=== PATIENT | female | born 1965 | race Caucasian/White ===

== ENCOUNTER → 2016-10-19 | Outpatient (REF) | payer BC ==
[~2016-10-19] MED LIST: ALLE25CA OR; CALCCHW12 OR; CIPR25SS PO; GLUC1000 OR; LEVA250T OR; LIPI10TA OR; MULTIVIT OR; PRIL20CA OR; PYRI200T OR; VICO5TAB OR; [UNRECOGNIZED DRUG - OTHER] OR; victoza SUBQ
[2016-10-19 11:33] LABS: ALBUMIN 3.9 GM/DL (3.2-5.2); ALBUMIN/GLOBULIN RATIO 1.08 (1.00-1.93); ALKALINE PHOSPHATASE 88 U/L (45-117); ALT/SGPT 36 U/L (12-78); ANION GAP 9 MEQ/L (8-16); AST/SGOT 29 U/L (15-37); BILIRUBIN,TOTAL 0.4 MG/DL (0.2-1.0); BLOOD UREA NITROGEN 18 MG/DL (7-18); CALCIUM LEVEL 9.2 MG/DL (8.5-10.1); CARBON DIOXIDE LEVEL 30 MEQ/L (21-32); CHLORIDE LEVEL 104 MEQ/L (98-107); CHOLESTEROL LEVEL 166 MG/DL (<200); GLOMERULAR FILTRATION RATE > 60.0 (>51); GLUCOSE, FASTING 111 MG/DL (70-105); POTASSIUM SERUM 3.9 MEQ/L (3.5-5.1); SODIUM LEVEL 143 MEQ/L (136-145); TOTAL PROTEIN 7.5 GM/DL (6.4-8.2); TRIGLYCERIDES LEVEL 73 MG/DL (<150)
== END ==
LOC: M LABDRAW1 10:26
PROVIDERS: ATTEND Internal Medicine
DX: E11.9 Type 2 diabetes mellitus without complications (principal); E78.00 Pure hypercholesterolemia, unspecified

== ENCOUNTER → 2016-11-17 | Outpatient (CLI) | payer OTHER ==
--- NOTE | 2016-11-17 15:18 | REPMRS ---
Patient History The patient states she has not had a clinical breast exam in over a year. Patient is postmenopausal. Family history of colorectal cancer in father at age 50. Taking unspecified hormones for 8 years. Digital Woman Screen Mammo: November 17, 2016 - Exam #: [id number] Bilateral CC and MLO view(s) were taken. Technologist: Lisa Haque, Technologist Prior study comparison: November 12, 2015, digital woman screen mammo performed at [facility]. November 06, 2014, digital woman screen mammo performed at [facility]. November 01, 2013, digital woman screen mammo performed at [facility]. FINDINGS: The breast tissue is almost entirely fat. There has been no change in the appearance of the mammogram from the prior studies. There is no interval development of dominant mass, architectural distortion, or clustered microcalcification typical of malignancy. ASSESSMENT: BI-RADS/ACR category 1 mammogram. Negative. Recommendation Routine screening mammogram of both breasts in 1 year (for women over age 40). This mammogram was interpreted with the aid of an FDA-approved computer-aided dectection system. Electronically Signed By: Redd Hercules MD 11/17/16 1839
== END ==
LOC: M WHC 13:30
PROVIDERS: ATTEND Internal Medicine
DX: Z12.31 Encounter for screening mammogram for malignant neoplasm of breast (principal); E65 Localized adiposity; Z78.0 Asymptomatic menopausal state; Z92.0 Personal history of contraception; Z80.0 Family history of malignant neoplasm of digestive organs

== ENCOUNTER → 2017-04-06 | Outpatient (REF) | payer OTHER ==
[2017-04-06 15:58] LABS: ALBUMIN 4.2 GM/DL (3.2-5.2); ALBUMIN/GLOBULIN RATIO 1.31 (1.00-1.93); ALKALINE PHOSPHATASE 82 U/L (45-117); ALT/SGPT 30 U/L (12-78); ANION GAP 7 MEQ/L (8-16); AST/SGOT 23 U/L (15-37); BILIRUBIN,TOTAL 0.4 MG/DL (0.2-1.0); BLOOD UREA NITROGEN 18 MG/DL (7-18); CALCIUM LEVEL 9.2 MG/DL (8.5-10.1); CARBON DIOXIDE LEVEL 31 MEQ/L (21-32); CHLORIDE LEVEL 102 MEQ/L (98-107); CREATININE FOR GFR 0.57 MG/DL (0.55-1.02); GLOMERULAR FILTRATION RATE > 60.0 (>51); GLUCOSE, FASTING 112 MG/DL (70-105); POTASSIUM SERUM 4.3 MEQ/L (3.5-5.1); SODIUM LEVEL 140 MEQ/L (136-145); TOTAL PROTEIN 7.4 GM/DL (6.4-8.2)
== END ==
LOC: M LABDRAW1 10:53
PROVIDERS: ATTEND Internal Medicine
DX: E11.9 Type 2 diabetes mellitus without complications (principal)

== ENCOUNTER → 2017-06-27 | Outpatient (REF) | payer OTHER ==
[~2017-06-27] MED LIST changes: +CALCCHW19 PO; +GABA-283 PO; +PERC5TAB12 PO; +VITA100L PO
== END ==
LOC: M SFHCWAGY 13:11
PROVIDERS: ATTEND Nurse Practitioner Family
DX: R30.0 Dysuria (principal); N94.9 Unspecified condition associated with female genital organs and menstrual cycle

== ENCOUNTER 2017-07-01 20:05 | Emergency (ER) | payer OTHER ==
[~2017-07-01] VITALS: Ht 167.6 cm; Wt 84.1 kg
[~2017-07-01 20:05] MED LIST changes: -CALCCHW19 PO; -GABA-283 PO; -PERC5TAB12 PO; -VITA100L PO
[2017-07-01] MEDS ORDERED: CALCCHW19 PO (20:19)
[2017-07-01] MEDS ORDERED: GABA-283 PO (20:19)
[2017-07-01] MEDS ORDERED: VITA100L PO (20:19)
[2017-07-01] MEDS ORDERED: PERCOCET 5MG/325MG TAB PO ONE ×2 (21:45→22:00)
[2017-07-01] MEDS ORDERED: PERC5TAB12 PO (21:51)
[2017-07-01 21:58] VITALS: BP 127/78
--- NOTE | 2017-07-02 08:58 | REP ---
LEFT ELBOW, FOUR VIEWS: HISTORY: Trauma. There is a nondisplaced fracture of the head of the radius. There is no dislocation. A joint effusion is present. IMPRESSION: Nondisplaced fracture of the head of the radius. Signed by Antione Ruggiero MD 07/02/2017 09:29 A
== END 2017-07-01 22:14 | disposition home or self-care (01) ==
LOC: M ED 20:05
DX: S52.125A Nondisplaced fracture of head of left radius, initial encounter for closed fracture (principal); W01.0XXA Fall on same level from slipping, tripping and stumbling without subsequent striking against object, initial encounter; Y92.89 Other specified places as the place of occurrence of the external cause; Y93.01 Activity, walking, marching and hiking; Y99.8 Other external cause status; G61.0 Guillain-Barre syndrome; K58.9 Irritable bowel syndrome, unspecified; I47.1 Supraventricular tachycardia; E11.9 Type 2 diabetes mellitus without complications; M54.9 Dorsalgia, unspecified; Z79.899 Other long term (current) drug therapy; Z88.1 Allergy status to other antibiotic agents; Z88.8 Allergy status to other drugs, medicaments and biological substances

== ENCOUNTER → 2017-10-12 | Outpatient (REF) | payer OTHER ==
[2017-10-12 12:27] LABS: HEMATOCRIT 39.2 % (36.0-47.0); HEMOGLOBIN 12.8 g/dl (12.0-16.0); MEAN CORPUSCULAR HEMOGLOBIN 29.5 pg (27.0-33.0); MEAN CORPUSCULAR HGB CONC 32.7 g/dl (32.0-36.5); MEAN CORPUSCULAR VOLUME 90.3 fl (80.0-96.0); PLATELET COUNT, AUTOMATED 343 10^3/uL (150-450); RED BLOOD COUNT 4.34 10^6/uL (4.00-5.40); RED CELL DISTRIBUTION WIDTH 12.6 % (11.5-14.5)
[2017-10-12 12:27] LABS: HEMATOCRIT 39.1 % (36.0-47.0)
[2017-10-12 12:40] LABS: ALBUMIN 4.3 GM/DL (3.2-5.2); ALBUMIN/GLOBULIN RATIO 1.34 (1.00-1.93); ALKALINE PHOSPHATASE 71 U/L (45-117); ALT/SGPT 30 U/L (12-78); ANION GAP 6 MEQ/L (8-16); AST/SGOT 27 U/L (7-37); BILIRUBIN,TOTAL 0.3 MG/DL (0.2-1.0); BLOOD UREA NITROGEN 22 MG/DL (7-18); CALCIUM LEVEL 9.9 MG/DL (8.5-10.1); CARBON DIOXIDE LEVEL 32 MEQ/L (21-32); CHLORIDE LEVEL 104 MEQ/L (98-107); CHOLESTEROL LEVEL 178 MG/DL (<200); GLOMERULAR FILTRATION RATE > 60.0 (>51); GLUCOSE, FASTING 110 MG/DL (70-100); HDL CHOLESTEROL 62 MG/DL (>40); IRON (FE) 62 UG/DL (50-170); LDL CHOLESTEROL 99.6 MG/DL (<100); NON-HDL-C 116 MG/DL; PERCENT SATURATION 15.4 % (13.2-45.0); POTASSIUM SERUM 4.2 MEQ/L (3.5-5.1); SODIUM LEVEL 142 MEQ/L (136-145); TOTAL IRON BINDING CAPACITY 403 UG/DL (250-450); TOTAL PROTEIN 7.5 GM/DL (6.4-8.2); TRIGLYCERIDES LEVEL 82 MG/DL (<150)
[2017-10-12 12:44] LABS: VITAMIN B12 LEVEL 1702 PG/ML (247-911)
[2017-10-12 13:23] LABS: ESTIMATED AVERAGE GLUCOSE 140 MG/DL (60-110); HEMOGLOBIN A1c 6.5 %
[2017-10-13 13:00] LABS: PRETREATED FOLATE FOR RBCFOL 12.9 NG/ML; RBC FOLATE 692.8 NG/ML (280-791)
== END ==
LOC: M LABDRAW1 11:52
DX: Z98.84 Bariatric surgery status (principal); E11.9 Type 2 diabetes mellitus without complications; Z11.59 Encounter for screening for other viral diseases; I47.1 Supraventricular tachycardia; K21.9 Gastro-esophageal reflux disease without esophagitis

== ENCOUNTER → 2017-11-23 | Outpatient (REF) | LOC: M WHC 08:13 | DX: Z12.31 Encounter for screening mammogram for malignant neoplasm of breast (principal); Z78.0 Asymptomatic menopausal state; Z79.890 Hormone replacement therapy ==

== ENCOUNTER → 2018-04-17 | Outpatient (REF) | payer OTHER, BC ==
[2018-04-17 17:31] LABS: ALBUMIN 3.9 GM/DL (3.2-5.2); ALBUMIN/GLOBULIN RATIO 1.18 (1.00-1.93); ALKALINE PHOSPHATASE 79 U/L (45-117); ALT/SGPT 27 U/L (12-78); ANION GAP 9 MEQ/L (8-16); AST/SGOT 22 U/L (7-37); BILIRUBIN,TOTAL 0.3 MG/DL (0.2-1.0); BLOOD UREA NITROGEN 16 MG/DL (7-18); CALCIUM LEVEL 9.4 MG/DL (8.5-10.1); CARBON DIOXIDE LEVEL 29 MEQ/L (21-32); CHLORIDE LEVEL 104 MEQ/L (98-107); CREATININE FOR GFR 0.48 MG/DL (0.55-1.30); GLOMERULAR FILTRATION RATE > 60.0 (>51); GLUCOSE, FASTING 109 MG/DL (70-100); MAGNESIUM LEVEL 1.9 MG/DL (1.8-2.4); SODIUM LEVEL 142 MEQ/L (136-145); TOTAL PROTEIN 7.2 GM/DL (6.4-8.2)
[2018-04-17 17:53] LABS: CREATININE, URINE 65.3 MG/DL; MALB URINE SIEMENS 6.8 MG/L
[2018-04-17 17:54] LABS: MAU/CREAT RATIO 10.5 MCG/MG (0.0-30.0)
[2018-04-17 18:09] LABS: ESTIMATED AVERAGE GLUCOSE 134 MG/DL (60-110); HEMOGLOBIN A1c 6.3 %
== END ==
LOC: M LABDRAW1 15:58
DX: E11.9 Type 2 diabetes mellitus without complications (principal); N20.0 Calculus of kidney

== ENCOUNTER → 2018-05-08 | Outpatient (CLI) | payer BC | LOC: M RAD 08:58 | DX: M51.36 Other intervertebral disc degeneration, lumbar region (principal); M50.223 Other cervical disc displacement at C6-C7 level; M48.061 Spinal stenosis, lumbar region without neurogenic claudication; M50.222 Other cervical disc displacement at C5-C6 level; M47.22 Other spondylosis with radiculopathy, cervical region | CPT/HCPCS: 72141 ==

== ENCOUNTER → 2018-09-17 | Outpatient (CLI) | payer BC ==
[~2018-09-17] MED LIST changes: +CALCCHW19 PO; +GABA-845 PO; +PERC5TAB12 PO; +VITA100L PO
--- NOTE | 2018-09-18 06:54 | REP ---
Clinical: Shortness of breath . Comparison: 01/14/2016 . Technique: PA and lateral. Findings: The mediastinum and cardiac silhouette are normal. The lung ace are clear and without acute consolidation, effusion, or pneumothorax. The skeletal structures are intact and normal. Impression: 1. No acute cardiopulmonary process. Electronically Signed by Bethel Ramírez MD 09/18/2018 06:46 A
== END ==
LOC: M ADAMS 18:53
PROVIDERS: ATTEND Physician Assistant
DX: R06.02 Shortness of breath (principal)

== ENCOUNTER → 2018-11-22 | Outpatient (REF) | payer BC ==
[2018-11-22 18:10] LABS: HEMATOCRIT 39.8 % (36.0-47.0); HEMOGLOBIN 12.5 g/dl (12.0-15.5); MEAN CORPUSCULAR HEMOGLOBIN 29.4 pg (27.0-33.0); MEAN CORPUSCULAR HGB CONC 31.4 g/dl (32.0-36.5); MEAN CORPUSCULAR VOLUME 93.6 fl (80.0-96.0); PLATELET COUNT, AUTOMATED 416 10^3/uL (150-450); RED BLOOD COUNT 4.25 10^6/uL (4.00-5.40); WHITE BLOOD COUNT 9.1 10^3/uL (4.0-10.0)
[2018-11-22 18:11] LABS: ALBUMIN 4.3 GM/DL (3.2-5.2); ALT/SGPT 28 U/L (12-78); BILIRUBIN,TOTAL 0.3 MG/DL (0.2-1.0); BLOOD UREA NITROGEN 23 MG/DL (7-18); CALCIUM LEVEL 9.6 MG/DL (8.5-10.1); CARBON DIOXIDE LEVEL 31 MEQ/L (21-32); CHLORIDE LEVEL 106 MEQ/L (98-107); CHOLESTEROL LEVEL 190 MG/DL (<200); CHOLESTEROL RISK RATIO 3.454 (<5); CREATININE FOR GFR 0.59 MG/DL (0.55-1.30); GLOMERULAR FILTRATION RATE > 60.0 (>51); GLUCOSE, FASTING 123 MG/DL (70-100); HDL CHOLESTEROL 55 MG/DL (>40); LDL CHOLESTEROL 109.2 MG/DL (<100); MAGNESIUM LEVEL 1.9 MG/DL (1.8-2.4); NON-HDL-C 135 MG/DL; POTASSIUM SERUM 4.5 MEQ/L (3.5-5.1); SODIUM LEVEL 142 MEQ/L (136-145); TOTAL PROTEIN 7.5 GM/DL (6.4-8.2); TRIGLYCERIDES LEVEL 129 MG/DL (<150)
== END ==
LOC: M SFHCADAM 13:00
PROVIDERS: ATTEND Internal Medicine
DX: M54.5 Low back pain (principal); Z98.84 Bariatric surgery status; E11.9 Type 2 diabetes mellitus without complications; E78.00 Pure hypercholesterolemia, unspecified; I47.1 Supraventricular tachycardia; Z79.890 Hormone replacement therapy

== ENCOUNTER → 2018-12-04 | Outpatient (CLI) | payer BC ==
--- NOTE | 2018-12-04 09:28 | REPMRS ---
Patient History The patient states she has not had a clinical breast exam in over a year. Patient is postmenopausal. Family history of colorectal cancer at age 50 in father. Taking unspecified hormones for 10 years. 3D TOMOSYNTHESIS WAS PERFORMED. Digital Woman Screen Mammo: December 04, 2018 - Exam #: [id number] Bilateral CC and MLO view(s) were taken. Technologist: Lisa Haque, Technologist Prior study comparison: November 23, 2017, digital woman screen mammo performed at [facility]. November 17, 2016, digital woman screen mammo performed at [facility] [employer]. FINDINGS: There are scattered fibroglandular densities. There has been no change in the appearance of the mammogram from the prior studies. There is a mild amount of residual fibroglandular tissue which is fairly symmetric. There is no interval development of dominant mass, architectural distortion, or clustered microcalcification suggestive of malignancy. Assessment: BI-RADS/ACR category 1 mammogram. Negative Mammogram. Recommendation Routine screening mammogram in 1 year (for women over age 40). This mammogram was interpreted with the aid of an FDA-approved computer-aided dectection system. Electronically Signed By: Alan Doran MD 12/04/18 0927
== END ==
LOC: M WHC 06:20
PROVIDERS: ATTEND Internal Medicine
DX: Z12.31 Encounter for screening mammogram for malignant neoplasm of breast (principal); Z78.0 Asymptomatic menopausal state; Z79.890 Hormone replacement therapy

== ENCOUNTER → 2019-01-30 | Outpatient (CLI) | payer BC ==
--- NOTE | 2019-01-30 14:30 | REP ---
Clinical: Right lower extremity/calf pain . Technique: Doran scale and color Doppler evaluation using linear high frequency transducer. Findings: Ultrasound examination of the right lower extremity deep venous structures from the common femoral vein to the popliteal vein demonstrates normal compressibility flow and wave patterns in response to respiration and augmentation. There is no evidence for deep venous thrombosis. Incidental partial duplication to the mid superficial femoral vein. Impression: No evidence for deep venous thrombosis. Electronically Signed by Bethel Ramírez MD 01/30/2019 02:22 P
== END ==
LOC: M RAD 13:02
PROVIDERS: ATTEND Nurse Practitioner Adult Health
DX: M79.661 Pain in right lower leg (principal)

== ENCOUNTER → 2019-05-28 | Outpatient (REF) | payer BC ==
[2019-05-28 13:07] LABS: HEMATOCRIT 42.4 % (36.0-47.0)
[2019-05-28 13:17] LABS: APPEARANCE, URINE HAZY (CLEAR); BACTERIA, URINE AUTO NEGATIVE (NEGATIVE); BILIRUBIN, URINE AUTO NEGATIVE (NEGATIVE); BLOOD, URINE BLOOD NEGATIVE (NEGATIVE); COLOR, URINE YELLOW (YELLOW); GLUCOSE, URINE (UA) AUTO NEGATIVE (NEGATIVE); KETONE, URINE AUTO NEGATIVE (NEGATIVE); LEUKOCYTE ESTERASE, URINE AUTO NEGATIVE (NEGATIVE); MUCUS, URINE SMALL (NEGATIVE); NITRITE, URINE AUTO NEGATIVE (NEGATIVE); PROTEIN, URINE AUTO NEGATIVE (NEGATIVE); RBC, URINE AUTO 1 /HPF (0-3); SPECIFIC GRAVITY URINE AUTO 1.031 (1.002-1.035); SQUAMOUS EPITHELIAL CELL UR AU 2 /HPF (0-6); WBC, URINE AUTO 2 /HPF (0-3)
[2019-05-28 13:45] LABS: ALBUMIN 3.9 GM/DL (3.2-5.2); ALT/SGPT 24 U/L (12-78); BILIRUBIN,TOTAL 0.3 MG/DL (0.2-1.0); BLOOD UREA NITROGEN 14 MG/DL (7-18); CALCIUM LEVEL 9.3 MG/DL (8.5-10.1); CARBON DIOXIDE LEVEL 31 MEQ/L (21-32); CHLORIDE LEVEL 107 MEQ/L (98-107); CHOLESTEROL LEVEL 206 MG/DL (<200); CHOLESTEROL RISK RATIO 3.551 (<5); CREATININE FOR GFR 0.62 MG/DL (0.55-1.30); GLOMERULAR FILTRATION RATE > 60.0 (>51); GLUCOSE, FASTING 127 MG/DL (70-100); HDL CHOLESTEROL 58 MG/DL (>40); LDL CHOLESTEROL 117 MG/DL (<100); MAGNESIUM LEVEL 1.9 MG/DL (1.8-2.4); NON-HDL-C 148 MG/DL; POTASSIUM SERUM 4.3 MEQ/L (3.5-5.1); SODIUM LEVEL 141 MEQ/L (136-145); THYROID STIMULATING HORMONE 0.907 uIU/ML (0.358-3.740); TOTAL PROTEIN 7.5 GM/DL (6.4-8.2); TRIGLYCERIDES LEVEL 154 MG/DL (<150)
[2019-05-28 13:46] LABS: VITAMIN B12 LEVEL 1405 PG/ML (247-911)
[2019-05-28 13:51] LABS: MALB URINE SIEMENS 23.6 MG/L; MAU/CREAT RATIO 14.3 MCG/MG (0.0-30.0)
[2019-05-28 14:30] LABS: HEMOGLOBIN A1c 7.3 %
== END ==
LOC: M SFHCADAM 10:46
PROVIDERS: ATTEND Internal Medicine
DX: E11.9 Type 2 diabetes mellitus without complications (principal); E78.00 Pure hypercholesterolemia, unspecified; Z98.84 Bariatric surgery status; N20.0 Calculus of kidney

== ENCOUNTER → 2019-11-14 | Outpatient (CLI) | payer OTHER | LOC: M LABSMTC 10:25 | PROVIDERS: ATTEND Family Medicine | DX: Z11.59 Encounter for screening for other viral diseases (principal); Z20.828 Contact with and (suspected) exposure to other viral communicable diseases ==

== ENCOUNTER → 2019-11-28 | Outpatient (REF) | payer OTHER ==
[2019-11-28 18:20] LABS: APPEARANCE, URINE CLEAR (CLEAR); BACTERIA, URINE AUTO NEGATIVE (NEGATIVE); BILIRUBIN, URINE AUTO NEGATIVE (NEGATIVE); BLOOD, URINE BLOOD NEGATIVE (NEGATIVE); COLOR, URINE YELLOW (YELLOW); GLUCOSE, URINE (UA) AUTO NEGATIVE (NEGATIVE); KETONE, URINE AUTO NEGATIVE (NEGATIVE); LEUKOCYTE ESTERASE, URINE AUTO NEGATIVE (NEGATIVE); NITRITE, URINE AUTO NEGATIVE (NEGATIVE); PROTEIN, URINE AUTO NEGATIVE (NEGATIVE); RBC, URINE AUTO 6 /HPF (0-3); SQUAMOUS EPITHELIAL CELL UR AU 1 /HPF (0-6); UROBILINOGEN, URINE AUTO 0.2 mg/dL (0.0-2.0); WBC, URINE AUTO 2 /HPF (0-3)
== END ==
LOC: M SFHCPLAZ 17:03
PROVIDERS: ATTEND Nurse Practitioner Family
DX: R10.9 Unspecified abdominal pain (principal)

== ENCOUNTER → 2019-11-28 | Outpatient (CLI) | payer OTHER ==
--- NOTE | 2019-11-28 14:06 | REP ---
CT ABDOMEN AND PELVIS WITHOUT CONTRAST: CT abdomen and pelvis performed without oral or IV contrast. Sagittal and coronal reconstruction images are performed. Visualized lung bases are clear. The liver is grossly unremarkable. The spleen is normal in size. Adrenal glands are normal. The pancreas is grossly unremarkable. Multiple splenules are seen in the splenic hilum. Two punctate calcifications are seen in the right renal collecting system without evidence of right-sided hydroureteronephrosis. There is a 4 mm calculus in the proximal left ureter causing a moderate degree of left hydronephrosis. In addition, there is a 3 mm calculus in the lower pole of the left renal collecting system. There is no abdominal aortic aneurysm. There is no adenopathy. There is no free air or free fluid. There is no bowel wall thickening. There is evidence of prior gastric surgery. The appendix is normal. No pelvic mass is seen status post hysterectomy. Urinary bladder is grossly unremarkable. IMPRESSION: There is a 4 mm calculus in the proximal left ureter causing moderate left hydronephrosis. There are tiny intrarenal calculi bilaterally. No right hydronephrosis. Electronically Signed by Alan Doran MD 11/28/2019 02:43 P
== END ==
LOC: M RAD 12:16
PROVIDERS: ATTEND Nurse Practitioner Family
DX: R10.32 Left lower quadrant pain (principal); N13.1 Hydronephrosis with ureteral stricture, not elsewhere classified; N20.0 Calculus of kidney

== ENCOUNTER → 2019-12-13 | Outpatient (CLI) | payer OTHER ==
[~2019-12-13] MED LIST changes: +ATOR1TAB19 PO; +BACIOIN23 OP; +CVS1CAP5 PO; +ESTR1TAB3 PO; +METF750T36 PO; +MULTCAP PO; +NORC1TAB7 PO; +OMEP10CASR PO; +TIZA4TAB4 PO; +VICO10TA11 PO; +VITA500T40 PO
[2019-12-13 12:10] LABS: HEMATOCRIT 37.3 % (36.0-47.0); HEMOGLOBIN 11.8 g/dl (12.0-15.5); MEAN CORPUSCULAR HEMOGLOBIN 28.7 pg (27.0-33.0); MEAN CORPUSCULAR HGB CONC 31.6 g/dl (32.0-36.5); MEAN CORPUSCULAR VOLUME 90.8 fl (80.0-96.0); PLATELET COUNT, AUTOMATED 425 10^3/uL (150-450); RED BLOOD COUNT 4.11 10^6/uL (4.00-5.40); WHITE BLOOD COUNT 8.6 10^3/uL (4.0-10.0)
[2019-12-13 12:22] LABS: INR 0.95; PROTHROMBIN TIME 12.4 SECONDS (11.8-14.0)
[2019-12-13 12:23] LABS: PARTIAL THROMBOPLASTIN TIME 28.2 SECONDS (25.0-38.4)
[2019-12-13 12:28] LABS: BLOOD UREA NITROGEN 19 MG/DL (7-18); CALCIUM LEVEL 9.4 MG/DL (8.5-10.1); CARBON DIOXIDE LEVEL 28 MEQ/L (21-32); CHLORIDE LEVEL 106 MEQ/L (98-107); CREATININE FOR GFR 0.51 MG/DL (0.55-1.30); GLOMERULAR FILTRATION RATE > 60.0 (>51); GLUCOSE, FASTING 106 MG/DL (70-100); POTASSIUM SERUM 4.1 MEQ/L (3.5-5.1); SODIUM LEVEL 141 MEQ/L (136-145)
--- NOTE | 2019-12-13 13:20 | REP ---
TWO-VIEW CHEST: REASON: Preoperative evaluation. COMPARISON: 01/14/2016 FINDINGS: The superior mediastinal structures are midline. The cardiac silhouette is unremarkable in size, shape, and position. The diaphragmatic surfaces of the lungs are regular, and the costophrenic angles are clear. The pulmonary ace are clear. The imaged osseous structures are intact. IMPRESSION: There is no acute cardiopulmonary disease. No change from the prior exam. Electronically Signed by Ronnie Rodriguez DO 12/13/2019 01:31 P
--- NOTE | 2019-12-13 20:12 | ECGEPIP ---
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
== END ==
LOC: M LAB 11:10
PROVIDERS: ATTEND Nurse Practitioner Women's Health
DX: N13.2 Hydronephrosis with renal and ureteral calculous obstruction (principal)

== ENCOUNTER → 2019-12-16 | Outpatient (CLI) | payer OTHER | LOC: M LABSMTC 11:49 | PROVIDERS: ATTEND Anesthesiology | DX: Z01.818 Encounter for other preprocedural examination (principal); Z11.59 Encounter for screening for other viral diseases | CPT/HCPCS: C9803; U0003 ==

== ENCOUNTER 2019-12-19 07:33 | Day surgery (SDC) | payer OTHER ==
[~2019-12-19] VITALS: Ht 165.1 cm; Wt 79.4 kg
[~2019-12-19 07:33] MED LIST changes: -BACIOIN23 OP; +LR 1,000 ML IV ONE; -NORC1TAB7 PO; -TIZA4TAB4 PO; +ceFAZolin SOD 2 GM in IV 1 EA IV ONE
[2019-12-19] MEDS ORDERED: fentaNYL 100 MCG/2 ML INJECTION (J3010) As Ordered ONE (07:47)
[2019-12-19] MEDS ORDERED: MIDAZOLAM INJ 2MG/2ML VIAL (J2250 PER 1MG) As Ordered ONE (07:47)
[2019-12-19] MEDS ORDERED: propofoL 200 MG/20 ML VIAL As Ordered ONE (07:49)
[2019-12-19] MEDS ORDERED: ONDANSETRON 4MG/2ML VIAL As Ordered ONE ×2 (07:49→10:35)
[2019-12-19] MEDS ORDERED: LIDOCAINE 2% 100MG/5ML SDV (FOR ANES.) As Ordered ONE (07:49)
[2019-12-19] MEDS ORDERED: dexameTHASONE 4 MG/ML 1ML VIAL (J1100 PER 1MG) As Ordered ONE (07:49)
[2019-12-19] MEDS ORDERED: TIZA4TAB4 PO (08:03)
[2019-12-19] MEDS ORDERED: CONRAY-60 60% 50ML VIAL (Q9961) As Ordered ONE (08:57)
[2019-12-19] MEDS ORDERED: ACETAMINOPHEN 1000MG 100ML IV BTL (OFIRMEV) (J0131 PER 10MG) As Ordered ONE (09:46)
--- NOTE | 2019-12-19 10:26 | REP ---
RETROGRADE PYELOGRAM: Two views. HISTORY: Left ureteroscopy with laser and stent placement. FINDINGS: A sequence of two last image hold fluoroscopically obtained spot radiographs of the left abdomen document left ureteral cannulation, contrast injection, and double pigtail stent placement. 15 seconds of fluoroscopy time is reported. Electronically Signed by Ben Hercules MD 12/19/2019 11:25 A
[2019-12-19] MEDS ORDERED: oxyCODONE 5MG TAB As Ordered ONE (10:47)
[2019-12-19] MEDS ORDERED: NORCO, ANEXSIA 5/325MG TABLET (HYDROcodone/ACETAMINOPHEN) PO PRN (11:15)
[2019-12-19] MEDS ORDERED: ONDANSETRON 4MG/2ML VIAL IV PRN (11:15)
[2019-12-19] MEDS ORDERED: fentaNYL 100 MCG/2 ML INJECTION (J3010) IV PRN (11:15)
[2019-12-19] MEDS ORDERED: oxyBUTYnin 5 MG TAB PO PRN (11:15)
[2019-12-19] MEDS ORDERED: LR 1,000 ML IV SCH (11:15)
[2019-12-19] MEDS ORDERED: oxyCODONE 5MG TAB PO PRN (11:15)
[2019-12-19] MEDS ORDERED: METOCLOPRAMIDE INJ 10MG/2ML VIAL (J2765 PER 1) As Ordered ONE (11:43)
[2019-12-19] MEDS ORDERED: METOCLOPRAMIDE INJ 10MG/2ML VIAL (J2765 PER 1) IV PRN (12:15)
[2019-12-19 12:25] VITALS: BP 152/80
--- NOTE | 2019-12-24 11:17 | RO ---
DATE OF PROCEDURE: 12/19/2019 PREPROCEDURE DIAGNOSIS: Left kidney and ureteral stones. POSTPROCEDURE DIAGNOSIS: Left kidney and ureteral stones. PROCEDURE: Cystoscopy, left ureteroscopy with laser lithotripsy and basket extraction of stones, let retrograde pyelogram with intraoperative interpretation of images, left ureteral stent placement. SURGEON: Dr. Brandan Allen RV SERVICE TECHNICIAN: None. ANESTHESIA: General. OPERATIVE INDICATIONS: This is a 54-year-old female found to have obstructing 4-5m mm proximal left ureteral stones as well as smaller stones inside the kidney. She was brought to the operating room today for treatment. DESCRIPTION OF PROCEDURE: The patient was brought to the operating room and general anesthesia was induced. Prophylactic antibiotics were infused. She was then placed in the dorsal lithotomy position and prepped and draped in the usual sterile fashion. A rigid cystoscope was inserted into the urethral meatus and advanced into the bladder. A guidewire was advanced up the left collecting system. At this point, a ureteral access sheath was advanced up the left collecting system. I went up the access sheath with a flexible ureteroscope. Within the proximal ureter, the ureteral stone was seen impacted. The stone was fragmented into smaller pieces using a 272 micron laser fiber. Then all the fragments were removed using a basket. There was a mild amount of edema in this area. I then advanced the scope all the way into the kidney and of note the kidney was severely hydronephrotic. At this point, I identified another stone approximately 4 mm in size and it was grasped with a basket and removed. No additional stones were seen inside the kidney. I then shot a retrograde pyelogram and it was notable for moderate left hydronephrosis and no extravasation. I then withdrew the ureteroscope along with access sheath and no additional stones were seen within the ureter. I then utilized the wire to advance a 6 Polish x 22-32 cm JJ ureteral stent into the left collecting system. The wire was removed and there were adequate curls of the stent in the left renal pelvis and in the bladder. The bladder was emptied of all fluids and this marked the conclusion of the procedure. The patient was taken out of the dorsal lithotomy position, awakened from anesthesia and transported to the recovery room in stable condition. Estimated blood loss: 5 mL. Complications: None. Specimen: Kidney tone fragments. Plan: The patient will followup in the clinic in a few weeks for stent removal. [facility] HOSPITALBetty
== END 2019-12-19 12:27 | disposition home or self-care (01) ==
LOC: M SDC 07:33
PROVIDERS: ATTEND Urology
DX: N20.2 Calculus of kidney with calculus of ureter (principal); E11.9 Type 2 diabetes mellitus without complications; K58.8 Other irritable bowel syndrome; K21.9 Gastro-esophageal reflux disease without esophagitis; E28.2 Polycystic ovarian syndrome; Z98.84 Bariatric surgery status; Z79.899 Other long term (current) drug therapy; Z79.84 Long term (current) use of oral hypoglycemic drugs; Z88.1 Allergy status to other antibiotic agents; Z88.8 Allergy status to other drugs, medicaments and biological substances
CPT/HCPCS: 52356; 74420; 82365; 88300; C1769; C1894; C2617; J0131; J0690; J1100; J2250; J2405; J3010; Q9961

== ENCOUNTER 2019-12-22 06:44 | Emergency (ER) | payer OTHER ==
[~2019-12-22] VITALS: Ht 165.1 cm; Wt 79.5 kg
[~2019-12-22 06:44] MED LIST changes: -LR 1,000 ML IV ONE; +TIZA4TAB4 PO; -ceFAZolin SOD 2 GM in IV 1 EA IV ONE
[2019-12-22 06:45] VITALS: BP 146/73
[2019-12-22] MEDS ORDERED: PROPARACAINE 0.5% OPHTH SOL 15ML XX ONE (07:15)
[2019-12-22] MEDS ORDERED: FLUORESCEIN OPHTH 1 MG STRIP XX ONE (07:15)
[2019-12-22] MEDS ORDERED: NORC1TAB7 PO (07:43)
[2019-12-22] MEDS ORDERED: BACIOIN23 OP (07:44)
== END 2019-12-22 07:59 | disposition home or self-care (01) ==
LOC: M ED 06:44
DX: S05.01XA Injury of conjunctiva and corneal abrasion without foreign body, right eye, initial encounter (principal); X58.XXXA Exposure to other specified factors, initial encounter; Y92.9 Unspecified place or not applicable; E11.9 Type 2 diabetes mellitus without complications; Z79.84 Long term (current) use of oral hypoglycemic drugs; Z88.8 Allergy status to other drugs, medicaments and biological substances; Z79.899 Other long term (current) drug therapy

== ENCOUNTER → 2019-12-31 | Outpatient (REF) | payer OTHER ==
[~2019-12-31] MED LIST changes: +BACIOIN23 OP; +NORC1TAB7 PO
[2019-12-31 19:21] LABS: APPEARANCE, URINE MANUAL CLOUDY (CLEAR); COLOR, URINE MANUAL ORANGE (YELLOW); PH,URINE MAN OBSCURED UNITS (5.0 - 7.0); SPECIFIC GRAVITY,URINE MANUAL 1.021 (1.002-1.035)
[2019-12-31 19:22] LABS: BILIRUBIN, URINE MANUAL OBSCURED (NEGATIVE); BLOOD URINE MANUAL OBSCURED (NEGATIVE); GLUCOSE, URINE (UA) MANUAL OBSCURED mg/dL (NEGATIVE); KETONE, URINE MANUAL OBSCURED mg/dL (NEGATIVE); LEUKOCYTE ESTERASE, URINE MAN OBSCURED (NEGATIVE); NITRITE, URINE MANUAL OBSCURED (NEGATIVE); PROTEIN, URINE MANUAL OBSCURED mg/dL (NEGATIVE); UROBILINOGEN, URINE MANUAL OBSCURED mg/dl (NORMAL)
[2019-12-31 19:52] LABS: BACTERIA, URINE LARGE AMOUNT; RBC, URINE TNTC /hpf (0-3); SQUAMOUS EPITHELIAL CELL URINE SMALL AMOUNT /hpf (SMALL AMT); TRANSITIONAL EPI CELLS, URINE MOD AMOUNT /hpf; WBC, URINE TNTC /hpf (0-3)
[2019-12-31 19:53] LABS: HYALINE CAST, URINE NONE SEEN /lpf (0-1)
== END ==
LOC: M SMT 17:50
PROVIDERS: ATTEND Nurse Practitioner Women's Health
DX: R30.0 Dysuria (principal)

== ENCOUNTER → 2020-01-22 | Outpatient (REF) | payer OTHER ==
[2020-01-22 18:46] LABS: APPEARANCE, URINE HAZY (CLEAR); BACTERIA, URINE AUTO NEGATIVE (NEGATIVE); BILIRUBIN, URINE AUTO NEGATIVE (NEGATIVE); BLOOD, URINE BLOOD NEGATIVE (NEGATIVE); CALCIUM OXALATE CRYSTALS LARGE; COLOR, URINE AMBER (YELLOW); GLUCOSE, URINE (UA) AUTO NEGATIVE (NEGATIVE); KETONE, URINE AUTO NEGATIVE (NEGATIVE); LEUKOCYTE ESTERASE, URINE AUTO NEGATIVE (NEGATIVE); NITRITE, URINE AUTO NEGATIVE (NEGATIVE); PROTEIN, URINE AUTO NEGATIVE (NEGATIVE); RBC, URINE AUTO 0 /HPF (0-3); SPECIFIC GRAVITY URINE AUTO 1.026 (1.002-1.035); SQUAMOUS EPITHELIAL CELL UR AU 1 /HPF (0-6); UROBILINOGEN, URINE AUTO 0.2 mg/dL (0.0-2.0); WBC, URINE AUTO 5 /HPF (0-3)
== END ==
LOC: M SFHCPLAZ 13:17 → M SFHCADAM 13:19
PROVIDERS: ATTEND Internal Medicine
DX: R30.0 Dysuria (principal)

== ENCOUNTER → 2020-01-23 | Outpatient (CLI) | payer OTHER ==
--- NOTE | 2020-01-23 09:43 | REPMRS ---
Patient History The patient states she has not had a clinical breast exam in over a year. Family history of colorectal cancer at age 50 in father. Taking unspecified hormones for 10 years. Digital Woman Screen Mammo: January 23, 2020 - Exam #: [id number] Bilateral CC and MLO view(s) were taken. Technologist: Daya Alfred, Technologist Prior study comparison: December 04, 2018, bilateral digital woman screen mammo performed at [facility]. November 23, 2017, digital woman screen mammo performed at [facility]. November 17, 2016, digital woman screen mammo performed at [facility]. FINDINGS: The breast tissue is almost entirely fat. The Volpara volumetric breast density category is: A. There has been no change in the appearance of the mammogram from the prior studies. There is no interval development of dominant mass, architectural distortion, or grouped microcalcification typical of malignancy. 3-D tomosynthesis shows no additional findings. Assessment: BI-RADS/ACR category 1 mammogram. Negative Mammogram. Recommendation Routine screening mammogram of both breasts in 1 year (for women over age 40). This patient's Lifetime Breast Cancer RIsk is estimated at 8.3 %. This mammogram was interpreted with the aid of an FDA-approved computer-aided dectection system. Electronically Signed By: Redd Hercules MD 01/23/20 0942
== END ==
LOC: M WHC 08:33
PROVIDERS: ATTEND Internal Medicine
DX: Z12.31 Encounter for screening mammogram for malignant neoplasm of breast (principal)

== ENCOUNTER → 2020-05-08 | Outpatient (CLI) | payer OTHER ==
[2020-05-08 16:17] LABS: HEMATOCRIT 43.8 % (36.0-47.0); HEMOGLOBIN 13.3 g/dl (12.0-15.5); MEAN CORPUSCULAR HEMOGLOBIN 28.3 pg (27.0-33.0); MEAN CORPUSCULAR HGB CONC 30.4 g/dl (32.0-36.5); MEAN CORPUSCULAR VOLUME 93.2 fl (80.0-96.0); PLATELET COUNT, AUTOMATED 429 10^3/uL (150-450); WHITE BLOOD COUNT 7.5 10^3/uL (4.0-10.0)
[2020-05-08 16:35] LABS: HEMOGLOBIN A1c 6.7 %
[2020-05-08 16:41] LABS: ALBUMIN 3.9 GM/DL (3.2-5.2); ALT/SGPT 25 U/L (12-78); BILIRUBIN,TOTAL 0.2 MG/DL (0.2-1.0); BLOOD UREA NITROGEN 13 MG/DL (7-18); CALCIUM LEVEL 9.7 MG/DL (8.5-10.1); CARBON DIOXIDE LEVEL 30 MEQ/L (21-32); CHLORIDE LEVEL 105 MEQ/L (98-107); CHOLESTEROL LEVEL 184 MG/DL (<200); CHOLESTEROL RISK RATIO 3.016 (<5); CREATININE FOR GFR 0.55 MG/DL (0.55-1.30); GLOMERULAR FILTRATION RATE > 60.0 (>51); GLUCOSE, FASTING 105 MG/DL (70-100); HDL CHOLESTEROL 61 MG/DL (>40); LDL CHOLESTEROL 100 MG/DL (<100); NON-HDL-C 123 MG/DL; POTASSIUM SERUM 3.9 MEQ/L (3.5-5.1); SODIUM LEVEL 142 MEQ/L (136-145); TOTAL PROTEIN 7.6 GM/DL (6.4-8.2); TRIGLYCERIDES LEVEL 116 MG/DL (<150)
== END ==
LOC: M WUC 14:46
PROVIDERS: ATTEND Internal Medicine
DX: E11.9 Type 2 diabetes mellitus without complications (principal); E78.00 Pure hypercholesterolemia, unspecified; Z79.890 Hormone replacement therapy

== ENCOUNTER → 2020-07-15 | Outpatient (REF) | payer OTHER ==
[2020-07-15 17:52] LABS: APPEARANCE, URINE CLEAR (CLEAR); BACTERIA, URINE AUTO NEGATIVE (NEGATIVE); BILIRUBIN, URINE AUTO NEGATIVE (NEGATIVE); BLOOD, URINE BLOOD NEGATIVE (NEGATIVE); COLOR, URINE YELLOW (YELLOW); GLUCOSE, URINE (UA) AUTO NEGATIVE (NEGATIVE); KETONE, URINE AUTO NEGATIVE (NEGATIVE); LEUKOCYTE ESTERASE, URINE AUTO NEGATIVE (NEGATIVE); MUCUS, URINE SMALL (NEGATIVE); NITRITE, URINE AUTO NEGATIVE (NEGATIVE); PROTEIN, URINE AUTO NEGATIVE (NEGATIVE); RBC, URINE AUTO 1 /HPF (0-3); SPECIFIC GRAVITY URINE AUTO 1.021 (1.002-1.035); SQUAMOUS EPITHELIAL CELL UR AU 1 /HPF (0-6); UROBILINOGEN, URINE AUTO 0.2 mg/dL (0.0-2.0); WBC, URINE AUTO 2 /HPF (0-3)
[2020-07-15 18:26] LABS: ALBUMIN 3.9 GM/DL (3.2-5.2); ALT/SGPT 29 U/L (12-78); BILIRUBIN,TOTAL 0.2 MG/DL (0.2-1.0); BLOOD UREA NITROGEN 17 MG/DL (7-18); CALCIUM LEVEL 9.5 MG/DL (8.5-10.1); CARBON DIOXIDE LEVEL 31 MEQ/L (21-32); CHLORIDE LEVEL 105 MEQ/L (98-107); CREATININE FOR GFR 0.49 MG/DL (0.55-1.30); FREE T4 0.74 NG/DL (0.76-1.46); GLOMERULAR FILTRATION RATE > 60.0 (>51); GLUCOSE, FASTING 128 MG/DL (70-100); SODIUM LEVEL 142 MEQ/L (136-145); TOTAL PROTEIN 7.2 GM/DL (6.4-8.2)
== END ==
LOC: M SFHCPLAZ 15:19
PROVIDERS: ATTEND Internal Medicine
DX: R30.0 Dysuria (principal); R63.4 Abnormal weight loss

== ENCOUNTER 2020-10-06 09:32 | Emergency (ER) | payer OTHER ==
[~2020-10-06] VITALS: Ht 162.6 cm; Wt 76.4 kg
[~2020-10-06 09:32] MED LIST changes: -AMOX500C; -BUPR150T12; -OXYC1TAB23; -PRED20TA PO
[2020-10-06] MEDS ORDERED: AMOX500C (09:48)
[2020-10-06] MEDS ORDERED: OXYC1TAB23 (09:48)
[2020-10-06] MEDS ORDERED: BUPR150T12 (09:48)
[2020-10-06] MEDS ORDERED: MORPHINE 2 MG/ML 1ML VIAL (J2270) IV PRN (10:05)
[2020-10-06 10:28] LABS: BASO % 0.2 % (0.0-1.0); EOS # 0.3 10^3/uL (0.0-0.5); EOS % 3.4 % (0.0-3.0); HEMATOCRIT 37.4 % (36.0-47.0); HEMOGLOBIN 11.5 g/dl (12.0-15.5); LYMPH # 1.3 10^3/uL (1.5-5.0); LYMPH % 12.9 % (24.0-44.0); MEAN CORPUSCULAR HEMOGLOBIN 27.8 pg (27.0-33.0); MEAN CORPUSCULAR HGB CONC 30.7 g/dl (32.0-36.5); MEAN CORPUSCULAR VOLUME 90.3 fl (80.0-96.0); MONO # 0.7 10^3/uL (0.0-0.8); MONO % 6.7 % (2.0-8.0); NEUTROPHILS # 7.6 10^3/uL (1.5-8.5); NEUTROPHILS % 76.4 % (36.0-66.0); PLATELET COUNT, AUTOMATED 375 10^3/uL (150-450); RED BLOOD COUNT 4.14 10^6/uL (4.00-5.40)
[2020-10-06 10:40] LABS: INR 0.92; PROTHROMBIN TIME 12.5 SECONDS (12.5-14.3)
[2020-10-06 10:41] LABS: PARTIAL THROMBOPLASTIN TIME 28.9 SECONDS (24.2-38.5)
--- NOTE | 2020-10-06 10:52 | REP ---
INDICATION: right flank pain COMPARISON: 12/18/2019 TECHNIQUE: Axial noncontrast images from the lung bases to the pubic symphysis with coronal and sagittal reformations. This CT examination was performed using the following dose reduction techniques: Automated exposure control, adjustment of mA and/or kv according to the patient's size, and use of iterative reconstruction technique. FINDINGS: Kidneys demonstrate few bilateral nonobstructing nephroliths measuring up to 4 mm. There is no evidence for acute perinephric stranding, hydroureteronephrosis or obvious obstructing ureteral calculus. Calcifications within the pelvis remains stable and likely represent phleboliths as compared to prior exam. Liver, spleen, pancreas, and bilateral adrenal glands are normal. Evidence for prior gastric bypass surgery and cholecystectomy noted. No bowel obstruction or acute inflammatory process. Normal terminal ileum and appendix identified in the right lower quadrant. Pelvis demonstrates normal bladder and evidence for prior hysterectomy. No ascites. No free air. No significant adenopathy. Abdominal aorta without aneurysm. Degenerative changes to musculoskeletal structures noted. IMPRESSION: 1. Bilateral nonobstructing nephroliths up to 4 mm. No associated acute obstructive uropathy appreciated. 2. No acute abdominopelvic pathology appreciated. <Electronically signed by Bethel Ramírez > 10/06/20 1046
--- NOTE | 2020-10-06 10:54 | REP ---
INDICATION: right shoulder pain COMPARISON: 12/13/2019 TECHNIQUE: Portable AP view of the chest FINDINGS: The mediastinum and cardiac silhouette are stable and within normal limits for portable technique. The lung ace are clear without acute consolidation, effusion, or pneumothorax. Skeletal structures are intact. IMPRESSION: No acute cardiopulmonary process appreciated. <Electronically signed by Bethel Ramírez > 10/06/20 4215
--- NOTE | 2020-10-06 10:55 | REP ---
INDICATION: right shoulder pain COMPARISON: None. TECHNIQUE: Internal rotation, external rotation, and Y view. FINDINGS: Generalized age-related changes are appreciated. No significant overt osteoarthritic findings. Subacromial space is normal. No acute fracture or dislocation. IMPRESSION: Age-related changes. No acute fracture or dislocation. <Electronically signed by Bethel Ramírez > 10/06/20 0379
[2020-10-06 10:57] LABS: ERYTHROCYTE SEDIMENTATION RATE 42 mm/hr (0-30)
[2020-10-06 10:59] LABS: ALBUMIN 3.8 GM/DL (3.2-5.2); ALT/SGPT 25 U/L (12-78); BILIRUBIN,DIRECT < 0.1 MG/DL (0.0-0.2); BILIRUBIN,TOTAL 0.2 MG/DL (0.2-1.0); BLOOD UREA NITROGEN 17 MG/DL (7-18); CALCIUM LEVEL 10.1 MG/DL (8.5-10.1); CARBON DIOXIDE LEVEL 31 MEQ/L (21-32); CHLORIDE LEVEL 102 MEQ/L (98-107); CREATININE FOR GFR 0.63 MG/DL (0.55-1.30); GLOMERULAR FILTRATION RATE > 60.0 (>51); GLUCOSE, FASTING 89 MG/DL (70-100); LIPASE 42 U/L (73-393); POTASSIUM SERUM 3.6 MEQ/L (3.5-5.1); SODIUM LEVEL 137 MEQ/L (136-145); TOTAL PROTEIN 8.1 GM/DL (6.4-8.2); URIC ACID 4.3 MG/DL (2.6-6.0)
[2020-10-06] MEDS ORDERED: KETOROLAC 30 MG/ML 1ML VIAL IV ONE (11:10)
[2020-10-06] MEDS ORDERED: PRED20TA PO (12:24)
[2020-10-06 12:50] VITALS: BP 131/64
== END 2020-10-06 12:50 | disposition home or self-care (01) ==
LOC: M ED 09:32
DX: M25.511 Pain in right shoulder (principal); E11.9 Type 2 diabetes mellitus without complications; I47.1 Supraventricular tachycardia; K21.9 Gastro-esophageal reflux disease without esophagitis; E78.9 Disorder of lipoprotein metabolism, unspecified; Z98.84 Bariatric surgery status; Z79.899 Other long term (current) drug therapy; Z79.84 Long term (current) use of oral hypoglycemic drugs; Z88.1 Allergy status to other antibiotic agents; Z88.8 Allergy status to other drugs, medicaments and biological substances
CPT/HCPCS: 71045; 73030; 74176; 80048; 80076; 83690; 84550; 85025; 85610; 85652; 85730; 86140; 96374; 96375; 99284; J1885; J2270

== ENCOUNTER → 2020-10-06 | Outpatient (CLI) | payer OTHER ==
[~2020-10-06] MED LIST changes: +AMOX500C; +BUPR150T12; +OXYC1TAB23; +PRED20TA PO
== END ==
LOC: M LAB 17:11
PROVIDERS: ATTEND Orthopaedic Surgery
DX: M25.511 Pain in right shoulder (principal)

== ENCOUNTER → 2020-10-20 | Outpatient (CLI) | payer OTHER ==
[~2020-10-20] MED LIST changes: +AMOX500C; +BUPR150T12; +OXYC1TAB23; +PRED20TA PO
[2020-10-20 15:40] LABS: BASO % 0.4 % (0.0-1.0); EOS # 0.3 10^3/uL (0.0-0.5); EOS % 3.2 % (0.0-3.0); HEMATOCRIT 38.2 % (36.0-47.0); HEMOGLOBIN 11.6 g/dl (12.0-15.5); LYMPH # 1.9 10^3/uL (1.5-5.0); LYMPH % 22.8 % (24.0-44.0); MEAN CORPUSCULAR HEMOGLOBIN 27.5 pg (27.0-33.0); MEAN CORPUSCULAR HGB CONC 30.4 g/dl (32.0-36.5); MEAN CORPUSCULAR VOLUME 90.5 fl (80.0-96.0); MONO # 0.6 10^3/uL (0.0-0.8); MONO % 6.9 % (2.0-8.0); NEUTROPHILS # 5.5 10^3/uL (1.5-8.5); NEUTROPHILS % 66.3 % (36.0-66.0); PLATELET COUNT, AUTOMATED 413 10^3/uL (150-450); RED BLOOD COUNT 4.22 10^6/uL (4.00-5.40); WHITE BLOOD COUNT 8.2 10^3/uL (4.0-10.0)
[2020-10-20 15:55] LABS: C REACTIVE PROTEIN QUANTITATIV < 0.30 MG/DL (0.00-0.30); URIC ACID 4.4 MG/DL (2.6-6.0)
[2020-10-20 15:58] LABS: ERYTHROCYTE SEDIMENTATION RATE 23 mm/hr (0-30)
== END ==
LOC: M LAB 15:03
PROVIDERS: ATTEND Internal Medicine
DX: R70.0 Elevated erythrocyte sedimentation rate (principal); M25.511 Pain in right shoulder

== ENCOUNTER → 2020-10-22 | Outpatient (CLI) | payer OTHER | LOC: M RAD 15:00 | PROVIDERS: ATTEND Orthopaedic Surgery | DX: Z53.29 Procedure and treatment not carried out because of patient's decision for other reasons (principal); M25.511 Pain in right shoulder ==

== ENCOUNTER → 2020-11-06 | Outpatient (CLI) | payer OTHER ==
--- NOTE | 2020-11-06 16:12 | REP ---
INDICATION: RIGHT SHOULDER PAIN, RO SEPTIC JOINT. COMPARISON: Radiographs 10/06/2020. TECHNIQUE: Coronal oblique T1, T2 fat sat, sagittal oblique T2 fat sat, axial T2 fat sat, gradient echo. Pre and post gadolinium T1 fat-sat images with the intravenous administration of 15 mL ProHance. FINDINGS: Rotator cuff: There is ivxc-qi-vkpnytyb supraspinatus tendinopathy/tendinitis with a partial bursal surface tear at the anterior leading edge of the tendon. Acromioclavicular joint: There are moderate hypertrophic degenerative changes of the acromioclavicular joint mild downward sloping of the acromion. Acromion: Type 2 Biceps Tendon: In bicipital groove, no tenosynovitis. Hill Sach's deformity: None. Deltoid muscle: No abnormal signal. Biceps labral complex: Intact. Labrum: No tear. Cartilage: No defects. Bone marrow: No abnormal signal. Joint fluid: No effusion. There is a small amount of fluid in the subacromial/subdeltoid bursae. There is no abnormal osseous or soft tissue enhancement. IMPRESSION: Zhdd-do-zsjasgqo supraspinatus tendinopathy/tendinitis with partial bursal surface tear at the anterior leading edge of the tendon. Moderate hypertrophic degenerative changes acromioclavicular joint with mild downward sloping of the acromion, which is type 2. Mild fluid in the subacromial/subdeltoid bursae. <Electronically signed by Alan Doran > 11/06/20 [id number]
== END ==
LOC: M PLARAD 13:54
PROVIDERS: ATTEND Orthopaedic Surgery
DX: M25.511 Pain in right shoulder (principal); M75.111 Incomplete rotator cuff tear or rupture of right shoulder, not specified as traumatic

== ENCOUNTER → 2020-11-12 | Outpatient (REF) | payer OTHER ==
[2020-11-12 10:41] LABS: ALT/SGPT 23 U/L (12-78); BILIRUBIN,TOTAL 0.2 MG/DL (0.2-1.0); BLOOD UREA NITROGEN 22 MG/DL (7-18); CALCIUM LEVEL 10.6 MG/DL (8.5-10.1); CARBON DIOXIDE LEVEL 27 MEQ/L (21-32); CHLORIDE LEVEL 106 MEQ/L (98-107); CREATININE FOR GFR 0.56 MG/DL (0.55-1.30); GLOMERULAR FILTRATION RATE > 60.0 (>51); GLUCOSE, FASTING 106 MG/DL (70-100); POTASSIUM SERUM 3.9 MEQ/L (3.5-5.1); SODIUM LEVEL 141 MEQ/L (136-145); TOTAL PROTEIN 7.2 GM/DL (6.4-8.2)
[2020-11-12 10:42] LABS: ALBUMIN 4.1 GM/DL (3.2-5.2)
[2020-11-12 13:34] LABS: FOLATE 23.6 NG/ML; VITAMIN B12 LEVEL > 2000 PG/ML
[2020-11-12 18:19] LABS: HEMOGLOBIN A1c 6.7 %
== END ==
LOC: M LAB REF 09:02
PROVIDERS: ATTEND Internal Medicine
DX: E11.9 Type 2 diabetes mellitus without complications (principal); Z98.84 Bariatric surgery status

== ENCOUNTER 2020-12-21 08:00 | Outpatient (RCR) | payer OTHER ==
[~2020-12-21 08:00] MED LIST changes: +GABA-283 PO; -GABA-845 PO
== END 2020-12-28 ==
LOC: M PT 08:00
PROVIDERS: ATTEND Orthopaedic Surgery
DX: M25.511 Pain in right shoulder (principal); M54.2 Cervicalgia

== ENCOUNTER → 2020-12-31 | Outpatient (CLI) | payer OTHER ==
--- NOTE | 2020-12-31 14:24 | REPVR ---
PROCEDURE INFORMATION: Exam: MR Cervical Spine Without Contrast Exam date and time: 12/31/2020 1:52 PM Age: 55 years old Clinical indication: Radicular pain (radiculopathy); Cervical region; Additional info: Radiculopathy lumbar region / cervical radiculopat TECHNIQUE: Imaging protocol: Multiplanar magnetic resonance images of the cervical spine without contrast. COMPARISON: MRI-Spine,Cervical without con 05/08/2018 9:21 AM FINDINGS: Vertebrae: 2 mm of grade 1 degenerative anterolisthesis of C3 on C4. No acute fracture seen. Edema in the bilateral C3-C4 articular facet is likely inflammatory/degenerative, present on the basis of advanced facet arthropathy. Spinal cord: Normal signal. Disc desiccation throughout. Disc height loss and spondylosis is moderate at C5-C6 and C6-C7 with trace endplate inflammation. C2-C3: Idtn-bo-asvgreoj left facet arthropathy. No stenoses. C3-C4: The central spinal canal is patent. Facet and to a lesser extent uncovertebral arthropathy causing severe left and moderate right neural foraminal stenoses, new since prior. C4-C5: Some limitations assessing the foramina due to motion artifacts. Right neural foraminal stenosis is probably moderate due to uncovertebral and facet arthropathy, mildly progressive since prior. Patent central spinal canal and left foramen. C5-C6: No significant interval change. Diffuse disc osteophyte complex. In particular, left paracentral/lateral canal disc osteophyte. There is mild posterior ligamentum flavum buckling. The central spinal canal remains patent. Slight left ventral cord flattening without cord myelopathy. Uncovertebral and facet arthropathy, in particular left uncovertebral osteophyte causing moderate left neural foraminal stenosis. No significant right neural foraminal narrowing. C6-C7: Mild progression of degenerative disc disease without progressive stenoses. Disc osteophyte complex and ligamentum flavum buckling without contribution to central spinal canal stenosis. Uncovertebral and facet arthropathy causing jewb-tm-pwecsxqj left and mild right neural foraminal stenoses. C7-T1: No significant interval change. Fool-ll-oabxjxda facet arthropathy. No stenoses. Soft tissues: Unremarkable. Vertebral arteries: Expected flow voids in the vertebral arteries. IMPRESSION: 1. Images are mildly motion degraded. 2. Advanced facet arthropathy at C3-C4 with articular facet inflammation. Considerable progression of facet arthropathy since the prior study 3. Slight grade 1 degenerative anterolisthesis of C3 on C4 has developed since prior. 4. Moderate degenerative disc disease at C5-C6 and C6-C7, mildly progressive at C6-C7 since prior. 5. Severe left and moderate right neural foraminal stenoses at C3-C4. 6. Moderate right neural foraminal stenosis at C4-C5. 7. Moderate left neural foraminal stenosis at C5-C6. 8. Qbew-cl-uemmdopr left and mild right neural foraminal stenoses at C6-C7. Electronically signed by: Darlene Gallegos On 12/31/2020 14:24:07 PM
--- NOTE | 2020-12-31 14:41 | REPVR ---
PROCEDURE INFORMATION: Exam: MR Lumbar Spine Without Contrast Exam date and time: 12/31/2020 1:19 PM Age: 55 years old Clinical indication: Low back pain; Additional info: Radiculopathy lumbar region / cervical radiculopat TECHNIQUE: Imaging protocol: Multiplanar magnetic resonance images of the lumbar spine without intravenous contrast. COMPARISON: 1. MRI-Spine, L.S. without con 05/08/2018 9:[address] ABD PELVIS W/O CONTRAST 10/06/2020 10:31:04 AM FINDINGS: Vertebrae: 5 mm of degenerative retrolisthesis of L5 on S1, as before. No acute fracture seen. Spinal cord: The conus medullaris ends normally. There is disc desiccation with marked disc height loss and spondylosis from L2-L3 through L5-S1. Multilevel endplate inflammation is likely inflammatory/degenerative, in particular L2-L3 and L3-L4 levels. L1-L2: No significant interval change. Bevs-ie-ufnwujwh facet arthropathy. No stenoses. L2-L3: Mild progression of degenerative disc disease without progressive stenoses. Mild diffuse disc osteophyte complex as well as mild to moderate facet arthropathy and ligamentum flavum buckling. The central spinal canal remains patent. No significant foraminal stenoses. L3-L4: Mildly progressive degenerative disc disease. Mild diffuse disc osteophyte complex as well as moderate facet arthropathy. Prior left hemilaminectomy. The central spinal canal is patent. Right lateral recess stenosis is mild. Mildly progressive now moderate left neural foraminal stenosis. No significant right neural foraminal narrowing. L4-L5: No significant interval change. Moderate diffuse disc osteophyte complex and facet arthropathy as well as right ligamentum flavum buckling. Prior left hemilaminectomy. The central spinal canal is patent. Right lateral recess stenosis is mild. Ylzv-dr-jptlvbkw bilateral neural foraminal stenoses. L5-S1: No significant interval change. Retrolisthesis. Marked diffuse disc osteophyte complex as well as moderate facet arthropathy and ligamentum flavum buckling. No significant central spinal canal stenosis. The lateral recesses are narrowed near the S1 nerve roots, more so on the right. Severe right and moderate left neural foraminal stenoses, as before. Soft tissues: Unremarkable. Lymph nodes: Retroperitoneal lymph nodes are increased in number, similar when compared to prior studies. IMPRESSION: 1. Progressive lumbar degenerative disc disease with endplate inflammation since the prior study. 2. Mildly progressive now moderate left neural foraminal stenosis at L3-L4. 3. Right lateral recess stenosis at L5-S1, as before. 4. Severe right and moderate left neural foraminal stenoses at L5-S1, as before. Electronically signed by: Darlene Gallegos On 12/31/2020 14:41:19 PM
== END ==
LOC: M RAD 13:16
PROVIDERS: ATTEND Nurse Practitioner Family
DX: M54.16 Radiculopathy, lumbar region (principal); M54.12 Radiculopathy, cervical region; M51.36 Other intervertebral disc degeneration, lumbar region; M50.322 Other cervical disc degeneration at C5-C6 level; M50.323 Other cervical disc degeneration at C6-C7 level

== ENCOUNTER 2021-01-08 11:00 | Outpatient (RCR) | payer OTHER | END 2021-01-27 | LOC: M PT 11:00 | PROVIDERS: ATTEND Orthopaedic Surgery | DX: M25.511 Pain in right shoulder (principal); M54.2 Cervicalgia ==

== ENCOUNTER → 2021-02-05 | Outpatient (CLI) | payer BC ==
[~2021-02-05] MED LIST changes: +BACL10TA8; +CVS50CAP PO; +IRON65TA2 PO; +ONDA4TAB6; +PREG200C; +TIZA10TA PO; -TIZA4TAB4 PO
== END ==
LOC: M WHC 11:00
PROVIDERS: ATTEND Internal Medicine
DX: Z12.31 Encounter for screening mammogram for malignant neoplasm of breast (principal)

== ENCOUNTER → 2021-02-16 | Outpatient (REF) | payer OTHER, BC ==
[~2021-02-16] MED LIST changes: -BACL10TA8; -CVS50CAP PO; -IRON65TA2 PO; -ONDA4TAB6; -PREG200C; -TIZA10TA PO; +TIZA4TAB4 PO
[2021-02-16 12:49] LABS: APPEARANCE, URINE HAZY (CLEAR); BACTERIA, URINE AUTO 1+ (NEGATIVE); BILIRUBIN, URINE AUTO NEGATIVE (NEGATIVE); BLOOD, URINE BLOOD NEGATIVE (NEGATIVE); COLOR, URINE YELLOW (YELLOW); GLUCOSE, URINE (UA) AUTO NEGATIVE (NEGATIVE); KETONE, URINE AUTO NEGATIVE (NEGATIVE); LEUKOCYTE ESTERASE, URINE AUTO 2+ (NEGATIVE); NITRITE, URINE AUTO POSITIVE (NEGATIVE); PROTEIN, URINE AUTO NEGATIVE (NEGATIVE); RBC, URINE AUTO 1 /HPF (0-3); SPECIFIC GRAVITY URINE AUTO 1.006 (1.002-1.035); SQUAMOUS EPITHELIAL CELL UR AU 0 /HPF (0-6); UROBILINOGEN, URINE AUTO 0.2 mg/dL (0.0-2.0); WBC, URINE AUTO 11 /HPF (0-3)
== END ==
LOC: M LAB REF 09:18
PROVIDERS: ATTEND Internal Medicine
DX: R30.0 Dysuria (principal)

== ENCOUNTER 2021-02-26 09:30 | Outpatient (RCR) | payer BC, OTHER | END 2021-02-27 | LOC: M PT 09:30 | PROVIDERS: ATTEND Orthopaedic Surgery | DX: M54.2 Cervicalgia (principal) ==

== ENCOUNTER → 2021-03-13 | Outpatient (REF) | LOC: M LABSMTC 11:38 | PROVIDERS: ATTEND Family Medicine | DX: Z20.822 Contact with and (suspected) exposure to COVID-19 (principal) ==

== ENCOUNTER → 2021-03-18 | Outpatient (REF) | LOC: M LABSMTC 10:53 | PROVIDERS: ATTEND Family Medicine | DX: Z11.52 Encounter for screening for COVID-19 (principal) ==

== ENCOUNTER 2021-03-26 13:00 | Outpatient (RCR) | payer BC | END 2021-03-30 | LOC: M PT 13:00 | PROVIDERS: ATTEND Orthopaedic Surgery | DX: M47.812 Spondylosis without myelopathy or radiculopathy, cervical region (principal) ==

== ENCOUNTER → 2021-04-01 | Outpatient (CLI) | payer BC | LOC: M PLALAB 11:33 | PROVIDERS: ATTEND Orthopaedic Surgery | DX: M47.892 Other spondylosis, cervical region (principal) ==

== ENCOUNTER 2021-04-28 11:00 | Outpatient (RCR) | payer BC | END 2021-04-29 | LOC: M PT 11:00 | PROVIDERS: ATTEND Orthopaedic Surgery | DX: M54.2 Cervicalgia (principal) ==

== ENCOUNTER → 2021-05-14 | Outpatient (REF) | payer BC ==
[2021-05-14 15:39] LABS: BASO % 0.7 % (0.0-1.0); EOS # 0.3 10^3/uL (0.0-0.5); EOS % 4.7 % (0.0-3.0); HEMATOCRIT 30.1 % (36.0-47.0); HEMOGLOBIN 8.6 g/dl (12.0-15.5); LYMPH % 33.9 % (24.0-44.0); MEAN CORPUSCULAR HEMOGLOBIN 22.1 pg (27.0-33.0); MEAN CORPUSCULAR HGB CONC 28.6 g/dl (32.0-36.5); MEAN CORPUSCULAR VOLUME 77.4 fl (80.0-96.0); MONO # 0.5 10^3/uL (0.0-0.8); MONO % 8.5 % (2.0-8.0); PLATELET COUNT, AUTOMATED 485 10^3/uL (150-450); RED BLOOD COUNT 3.89 10^6/uL (4.00-5.40); WHITE BLOOD COUNT 5.8 10^3/uL (4.0-10.0)
[2021-05-14 15:45] LABS: HEMOGLOBIN A1c 6.7 %
[2021-05-14 16:14] LABS: ALBUMIN 3.4 GM/DL (3.2-5.2); ALT/SGPT 25 U/L (12-78); BILIRUBIN,TOTAL 0.3 MG/DL (0.2-1.0); BLOOD UREA NITROGEN 16 MG/DL (7-18); CALCIUM LEVEL 9.3 MG/DL (8.5-10.1); CARBON DIOXIDE LEVEL 30 MEQ/L (21-32); CHLORIDE LEVEL 106 MEQ/L (98-107); CHOLESTEROL LEVEL 147 MG/DL (<200); CREATININE FOR GFR 0.66 MG/DL (0.55-1.30); GLOMERULAR FILTRATION RATE > 60.0 (>51); GLUCOSE, FASTING 87 MG/DL (70-100); HDL CHOLESTEROL 50 MG/DL (>40); LDL CHOLESTEROL 70 MG/DL (<100); NON-HDL-C 97 MG/DL; POTASSIUM SERUM 4.5 MEQ/L (3.5-5.1); SODIUM LEVEL 142 MEQ/L (136-145); THYROID STIMULATING HORMONE 0.804 uIU/ML (0.358-3.740); TOTAL PROTEIN 6.9 GM/DL (6.4-8.2); TRIGLYCERIDES LEVEL 133 MG/DL (<150)
[2021-05-14 16:25] LABS: CREATININE, URINE 22.8 MG/DL; MALB URINE SIEMENS < 5.0 MG/L; MAU/CREAT RATIO 21.9 MCG/MG (0.0-30.0)
== END ==
LOC: M SFHCADAM 11:25
PROVIDERS: ATTEND Internal Medicine
DX: K21.9 Gastro-esophageal reflux disease without esophagitis (principal); E11.9 Type 2 diabetes mellitus without complications; E78.00 Pure hypercholesterolemia, unspecified

== ENCOUNTER → 2021-06-09 | Outpatient (REF) | payer BC ==
[2021-06-09 17:52] LABS: BASO % 0.5 % (0.0-1.0); EOS # 0.3 10^3/uL (0.0-0.5); EOS % 4.8 % (0.0-3.0); HEMATOCRIT 34.9 % (36.0-47.0); HEMOGLOBIN 9.9 g/dl (12.0-15.5); LYMPH % 31.3 % (24.0-44.0); MEAN CORPUSCULAR HEMOGLOBIN 22.5 pg (27.0-33.0); MEAN CORPUSCULAR HGB CONC 28.4 g/dl (32.0-36.5); MEAN CORPUSCULAR VOLUME 79.3 fl (80.0-96.0); MONO # 0.5 10^3/uL (0.0-0.8); MONO % 8.3 % (2.0-8.0); NEUTROPHILS # 3.4 10^3/uL (1.5-8.5); NEUTROPHILS % 54.8 % (36.0-66.0); PLATELET COUNT, AUTOMATED 578 10^3/uL (150-450); WHITE BLOOD COUNT 6.2 10^3/uL (4.0-10.0)
[2021-06-09 18:26] LABS: PERCENT SATURATION 9.4 % (13.2-45.0)
== END ==
LOC: M SFHCADAM 15:42
PROVIDERS: ATTEND Internal Medicine
DX: D50.8 Other iron deficiency anemias (principal)

== ENCOUNTER 2021-07-01 07:17 | Emergency (ER) | payer BC ==
[~2021-07-01] VITALS: Ht 165.1 cm; Wt 80.4 kg
--- OUTSIDE RECORDS SUMMARY | 2021-07-01 07:24 | CCD ---
Author Author [facility] Organization [facility] Address Unknown Phone Unavailable Care Team Providers [facility] Dr[employer] Operator Name Role Phone Sebas Cosme Unavailable PROBLEMS Type Condition ICD9-CM Code [id number] Code Onset Dates Condition S tatus W/U Status Risk SNOMED Code Notes Problem Hormone replacement therapy Z79.890 Active confirme d [id number] Managed by [facility] in the past. She did not tolerate a hiatus in therapy in 2010 but is off that therapy now. Problem Gastroesophageal reflux K21.9 Active confirmed [id number] She is on omeprazole 20 mg daily. She had been advised to reduce her omeprazole and switch to Zantac by her park services specialist in 2016 but she could not successfully do so because of recurrent symptoms. She had an upper endoscopy in December 2016. She rarely has abdominal discomfort since her gallbladder was removed 01/2014. She has iron deficiency anemia as of April 2021 and is referred back to her astroenterologist. Problem Supraventricular tachycardia I47.1 Active confirme d [id number] No significant palpitations. Had ablation procedure in 2002. Problem Elevated cholesterol E78.00 Active confirmed [id number] She is currently on Lipitor. Lipids were optimal in September 2017, and her LDL was 109 in October 2018, 117 in April 2019, 100 in April 2020, 70 in April 2021. Lipitor dose increased to 20 mg daily in April 2019. Problem Right shoulder pain, unspecified chronicity M25.51 1 Active confirmed [id number] She developed right shoulder pain with no triggering event in September 2020. This was associated with an elevated sedimentation rate and CRP. She was seen in the emergency department and had a course of amoxicillin and prednisone. She has seen orthopedics and has a follow-up MRI revealed some supraspinatus tendinitis and other nonsurgical abnormalities. There was no aspiration done. She has improved and is now getting physical therapy suspect orthopedic follow- up. Her CRP and sedimentation rate returned to normal. Serologic markers for inflammatory arthritis were unremarkable. Problem Cervical radiculopathy M54.12 Active confirmed [id number] Had neck surgeries in 2006 and 2008. She uses hydrocodone about twice a day and is unable to wean off because of the pain. She is been under the treatment of a pain provider who has performed cervical injections with benefit since Fall 2017, most recently in April 2020 and she anticipates another injection in late April 2021. She is on Lyrica 20 mg twice daily instead of gabapentin 600 mg 3 times a day and I added duloxetine as of April 2020. She stopped it due to weight loss and nausea. She was changed to to Wellbutrin therapy instead as of June 2020 and I have increased the dose to 300 mg daily as of October 2020. This will be weaned off as of April 2021 because of lack of benefit. She did see an orthopedic spine surgeon in 2020. She has had a course of physical therapy and has a home cervical traction device. Problem Other iron deficiency anemia D50.8 Active confirme d [id number] She was noted to be iron deficient with anemia in April 2021 and is started on iron therapy. She is referred back to her park services specialist for endoscopies. Problem Nephrolithiasis N20.0 Active confirmed [id number] She had a kidney stone which she ultimately spontaneously passed in 04/2010. She passed a right ureteral stone but also had a right renal pelvis stone in 12/2012. She passed the former but stone analysis is not available. She may have also passed a stone in early 2017. Urinary analysis hasn't resulted in addition of UroCitK and allopurinol to her regimen; most recent uric acid was 4.0 mg/dl off Allopurinol as of March 2018, and she is not taking UroCitK. She had another stone which was treated in November and December 2019. Problem Diabetes mellitus E11.9 Active confirmed [id number] On metformin. She was on Victoza, which was switched from Byetta in 03/2010, and metformin until bariatric surgery. Last HgbA1c has improved at 6.7% in April 2020, October 2020 and April 2021, versus 7.3% in April 2019, 7% in October 2018, 6.3% in March 2018. Last microalbumin was negative in April 2019. Last eye exam was in December 2019 by her account. She will continue her present diet and exerc ise. I added back metformin in April 2019. Problem Bariatric surgery status Z98.84 Active confirmed [id number] She had gastric bypass surgery in September 2010. Iron studies, vitamin B12 level, RBC folate were all unremarkable and normal in September 2017, and B12 and folate levels were normal again most recently in October 2020. However she is iron deficient as of April 2021, is started on iron replacement therapy, and is referred back to her park services specialist. Problem Low back pain M54.5 Active confirmed [id number] Unfortunately this is managed with hydrocodone as are no other alternatives that have been effective for her. She is on Lyrica 200 mg twice a day instead of gabapentin 600 mg 3 times a day, and remains on tizanidine as per her pain clinic provider. She saw Dr. Sierra in 2020 and he had a baclofen but she finds no benefit from that. She has had some lumbar injections with a pain provider. A facet block was of benefit and she had radiofrequency ablation in 2018 without benefit. Duloxetine was added as of April 2020. She stopped because of nausea and weight loss. I switched her to Wellbutrin instead as of June 2020, dose increased in 10/2020. It is not providing her any benefit and she will taper it off as of April 2021. She is going to have another cervical epidural steroid injection in late April 2021. Problem Ureteral stone with hydronephrosis N13.2 Activ e confirmed [id number] ALLERGIES Allergen (clinical drug ingredient) Drug/Non Drug Allergy do cumented on EMR Reaction Allergy Type Onset Date Status meperidine Demerol(ND Code:[address]-60) HYPOTENSION Drug Allergy Active tetracycline Tetracycline HCl(ND Code:[address]-55) Hives Drug Allergy Active ENCOUNTERS from 1965 to 2021-05-25 Encounter Location Date Provider Diagnosis [facility] Juan Pablo [address] [facility] [phone] [place] [address] Apr, [facility] Vaccine Route Administration Date Status Pfizer #3 dose COVID-19 SARSCOV2 VAC 30MCG/0.3ML IM Unknown Apr 28, 2021 Administered Pfizer #2 dose COVID-19 SARSCOV2 VAC 30MCG/0.3ML IM Unknown Aug 13, 2020 Administered Pfizer #1 dose COVID-19 SARSCOV2 VAC 30MCG/0.3ML IM Unknown Jul 22, 2020 Administered Influenza 18 yrs & older Flublok IM Intramuscular May 11, 2020 Administered Influenza 18 yrs & older Flublok IM Intramuscular May 29, 2019 Administered Zoster 50mcg/0.5mL Shingrix IM Intramuscular Aug 14, 2018 Adm inistered Zoster 50mcg/0.5mL Shingrix IM Intramuscular Apr 24, 2018 Adm inistered TDAP Unknown January 07, 2007 Administered Influenza 6mo & up Fluzone Unknown Apr 18, 2014 Admin istered SOCIAL HISTORY Tobacco Use: Social History Observation Description Date Details (start date - stop date) Never Smoker Sex Assigned At : Social History Observation Description Sex Assigned At Unknown Education: Question Answer Notes Level of Education: College 2 associates degrees Audit Question Answer Notes Total Score: 0 Interpretation: Alcohol Education Sexual Hx: Question Answer Notes Had sex in the last 12 months (vaginal, oral, or anal)? Yes Have you ever had an STD? No with Men only Drug and Alcohol Question Answer Notes Total Score: 0 Interpretation: No problems reported BMI Care Goal Follow-Up Question Answer Notes Above Normal BMI Follow-Up Lifestyle education regarding t Tobacco Use: Question Answer Notes Are you a: never smoker never smoker REASON FOR REFERRAL No Information VITAL SIGNS No information MEDICATIONS Medication SIG (Take, Route, Frequency, Duration) Notes Start Da te End Date Status Lyrica 200 MG 1 capsule Orally Twice a day Active Ondansetron 4 MG 1 tablet on the tongue and a llow to dissolve Orally Every 6 hours as needed for nausea for 30 day(s) Jun, Active tiZANidine HCl 4 MG TAKE ONE TABLET BY MOUTH RADHA RY 8 HOURS NEEDED Oral for 90 Active Atorvastatin Calcium 20 MG 1 tablet Orally Once a day for 90 days Active metFORMIN HCl ER 750 MG 1 tablet with evening meal O rally Once a day for 90 days Apr, Active Multivitamins multivit. 2 tab(s) Orally flintstone vit. Active Calcium + D 600-200 MG-UNIT 2 tabs Orally Once a day for 30 day(s) Active buPROPion HCl 75 MG 1 tablet Orally Once a day for 30 day(s) Apr, Active Vitamin B-12 500 MCG 1 tablet Orally Once a day for 30 day(s) Active HYDROcodone-Acetaminophen 5-325 MG 1 tablet Orally Radha ry 12 hours as needed for pain. MDD=2 for 30 Days Apr, Active Voltaren 1 % 1 application to painful jonathan nts Transdermal twice a day as needed for 30 day(s) Oct, Not-Taking Omeprazole 20 MG 1 cap Orally Daily for 90 days Jul, Active Ferrous Sulfate 325 (65 Fe) MG 1 tablet Orally Once a day for 90 days Apr, Active PROCEDURES No Information RESULTS No Results REASON FOR VISIT refill-norco MEDICAL (GENERAL) HISTORY Type Description Date Medical History Diabetes mellitus Medical History Gastroesophageal reflux Medical History Nephrolithiasis Medical History Supraventricular tachycardia Medical History Hormone replacement therapy Medical History Cervical radiculopathy Medical History Elevated cholesterol Medical History Bariatric surgery status Medical History Low back pain Surgical History C section X 2 Surgical History Cardiac ablation for SVT 11/28 Surgical History diskectomy Surgical History Hysterectomy/LAVH and BSO DR. BOLTON 09/08 Surgical History Gastric bypass 10/08 Surgical History Laparoscopic cholecystectomy , lysis of adhesions and umbilical hernia repair 01/2014 Surgical History EGD and Colonoscopy-Dr. Jones 01/2017 Surgical History CYSTO LEFT STENT REM 01/03/2020 Hospitalization History [facility]NEY [facility] 05/09 Hospitalization History Surgically related Hospitalization History [facility]-Fractured radial head 06/2017 Hospitalization History [facility] ED-Right shoulder/Back pain 03/2021 Goals Section No Information Health Concerns No Information MEDICAL EQUIPMENT No Information MENTAL STATUS No Information FUNCTIONAL STATUS No Information ASSESSMENTS No Information PLAN OF TREATMENT Medication Medication Name Sig Start Date Stop Date metFORMIN HCl ER 750 MG 1 tablet with evening meal O rally Once a day for 90 days Apr, Omeprazole 20 MG 1 cap Orally Daily for 90 days Jul, Ondansetron 4 MG 1 tablet on the tongue and a llow to dissolve Orally Every 6 hours as needed for nausea for 30 day(s) Jun, Atorvastatin Calcium 20 MG 1 tablet Orally Once a day for 90 day s Ferrous Sulfate 325 (65 Fe) MG 1 tablet Orally Once a day fo r 90 days Apr, buPROPion HCl 75 MG 1 tablet Orally Once a day for 30 day(s) Apr, HYDROcodone-Acetaminophen 5-325 MG 1 tablet Orally Radha ry 12 hours as needed for pain. MDD=2 for 30 Days Apr, Next Appt Details Provider Name:Sebas Cosme, 2021-09-20 11 :00:00 AM, [address] [facility] [address], , [place], [address], Insurance Providers Payer Name Payer Address Payer Phone Insured Name Patient Relati onship to Insured Coverage Start Date Coverage End Date [facility] [id number] [facility] [id number] [place]
--- OUTSIDE RECORDS SUMMARY | 2021-07-01 07:24 | CCD ---
Author Organization Unknown Address [address] [place] [address] Phone [phone] Care Team Providers Care Seo Marketing Specialist Name Role Phone EVAN ENCISO MD 4 [phone] EVAN ENCISO MD 3 [phone] Allergies Code Code System Name Reaction Severity Status Onset 501952 RxNorm Demerol Other Moderate Active 69583 RxNorm Tetracycline Hives Moderate Active Medications Name Status Start Date Stop Date amoxicillin 500 mg capsule TAKE 1 CAPSULE BY MOUTH THREE TIMES DAILY UNTIL GONE Completed 01/07/2021 atorvastatin 10 mg tablet TAKE ONE TABLET BY MOUTH ONCE A DAY Active Not available atorvastatin 20 mg tablet Active Not av ailable bacitracin-polymyxin B 500 unit-10,000 u nit/gram eye ointment KANCHAN TOPICALLY BID Completed 10/02/2020 baclofen 10 mg tablet TAKE 1 TABLET BY MOUTH THREE TIMES DAILY. MAXIMUM DAILY DOSE IS 3 Active Not available Benadryl 25 mg capsule Take 2 capsules as needed by oral route at bedtime. Active Not available bupropion HCl 75 mg tablet TAKE ONE TABLET BY MOUTH EVERY DAY Active Not available bupropion HCl XL 150 mg 24 hr tablet, ex tended release TAKE 1 TABLET BY MOUTH EVERY DAY IN THE MORNING Completed 01/07/2021 bupropion HCl XL 300 mg 24 hr tablet, ex tended release TAKE 1 TABLET BY MOUTH EVERY DAY IN THE MORNING Active Not available carisoprodol 350 mg tablet Completed 06/12 ciprofloxacin 0.3 % eye drops Completed duloxetine 30 mg capsule,delayed release Completed 08/26/2020 estradiol 1 mg tablet Completed 01/07/2021 Flector 1.3 % transdermal 12 hour patch Active Not available gabapentin 300 mg capsule Completed 2019 gabapentin 600 mg tablet TAKE 1 TABLET BY MOUTH THREE TIMES DAILY Completed 01/07/2021 hydrocodone 5 mg-acetaminophen 325 mg tablet Active Not available magnesium 250 mg tablet Take every day by oral route. Active Not avail able melatonin 5 mg capsule Take 1 capsule every day by oral route at bedtime. Active Not available metformin ER 750 mg tablet,extended release 24 hr Active Not available multivitamin capsule Take 1 capsule every day by oral route. Active Not available nitrofurantoin monohydrate/macrocrystals 100 mg capsule TAKE 1 CAPSULE BY MOUTH TWICE DAILY FOR 5 DAYS Active Not available omeprazole 20 mg capsule,delayed release TAKE ONE CAPSULE BY MOUTH EVERY DAY Active Not available omeprazole 40 mg capsule,delayed release TAKE ONE CAPSULE BY MOUTH ONCE A DAY Completed ondansetron 4 mg disintegrating tablet DISSOLVE ONE TABLET ON TONGUE EVERY 6 HOURS NEEDED FOR NAUSEA Active Not available oxybutynin chloride 5 mg tablet Completed 10/02/2020 oxycodone-acetaminophen 5 mg-325 mg tabl et TAKE 1 TABLET BY MOUTH EVERY 4 TO 6 HOURS NEEDED FOR PAIN. MAXIMUM DAILY DOSE IS 5 TABLETS Completed 11/16/2020 prednisone 20 mg tablet Completed 01/08/20 21 pregabalin 100 mg capsule TAKE 1 CAPSULE BY MOUTH TWICE DAILY. MAXIMUM DAILY DOSE IS 2 CAPSULES Completed 02/05/2021 pregabalin 150 mg capsule TAKE ONE CAPSULE BY MOUTH TWICE A DAY MAXIMUM DAILY DOSE 2 Completed 03/18/2021 pregabalin 200 mg capsule TAKE 1 CAPSULE BY MOUTH TWICE DAILY. MAXIMUM DAILY DOSE 2 CAPSULES Active Not available sulfamethoxazole 800 mg-trimethoprim 160 mg tablet Completed 06/12/2020 tamsulosin 0.4 mg capsule Completed 2020 tizanidine 4 mg tablet TAKE ONE TABLET BY MOUTH EVERY 8 HOURS NEEDED Active Not available tramadol 50 mg tablet Completed 01/07/2021 Problems Name Status Onset Date Source Spondylosis without Myelopathy Active 05/21/2018 H istory Displacement of Cervical Intervertebral Disc Active History Prolapsed Lumbar Intervertebral Disc Active 05/21/2018 History Intervertebral Disc Prolapse Active 05/21/2018 His tory Degeneration of Cervical Intervertebral Disc Active History Degeneration of Lumbosacral Intervertebral Disc Active 05/21/2018 History Degeneration of Lumbar Intervertebral Disc Active 05/21 History Post-laminectomy Syndrome Active 05/21/2018 Histor y Spinal Stenosis of Lumbar Region Active 05/21/2018 History Procedures Date Name Performed by 07/31/2013 Cholecystectomy Information not avai lable 07/31/2010 Gastric Bypass for Obesity Information n ot available 07/31/2009 Hysterectomy Information not avai lable Lithotripsy Information not avai lable 11/16/2020 MRI, Cervical Spine, W/o Contrast [facility] Radiology Dept [address] [place] [address] (Work Place) 11/16/2020 MRI, Lumbar Spine, W/o Contrast [facility] Radiology Dept [address] [place] [address] (Work Place) Notes: lumbar disectomy L3-L4 2006 (Dr. Sierra), L4-L5 (Dr. Sierra). Ablasion for SVT | lumbar discectomy L3-L4-2006 ( DR Sierra), L4-L5 2008 ( Dr Sierra), Hysterectomy-?, 05/21/2018 Gastric Bypass-2010, Cholecystectomy-2013, Ablation for SVT 05/21/2018 Results Lab Results Date Name Specimen Result Interpretation Description Value Range Status Address 05/21/2021 [facility] Report NOS No observation recorded. 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 [facility] [employer]: [facility] Past Encounters 06/23/2021 Lumbar Post-laminectomy Syndrome; Spinal Stenosis of Lumbar Region; Degeneration of Lumbar Intervertebral Disc; Degeneration of Intervertebral Disc; Intervertebral Disc Disorder; Displacement of Lumbar Intervertebral Disc without Myelopathy; Degeneration of Cervical Intervertebral Disc; Displacement of Cervical Intervertebral Disc without Myelopathy; Cervical Spondylosis without Myelopathy; Cervical Radiculopathy; Lumbar Spondylosis; Lumbosacral Spondylosis without Myelopathy; Inflammation of Sacroiliac Joint; Myofascial Pain; Post- laminectomy Syndrome; Lumbar Radiculopathy Tasha Jacobs NP: [id number] [address], Ph. 05/26/2021 Cervical Radiculopathy; Displacement of Cervical Intervertebral Disc without Myelopathy; Degeneration of Cervical Intervertebral Disc; Cervical Spondylosis without Myelopathy; Lumbar Post-laminectomy Syndrome; Spinal Stenosis of Lumbar Region; Degeneration of Lumbar Intervertebral Disc; Degeneration of Intervertebral Disc; Intervertebral Disc Disorder; Displacement of Lumbar Intervertebral Disc without Myelopathy; Lumbar Spondylosis; Lumbosacral Spondylosis without Myelopathy; Inflammation of Sacroiliac Joint; Myofascial Pain; Post-laminectomy Syndrome; Lumbar Radiculopathy Christopher Tobar MD: [id number] [address], [facility] [place] [address], Ph. 05/21/2021 Pre-surgery Testing; Viral Screening Christopher Tobar MD: [id number] [address], Ph. [phone] 05/03/2021 Lumbar Post-laminectomy Syndrome; Spinal Stenosis of Lumbar Region; Degeneration of Lumbar Intervertebral Disc; Degeneration of Intervertebral Disc; Intervertebral Disc Disorder; Displacement of Lumbar Intervertebral Disc without Myelopathy; Degeneration of Cervical Intervertebral Disc; Displacement of Cervical Intervertebral Disc without Myelopathy; Cervical Spondylosis without Myelopathy; Cervical Radiculopathy; Lumbar Spondylosis; Lumbosacral Spondylosis without Myelopathy; Inflammation of Sacroiliac Joint; Myofascial Pain; Post- laminectomy Syndrome; Lumbar Radiculopathy Tasha Michael Arlene FACULTY DEAN: [address] [address], [place] [address], Ph. 03/18/2021 Lumbar Post-laminectomy Syndrome; Spinal Stenosis of Lumbar Region; Degeneration of Lumbar Intervertebral Disc; Degeneration of Intervertebral Disc; Intervertebral Disc Disorder; Displacement of Lumbar Intervertebral Disc without Myelopathy; Degeneration of Cervical Intervertebral Disc; Displacement of Cervical Intervertebral Disc without Myelopathy; Cervical Spondylosis without Myelopathy; Cervical Radiculopathy; Lumbar Spondylosis; Lumbosacral Spondylosis without Myelopathy; Inflammation of Sacroiliac Joint; Myofascial Pain; Post- laminectomy Syndrome; Lumbar Radiculopathy Tasha Jacobs FACULTY DEAN: [id number] [address], Ph. 02/05/2021 Lumbar Post-laminectomy Syndrome; Spinal Stenosis of Lumbar Region; Degeneration of Lumbar Intervertebral Disc; Degeneration of Intervertebral Disc; Intervertebral Disc Disorder; Displacement of Lumbar Intervertebral Disc without Myelopathy; Degeneration of Cervical Intervertebral Disc; Displacement of Cervical Intervertebral Disc without Myelopathy; Cervical Spondylosis without Myelopathy; Cervical Radiculopathy; Lumbar Spondylosis; Lumbosacral Spondylosis without Myelopathy; Inflammation of Sacroiliac Joint; Myofascial Pain; Post- laminectomy Syndrome; Lumbar Radiculopathy Tasha Micheal Arlene FACULTY DEAN: [id number] [address], Ph. 01/07/2021 Lumbar Post-laminectomy Syndrome; Spinal Stenosis of Lumbar Region; Degeneration of Lumbar Intervertebral Disc; Degeneration of Intervertebral Disc; Intervertebral Disc Disorder; Displacement of Lumbar Intervertebral Disc without Myelopathy; Degeneration of Cervical Intervertebral Disc; Displacement of Cervical Intervertebral Disc without Myelopathy; Cervical Spondylosis without Myelopathy; Cervical Radiculopathy; Lumbar Spondylosis; Lumbosacral Spondylosis without Myelopathy; Inflammation of Sacroiliac Joint; Myofascial Pain; Post- laminectomy Syndrome; Lumbar Radiculopathy Tasha aJcobs NP: [id number] [address], Ph. 11/30/2020 Lumbar Post-laminectomy Syndrome; Spinal Stenosis of Lumbar Region; Degeneration of Lumbar Intervertebral Disc; Degeneration of Intervertebral Disc; Intervertebral Disc Disorder; Displacement of Lumbar Intervertebral Disc without Myelopathy; Degeneration of Cervical Intervertebral Disc; Displacement of Cervical Intervertebral Disc without Myelopathy; Cervical Spondylosis without Myelopathy; Cervical Radiculopathy; Lumbar Spondylosis; Lumbosacral Spondylosis without Myelopathy; Inflammation of Sacroiliac Joint; Myofascial Pain; Post- laminectomy Syndrome; Lumbar Radiculopathy Christopher Tobar MD: [id number] [address], Ph. 11/16/2020 Lumbar Post-laminectomy Syndrome; Spinal Stenosis of Lumbar Region; Degeneration of Lumbar Intervertebral Disc; Degeneration of Intervertebral Disc; Intervertebral Disc Disorder; Displacement of Lumbar Intervertebral Disc without Myelopathy; Degeneration of Cervical Intervertebral Disc; Displacement of Cervical Intervertebral Disc without Myelopathy; Cervical Spondylosis without Myelopathy; Cervical Radiculopathy; Lumbar Spondylosis; Lumbosacral Spondylosis without Myelopathy; Inflammation of Sacroiliac Joint; Myofascial Pain; Post- laminectomy Syndrome; Lumbar Radiculopathy Tasha Jacobs NP: [id number] [address], Ph. 10/02/2020 Lumbar Post-laminectomy Syndrome; Spinal Stenosis of Lumbar Region; Degeneration of Lumbar Intervertebral Disc; Degeneration of Intervertebral Disc; Intervertebral Disc Disorder; Displacement of Lumbar Intervertebral Disc without Myelopathy; Degeneration of Cervical Intervertebral Disc; Displacement of Cervical Intervertebral Disc without Myelopathy; Cervical Spondylosis without Myelopathy; Cervical Radiculopathy; Lumbar Spondylosis; Lumbosacral Spondylosis without Myelopathy; Inflammation of Sacroiliac Joint; Myofascial Pain; Post- laminectomy Syndrome Tasha Jacobs NP: [id number] [address], Ph. 09/09/2020 Cervical Radiculopathy; Degeneration of Cervical Intervertebral Disc; Displacement of Cervical Intervertebral Disc without Myelopathy; Cervical Spondylosis without Myelopathy; Lumbar Post-laminectomy Syndrome; Spinal Stenosis of Lumbar Region; Degeneration of Lumbar Intervertebral Disc; Degeneration of Intervertebral Disc; Intervertebral Disc Disorder; Displacement of Lumbar Intervertebral Disc without Myelopathy; Lumbar Spondylosis; Lumbosacral Spondylosis without Myelopathy; Inflammation of Sacroiliac Joint; Myofascial Pain; Post-laminectomy Syndrome Christopher Tobar MD: [id number] [address], [place] [address], Ph. 09/04/2020 Pre-surgery Testing; Viral Screening Christopher Tobar MD: [id number] [address], [place] [address], Ph. [phone] 08/26/2020 Lumbar Post-laminectomy Syndrome; Spinal Stenosis of Lumbar Region; Degeneration of Lumbar Intervertebral Disc; Degeneration of Intervertebral Disc; Intervertebral Disc Disorder; Displacement of Lumbar Intervertebral Disc without Myelopathy; Degeneration of Cervical Intervertebral Disc; Displacement of Cervical Intervertebral Disc without Myelopathy; Cervical Spondylosis without Myelopathy; Cervical Radiculopathy; Lumbar Spondylosis; Lumbosacral Spondylosis without Myelopathy; Inflammation of Sacroiliac Joint; Myofascial Pain; Post- laminectomy Syndrome Tasha Jacobs NP: [id number] [address], [facility] [place] [address], Ph. 06/12/2020 Lumbar Post-laminectomy Syndrome; Spinal Stenosis of Lumbar Region; Degeneration of Lumbar Intervertebral Disc; Degeneration of Intervertebral Disc; Intervertebral Disc Disorder; Displacement of Lumbar Intervertebral Disc without Myelopathy; Degeneration of Cervical Intervertebral Disc; Displacement of Cervical Intervertebral Disc without Myelopathy; Cervical Spondylosis without Myelopathy; Cervical Radiculopathy; Lumbar Spondylosis; Lumbosacral Spondylosis without Myelopathy; Inflammation of Sacroiliac Joint; Myofascial Pain; Post- laminectomy Syndrome Tasha Jacobs NP: [id number] [address], [place] [address], Ph. 05/29/2020 Cervical Radiculopathy; Degeneration of Cervical Intervertebral Disc; Displacement of Cervical Intervertebral Disc without Myelopathy; Cervical Spondylosis without Myelopathy; Lumbar Post-laminectomy Syndrome; Spinal Stenosis of Lumbar Region; Degeneration of Lumbar Intervertebral Disc; Degeneration of Intervertebral Disc; Intervertebral Disc Disorder; Displacement of Lumbar Intervertebral Disc without Myelopathy; Lumbar Spondylosis; Lumbosacral Spondylosis without Myelopathy; Inflammation of Sacroiliac Joint; Myofascial Pain; Post-laminectomy Syndrome Christopher Tobar MD: [id number] [address], [facility] [place] [address], Ph. 05/25/2020 Pre-surgery Testing; Viral Screening Christopher Tobar MD: [id number] [address], [facility] [place] [address], Ph. [phone] 04/30/2020 Cervical Radiculopathy; Degeneration of Cervical Intervertebral Disc; Displacement of Cervical Intervertebral Disc without Myelopathy; Cervical Spondylosis without Myelopathy; Lumbar Post-laminectomy Syndrome; Spinal Stenosis of Lumbar Region; Degeneration of Lumbar Intervertebral Disc; Degeneration of Intervertebral Disc; Intervertebral Disc Disorder; Displacement of Lumbar Intervertebral Disc without Myelopathy; Lumbar Spondylosis; Lumbosacral Spondylosis without Myelopathy; Inflammation of Sacroiliac Joint; Myofascial Pain; Post-laminectomy Syndrome Christopher Tobar MD: [id number] [address], [facility] [place] [address], Ph. 04/27/2020 Pre-surgery Testing; Viral Screening Christopher Tobar MD: [address] [address], [facility] [place] [address], Ph. [phone] 04/24/2020 Lumbar Post-laminectomy Syndrome; Spinal Stenosis of Lumbar Region; Degeneration of Lumbar Intervertebral Disc; Degeneration of Intervertebral Disc; Intervertebral Disc Disorder; Displacement of Lumbar Intervertebral Disc without Myelopathy; Degeneration of Cervical Intervertebral Disc; Displacement of Cervical Intervertebral Disc without Myelopathy; Cervical Spondylosis without Myelopathy; Cervical Radiculopathy; Lumbar Spondylosis; Lumbosacral Spondylosis without Myelopathy; Inflammation of Sacroiliac Joint; Myofascial Pain; Post- laminectomy Syndrome Tasha Webbmalon, FACULTY DEAN: [id number] [address], [place] [address], Ph. 03/20/2020 Cervical Radiculopathy; Degeneration of Cervical Intervertebral Disc; Displacement of Cervical Intervertebral Disc without Myelopathy; Cervical Spondylosis without Myelopathy; Lumbar Post-laminectomy Syndrome; Spinal Stenosis of Lumbar Region; Degeneration of Lumbar Intervertebral Disc; Degeneration of Intervertebral Disc; Intervertebral Disc Disorder; Displacement of Lumbar Intervertebral Disc without Myelopathy; Lumbar Spondylosis; Lumbosacral Spondylosis without Myelopathy; Inflammation of Sacroiliac Joint; Myofascial Pain; Post-laminectomy Syndrome Christopher Tobar MD: [address] [address], Ph. 03/16/2020 Pre-surgery Testing; Viral Screening Christopher Tobar MD: [address] [address], Ph. [phone] 02/28/2020 Lumbar Post-laminectomy Syndrome; Spinal Stenosis of Lumbar Region; Degeneration of Lumbar Intervertebral Disc; Degeneration of Intervertebral Disc; Intervertebral Disc Disorder; Displacement of Lumbar Intervertebral Disc without Myelopathy; Degeneration of Cervical Intervertebral Disc; Displacement of Cervical Intervertebral Disc without Myelopathy; Cervical Spondylosis without Myelopathy; Cervical Radiculopathy; Lumbar Spondylosis; Lumbosacral Spondylosis without Myelopathy; Inflammation of Sacroiliac Joint; Myofascial Pain; Post- laminectomy Syndrome Tasha Barreradmitriyuan Jacbos FACULTY DEAN: [address] [address], Ph. 02/14/2020 Cervical Spondylosis without Myelopathy; Degeneration of Cervical Intervertebral Disc; Displacement of Cervical Intervertebral Disc without Myelopathy; Lumbar Post-laminectomy Syndrome; Spinal Stenosis of Lumbar Region; Degeneration of Lumbar Intervertebral Disc; Degeneration of Intervertebral Disc; Intervertebral Disc Disorder; Displacement of Lumbar Intervertebral Disc without Myelopathy; Cervical Radiculopathy; Lumbar Spondylosis; Lumbosacral Spondylosis without Myelopathy; Inflammation of Sacroiliac Joint; Myofascial Pain; Post-laminectomy Syndrome Christopher Tobar MD: [id number] [address], [facility] [place] [address], Ph. 02/10/2020 Pre-surgery Testing; Viral Screening Christopher Tobar MD: [id number] [address], [facility] [place] [address], Ph. [phone] 01/24/2020 Lumbar Post-laminectomy Syndrome; Spinal Stenosis of Lumbar Region; Degeneration of Lumbar Intervertebral Disc; Degeneration of Intervertebral Disc; Intervertebral Disc Disorder; Displacement of Lumbar Intervertebral Disc without Myelopathy; Degeneration of Cervical Intervertebral Disc; Displacement of Cervical Intervertebral Disc without Myelopathy; Cervical Spondylosis without Myelopathy; Cervical Radiculopathy; Lumbar Spondylosis; Lumbosacral Spondylosis without Myelopathy; Inflammation of Sacroiliac Joint; Myofascial Pain; Post- laminectomy Syndrome Tasha Jacobs NP: [address] [address], [place] [address], Ph. 01/10/2020 Inflammation of Sacroiliac Joint; Lumbar Post-laminectomy Syndrome; Spinal Stenosis of Lumbar Region; Degeneration of Lumbar Intervertebral Disc; Degeneration of Intervertebral Disc; Intervertebral Disc Disorder; Displacement of Lumbar Intervertebral Disc without Myelopathy; Degeneration of Cervical Intervertebral Disc; Displacement of Cervical Intervertebral Disc without Myelopathy; Cervical Spondylosis without Myelopathy; Cervical Radiculopathy; Lumbar Spondylosis; Lumbosacral Spondylosis without Myelopathy; Myofascial Pain; Post-laminectomy Syndrome Christopher Tobar MD: [address] [address], [facility] [place] [address], Ph. 01/07/2020 Pre-surgery Testing; Viral Screening Christopher Tobar MD: [id number] [address], [facility] [place] [address], Ph. [phone] 11/07/2019 Lumbar Post-laminectomy Syndrome; Spinal Stenosis of Lumbar Region; Degeneration of Lumbar Intervertebral Disc; Degeneration of Intervertebral Disc; Intervertebral Disc Disorder; Displacement of Lumbar Intervertebral Disc without Myelopathy; Degeneration of Cervical Intervertebral Disc; Displacement of Cervical Intervertebral Disc without Myelopathy; Cervical Spondylosis without Myelopathy; Cervical Radiculopathy; Lumbar Spondylosis; Lumbosacral Spondylosis without Myelopathy; Inflammation of Sacroiliac Joint; Myofascial Pain; Post- laminectomy Syndrome Tasha Jacobs FACULTY DEAN: [id number] [address], Ph. 08/23/2019 Cervical Spondylosis without Myelopathy; Degeneration of Cervical Intervertebral Disc; Displacement of Cervical Intervertebral Disc without Myelopathy; Cervical Radiculopathy; Lumbar Post-laminectomy Syndrome; Spinal Stenosis of Lumbar Region; Degeneration of Lumbar Intervertebral Disc; Degeneration of Intervertebral Disc; Intervertebral Disc Disorder; Displacement of Lumbar Intervertebral Disc without Myelopathy; Lumbar Spondylosis; Lumbosacral Spondylosis without Myelopathy; Inflammation of Sacroiliac Joint; Myofascial Pain Christopher Tobar MD: [address] [address], [place] [address], Ph. 07/22/2019 Lumbar Post-laminectomy Syndrome; Spinal Stenosis of Lumbar Region; Degeneration of Lumbar Intervertebral Disc; Degeneration of Intervertebral Disc; Intervertebral Disc Disorder; Displacement of Lumbar Intervertebral Disc without Myelopathy; Degeneration of Cervical Intervertebral Disc; Displacement of Cervical Intervertebral Disc without Myelopathy; Cervical Spondylosis without Myelopathy; Cervical Radiculopathy; Lumbar Spondylosis; Lumbosacral Spondylosis without Myelopathy; Inflammation of Sacroiliac Joint; Myofascial Pain Tasha Barreraandreateo Jacobs FACULTY DEAN: [address] [address], [place] [address], Ph. 06/13/2019 Cervical Radiculopathy; Displacement of Cervical Intervertebral Disc without Myelopathy; Degeneration of Cervical Intervertebral Disc; Cervical Spondylosis without Myelopathy; Lumbar Post-laminectomy Syndrome; Spinal Stenosis of Lumbar Region; Degeneration of Lumbar Intervertebral Disc; Degeneration of Intervertebral Disc; Intervertebral Disc Disorder; Displacement of Lumbar Intervertebral Disc without Myelopathy; Lumbar Spondylosis; Lumbosacral Spondylosis without Myelopathy; Inflammation of Sacroiliac Joint; Myofascial Pain Christopher Tobar MD: [id number] [address], [place] [address], Ph. 05/23/2019 Lumbar Post-laminectomy Syndrome; Spinal Stenosis of Lumbar Region; Degeneration of Lumbar Intervertebral Disc; Degeneration of Intervertebral Disc; Intervertebral Disc Disorder; Displacement of Lumbar Intervertebral Disc without Myelopathy; Degeneration of Cervical Intervertebral Disc; Displacement of Cervical Intervertebral Disc without Myelopathy; Cervical Spondylosis without Myelopathy; Cervical Radiculopathy; Lumbar Spondylosis; Lumbosacral Spondylosis without Myelopathy; Inflammation of Sacroiliac Joint; Myofascial Pain Tasha Jacobs, FACULTY DEAN: [id number] [address], Ph. 04/19/2019 Lumbar Post-laminectomy Syndrome; Spinal Stenosis of Lumbar Region; Degeneration of Lumbar Intervertebral Disc; Degeneration of Intervertebral Disc; Intervertebral Disc Disorder; Displacement of Lumbar Intervertebral Disc without Myelopathy; Degeneration of Cervical Intervertebral Disc; Displacement of Cervical Intervertebral Disc without Myelopathy; Cervical Spondylosis without Myelopathy; Cervical Radiculopathy; Lumbar Spondylosis; Lumbosacral Spondylosis without Myelopathy; Inflammation of Sacroiliac Joint; Myofascial Pain Christopher Tobar MD: [id number] [address], Ph. 04/05/2019 Lumbar Post-laminectomy Syndrome; Spinal Stenosis of Lumbar Region; Degeneration of Lumbar Intervertebral Disc; Degeneration of Intervertebral Disc; Intervertebral Disc Disorder; Displacement of Lumbar Intervertebral Disc without Myelopathy; Degeneration of Cervical Intervertebral Disc; Displacement of Cervical Intervertebral Disc without Myelopathy; Cervical Spondylosis without Myelopathy; Cervical Radiculopathy; Lumbar Spondylosis; Lumbosacral Spondylosis without Myelopathy; Inflammation of Sacroiliac Joint; Myofascial Pain Tasha Jacobs FACULTY DEAN: [id number] [address], Ph. 02/07/2019 Cervical Radiculopathy; Degeneration of Cervical Intervertebral Disc; Displacement of Cervical Intervertebral Disc without Myelopathy; Cervical Spondylosis without Myelopathy; Lumbar Post-laminectomy Syndrome; Spinal Stenosis of Lumbar Region; Lumbar Spondylosis; Degeneration of Lumbar Intervertebral Disc; Degeneration of Intervertebral Disc; Displacement of Lumbar Intervertebral Disc without Myelopathy; Lumbosacral Spondylosis without Myelopathy; Intervertebral Disc Disorder Christopher Tobar MD: [id number] [place] [address], Ph. 01/16/2019 Lumbosacral Spondylosis without Myelopathy; Lumbar Spondylosis; Degeneration of Lumbar Intervertebral Disc; Degeneration of Intervertebral Disc; Intervertebral Disc Disorder; Displacement of Lumbar Intervertebral Disc without Myelopathy; Lumbar Post-laminectomy Syndrome; Spinal Stenosis of Lumbar Region; Degeneration of Cervical Intervertebral Disc; Displacement of Cervical Intervertebral Disc without Myelopathy; Cervical Spondylosis without Myelopathy; Cervical Radiculopathy Christopher Tobar MD: [id number] [address], Ph. 01/01/2019 Lumbar Post-laminectomy Syndrome; Spinal Stenosis of Lumbar Region; Degeneration of Lumbar Intervertebral Disc; Degeneration of Intervertebral Disc; Intervertebral Disc Disorder; Displacement of Lumbar Intervertebral Disc without Myelopathy; Degeneration of Cervical Intervertebral Disc; Displacement of Cervical Intervertebral Disc without Myelopathy; Cervical Spondylosis without Myelopathy; Cervical Radiculopathy; Lumbar Spondylosis; Lumbosacral Spondylosis without Myelopathy Christopher Tobar MD: [id number] [address], Ph. 12/12/2018 Lumbosacral Spondylosis without Myelopathy; Lumbar Spondylosis; Degeneration of Lumbar Intervertebral Disc; Degeneration of Intervertebral Disc; Lumbar Post- laminectomy Syndrome; Spinal Stenosis of Lumbar Region; Intervertebral Disc Disorder; Displacement of Lumbar Intervertebral Disc without Myelopathy; Degeneration of Cervical Intervertebral Disc; Displacement of Cervical Intervertebral Disc without Myelopathy; Cervical Spondylosis without Myelopathy; Cervical Radiculopathy Christopher Tobar MD: [id number] [address], [place] [address], Ph. 11/16/2018 Lumbosacral Spondylosis without Myelopathy; Lumbar Spondylosis; Degeneration of Lumbar Intervertebral Disc; Degeneration of Intervertebral Disc; Lumbar Post- laminectomy Syndrome; Spinal Stenosis of Lumbar Region; Intervertebral Disc Disorder; Displacement of Lumbar Intervertebral Disc without Myelopathy; Degeneration of Cervical Intervertebral Disc; Displacement of Cervical Intervertebral Disc without Myelopathy; Cervical Spondylosis without Myelopathy; Cervical Radiculopathy Christopher Tobar MD: [id number] [address], [place] [address], Ph. 10/25/2018 Lumbar Post-laminectomy Syndrome; Spinal Stenosis of Lumbar Region; Degeneration of Lumbar Intervertebral Disc; Degeneration of Intervertebral Disc; Intervertebral Disc Disorder; Displacement of Lumbar Intervertebral Disc without Myelopathy; Degeneration of Cervical Intervertebral Disc; Displacement of Cervical Intervertebral Disc without Myelopathy; Cervical Spondylosis without Myelopathy; Cervical Radiculopathy; Lumbar Spondylosis; Lumbosacral Spondylosis without Myelopathy Christopher Tobar MD: [id number] [address], [place] [address], Ph. 10/03/2018 Lumbar Post-laminectomy Syndrome; Spinal Stenosis of Lumbar Region; Degeneration of Lumbar Intervertebral Disc; Degeneration of Intervertebral Disc; Intervertebral Disc Disorder; Displacement of Lumbar Intervertebral Disc without Myelopathy; Degeneration of Cervical Intervertebral Disc; Displacement of Cervical Intervertebral Disc without Myelopathy; Cervical Spondylosis without Myelopathy; Cervical Radiculopathy; Lumbar Spondylosis; Lumbosacral Spondylosis without Myelopathy Christopher Tobar MD: [id number] [address], Ph. 08/03/2018 Degeneration of Cervical Intervertebral Disc; Displacement of Cervical Intervertebral Disc without Myelopathy; Cervical Spondylosis without Myelopathy; Cervical Radiculopathy; Lumbar Post-laminectomy Syndrome; Spinal Stenosis of Lumbar Region; Lumbar Spondylosis; Degeneration of Lumbar Intervertebral Disc; Degeneration of Intervertebral Disc; Displacement of Lumbar Intervertebral Disc without Myelopathy; Lumbosacral Spondylosis without Myelopathy; Intervertebral Disc Disorder Christopher Tobar MD: [id number] [address], Ph. 07/05/2018 Degeneration of Cervical Intervertebral Disc; Displacement of Cervical Intervertebral Disc without Myelopathy; Cervical Spondylosis without Myelopathy; Cervical Radiculopathy; Lumbar Post-laminectomy Syndrome; Spinal Stenosis of Lumbar Region; Lumbar Spondylosis; Degeneration of Lumbar Intervertebral Disc; Degeneration of Intervertebral Disc; Displacement of Lumbar Intervertebral Disc without Myelopathy; Lumbosacral Spondylosis without Myelopathy; Intervertebral Disc Disorder Christopher Tobar MD: [id number] [address], [place] [address], Ph. 06/14/2018 Degeneration of Cervical Intervertebral Disc; Displacement of Cervical Intervertebral Disc without Myelopathy; Cervical Spondylosis without Myelopathy; Cervical Radiculopathy; Lumbar Post-laminectomy Syndrome; Spinal Stenosis of Lumbar Region; Lumbar Spondylosis; Degeneration of Lumbar Intervertebral Disc; Degeneration of Intervertebral Disc; Displacement of Lumbar Intervertebral Disc without Myelopathy; Lumbosacral Spondylosis without Myelopathy; Intervertebral Disc Disorder Christopher Tobar MD: [id number], [address], [place] [address], Ph. Social History Tobacco Smoking Status Never Smoker Vaccine List None recorded. Plan of Care Reminders Provider Appointments None recorded. Lab None recorded. Referral None recorded. Procedures None recorded. Surgeries None recorded. Imaging None recorded. Vitals 06/23/2021 09:30AM FOLLOW-UP Height Blood Pressure 5 ft 5 in 128/85 mm[Hg] 05/03/2021 10:15AM FOLLOW-UP Height Blood Pressure 5 ft 5 in 143/84 mm[Hg] 03/18/2021 09:45AM FOLLOW-UP Height Blood Pressure 5 ft 5 in 125/82 mm[Hg] 02/05/2021 09:30AM FOLLOW-UP Height Blood Pressure 5 ft 5 in 109/61 mm[Hg] 01/07/2021 10:30AM FOLLOW-UP Height Blood Pressure 5 ft 5 in 128/81 mm[Hg] 11/16/2020 03:00PM FOLLOW-UP Height Blood Pressure 5 ft 5 in 133/88 mm[Hg] 08/26/2020 08:45AM Telehealth Height 5 ft 5 in 06/12/2020 10:00AM FOLLOW-UP Height Blood Pressure 5 ft 5 in 148/82 mm[Hg] 02/28/2020 11:00AM FOLLOW-UP Height Blood Pressure 5 ft 5 in 120/80 mm[Hg] 01/24/2020 09:00AM FOLLOW-UP Height Blood Pressure 5 ft 5 in 112/73 mm[Hg] 07/22/2019 10:00AM FOLLOW-UP Height Blood Pressure 5 ft 5 in 123/71 mm[Hg] 05/23/2019 08:30AM FOLLOW-UP Height Blood Pressure 5 ft 5 in 132/88 mm[Hg] 04/05/2019 04:15PM FOLLOW-UP Height Blood Pressure 5 ft 5 in 144/93 mm[Hg] 01/01/2019 10:45AM FOLLOW-UP Height 5 ft 5 in 10/25/2018 09:30AM FOLLOW-UP Height Blood Pressure 5 ft 5 in 139/85 mm[Hg] 05/21/2018 Height Weight BMI Blood Pressure 5 ft 5 in 199 lbs 33.24 kg/m2 141/97 mm[Hg]"
--- OUTSIDE RECORDS SUMMARY | 2021-07-01 07:24 | CCD ---
Author Author [facility] Organization [facility] Address Unknown Phone Unavailable Care Team Providers Care Cloth Tester Quality Name Role Phone Sebas Cosme Unavailable PROBLEMS Type Condition ICD9-CM Code [id number] Code Onset Dates Condition S tatus W/U Status Risk SNOMED Code Notes Problem Hormone replacement therapy Z79.890 Active confirme d [id number] Managed by [facility] in the past. She did not tolerate a hiatus in therapy in 2010 but is off that therapy now. Problem Gastroesophageal reflux K21.9 Active confirmed [id number] She is on omeprazole 20 mg daily. She had been advised to reduce her omeprazole and switch to Zantac by her entry level electrician in 2016 but she could not successfully do so because of recurrent symptoms. She had an upper endoscopy in December 2016. She rarely has abdominal discomfort since her gallbladder was removed 01/2014. She has iron deficiency anemia as of April 2021 and is referred back to her astroenterologist. Problem Supraventricular tachycardia I47.1 Active confirme d 3065530 No significant palpitations. Had ablation procedure in 2002. Problem Elevated cholesterol E78.00 Active confirmed 981944254 She is currently on Lipitor. Lipids were optimal in September 2017, and her LDL was 109 in October 2018, 117 in April 2019, 100 in April 2020, 70 in April 2021. Lipitor dose increased to 20 mg daily in April 2019. Problem Right shoulder pain, unspecified chronicity M25.51 1 Active confirmed 14114906 She developed right shoulder pain with no [...] unremarkable. Problem Cervical radiculopathy M54.12 Active confirmed 14855910 Had neck surgeries in 2006 and 2008. [...] iron deficiency anemia D50.8 Active confirme d 31308243 She was noted to be iron deficient with anemia in April 2021 and is started on iron therapy. She is referred back to her entry level electrician for endoscopies. Problem Nephrolithiasis N20.0 Active confirmed [...] Problem Diabetes mellitus E11.9 Active confirmed 73 680045 On metformin. She was on Victoza, which [...] Problem Bariatric surgery status Z98.84 Active confirmed [id number] She had gastric bypass surgery in September 2010. Iron studies, vitamin B12 level, RBC folate were all unremarkable and normal in September 2017, and B12 and folate levels were normal again most recently in October 2020. However she is iron deficient as of April 2021, is started on iron replacement therapy, and is referred back to her entry level electrician. Problem Low back pain M54.5 Active confirmed [id number] 009 Unfortunately this is managed with hydrocodone [...] stone with hydronephrosis N13.2 Activ e confirmed [id number] ALLERGIES Allergen (clinical drug ingredient) Drug/Non Drug Allergy do cumented on EMR Reaction Allergy Type Onset Date Status meperidine Demerol(ND Code:[address]-27) HYPOTENSION Drug Allergy Active tetracycline Tetracycline HCl(ND Code:[address]-23) Hives Drug Allergy Active ENCOUNTERS from 1965 to 2021-06-28 Encounter Location Date Provider Diagnosis [facility] [place] [address] [facility] [phone] [place] [address] May, [facility] Vaccine Route Administration Date Status Pfizer #2 dose COVID-19 SARSCOV2 VAC 30MCG/0.3ML IM Unknown Aug 13, 2020 Administered Pfizer #1 dose COVID-19 SARSCOV2 VAC 30MCG/0.3ML IM Unknown Jul 22, 2020 Administered Influenza 18 yrs & older Flublok IM Intramuscular May 26, 2021 Administered Influenza 18 yrs & older Flublok IM Intramuscular May 11, 2020 Administered Influenza 18 yrs & older Flublok IM Intramuscular May 29, 2019 Administered Zoster 50mcg/0.5mL Shingrix IM Intramuscular Aug 14, 2018 Adm inistered Pfizer #3 dose COVID-19 SARSCOV2 VAC 30MCG/0.3ML IM Unknown Apr 28, 2021 Administered Zoster 50mcg/0.5mL Shingrix IM Intramuscular Apr 24, [...] 1 capsule Orally Twice a day Active buPROPion HCl 75 MG 1 tablet Orally Once a day for 30 day(s) Apr, Active Atorvastatin Calcium 20 MG 1 tablet Orally Once a day for 90 days Active Ondansetron 4 MG 1 tablet on the tongue and a llow to dissolve Orally Every 6 hours as needed for nausea for 30 day(s) Jun, Active tiZANidine HCl 4 MG TAKE ONE TABLET BY MOUTH RADHA RY 8 HOURS NEEDED Oral for 90 Active Multivitamins multivit. 2 tab(s) Orally flintstone vit. Active Calcium + D 600-200 MG-UNIT 2 tabs Orally Once a day for 30 day(s) Active Omeprazole 20 MG TAKE 1 CAPSULE BY MOUTH DAILY for 90 Active Vitamin B-12 500 MCG 1 tablet Orally Once a day for 30 day(s) Active HYDROcodone-Acetaminophen 5-325 MG 1 tablet Orally Radha ry 12 hours as needed for pain. MDD=2 for 30 Days May, Active Voltaren 1 % 1 application to painful jonathan nts Transdermal twice a day as needed for 30 day(s) Oct, Not-Taking metFORMIN HCl ER 750 MG 1 tablet with evening meal O rally Once a day for 90 days Apr, Active Ferrous Sulfate 325 (65 Fe) MG [...] 05/09 Hospitalization History Surgically related Hospitalization History [facility]-Fractured radial head 06/2017 Hospitalization History [facility] ED-Right shoulder/Back pain 03/2021 Goals Section No Information Health Concerns No Information MEDICAL EQUIPMENT No Information MENTAL STATUS No Information FUNCTIONAL STATUS No Information ASSESSMENTS No Information PLAN OF TREATMENT Medication Medication Name Sig Start Date Stop Date Atorvastatin Calcium 20 MG 1 tablet Orally Once a day for 90 day s metFORMIN HCl ER 750 MG 1 tablet with evening meal O rally Once a day for 90 days Apr, buPROPion HCl 75 MG 1 tablet Orally Once a day for 30 day(s) Apr, Ondansetron 4 MG 1 tablet on the tongue and a llow to dissolve Orally Every 6 hours as needed for nausea for 30 day(s) Jun, Ferrous Sulfate 325 (65 Fe) MG 1 tablet Orally Once a day fo r 90 days Apr, Omeprazole 20 MG TAKE 1 CAPSULE BY MOUTH DAILY for 90 HYDROcodone-Acetaminophen 5-325 MG 1 tablet Orally Radha ry 12 hours as needed for pain. MDD=2 for 30 Days May, Next Appt Details Provider Name:Sebas Cosme, 2021-09-20 11 :00:00 AM, [address] [facility], , [place], [address], Insurance Providers Payer Name Payer Address Payer Phone Insured Name Patient Relati onship to Insured Coverage Start Date Coverage End Date [facility] [phone] [facility] [address] [place] BET[employer] self
--- OUTSIDE RECORDS SUMMARY | 2021-07-01 07:24 | CCD ---
Author Author [facility] [facility] Organization [facility] [employer] [facility] Address Unknown Phone Unavailable Care Team Providers Care Loop Tender Name Role Phone Sebas Cosme Unavailable PROBLEMS Type Condition ICD9-CM Code [id number] Code Onset Dates Condition S tatus W/U Status Risk SNOMED Code Notes Problem Hormone replacement therapy Z79.890 Active confirme d [id number] Managed by [facility] in the past. She did not tolerate a hiatus in therapy in 2010 but is off that therapy now. Problem Gastroesophageal reflux K21.9 Active confirmed [id number] She is on omeprazole 20 mg daily. She had been advised to reduce her omeprazole and switch to Zantac by her ad terminal makeup operator in 2016 but she could not successfully do so because of recurrent symptoms. She had an upper endoscopy in December 2016. She rarely has abdominal discomfort since her gallbladder was removed 01/2014. She has iron deficiency anemia as of April 2021 and is referred back to her astroenterologist. Problem Supraventricular tachycardia I47.1 Active confirme d 9711320 No significant palpitations. Had ablation procedure in 2002. Problem Elevated cholesterol E78.00 Active confirmed 426510514 She is currently on Lipitor. Lipids were optimal in September 2017, and her LDL was 109 in October 2018, 117 in April 2019, 100 in April 2020, 70 in April 2021. Lipitor dose increased to 20 mg daily in April 2019. Problem Right shoulder pain, unspecified chronicity M25.51 1 Active confirmed 21019344 She developed right shoulder pain with no [...] unremarkable. Problem Cervical radiculopathy M54.12 Active confirmed 23150548 Had neck surgeries in 2006 and 2008. [...] iron deficiency anemia D50.8 Active confirme d 29999507 She was noted to be iron deficient with anemia in April 2021 and is started on iron therapy. She is referred back to her ad terminal makeup operator for endoscopies. Problem Nephrolithiasis N20.0 Active confirmed [...] Problem Diabetes mellitus E11.9 Active confirmed 73 211486 On metformin. She was on Victoza, which [...] Problem Bariatric surgery status Z98.84 Active confirmed 176903269 She had gastric bypass surgery in September 2010. Iron studies, vitamin B12 level, RBC folate were all unremarkable and normal in September 2017, and B12 and folate levels were normal again most recently in October 2020. However she is iron deficient as of April 2021, is started on iron replacement therapy, and is referred back to her ad terminal makeup operator. Problem Low back pain M54.5 Active confirmed 862641 009 Unfortunately this is managed with hydrocodone [...] stone with hydronephrosis N13.2 Activ e confirmed [id number] ALLERGIES Allergen (clinical drug ingredient) Drug/Non Drug Allergy do cumented on EMR Reaction Allergy Type Onset Date Status meperidine Demerol(ND Code:[address]-10) HYPOTENSION Drug Allergy Active tetracycline Tetracycline HCl(ND Code:[address]-95) Hives Drug Allergy Active ENCOUNTERS from 1965 to 2021-05-26 Encounter Location Date Provider Diagnosis [facility] [place] [address] [facility] [phone] [place] [address] Apr, Sebas Cosme Encounter for immunization Z 23 IMMUNIZATIONS Vaccine Route Administration Date Status Pfizer #3 [...] IM Intramuscular Aug 14, 2018 Adm inistered Influenza 18 yrs & older Flublok IM Intramuscular May 26, 2021 Administered Zoster 50mcg/0.5mL Shingrix IM Intramuscular [...] day for 90 days Apr, Active PROCEDURES from 1965 to 2021-05-26 Procedure Date Ordered Result Body Site Imm: Flublok Quadrivalent 18 years & older 0.5mL IM Influenza 20 20-05-27 N/A RESULTS No Results REASON FOR VISIT flu shot MEDICAL (GENERAL) HISTORY Type Description Date Medical [...] 05/09 Hospitalization History Surgically related Hospitalization History [facility]-Fractured radial head 06/2017 Hospitalization History [facility] ED-Right shoulder/Back pain /03/2021 Goals Section No Information Health Concerns No Information MEDICAL EQUIPMENT No Information MENTAL STATUS No Information FUNCTIONAL STATUS No Information ASSESSMENTS Encounter Date Diagnosis Assessment Notes Treatment Notes Treatm ent Clinical Notes Apr, Encounter for immunization (ICD-10 - Z23) PLAN OF TREATMENT Medication Medication Name Sig [...] Name:Sebas Cosme, 2021-09-20 11 :00:00 AM, [address] [facility], , [place], [address], Insurance Providers Payer Name Payer Address Payer Phone Insured Name Patient Relati onship to Insured Coverage Start Date Coverage End Date [facility] [id number] [facility] [address] [place] BET[employer] self
--- OUTSIDE RECORDS SUMMARY | 2021-07-01 07:25 | CCD ---
Author Organization Unknown Address [address] [place] [address] Phone [phone] Care Team Providers Care Valve Fitter Name Role Phone EVAN ENCISO MD 4 [phone] EVAN ENCISO MD 3 [phone] Allergies Code Code System Name Reaction Severity Status Onset 899738 RxNorm Demerol Other Moderate Active 51873 RxNorm Tetracycline Hives Moderate Active Medications Name Status Start Date Stop Date amoxicillin 500 mg capsule TAKE 1 CAPSULE BY MOUTH THREE TIMES DAILY UNTIL GONE Completed 01/07/2021 atorvastatin 10 mg tablet TAKE ONE TABLET BY MOUTH ONCE A DAY Active Not available atorvastatin 20 mg tablet TAKE 1 TABLET BY MOUTH EVERY DAY Active Not av ailable bacitracin-polymyxin B 500 unit-10,000 u nit/gram eye ointment KANCHAN TOPICALLY BID Completed 10/02/2020 baclofen 10 mg tablet TAKE 1 TABLET BY MOUTH THREE TIMES DAILY. MAXIMUM DAILY DOSE IS 3 Active Not available Benadryl 25 mg capsule Take 2 capsules as needed by oral route at bedtime. Active Not available bupropion HCl XL 150 [...] Not available metformin ER 750 mg tablet,extended rele ase 24 hr TAKE 1 TABLET BY MOUTH EVERY DAY WITH THE EVENING MEAL Active Not available multivitamin capsule Take 1 capsule every day by oral route. Active Not available nitrofurantoin monohydrate/macrocrystals 100 mg capsule TAKE 1 CAPSULE BY MOUTH TWICE DAILY FOR 5 DAYS Active Not available omeprazole 20 mg capsule,delayed release TAKE 1 CAPSULE BY MOUTH DAILY Active Not avail able omeprazole 40 mg capsule,delayed release TAKE ONE CAPSULE BY MOUTH ONCE A DAY Completed ondansetron 4 mg disintegrating tablet DISSOLVE 1 TABLET ON THE TONGUE EVERY 6 HOURS NEEDED FOR NAUSEA [...] Completed 2020 tizanidine 4 mg tablet TAKE 1 TO 2 TABLETS BY MOUTH EVERY 8 HOURS NEEDED Active [...] lable 11/16/2020 MRI, Cervical Spine, W/o Contrast [facility] [address] [place] [address] (Work [address]) 11/16/2020 MRI, Lumbar Spine, W/o Contrast [facility] [address] [place] [address] ([address]) Notes: lumbar disectomy L3-L4 2006 (Dr. Sierra), L4-L5 (Dr. Sierra). Ablasion for SVT | lumbar discectomy L3-L4-2006 ( DR Sierra), L4-L5 2008 ( Dr Sierra), Hysterectomy-?, 05/21/2018 Gastric Bypass-2010, Cholecystectomy-2013, Ablation for SVT 05/21/2018 Results Lab Results Date Name Specimen Result Interpretation Description Value Range Status Address 09/04/2020 [facility] Report NOS No observation recorded. [facility]: [address] [facility], [place] 09/04/2020 SARS CoV 2 RNA (COVID-19), QL, can reconditioner-PCR, Respirat ory Specimen NOS Normal Sars-cov-2 negative negative Final [facility]: [address] [facility] [place] 05/25/2020 [facility] P[facility] Report NOS No observation recorded. [facility]: [address] [facility], [place] 05/25/2020 SARS CoV 2 RNA (COVID-19), QL, can reconditioner-PCR, Respirat ory Specimen NOS Normal Sars-cov-2 negative negative Final [facility]: [address] [facility], [place] 04/27/2020 SARS CoV 2 RNA (COVID-19), QL, can reconditioner-PCR, Respiratory Specim en No observation recorded. [employer]: [address] [place] [address] 03/16/2020 SARS CoV 2 RNA (COVID-19), QL, can reconditioner-PCR, Respiratory Specim en No observation recorded. 02/10/2020 SARS CoV 2 RNA (COVID-19), QL, can reconditioner-PCR, Respiratory Specim en No observation recorded. [facility]: [address] [place] [address], [place] 01/07/2020 SARS CoV 2 RNA (COVID-19), QL, can reconditioner-PCR, Respiratory Specim en No observation recorded. [employer]: [address] [place], [place] [address]ville Past Encounters 05/03/2021 Lumbar Post-laminectomy Syndrome; Spinal Stenosis of [...] Post- laminectomy Syndrome; Lumbar Radiculopathy Tasha Jacobs SAMPLE CARD MAKER: [id number] [facility] [address], [place] [address], Ph. 03/18/2021 Lumbar Post-laminectomy Syndrome; Spinal Stenosis [...] Post- laminectomy Syndrome; Lumbar Radiculopathy Tasha Jacobs SAMPLE CARD MAKER: [id number] [facility] [address], [place] [address], Ph. 02/05/2021 Lumbar Post-laminectomy Syndrome; Spinal Stenosis [...] Post- laminectomy Syndrome; Lumbar Radiculopathy Tasha Jacobs SAMPLE CARD MAKER: [id number] [facility], [place] [address], Ph. 01/07/2021 Lumbar Post-laminectomy Syndrome; Spinal Stenosis [...] laminectomy Syndrome; Lumbar Radiculopathy Tasha Jacobs NP: [id number] [facility] [address], [place] [address], Ph. 11/30/2020 Lumbar Post-laminectomy Syndrome; Spinal Stenosis [...] laminectomy Syndrome; Lumbar Radiculopathy Christopher Tobar MD: [id number] [address], [place] [address], Ph. 11/16/2020 Lumbar Post-laminectomy Syndrome; Spinal Stenosis [...] laminectomy Syndrome; Lumbar Radiculopathy Tasha Jacobs NP: [id number] [facility] [address], [place] [address], Ph. 10/02/2020 Lumbar Post-laminectomy Syndrome; Spinal Stenosis [...] Myofascial Pain; Post- laminectomy Syndrome Tasha Jacobs SAMPLE CARD MAKER: [id number] [address], [place] [address], Ph. 09/09/2020 Cervical Radiculopathy; Degeneration of Cervical [...] Myofascial Pain; Post-laminectomy Syndrome Christopher Tobar MD: [id number] [address], Ph. 09/04/2020 Pre-surgery Testing; Viral Screening Christopher Tobar MD: [address] [address], [place] [address], Ph. [phone] 08/26/2020 Lumbar Post-laminectomy Syndrome; Spinal Stenosis of Lumbar Region; Degeneration of Lumbar Intervertebral Disc; Degeneration of Intervertebral Disc; Intervertebral Disc Disorder; Displacement of Lumbar Intervertebral Disc without Myelopathy; Degeneration of Cervical Intervertebral Disc; Displacement of Cervical Intervertebral Disc without Myelopathy; Cervical Spondylosis without Myelopathy; Cervical Radiculopathy; Lumbar Spondylosis; Lumbosacral Spondylosis without Myelopathy; Inflammation of Sacroiliac Joint; Myofascial Pain; Post- laminectomy Syndrome Tasha Jacobs SAMPLE CARD MAKER: [id number] [address], [place] [address], Ph. 06/12/2020 Lumbar Post-laminectomy Syndrome; Spinal Stenosis [...] Pain; Post- laminectomy Syndrome Tasha Jacobs NP: [id number] [address], [place] [address], Ph. 05/29/2020 Cervical Radiculopathy; Degeneration of Cervical [...] Myofascial Pain; Post-laminectomy Syndrome Christopher Tobar MD: [address] [address], [place] [address], Ph. 05/25/2020 Pre-surgery Testing; Viral Screening Christopher Tobar MD: [id number] [address], Ph. [phone] 04/30/2020 Cervical Radiculopathy; Degeneration of Cervical Intervertebral Disc; Displacement of Cervical Intervertebral Disc without Myelopathy; Cervical Spondylosis without Myelopathy; Lumbar Post-laminectomy Syndrome; Spinal Stenosis of Lumbar Region; Degeneration of Lumbar Intervertebral Disc; Degeneration of Intervertebral Disc; Intervertebral Disc Disorder; Displacement of Lumbar Intervertebral Disc without Myelopathy; Lumbar Spondylosis; Lumbosacral Spondylosis without Myelopathy; Inflammation of Sacroiliac Joint; Myofascial Pain; Post-laminectomy Syndrome Christopher Tobar MD: [address] [address], [place] [address], Ph. 04/27/2020 Pre-surgery Testing; Viral Screening Christopher Tobar MD: [id number] [address], [place] [address], Ph. [phone] 04/24/2020 Lumbar Post-laminectomy Syndrome; Spinal Stenosis of Lumbar Region; Degeneration of Lumbar Intervertebral Disc; Degeneration of Intervertebral Disc; Intervertebral Disc Disorder; Displacement of Lumbar Intervertebral Disc without Myelopathy; Degeneration of Cervical Intervertebral Disc; Displacement of Cervical Intervertebral Disc without Myelopathy; Cervical Spondylosis without Myelopathy; Cervical Radiculopathy; Lumbar Spondylosis; Lumbosacral Spondylosis without Myelopathy; Inflammation of Sacroiliac Joint; Myofascial Pain; Post- laminectomy Syndrome Tasha Jacobs SAMPLE CARD MAKER: [address] [address], [place] [address], Ph. 03/20/2020 Cervical Radiculopathy; Degeneration of Cervical [...] Myofascial Pain; Post-laminectomy Syndrome Christopher Tobar MD: [id number] [place] [address], Ph. 03/16/2020 Pre-surgery Testing; Viral Screening Christopher Tobar MD: [id number] [address], Ph. [phone] 02/28/2020 Lumbar Post-laminectomy Syndrome; Spinal Stenosis of Lumbar Region; Degeneration of Lumbar Intervertebral Disc; Degeneration of Intervertebral Disc; Intervertebral Disc Disorder; Displacement of Lumbar Intervertebral Disc without Myelopathy; Degeneration of Cervical Intervertebral Disc; Displacement of Cervical Intervertebral Disc without Myelopathy; Cervical Spondylosis without Myelopathy; Cervical Radiculopathy; Lumbar Spondylosis; Lumbosacral Spondylosis without Myelopathy; Inflammation of Sacroiliac Joint; Myofascial Pain; Post- laminectomy Syndrome Tasha Jacobs SAMPLE CARD MAKER: [address] [address], [place] [address], Ph. 02/14/2020 Cervical Spondylosis without Myelopathy; Degeneration [...] Myofascial Pain; Post-laminectomy Syndrome Christopher Tobar MD: [id number] [address], [place] [address], Ph. 02/10/2020 Pre-surgery Testing; Viral Screening Christopher Tobar MD: [address] [address], [place] [address], Ph. [phone] 01/24/2020 Lumbar Post-laminectomy Syndrome; Spinal Stenosis of [...] Pain; Post- laminectomy Syndrome Tasha Jacobs NP: [address] [address], [place] [address], Ph. 01/10/2020 Inflammation of Sacroiliac Joint; Lumbar [...] Myofascial Pain; Post-laminectomy Syndrome Christopher Tobar MD: [id number] [address], Ph. 01/07/2020 Pre-surgery Testing; Viral Screening Christopher Tobar MD: [address] [address], [place] [address], Ph. [phone] 11/07/2019 Lumbar Post-laminectomy Syndrome; Spinal Stenosis of [...] Pain; Post- laminectomy Syndrome Tasha Jacobs NP: [id number] [address], Ph. 08/23/2019 Cervical Spondylosis without Myelopathy; Degeneration of Cervical Intervertebral Disc; Displacement of Cervical Intervertebral Disc without Myelopathy; Cervical Radiculopathy; Lumbar Post-laminectomy Syndrome; Spinal Stenosis of Lumbar Region; Degeneration of Lumbar Intervertebral Disc; Degeneration of Intervertebral Disc; Intervertebral Disc Disorder; Displacement of Lumbar Intervertebral Disc without Myelopathy; Lumbar Spondylosis; Lumbosacral Spondylosis without Myelopathy; Inflammation of Sacroiliac Joint; Myofascial Pain Christopher Tobar MD: [address] [address], [place] [address], Ph. 07/22/2019 Lumbar Post-laminectomy Syndrome; Spinal Stenosis of Lumbar Region; Degeneration of Lumbar Intervertebral Disc; Degeneration of Intervertebral Disc; Intervertebral Disc Disorder; Displacement of Lumbar Intervertebral Disc without Myelopathy; Degeneration of Cervical Intervertebral Disc; Displacement of Cervical Intervertebral Disc without Myelopathy; Cervical Spondylosis without Myelopathy; Cervical Radiculopathy; Lumbar Spondylosis; Lumbosacral Spondylosis without Myelopathy; Inflammation of Sacroiliac Joint; Myofascial Pain Tasha Jacobs NP: [address] [address], [place] [address], Ph. 06/13/2019 Cervical Radiculopathy; Displacement of Cervical Intervertebral Disc without Myelopathy; Degeneration of Cervical Intervertebral Disc; Cervical Spondylosis without Myelopathy; Lumbar Post-laminectomy Syndrome; Spinal Stenosis of Lumbar Region; Degeneration of Lumbar Intervertebral Disc; Degeneration of Intervertebral Disc; Intervertebral Disc Disorder; Displacement of Lumbar Intervertebral Disc without Myelopathy; Lumbar Spondylosis; Lumbosacral Spondylosis without Myelopathy; Inflammation of Sacroiliac Joint; Myofascial Pain Christopher Tobar MD: [address] [address], [place] [address], Ph. 05/23/2019 Lumbar Post-laminectomy Syndrome; Spinal Stenosis of Lumbar Region; Degeneration of Lumbar Intervertebral Disc; Degeneration of Intervertebral Disc; Intervertebral Disc Disorder; Displacement of Lumbar Intervertebral Disc without Myelopathy; Degeneration of Cervical Intervertebral Disc; Displacement of Cervical Intervertebral Disc without Myelopathy; Cervical Spondylosis without Myelopathy; Cervical Radiculopathy; Lumbar Spondylosis; Lumbosacral Spondylosis without Myelopathy; Inflammation of Sacroiliac Joint; Myofascial Pain Tasha Jacobs SAMPLE CARD MAKER: [id number] [address], Ph. 04/19/2019 Lumbar Post-laminectomy Syndrome; Spinal Stenosis of Lumbar Region; Degeneration of Lumbar Intervertebral Disc; Degeneration of Intervertebral Disc; Intervertebral Disc Disorder; Displacement of Lumbar Intervertebral Disc without Myelopathy; Degeneration of Cervical Intervertebral Disc; Displacement of Cervical Intervertebral Disc without Myelopathy; Cervical Spondylosis without Myelopathy; Cervical Radiculopathy; Lumbar Spondylosis; Lumbosacral Spondylosis without Myelopathy; Inflammation of Sacroiliac Joint; Myofascial Pain Christopher Tobar MD: [address] [address], [place] [address], Ph. 04/05/2019 Lumbar Post-laminectomy Syndrome; Spinal Stenosis of Lumbar Region; Degeneration of Lumbar Intervertebral Disc; Degeneration of Intervertebral Disc; Intervertebral Disc Disorder; Displacement of Lumbar Intervertebral Disc without Myelopathy; Degeneration of Cervical Intervertebral Disc; Displacement of Cervical Intervertebral Disc without Myelopathy; Cervical Spondylosis without Myelopathy; Cervical Radiculopathy; Lumbar Spondylosis; Lumbosacral Spondylosis without Myelopathy; Inflammation of Sacroiliac Joint; Myofascial Pain Tasha Jacobs SAMPLE CARD MAKER: [address] [address], [place] [address], Ph. 02/07/2019 Cervical Radiculopathy; Degeneration of Cervical Intervertebral Disc; Displacement of Cervical Intervertebral Disc without Myelopathy; Cervical Spondylosis without Myelopathy; Lumbar Post-laminectomy Syndrome; Spinal Stenosis of Lumbar Region; Lumbar Spondylosis; Degeneration of Lumbar Intervertebral Disc; Degeneration of Intervertebral Disc; Displacement of Lumbar Intervertebral Disc without Myelopathy; Lumbosacral Spondylosis without Myelopathy; Intervertebral Disc Disorder Christopher Tobar MD: [id number] [address], Ph. 01/16/2019 Lumbosacral Spondylosis without Myelopathy; Lumbar Spondylosis; Degeneration of Lumbar Intervertebral Disc; Degeneration of Intervertebral Disc; Intervertebral Disc Disorder; Displacement of Lumbar Intervertebral Disc without Myelopathy; Lumbar Post-laminectomy Syndrome; Spinal Stenosis of Lumbar Region; Degeneration of Cervical Intervertebral Disc; Displacement of Cervical Intervertebral Disc without Myelopathy; Cervical Spondylosis without Myelopathy; Cervical Radiculopathy Christopher Tobar MD: [id number] [address], Ph. 01/01/2019 Lumbar Post-laminectomy Syndrome; Spinal Stenosis of Lumbar Region; Degeneration of Lumbar Intervertebral Disc; Degeneration of Intervertebral Disc; Intervertebral Disc Disorder; Displacement of Lumbar Intervertebral Disc without Myelopathy; Degeneration of Cervical Intervertebral Disc; Displacement of Cervical Intervertebral Disc without Myelopathy; Cervical Spondylosis without Myelopathy; Cervical Radiculopathy; Lumbar Spondylosis; Lumbosacral Spondylosis without Myelopathy Christopher Tobar MD: [id number] [address], Ph. 12/12/2018 Lumbosacral Spondylosis without Myelopathy; Lumbar Spondylosis; Degeneration of Lumbar Intervertebral Disc; Degeneration of Intervertebral Disc; Lumbar Post- laminectomy Syndrome; Spinal Stenosis of Lumbar Region; Intervertebral Disc Disorder; Displacement of Lumbar Intervertebral Disc without Myelopathy; Degeneration of Cervical Intervertebral Disc; Displacement of Cervical Intervertebral Disc without Myelopathy; Cervical Spondylosis without Myelopathy; Cervical Radiculopathy Christopher Tobar MD: [address] [address], [place] [address], Ph. 11/16/2018 Lumbosacral Spondylosis without Myelopathy; Lumbar Spondylosis; Degeneration of Lumbar Intervertebral Disc; Degeneration of Intervertebral Disc; Lumbar Post- laminectomy Syndrome; Spinal Stenosis of Lumbar Region; Intervertebral Disc Disorder; Displacement of Lumbar Intervertebral Disc without Myelopathy; Degeneration of Cervical Intervertebral Disc; Displacement of Cervical Intervertebral Disc without Myelopathy; Cervical Spondylosis without Myelopathy; Cervical Radiculopathy Christopher Tobar MD: [id number] [address], Ph. 10/25/2018 Lumbar Post-laminectomy Syndrome; Spinal Stenosis of Lumbar Region; Degeneration of Lumbar Intervertebral Disc; Degeneration of Intervertebral Disc; Intervertebral Disc Disorder; Displacement of Lumbar Intervertebral Disc without Myelopathy; Degeneration of Cervical Intervertebral Disc; Displacement of Cervical Intervertebral Disc without Myelopathy; Cervical Spondylosis without Myelopathy; Cervical Radiculopathy; Lumbar Spondylosis; Lumbosacral Spondylosis without Myelopathy Christopher Tobar MD: [id number] [address], Ph. 10/03/2018 Lumbar Post-laminectomy Syndrome; Spinal Stenosis of Lumbar Region; Degeneration of Lumbar Intervertebral Disc; Degeneration of Intervertebral Disc; Intervertebral Disc Disorder; Displacement of Lumbar Intervertebral Disc without Myelopathy; Degeneration of Cervical Intervertebral Disc; Displacement of Cervical Intervertebral Disc without Myelopathy; Cervical Spondylosis without Myelopathy; Cervical Radiculopathy; Lumbar Spondylosis; Lumbosacral Spondylosis without Myelopathy Christopher Tobar MD: [id number] [address], Ph. 08/03/2018 Degeneration of Cervical Intervertebral Disc; Displacement of Cervical Intervertebral Disc without Myelopathy; Cervical Spondylosis without Myelopathy; Cervical Radiculopathy; Lumbar Post-laminectomy Syndrome; Spinal Stenosis of Lumbar Region; Lumbar Spondylosis; Degeneration of Lumbar Intervertebral Disc; Degeneration of Intervertebral Disc; Displacement of Lumbar Intervertebral Disc without Myelopathy; Lumbosacral Spondylosis without Myelopathy; Intervertebral Disc Disorder Christopher Tobar MD: [address] [address], [place] [address], Ph. 07/05/2018 Degeneration of Cervical Intervertebral Disc; Displacement of Cervical Intervertebral Disc without Myelopathy; Cervical Spondylosis without Myelopathy; Cervical Radiculopathy; Lumbar Post-laminectomy Syndrome; Spinal Stenosis of Lumbar Region; Lumbar Spondylosis; Degeneration of Lumbar Intervertebral Disc; Degeneration of Intervertebral Disc; Displacement of Lumbar Intervertebral Disc without Myelopathy; Lumbosacral Spondylosis without Myelopathy; Intervertebral Disc Disorder Christopher Tobar MD: [address], [place] [address], Ph. 06/14/2018 Degeneration of Cervical Intervertebral Disc; Displacement of Cervical Intervertebral Disc without Myelopathy; Cervical Spondylosis without Myelopathy; Cervical Radiculopathy; Lumbar Post-laminectomy Syndrome; Spinal Stenosis of Lumbar Region; Lumbar Spondylosis; Degeneration of Lumbar Intervertebral Disc; Degeneration of Intervertebral Disc; Displacement of Lumbar Intervertebral Disc without Myelopathy; Lumbosacral Spondylosis without Myelopathy; Intervertebral Disc Disorder Christopher Tobar MD: [address], [place] [address], Ph. Social History Tobacco Smoking Status Never Smoker Vaccine List None recorded. Plan of Care Reminders Provider Appointments None recorded. Lab None recorded. Referral None recorded. Procedures None recorded. Surgeries None recorded. Imaging None recorded. Vitals 05/03/2021 10:15AM FOLLOW-UP Height Blood Pressure 5 [...]
--- OUTSIDE RECORDS SUMMARY | 2021-07-01 07:25 | CCD | Continuity of Care Document ---
Author Author Madyson VALENCIA MD Organization Unknown Address [address] [place] [address] Phone [phone] Care Team Providers Care Cushion Spring Assembler Name Role Phone Sebas Cosme MD AUTM [phone] Tasha Jacobs AUTM [phone] Problems Active Problems Provider Date Pure hypercholesterolemia Onset: 016 Social History Type Date Description Comments Sex Unknown ETOH Use Rarely consumes alcohol Tobacco Use Start: Unknown Patient has never smoked Smoking Status Reviewed: 04/01/21 Patient has never smoked Allergies, Adverse Reactions, Alerts Active Allergies Criticality Reaction | Severity Comments Date Tetracycline Unable to assess criticality 02/19/2016 Demerol Unable to assess criticality 02/19/2016 Medications Active Medications SIG Qnty Indications Ordering Provide r Date Baclofen 10mg Tablets 1 by mouth three times a day 90tabs M48.061 Galo Caballero MD 021 Tramadol HCL 50mg Tablets 1 every 4-6 hours as needed for pain 15tabs Timothy Valencia MD 09/28 [place] 5-325mg Tablets take 1 tabs by mouth every 8hours as needed pain/ prn 30tabs Nnamdi Obregon MD 07/13/[address] 1 by mouth once a day Unknown Estrace 1mg Tablets 1 tab po daily Unknown Multi Vitamin Daily Tablets every day Unknown Vitamin B12 100mcg Tablets 1 tab po daily Unknown Calcium 600mg Tablets 1 by mouth daily Unknown Neurontin 300mg Capsules 2 by mouth twice a day Unknown Lipitor 20mg Tablets 1 by mouth every day Unknown Systane 0.4-0.3% Solution 1 drops both eyes every night at bedtime Unknown Tizanidine HCL 2mg Capsules 1-2 by mouth three times a day as needed Unknown Immunizations Description No Information Available Vital Signs Date Vital Result Comment 01/21/2021 2:32pm Body Temperature 97.5 F Height 64.5 inches 5'4.50" Weight 167.50 lb BMI (Body Mass Index) 28.3 kg/m2 10/06/2020 4:18pm Body Temperature 97.5 F Height 63 inches 5'3" Weight 166.00 lb BMI (Body Mass Index) 29.4 kg/m2 Results Test Acquired Date Facility Test Result H/L Range Note Laboratory test finding 04/01/2021 [facility] [address] [place] [address] (315)- - C Reactive Protein Quantitativ < 0.30 mg/dL Normal 0.0 0-0.30 Erythrocyte Sedimentation Rate 19 mm/hr Normal 0-30 Procedures Date Code Description Status 04/01/2021 40692 Office/Outpatient Established Mo d MDM 30-39 Min Completed 04/01/2021 60088 X-Ray Toe(S) Two Views Completed 04/01/2021 42819 X-Ray Spine Cervical 6 Or More V iews Completed 01/21/2021 27027 Office/Outpatient Established Mo d MDM 30-39 Min Completed 11/13/2020 73399 Office/Outpatient Established Lo w MDM 20-29 Min Completed 12/2016 [id number] Colonoscopy Completed Medical Devices Description No Information Available Encounters Type Date Location Provider Dx Diagnosis Office Visit 04/01/2021 9:[place]a [place] M47.892 Other spondylosis, cervical region M48.02 Spinal stenosis, cervical re gion M43.12 Spondylolisthesis, cervical region M20.21 Hallux rigidus, right foot M20.22 Hallux rigidus, left foot Office Visit 01/21/2021 2:[place]p [place] M47.892 Other spondylosis, cervical region M54.5 Low back pain M48.061 Spinal stenosis, lumbar miguel on without neurogenic kacey Office Visit 11/13/2020 2:15p [place] Timothy Valencia MD M47.892 Other spondylosis, cervical region M65.811 Other synovitis and tenosyno vitis, right shoulder Assessments Date Code Description Provider 04/01/2021 M47.892 Other spondylosis, cervical miguel on Timothy Valencia MD 04/01/2021 M48.02 Spinal stenosis, cervical region Timothy Valencia MD 04/01/2021 M43.12 Spondylolisthesis, cervical miguel on Timothy Valencia MD 04/01/2021 M20.21 Hallux rigidus, right foot Timothy Valencia MD 04/01/2021 M20.22 Hallux rigidus, left foot Timothy Valencia MD 01/21/2021 M47.892 Other spondylosis, cervical miguel on Timothy Valencia MD 01/21/2021 M54.5 Low back pain Timothy Valencia MD 01/21/2021 M48.061 Spinal stenosis, lum bar region without neurogenic claudication Timothy Valencia MD 11/13/2020 M47.892 Other spondylosis, cervical miguel on Timothy Valencia MD 11/13/2020 M65.811 Other synovitis and tenosynoviti s, right shoulder Timothy Valencia MD Plan of Treatment Future Appointment(s):* 04/28/2021 3:30 pm - Timothy Valencia MD at [place] 04/01/2021 - Timothy Valencia MD* M47.892 Other spondylosis, cervical region* Follow up:* F/U WITH [facility] VIA TELE MED VISIT FOR LAB RESULTS * M48.02 Spinal stenosis, cervical region * M43.12 Spondylolisthesis, cervical region * M20.21 Hallux rigidus, right foot * M20.22 Hallux rigidus, left foot Functional Status Description No Information Available Mental Status Description No Information Available Referrals Description No Information Available
--- OUTSIDE RECORDS SUMMARY | 2021-07-01 07:25 | CCD ---
Author Author [facility] Organization [facility] Address Unknown Phone Unavailable Care Team Providers Care Catalyst Supervisor Name Role Phone Sebas Cosme Unavailable PROBLEMS Type Condition ICD9-CM Code ASN41-EP Code Onset Dates Condition S tatus W/U Status Risk SNOMED Code Notes Problem Hormone replacement therapy Z79.890 Active confirme d [id number] Managed by [facility] in the past. She did not tolerate a hiatus in therapy in 2010 but is off that therapy now. Problem Gastroesophageal reflux K21.9 Active confirmed [id number] She is on omeprazole 20 mg daily. She had been advised to reduce her omeprazole and switch to Zantac by her order planner in 2016 but she could not successfully do so because of recurrent symptoms. She had an upper endoscopy in December 2016. She rarely has abdominal discomfort since her gallbladder was removed 01/2014. She has iron deficiency anemia as of April 2021 and is referred back to her astroenterologist. Problem Supraventricular tachycardia I47.1 Active confirme d 3374223 No significant palpitations. Had ablation procedure in 2002. Problem Elevated cholesterol E78.00 Active confirmed 605823828 She is currently on Lipitor. Lipids were optimal in September 2017, and her LDL was 109 in October 2018, 117 in April 2019, 100 in April 2020, 70 in April 2021. Lipitor dose increased to 20 mg daily in April 2019. Problem Right shoulder pain, unspecified chronicity M25.51 1 Active confirmed 17467190 She developed right shoulder pain with no [...] unremarkable. Problem Cervical radiculopathy M54.12 Active confirmed 51058262 Had neck surgeries in 2006 and 2008. [...] iron deficiency anemia D50.8 Active confirme d 41820817 She was noted to be iron deficient with anemia in April 2021 and is started on iron therapy. She is referred back to her order planner for endoscopies. Problem Nephrolithiasis N20.0 Active confirmed [...] Problem Diabetes mellitus E11.9 Active confirmed 73 643568 On metformin. She was on Victoza, which [...] Problem Bariatric surgery status Z98.84 Active confirmed 432578783 She had gastric bypass surgery in September 2010. Iron studies, vitamin B12 level, RBC folate were all unremarkable and normal in September 2017, and B12 and folate levels were normal again most recently in October 2020. However she is iron deficient as of April 2021, is started on iron replacement therapy, and is referred back to her order planner. Problem Low back pain M54.5 Active confirmed 495427 009 Unfortunately this is managed with hydrocodone [...] stone with hydronephrosis N13.2 Activ e confirmed [id number] ALLERGIES Allergen (clinical drug ingredient) Drug/Non Drug Allergy do cumented on EMR Reaction Allergy Type Onset Date Status meperidine Demerol(ND Code:[address]-14) HYPOTENSION Drug Allergy Active tetracycline Tetracycline HCl(ND Code:[address]-56) Hives Drug Allergy Active ENCOUNTERS from 1965 to 2021-05-22 Encounter [facility] Date [facility] [address] [facility] [phone] [place] [address] Apr, Sebas Carmelina Diabetes mellitus E11.9 ; Ga stroesophageal reflux K21.9 ; Nephrolithiasis N20.0 ; Supraventricular tachycardia I47.1 ; Cervical radiculopathy M54.12 ; Elevated cholesterol E78.00 ; Bariatric surgery status Z98.84 ; Low back pain M54.5 and Other iron deficiency anemia D50.8 IMMUNIZATIONS Vaccine Route Administration Date Status Pfizer [...] never smoker never smoker REASON FOR REFERRAL from 1965 to 2021-05-22 Reason She has had endoscopy value in the past. She is post bariatric surgery years ago.|She has developed a significant iron deficiency anemia with a hemoglobin in the eights, MCV 77|Please evaluate for repeat endoscopies,? Capsule enteroscopy Diagnosis 1 Other iron deficiency anemia (D50.8) Referral Organization [facility] Juan Pablo Referring Provider First Name Sebas Referring Provider Last Name Carmelina Referring Provider Specialty Family Medicine Referred Provider Darlene Danielson Referred Provider Specialty Gastroenterology Referral Priority Urgent VITAL SIGNS Weight 175.2 lbs Apr, Height 65.25 in Apr, BMI 28.93 kg/m2 Apr, Heart Rate 94 /min Apr, Respiratory Rate 18 /min Apr, Temperature 97.7 degrees Fahrenheit Apr, Oximetry 97% Apr, Blood pressure systolic 128 mm Hg Apr, Blood pressure diastolic 82 mm Hg Apr, MEDICATIONS Medication SIG (Take, Route, Frequency, Duration) Notes Start Da te End Date Status HYDROcodone-Acetaminophen 5-325 MG 1 tablet [id number] Every 12 hours as needed for pain. MDD=2 for 30 Days Mar, Active Ondansetron 4 MG 1 tablet on the tongue and a llow to dissolve Orally Every 6 hours as needed for nausea for 30 day(s) Jun, Active tiZANidine HCl 4 MG TAKE ONE TABLET BY MOUTH PATRICIA RY 8 HOURS NEEDED Oral for 90 [...] Once a day for 30 day(s) Active Lyrica 200 MG 1 capsule Orally Twice a day Active Voltaren 1 % 1 application to painful jonathan nts Transdermal twice a day as needed for 30 day(s) Oct, Not-Taking Omeprazole 20 MG 1 cap Orally Daily for 90 days Jul, Active Ferrous Sulfate 325 (65 Fe) MG 1 tablet Orally Once a day for 90 days Apr, Active PROCEDURES No Information RESULTS No Results REASON FOR VISIT 6 month follow up with labs to review MEDICAL (GENERAL) HISTORY Type Description Date Medical [...] 05/09 Hospitalization History Surgically related Hospitalization History [facility]-Fractured radial head 06/2017 Hospitalization History [facility] ED-Right shoulder/Back pain /03/2021 Goals Section No Information Health Concerns No Information MEDICAL EQUIPMENT No Information MENTAL STATUS No Information FUNCTIONAL STATUS No Information ASSESSMENTS Encounter Date Diagnosis Assessment Notes Treatment Notes Treatm ent Clinical Notes Apr, Diabetes mellitus (ICD-10 - E11.9) On me tformin. She was on Victoza, which was switched [...] She will continue her present diet and exercise. I added back metformin in April 2019. Apr, Gastroesophageal reflux (ICD-10 - K21.9) She is on omeprazole 20 mg daily. She had been advised to reduce her omeprazole and switch to Zantac by her order planner in 2016 but she could not successfully do so because of recurrent symptoms. She had an upper endoscopy in December 2016. She rarely has abdominal discomfort since her gallbladder was removed 01/2014. She has iron deficiency anemia as of April 2021 and is referred back to her astroenterologist. Apr, Nephrolithiasis (ICD-10 - N20.0) She had a kidney stone which she [...] was treated in November and December 2019. Apr, Supraventricular tachycardia (ICD-10 - I 47.1) No significant palpitations. Had ablation procedure in 2002. Apr, Cervical radiculopathy (ICD-10 - M54.12) Had neck surgeries in 2006 and 2008. [...] and has a home cervical traction device. Apr, Elevated cholesterol (ICD-10 - E78.00) S he is currently on Lipitor. Lipids were optimal in September 2017, and her LDL was 109 in October 2018, 117 in April 2019, 100 in April 2020, 70 in April 2021. Lipitor dose increased to 20 mg daily in April 2019. Apr, Bariatric surgery status (ICD-10 - Z98.8 4) She had gastric bypass surgery in September 2010. Iron studies, vitamin B12 level, RBC folate were all unremarkable and normal in September 2017, and B12 and folate levels were normal again most recently in October 2020. However she is iron deficient as of April 2021, is started on iron replacement therapy, and is referred back to her order planner. Apr, Low back pain (ICD-10 - M54.5) Unfortuna tely this is managed with hydrocodone as are [...] epidural steroid injection in late April 2021. Apr, Other iron deficiency anemia (ICD-10 - D 50.8) She was noted to be iron deficient with anemia in April 2021 and is started on iron therapy. She is referred back to her order planner for endoscopies. PLAN OF TREATMENT Medication Medication Name Sig [...] Once a day for 30 day(s) Apr, Future Test Test Name Order Date HEMOGLOBIN A1c [id number] Comprehensive Metabolic Profile (CMP) [id number] CBC with Differential [id number] CBC with Differential [id number] TOTAL IRON BINDING CAPACIT [id number] IRON (FE) [id number] FERRITIN [id number] Referrals Referral Date Details She has had endoscopy value in the past. She is post bariatric surgery years ago.|She has developed a significant iron deficiency anemia with a hemoglobin in the eights, MCV 77|Please evaluate for repeat endoscopies,? Capsule enteroscopy, Darlene Danielson Next Appt Details 4 Months Reason: Provider Name:Sebas Cosme, 2021-09-20 11 :00:00 AM, [address] [facility], , [place], [address], Insurance Providers Payer Name Payer Address Payer Phone Insured Name Patient Relati onship to Insured Coverage Start Date Coverage End Date [facility] [phone] [facility] [id number] [place] BETTS self"
--- OUTSIDE RECORDS SUMMARY | 2021-07-01 07:25 | CCD | Continuity of Care Document ---
Author Author Madyson VALENCIA MD Organization Unknown Address [address] [place] [address] Phone [phone] Care Team Providers Care Measuring Clerk Name Role Phone Sebas Cosme MD AUTM [phone] Tasha Jacobs AUTM [phone] Problems Active Problems Provider Date Pure hypercholesterolemia [...] for pain 15tabs Timothy Valencia MD 09/28 [place] 5-325mg Tablets take 1 tabs by mouth [...] H/L Range Note Laboratory test finding 04/01/[address] [address] (315)- - C Reactive Protein Quantitativ < 0.30 mg/dL Normal 0.0 0-0.30 Erythrocyte Sedimentation Rate 19 mm/hr Normal 0-30 Laboratory test finding 10/06/[address] [address] (315)- - Rheumatoid Factor Quant < 10.0 IU/mL Normal <15.0 Antinuclear Antibodies 10/06/[address] [address] (315)- - Antinuclear Antibodies Direct Negative Normal Negati ve 1 1 Performed at: RN - [facility] [address] [id number] Net Developer With [employer]: Lana Beckwith MD, Phone: [phone] Procedures Date Code Description Status 04/01/2021 62467 Office/Outpatient Established Mo d MDM 30-39 Min Completed 04/01/2021 95028 X-Ray Toe(S) Two Views Completed 04/01/2021 85436 X-Ray Toe(S) Two Views Completed 04/01/2021 67824 X-Ray Spine Cervical 6 Or More V iews Completed 01/21/2021 46922 Office/Outpatient Established Mo d MDM 30-39 Min Completed 11/13/2020 09798 Office/Outpatient Established Lo w MDM 20-29 Min Completed 10/06/2020 91484 Office/Outpatient Established Mo d MDM 30-39 Min Completed 12/2016 [id number] Colonoscopy Completed Medical Devices Description No Information Available Encounters Type Date Location Provider Dx Diagnosis Office Visit 04/01/2021 9:45a [place] Timothy Valencia MD M47.892 Other spondylosis, cervical region M48.02 Spinal stenosis, cervical re gion M43.12 Spondylolisthesis, cervical region M20.21 Hallux rigidus, right foot M20.22 Hallux rigidus, left foot Office Visit 01/21/2021 2:00p [place] Timothy Valencia MD M47.892 Other spondylosis, cervical region M54.5 Low back pain M48.061 Spinal stenosis, lumbar miguel on without neurogenic kacey Office Visit 11/13/2020 2:15p [place] Timothy Valencia MD M47.892 Other spondylosis, cervical region M65.811 Other synovitis and tenosyno vitis, right shoulder Office Visit 10/06/2020 3:15p [place] Timothy Valencia MD M25.511 Pain in right shoulder Assessments Date Code Description Provider [...] tenosynoviti s, right shoulder Timothy Valencia MD 10/06/2020 M25.511 Pain in right shoulder Timothy Valencia MD Plan of Treatment Future Appointment(s):* 04/28/2021 3:30 pm - Timothy Valencia MD at [place] 04/01/2021 - Timothy Valencia MD* M47.892 Other spondylosis, cervical region* Follow up:* F/U WITH [facility] VIA TELE MED VISIT FOR LAB RESULTS * M48.02 Spinal stenosis, cervical region * M43.12 Spondylolisthesis, cervical region * M20.21 Hallux rigidus, right foot * M20.22 Hallux rigidus, left foot Functional Status Description No Information Available Mental Status Description No Information Available Referrals Refer to Reason for Referral Status Appt Date Aaron Bray, PAJudeC MRI APPROVED PER MS. LOZOYA FOR MRI OF RIGHT SHOULDER W/ & W/O (32023) TO [facility] [facility] [address] [place] [id number] [phone]
--- OUTSIDE RECORDS SUMMARY | 2021-07-01 07:25 | CCD ---
Author Author [facility] Organization [facility] Address Unknown Phone Unavailable Care Team Providers Care Infantry Assaultman Name Role Phone Sebas Cosme Unavailable PROBLEMS Type Condition ICD9-CM Code [id number] Code Onset Dates Condition S tatus W/U Status Risk SNOMED Code Notes Problem Nephrolithiasis N20.0 Active confirmed [id number] [...] treated in November and December 2019. Problem Cervical radiculopathy M54.12 Active confirmed [id number] Had neck surgeries in 2006 and 2008. She uses hydrocodone about twice a day and is unable to wean off because of the pain. She is been under the treatment of a pain provider who has performed cervical injections with benefit since Fall 2017, most recently in April 2020. She is on gabapentin 600 mg 3 times a day and I added duloxetine as of April 2020. She stopped it due to weight loss and nausea. She was changed to to Wellbutrin therapy instead as of June 2020 and I have increased the dose to 300 mg daily as of October 2020. Problem Hormone replacement therapy Z79.890 Active confirme d [id number] Managed by [facility] in the past. She did not tolerate a hiatus in therapy in 2010 but is off that therapy now. Problem Ureteral stone with hydronephrosis N13.2 Activ e confirmed [id number] Problem Supraventricular tachycardia I47.1 Active confirme d 8021383 No significant palpitations. Had ablation procedure in 2002. Problem Right shoulder pain, unspecified chronicity M25.51 1 Active confirmed [id number] She developed right shoulder pain with no [...] markers for inflammatory arthritis were unremarkable. Problem Elevated cholesterol E78.00 Active confirmed [id number] Was on simvastatin (previously Lipitor) until her bariatric surgery. She is currently on Lipitor. Lipids were optimal in September 2017, and her LDL was 109 in October 2018, 117 in April 2019, 100 in April 2020. Lipitor dose increased to 20 mg daily in April 2019. Problem Gastroesophageal reflux K21.9 Active confirmed [id number] She is on omeprazole 20 mg daily. She had been advised to reduce her omeprazole and switch to Zantac by her mold changer in 2016 but she could not successfully do so because of recurrent symptoms. She had an upper endoscopy in December 2016. She rarely has abdominal discomfort since her gallbladder was removed 01/2014. Problem Diabetes mellitus E11.9 Active confirmed [id number] On metformin. She was on Victoza, which was switched from Byetta in 03/2010, and metformin until bariatric surgery. Last HgbA1c has improved at 6.7% in April 2020 and October 2020, versus 7.3% in April 2019, 7% in October 2018, 6.3% in March 2018. Last microalbumin was negative in April 2019. Last eye exam was in December 2019 by her account. She will continue her present diet and exercise. I added back metformin in April 2019. Problem Bariatric surgery status Z98.84 Active confirmed [id number] She had gastric bypass surgery in September 2010. Iron studies, vitamin B12 level, RBC folate were all unremarkable and normal in September 2017, and B12 and folate levels were normal again most recently in October 2020. Problem Low back pain M54.5 Active confirmed [id number] 009 Unfortunately this is managed with hydrocodone as are no other alternatives that have been effective for her. She is on gabapentin 600 mg 3 times a day as well as tizanidine as per her pain clinic provider. She has had some lumbar injections with a pain provider. A facet block was of benefit and she had radiofrequency ablation in 2018 without benefit. Duloxetine was added as of April 2020. She stopped because of nausea and weight loss. I switched her to Wellbutrin instead as of June 2020, dose increased in 10/2020. ALLERGIES Allergen (clinical drug ingredient) Drug/Non Drug Allergy do cumented on EMR Reaction Allergy Type Onset Date Status meperidine Demerol([facility] Code:[address]-57) HYPOTENSION Drug Allergy Active tetracycline Tetracycline HCl(ND Code:[address]-43) Hives Drug Allergy Active ENCOUNTERS from 1965 to 2021-04-28 Encounter Location Date Provider Diagnosis [place] [id number] [facility] [phone] [place] [address] Mar, [employer] IMMUNIZATIONS Vaccine Route Administration Date Status Influenza 18 yrs & older Flublok IM [...] Notes Start Da te End Date Status tiZANidine HCl 4 MG TAKE ONE TABLET BY MOUTH PATRICIA RY 8 HOURS NEEDED Oral for 90 Active Multivitamins multivit. 2 tab(s) Orally flintstone vit. Active Atorvastatin Calcium 20 MG TAKE 1 TABLET BY MOUTH EVERY DAY for 90 Active Vitamin B-12 500 MCG 1 tablet Orally Once a day for 30 day(s) Active Voltaren 1 % 1 application to painful jonathan nts Transdermal twice a day as needed for 30 day(s) Oct, Not-Taking Nitrofurantoin Monohyd Macro 100 MG 1 cap Orally twice daily for 5 day(s) Jan, Active Omeprazole 20 MG 1 cap Orally Daily for 90 days Jul, Active HYDROcodone-Acetaminophen 5-325 MG 1 tablet [id number] Every 12 hours as needed for pain. MDD=2 for 30 Days Mar, Active Ondansetron 4 MG 1 tablet on the tongue and a llow to dissolve Orally Every 6 hours as needed for nausea for 30 day(s) Jun, Active Neurontin 600 MG 1 capsule Orally Three times a day Active metFORMIN HCl ER 750 MG 1 tablet with evening meal O rally Once a day for 90 day(s) Apr, Active Calcium + D 600-200 MG-UNIT 2 tabs Orally Once a day for 30 day(s) Active buPROPion HCl ER (XL) 150 MG 1 tablet in the morning Orally Once a day for 30 Active PROCEDURES No Information RESULTS No Results REASON FOR VISIT refill-[facility] MEDICAL (GENERAL) HISTORY Type Description Date Medical [...] 05/09 Hospitalization History Surgically related Hospitalization History [facility]-Fractured radial head 06/[address] [facility] ED-Right shoulder/Back pain 03/0 03/2021 Goals Section No Information Health Concerns No Information MEDICAL EQUIPMENT No Information MENTAL STATUS No Information FUNCTIONAL STATUS No Information ASSESSMENTS No Information PLAN OF TREATMENT Medication Medication Name Sig Start Date Stop Date HYDROcodone-Acetaminophen 5-325 MG 1 tablet [id number] Every 12 hours as needed for pain. MDD=2 for 30 Days Mar, Atorvastatin Calcium 20 MG TAKE 1 TABLET BY MOUTH EVERY DAY for 90 Nitrofurantoin Monohyd Macro 100 MG 1 cap Orally twice daily for 5 day(s) Jan, buPROPion HCl ER (XL) 150 MG 1 tablet in the morning Orally Once a day for 30 Ondansetron 4 MG 1 tablet on the tongue and a llow to dissolve Orally Every 6 hours as needed for nausea for 30 day(s) Jun, metFORMIN HCl ER 750 MG 1 tablet with evening meal O rally Once a day for 90 day(s) Apr, Next Appt Details Provider Name:Sebas Cosme, 2021-05-17 11 :30:00 AM, [address] [facility], , [place], [address], Insurance Providers Payer Name Payer Address Payer Phone Insured Name Patient Relati onship to Insured Coverage Start Date Coverage End Date [facility] [address] [address] [facility] [id number]
--- OUTSIDE RECORDS SUMMARY | 2021-07-01 07:25 | CCD ---
Author Author [facility] Organization [facility] Address Unknown Phone Unavailable Care Team Providers Care Furniture Delivery Driver Name Role Phone Sebas Cosme Unavailable PROBLEMS Type Condition ICD9-CM Code [id number] Code Onset Dates Condition S tatus W/U [...] 2019. Problem Cervical radiculopathy M54.12 Active confirmed [id number] Had neck surgeries in 2006 and 2008. [...] Hormone replacement therapy Z79.890 Active confirme d [id number] Managed by [facility] in the past. She did not tolerate a hiatus in therapy in 2010 but is off that therapy now. Problem Ureteral stone with hydronephrosis N13.2 Activ e confirmed [id number] Problem Supraventricular tachycardia I47.1 Active confirme d 2911985 No significant palpitations. Had ablation procedure in 2002. Problem Right shoulder pain, unspecified chronicity M25.51 1 Active confirmed 93348125 She developed right shoulder pain with no [...] unremarkable. Problem Elevated cholesterol E78.00 Active confirmed [id number] Was on simvastatin (previously Lipitor) until her bariatric surgery. She is currently on Lipitor. Lipids were optimal in September 2017, and her LDL was 109 in October 2018, 117 in April 2019, 100 in April 2020. Lipitor dose increased to 20 mg daily in April 2019. Problem Gastroesophageal reflux K21.9 Active confirmed 670621010 She is on omeprazole 20 mg daily. She had been advised to reduce her omeprazole and switch to Zantac by her welfare adviser in 2016 but she could not successfully do so because of recurrent symptoms. She had an upper endoscopy in December 2016. She rarely has abdominal discomfort since her gallbladder was removed 01/2014. Problem Diabetes mellitus E11.9 Active confirmed 73 970161 On metformin. She was on Victoza, which [...] Problem Bariatric surgery status Z98.84 Active confirmed [id number] She had gastric bypass surgery in September 2010. Iron studies, vitamin B12 level, RBC folate were all unremarkable and normal in September 2017, and B12 and folate levels were normal again most recently in October 2020. Problem Low back pain M54.5 Active confirmed 899130 009 Unfortunately this is managed with hydrocodone [...] Reaction Allergy Type Onset Date Status meperidine Demerol([facility] Code:[address]-68) HYPOTENSION Drug Allergy Active tetracycline Tetracycline HCl(ND Code:[address]-91) Hives Drug Allergy Active ENCOUNTERS from 1965 to 2021-05-03 Encounter Location Date Provider Diagnosis [place] [id number] [facility] [phone] [place] [address] 04 Apr, 2021 [facility] IMMUNIZATIONS Vaccine Route Administration Date Status Influenza [...] Notes Start Da te End Date Status Omeprazole 20 MG 1 cap Orally Daily for 90 days Jul, Active Multivitamins multivit. 2 tab(s) Orally flintstone [...] a day for 90 day(s) Apr, Active Nitrofurantoin Monohyd Macro 100 MG 1 cap Orally twice daily for 5 day(s) Jan, Active HYDROcodone-Acetaminophen 5-325 MG 1 tablet [id number] Every 12 hours as needed for pain. MDD=2 for 30 Days Mar, Active Ondansetron 4 MG 1 tablet on the tongue and a llow to dissolve Orally Every 6 hours as needed for nausea for 30 day(s) Jun, Active tiZANidine HCl 4 MG TAKE ONE TABLET BY MOUTH PATRICIA RY 8 HOURS NEEDED Oral for 90 Active buPROPion HCl ER (XL) 300 MG 1 tablet in the morning O rally Once a day for 90 day(s) Active Calcium + D 600-200 MG-UNIT 2 tabs Orally Once a day for 30 day(s) Active Neurontin 600 MG 1 capsule Orally Three times a day Active PROCEDURES No Information RESULTS No Results REASON FOR VISIT refill-wellbutrin MEDICAL (GENERAL) HISTORY Type Description Date Medical [...] 05/09 Hospitalization History Surgically related Hospitalization History [facility]-Fractured radial head 06/2017 Hospitalization History [facility] ED-Right shoulder/Back pain 03/2021 Goals Section No Information Health Concerns No Information MEDICAL EQUIPMENT No Information MENTAL STATUS No Information FUNCTIONAL STATUS No Information ASSESSMENTS No Information PLAN OF TREATMENT Medication Medication Name Sig Start Date Stop Date HYDROcodone-Acetaminophen 5-325 MG 1 tablet [id number] Every 12 hours as needed for pain. MDD=2 for 30 Days Mar, Atorvastatin Calcium 20 MG TAKE 1 TABLET BY MOUTH EVERY DAY for 90 metFORMIN HCl ER 750 MG 1 tablet with evening meal O rally Once a day for 90 day(s) Apr, Nitrofurantoin Monohyd Macro 100 MG 1 cap Orally twice daily for 5 day(s) Jan, Ondansetron 4 MG 1 tablet on the tongue and a llow to dissolve Orally Every 6 hours as needed for nausea for 30 day(s) Jun, buPROPion HCl ER (XL) 300 MG 1 tablet in the morning O rally Once a day for 90 day(s) Next Appt Details Provider Name:Sebas Cosme, 2021-05-17 11 :30:00 AM, [address] [facility], , [place], [address], Insurance Providers Payer Name Payer Address Payer Phone Insured Name Patient Relati onship to Insured Coverage Start Date Coverage End Date [facility] [place] [address] [facility] [phone]
--- OUTSIDE RECORDS SUMMARY | 2021-07-01 07:25 | CCD ---
Author Organization Unknown Address [address] [place] [address] Phone [phone] Care Team Providers Care Nurse Substance Abuse Name Role Phone EVAN ENCISO MD 4 [phone] EVAN ENCISO MD 3 [phone] Allergies Code Code System Name Reaction Severity Status Onset 941512 RxNorm Demerol Other Moderate Active 72936 RxNorm Tetracycline Hives Moderate Active Medications Name [...] 2 Completed 03/18/2021 pregabalin 200 mg capsule Active Not av ailable sulfamethoxazole 800 mg-trimethoprim 160 mg tablet Completed 06/12/2020 tamsulosin 0.4 mg capsule Completed 2020 tizanidine 4 mg tablet TAKE 1 TABLET BY MOUTH EVERY 8 HOURS NEEDED [...] lable 11/16/2020 MRI, Cervical Spine, W/o Contrast [facility] [address] [place] [address] (Work Place) 11/16/2020 MRI, Lumbar Spine, W/o Contrast [facility] [address] [place] [address] (Work Place) Notes: lumbar disectomy L3-L4 2006 (Dr. Sierra), L4-L5 (Dr. Sierra). Ablasion for SVT | lumbar discectomy L3-L4-2006 ( DR Sierra), L4-L5 2008 ( Dr Sierra), Hysterectomy-?, 05/21/2018 Gastric Bypass-2010, Cholecystectomy-2013, Ablation for SVT 05/21/2018 Results Lab Results Date Name Specimen Result Interpretation Description Value Range Status Address 05/21/2021 [facility] Report NOS No observation recorded. 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 [facility] [employer]: [address] [facility] Past Encounters 05/26/2021 Cervical Radiculopathy; Displacement of Cervical Intervertebral [...] Post-laminectomy Syndrome; Lumbar Radiculopathy Christopher Tobar MD: [address] [address], [facility] [place] [address], Ph. 05/21/2021 Pre-surgery Testing; Viral Screening Christopher Tobar MD: [id number] [facility], [place] [address], Ph. [phone] 05/03/2021 Lumbar Post-laminectomy Syndrome; Spinal Stenosis of [...] laminectomy Syndrome; Lumbar Radiculopathy Tasha Jacobs NP: [address], [facility] [place] [address], Ph. 03/18/2021 Lumbar Post-laminectomy Syndrome; Spinal Stenosis [...] Post- laminectomy Syndrome; Lumbar Radiculopathy Tasha Jacobs SENIOR COPYWRITER: 10959 [facility], [place] [address], Ph. 02/05/2021 Lumbar Post-laminectomy Syndrome; Spinal Stenosis [...] Pain; Post- laminectomy Syndrome; Lumbar Radiculopathy Tasha Rodriguez Arlene SENIOR COPYWRITER: 34629 [facility], [place] [address], Ph. 01/07/2021 Lumbar Post-laminectomy Syndrome; Spinal Stenosis [...] Myofascial Pain; Post- laminectomy Syndrome; Lumbar Radiculopathy Tashadeena Rodriguez [employer]ia SENIOR COPYWRITER: 70000 [facility], [place] [address], Ph. 11/30/2020 Lumbar Post-laminectomy Syndrome; Spinal Stenosis [...] laminectomy Syndrome; Lumbar Radiculopathy Christopher Tobar MD: 30226 [facility], [facility] [place] [address], Ph. 11/16/2020 Lumbar Post-laminectomy Syndrome; Spinal Stenosis [...] laminectomy Syndrome; Lumbar Radiculopathy Tasha Jacobs NP: [id number] [address], Ph. 10/02/2020 Lumbar Post-laminectomy Syndrome; Spinal Stenosis [...] Myofascial Pain; Post- laminectomy Syndrome Tasha Jacobs SENIOR COPYWRITER: [address] [address], [facility] [place] [address], Ph. 09/09/2020 Cervical Radiculopathy; Degeneration of Cervical [...] Myofascial Pain; Post-laminectomy Syndrome Christopher Tobar MD: 93114 [facility], [facility] [address], Ph. 09/04/2020 Pre-surgery Testing; Viral Screening Christopher Tobar MD: 58470 [facility], [facility] [place] [address], Ph. [phone] 08/26/2020 Lumbar Post-laminectomy Syndrome; Spinal Stenosis of Lumbar Region; Degeneration of Lumbar Intervertebral Disc; Degeneration of Intervertebral Disc; Intervertebral Disc Disorder; Displacement of Lumbar Intervertebral Disc without Myelopathy; Degeneration of Cervical Intervertebral Disc; Displacement of Cervical Intervertebral Disc without Myelopathy; Cervical Spondylosis without Myelopathy; Cervical Radiculopathy; Lumbar Spondylosis; Lumbosacral Spondylosis without Myelopathy; Inflammation of Sacroiliac Joint; Myofascial Pain; Post- laminectomy Syndrome Tasha Jacobs SENIOR COPYWRITER: [address] [address], [facility] [place] [address], Ph. 06/12/2020 Lumbar Post-laminectomy Syndrome; Spinal Stenosis [...] Myofascial Pain; Post- laminectomy Syndrome Tasha Jacobs SENIOR COPYWRITER: 45857 [facility], [place] [address], Ph. 05/29/2020 Cervical Radiculopathy; Degeneration of Cervical [...] Myofascial Pain; Post-laminectomy Syndrome Christopher Tobar MD: 35045 [facility], [place] [address], Ph. 05/25/2020 Pre-surgery Testing; Viral Screening Christopher Tobar MD: 96542 [facility], [place] [address], Ph. [phone] 04/30/2020 Cervical Radiculopathy; Degeneration of Cervical Intervertebral Disc; Displacement of Cervical Intervertebral Disc without Myelopathy; Cervical Spondylosis without Myelopathy; Lumbar Post-laminectomy Syndrome; Spinal Stenosis of Lumbar Region; Degeneration of Lumbar Intervertebral Disc; Degeneration of Intervertebral Disc; Intervertebral Disc Disorder; Displacement of Lumbar Intervertebral Disc without Myelopathy; Lumbar Spondylosis; Lumbosacral Spondylosis without Myelopathy; Inflammation of Sacroiliac Joint; Myofascial Pain; Post-laminectomy Syndrome Christopher Tobar MD: [address] [address], [place] [address], Ph. 04/27/2020 Pre-surgery Testing; Viral Screening Christopher Tobar MD: [address] [address], [place] [address], Ph. [phone] 04/24/2020 Lumbar Post-laminectomy Syndrome; Spinal Stenosis of [...] Pain; Post- laminectomy Syndrome Tasha Jacobs NP: 88959 [facility], [facility] [address], Ph. 03/20/2020 Cervical Radiculopathy; Degeneration of Cervical [...] Myofascial Pain; Post-laminectomy Syndrome Christopher Tobar MD: [address] [address], [place] [address], Ph. 03/16/2020 Pre-surgery Testing; Viral Screening Christopher Tobar MD: [address] [address], [place] [address], Ph. [phone] 02/28/2020 Lumbar Post-laminectomy Syndrome; Spinal Stenosis of [...] Pain; Post- laminectomy Syndrome Tasha Jacobs NP: [address] [address], [place] [address], Ph. 02/14/2020 Cervical Spondylosis without Myelopathy; Degeneration [...] Myofascial Pain; Post-laminectomy Syndrome Christopher Tobar MD: [address] [place] [address], Ph. 02/10/2020 Pre-surgery Testing; Viral Screening Christopher Tobar MD: [address] [address], [place] [address], Ph. [phone] 01/24/2020 Lumbar Post-laminectomy Syndrome; Spinal Stenosis of Lumbar Region; Degeneration of Lumbar Intervertebral Disc; Degeneration of Intervertebral Disc; Intervertebral Disc Disorder; Displacement of Lumbar Intervertebral Disc without Myelopathy; Degeneration of Cervical Intervertebral Disc; Displacement of Cervical Intervertebral Disc without Myelopathy; Cervical Spondylosis without Myelopathy; Cervical Radiculopathy; Lumbar Spondylosis; Lumbosacral Spondylosis without Myelopathy; Inflammation of Sacroiliac Joint; Myofascial Pain; Post- laminectomy Syndrome Tasha Jacobs SENIOR COPYWRITER: [address] [address], Ph. 01/10/2020 Inflammation of Sacroiliac Joint; Lumbar [...] Myofascial Pain; Post-laminectomy Syndrome Christopher Tobar MD: [address] [address], Ph. 01/07/2020 Pre-surgery Testing; Viral Screening Christopher Tobar MD: [address] [address], Ph. [phone] 11/07/2019 Lumbar Post-laminectomy Syndrome; Spinal Stenosis of Lumbar Region; Degeneration of Lumbar Intervertebral Disc; Degeneration of Intervertebral Disc; Intervertebral Disc Disorder; Displacement of Lumbar Intervertebral Disc without Myelopathy; Degeneration of Cervical Intervertebral Disc; Displacement of Cervical Intervertebral Disc without Myelopathy; Cervical Spondylosis without Myelopathy; Cervical Radiculopathy; Lumbar Spondylosis; Lumbosacral Spondylosis without Myelopathy; Inflammation of Sacroiliac Joint; Myofascial Pain; Post- laminectomy Syndrome Tasha Jacobs SENIOR COPYWRITER: [address] [address], Ph. 08/23/2019 Cervical Spondylosis without Myelopathy; Degeneration of Cervical Intervertebral Disc; Displacement of Cervical Intervertebral Disc without Myelopathy; Cervical Radiculopathy; Lumbar Post-laminectomy Syndrome; Spinal Stenosis of Lumbar Region; Degeneration of Lumbar Intervertebral Disc; Degeneration of Intervertebral Disc; Intervertebral Disc Disorder; Displacement of Lumbar Intervertebral Disc without Myelopathy; Lumbar Spondylosis; Lumbosacral Spondylosis without Myelopathy; Inflammation of Sacroiliac Joint; Myofascial Pain Christopher Tobar MD: [address], [place] [address], Ph. 07/22/2019 Lumbar Post-laminectomy Syndrome; Spinal Stenosis of Lumbar Region; Degeneration of Lumbar Intervertebral Disc; Degeneration of Intervertebral Disc; Intervertebral Disc Disorder; Displacement of Lumbar Intervertebral Disc without Myelopathy; Degeneration of Cervical Intervertebral Disc; Displacement of Cervical Intervertebral Disc without Myelopathy; Cervical Spondylosis without Myelopathy; Cervical Radiculopathy; Lumbar Spondylosis; Lumbosacral Spondylosis without Myelopathy; Inflammation of Sacroiliac Joint; Myofascial Pain Tasha Jacobs SENIOR COPYWRITER: [id number] [address], Ph. 06/13/2019 Cervical Radiculopathy; Displacement of Cervical Intervertebral Disc without Myelopathy; Degeneration of Cervical Intervertebral Disc; Cervical Spondylosis without Myelopathy; Lumbar Post-laminectomy Syndrome; Spinal Stenosis of Lumbar Region; Degeneration of Lumbar Intervertebral Disc; Degeneration of Intervertebral Disc; Intervertebral Disc Disorder; Displacement of Lumbar Intervertebral Disc without Myelopathy; Lumbar Spondylosis; Lumbosacral Spondylosis without Myelopathy; Inflammation of Sacroiliac Joint; Myofascial Pain Christopher Tobar MD: [address] [address], [place] [address], Ph. 05/23/2019 Lumbar Post-laminectomy Syndrome; Spinal Stenosis of Lumbar Region; Degeneration of Lumbar Intervertebral Disc; Degeneration of Intervertebral Disc; Intervertebral Disc Disorder; Displacement of Lumbar Intervertebral Disc without Myelopathy; Degeneration of Cervical Intervertebral Disc; Displacement of Cervical Intervertebral Disc without Myelopathy; Cervical Spondylosis without Myelopathy; Cervical Radiculopathy; Lumbar Spondylosis; Lumbosacral Spondylosis without Myelopathy; Inflammation of Sacroiliac Joint; Myofascial Pain Tasha Jacobs SENIOR COPYWRITER: [address] [address], Ph. 04/19/2019 Lumbar Post-laminectomy Syndrome; Spinal Stenosis of Lumbar Region; Degeneration of Lumbar Intervertebral Disc; Degeneration of Intervertebral Disc; Intervertebral Disc Disorder; Displacement of Lumbar Intervertebral Disc without Myelopathy; Degeneration of Cervical Intervertebral Disc; Displacement of Cervical Intervertebral Disc without Myelopathy; Cervical Spondylosis without Myelopathy; Cervical Radiculopathy; Lumbar Spondylosis; Lumbosacral Spondylosis without Myelopathy; Inflammation of Sacroiliac Joint; Myofascial Pain Christopher Tobar MD: [address] [address], [place] [address], Ph. 04/05/2019 Lumbar Post-laminectomy Syndrome; Spinal Stenosis of Lumbar Region; Degeneration of Lumbar Intervertebral Disc; Degeneration of Intervertebral Disc; Intervertebral Disc Disorder; Displacement of Lumbar Intervertebral Disc without Myelopathy; Degeneration of Cervical Intervertebral Disc; Displacement of Cervical Intervertebral Disc without Myelopathy; Cervical Spondylosis without Myelopathy; Cervical Radiculopathy; Lumbar Spondylosis; Lumbosacral Spondylosis without Myelopathy; Inflammation of Sacroiliac Joint; Myofascial Pain Tasha Jacobs NP: [address] [address], Ph. 02/07/2019 Cervical Radiculopathy; Degeneration of Cervical Intervertebral Disc; Displacement of Cervical Intervertebral Disc without Myelopathy; Cervical Spondylosis without Myelopathy; Lumbar Post-laminectomy Syndrome; Spinal Stenosis of Lumbar Region; Lumbar Spondylosis; Degeneration of Lumbar Intervertebral Disc; Degeneration of Intervertebral Disc; Displacement of Lumbar Intervertebral Disc without Myelopathy; Lumbosacral Spondylosis without Myelopathy; Intervertebral Disc Disorder Christopher Tobar MD: [id number] [address], Ph. 01/16/2019 Lumbosacral Spondylosis without Myelopathy; Lumbar Spondylosis; Degeneration of Lumbar Intervertebral Disc; Degeneration of Intervertebral Disc; Intervertebral Disc Disorder; Displacement of Lumbar Intervertebral Disc without Myelopathy; Lumbar Post-laminectomy Syndrome; Spinal Stenosis of Lumbar Region; Degeneration of Cervical Intervertebral Disc; Displacement of Cervical Intervertebral Disc without Myelopathy; Cervical Spondylosis without Myelopathy; Cervical Radiculopathy Christopher Tobar MD: [address] [address], [place] [address], Ph. 01/01/2019 Lumbar Post-laminectomy Syndrome; Spinal Stenosis of Lumbar Region; Degeneration of Lumbar Intervertebral Disc; Degeneration of Intervertebral Disc; Intervertebral Disc Disorder; Displacement of Lumbar Intervertebral Disc without Myelopathy; Degeneration of Cervical Intervertebral Disc; Displacement of Cervical Intervertebral Disc without Myelopathy; Cervical Spondylosis without Myelopathy; Cervical Radiculopathy; Lumbar Spondylosis; Lumbosacral Spondylosis without Myelopathy Christopher Tobar MD: [address] [address], [place] [address], Ph. 12/12/2018 Lumbosacral Spondylosis without Myelopathy; Lumbar Spondylosis; Degeneration of Lumbar Intervertebral Disc; Degeneration of Intervertebral Disc; Lumbar Post- laminectomy Syndrome; Spinal Stenosis of Lumbar Region; Intervertebral Disc Disorder; Displacement of Lumbar Intervertebral Disc without Myelopathy; Degeneration of Cervical Intervertebral Disc; Displacement of Cervical Intervertebral Disc without Myelopathy; Cervical Spondylosis without Myelopathy; Cervical Radiculopathy Christopher Tobar MD: [address] [address], Ph. 11/16/2018 Lumbosacral Spondylosis without Myelopathy; Lumbar Spondylosis; Degeneration of Lumbar Intervertebral Disc; Degeneration of Intervertebral Disc; Lumbar Post- laminectomy Syndrome; Spinal Stenosis of Lumbar Region; Intervertebral Disc Disorder; Displacement of Lumbar Intervertebral Disc without Myelopathy; Degeneration of Cervical Intervertebral Disc; Displacement of Cervical Intervertebral Disc without Myelopathy; Cervical Spondylosis without Myelopathy; Cervical Radiculopathy Christopher Tobar MD: [address] [address], Ph. 10/25/2018 Lumbar Post-laminectomy Syndrome; Spinal Stenosis of Lumbar Region; Degeneration of Lumbar Intervertebral Disc; Degeneration of Intervertebral Disc; Intervertebral Disc Disorder; Displacement of Lumbar Intervertebral Disc without Myelopathy; Degeneration of Cervical Intervertebral Disc; Displacement of Cervical Intervertebral Disc without Myelopathy; Cervical Spondylosis without Myelopathy; Cervical Radiculopathy; Lumbar Spondylosis; Lumbosacral Spondylosis without Myelopathy Christopher Tobar MD: [address] [address], [place] [address], Ph. 10/03/2018 Lumbar Post-laminectomy Syndrome; Spinal Stenosis of Lumbar Region; Degeneration of Lumbar Intervertebral Disc; Degeneration of Intervertebral Disc; Intervertebral Disc Disorder; Displacement of Lumbar Intervertebral Disc without Myelopathy; Degeneration of Cervical Intervertebral Disc; Displacement of Cervical Intervertebral Disc without Myelopathy; Cervical Spondylosis without Myelopathy; Cervical Radiculopathy; Lumbar Spondylosis; Lumbosacral Spondylosis without Myelopathy Christopher Tobar MD: [address] [address], Ph. 08/03/2018 Degeneration of Cervical Intervertebral Disc; Displacement of Cervical Intervertebral Disc without Myelopathy; Cervical Spondylosis without Myelopathy; Cervical Radiculopathy; Lumbar Post-laminectomy Syndrome; Spinal Stenosis of Lumbar Region; Lumbar Spondylosis; Degeneration of Lumbar Intervertebral Disc; Degeneration of Intervertebral Disc; Displacement of Lumbar Intervertebral Disc without Myelopathy; Lumbosacral Spondylosis without Myelopathy; Intervertebral Disc Disorder Christopher Tobar MD: [address] [address], Ph. 07/05/2018 Degeneration of Cervical Intervertebral Disc; Displacement of Cervical Intervertebral Disc without Myelopathy; Cervical Spondylosis without Myelopathy; Cervical Radiculopathy; Lumbar Post-laminectomy Syndrome; Spinal Stenosis of Lumbar Region; Lumbar Spondylosis; Degeneration of Lumbar Intervertebral Disc; Degeneration of Intervertebral Disc; Displacement of Lumbar Intervertebral Disc without Myelopathy; Lumbosacral Spondylosis without Myelopathy; Intervertebral Disc Disorder Christopher Tobar MD: [address] [address], Ph. 06/14/2018 Degeneration of Cervical Intervertebral Disc; Displacement of Cervical Intervertebral Disc without Myelopathy; Cervical Spondylosis without Myelopathy; Cervical Radiculopathy; Lumbar Post-laminectomy Syndrome; Spinal Stenosis of Lumbar Region; Lumbar Spondylosis; Degeneration of Lumbar Intervertebral Disc; Degeneration of Intervertebral Disc; Displacement of Lumbar Intervertebral Disc without Myelopathy; Lumbosacral Spondylosis without Myelopathy; Intervertebral Disc Disorder Christopher Tobar MD: [address] [address], [place] [address], Ph. Social History Tobacco Smoking Status Never [...]
--- OUTSIDE RECORDS SUMMARY | 2021-07-01 07:25 | CCD ---
Author Organization Unknown Address [address] [place] [id number] Phone [phone] Care Team Providers Care Power Sweeper Operator Name Role Phone EVAN ENCISO MD 4 [phone] EVAN ENCISO MD 3 [phone] Allergies Code Code System Name Reaction Severity Status Onset 660770 RxNorm Demerol Other Moderate Active 97004 RxNorm Tetracycline Hives Moderate Active Medications Name [...] Not available bupropion HCl 75 mg tablet Active Not a vailable bupropion HCl XL 150 mg 24 hr [...] Not available omeprazole 20 mg capsule,delayed release Active Not available omeprazole 40 mg capsule,delayed release TAKE ONE CAPSULE BY MOUTH ONCE A DAY Completed ondansetron 4 mg disintegrating tablet Active Not available oxybutynin chloride 5 mg tablet Completed 10/02/2020 oxycodone-acetaminophen 5 mg-325 mg tabl et TAKE 1 TABLET BY MOUTH EVERY 4 TO 6 HOURS NEEDED FOR PAIN. MAXIMUM DAILY DOSE IS 5 TABLETS Completed 11/16/2020 prednisone 20 mg tablet Completed 01/08/20 pregabalin 100 mg capsule TAKE 1 CAPSULE [...] lable 11/16/2020 MRI, Cervical Spine, W/o Contrast [facility] [address] [place] [address] (Work [address]) 11/16/2020 MRI, Lumbar Spine, W/o Contrast [facility] [address] [place] [address] (Work Place) Notes: lumbar disectomy L3-L4 2006 (Dr. Sierra), L4-L5 (Dr. Sierra). Ablasion for SVT | lumbar discectomy L3-L4-2006 ( DR Sierra), L4-L5 2008 ( Dr Sierra), Hysterectomy-?, 05/21/2018 Gastric Bypass-2010, Cholecystectomy-2013, Ablation for SVT 05/21/2018 Results Lab Results Date Name Specimen Result Interpretation Description Value Range Status Address 09/04/2020 [facility] Report NOS No observation recorded. [facility]: [address] [place] [address] 09/04/2020 SARS CoV 2 RNA (COVID-19), QL, securities dealer-PCR, Respirat ory Specimen NOS Normal Sars-cov-2 negative negative Final [facility]: [address] [place] [address], [place] 05/25/2020 [facility] Report NOS No observation recorded. [facility]: [address] [place] [address], [place] 05/25/2020 SARS CoV 2 RNA (COVID-19), QL, securities dealer-PCR, Respirat ory Specimen NOS Normal Sars-cov-2 negative negative Final [facility]: [address] [place] [address], [place] 04/27/2020 SARS CoV 2 RNA (COVID-19), QL, securities dealer-PCR, Respiratory Specim en No observation recorded. [employer]: [address] [place] [address] 03/16/2020 SARS CoV 2 RNA (COVID-19), QL, securities dealer-PCR, Respiratory Specim en No observation recorded. 02/10/2020 SARS CoV 2 RNA (COVID-19), QL, securities dealer-PCR, Respiratory Specim en No observation recorded. [facility]: [address] [place] [address] 01/07/2020 SARS CoV 2 RNA (COVID-19), QL, securities dealer-PCR, Respiratory Specim en No observation recorded. [email or web address]: [address] [place] [address] Past Encounters 05/21/2021 Pre-surgery Testing; Viral Screening Christopher Tobar MD: 43906 [facility], [facility] [place] [address], Ph. [phone] 05/03/2021 Lumbar Post-laminectomy Syndrome; Spinal Stenosis of [...] Post- laminectomy Syndrome; Lumbar Radiculopathy Tasha Jacobs EXPERIMENTAL OUTBOARD MOTORS MECHANIC: [address] [address], [facility] [place] [address], Ph. 03/18/2021 Lumbar Post-laminectomy Syndrome; Spinal Stenosis [...] Post- laminectomy Syndrome; Lumbar Radiculopathy Tasha Jacobs EXPERIMENTAL OUTBOARD MOTORS MECHANIC: [address] [address], [facility] [place] [address], Ph. 02/05/2021 Lumbar Post-laminectomy Syndrome; Spinal Stenosis [...] Post- laminectomy Syndrome; Lumbar Radiculopathy Tasha Jacobs EXPERIMENTAL OUTBOARD MOTORS MECHANIC: [address]67 [facility], [facility] [place] [address], Ph. 01/07/2021 Lumbar Post-laminectomy Syndrome; Spinal Stenosis [...] Post- laminectomy Syndrome; Lumbar Radiculopathy Tasha Jacobs EXPERIMENTAL OUTBOARD MOTORS MECHANIC: [address] [facility], [facility] [place] [address], Ph. 11/30/2020 Lumbar Post-laminectomy Syndrome; Spinal Stenosis [...] laminectomy Syndrome; Lumbar Radiculopathy Christopher Tobar MD: [address] [address], [place] [address], Ph. 11/16/2020 Lumbar Post-laminectomy Syndrome; Spinal Stenosis [...] laminectomy Syndrome; Lumbar Radiculopathy Tasha Jacobs NP: 51609 [facility], [facility] [place] [address], Ph. 10/02/2020 Lumbar Post-laminectomy Syndrome; Spinal Stenosis [...] Myofascial Pain; Post- laminectomy Syndrome Tasha Jacobs EXPERIMENTAL OUTBOARD MOTORS MECHANIC: [address] [address], [facility] [place] [address], Ph. 09/09/2020 Cervical Radiculopathy; Degeneration of Cervical [...] Myofascial Pain; Post-laminectomy Syndrome Christopher Tobar MD: [address] [address], [facility] [place] [address], Ph. 09/04/2020 Pre-surgery Testing; Viral Screening Christopher Tobar MD: [address] [address], [place] [address], Ph. [phone] 08/26/2020 Lumbar Post-laminectomy Syndrome; Spinal Stenosis of Lumbar Region; Degeneration of Lumbar Intervertebral Disc; Degeneration of Intervertebral Disc; Intervertebral Disc Disorder; Displacement of Lumbar Intervertebral Disc without Myelopathy; Degeneration of Cervical Intervertebral Disc; Displacement of Cervical Intervertebral Disc without Myelopathy; Cervical Spondylosis without Myelopathy; Cervical Radiculopathy; Lumbar Spondylosis; Lumbosacral Spondylosis without Myelopathy; Inflammation of Sacroiliac Joint; Myofascial Pain; Post- laminectomy Syndrome Tasha Jacobs EXPERIMENTAL OUTBOARD MOTORS MECHANIC: [address] [address], [facility] [place] [address], Ph. 06/12/2020 Lumbar Post-laminectomy Syndrome; Spinal Stenosis [...] Pain; Post- laminectomy Syndrome Tasha Jacobs NP: 46944 [facility], [facility] [place] [address], Ph. 05/29/2020 Cervical Radiculopathy; Degeneration of Cervical [...] Myofascial Pain; Post-laminectomy Syndrome Christopher Tobar MD: [address] [address], [facility] [place] [address], Ph. 05/25/2020 Pre-surgery Testing; Viral Screening Christopher Tobar MD: [address] [address], [place] [address], Ph. [phone] 04/30/2020 Cervical Radiculopathy; Degeneration of Cervical Intervertebral Disc; Displacement of Cervical Intervertebral Disc without Myelopathy; Cervical Spondylosis without Myelopathy; Lumbar Post-laminectomy Syndrome; Spinal Stenosis of Lumbar Region; Degeneration of Lumbar Intervertebral Disc; Degeneration of Intervertebral Disc; Intervertebral Disc Disorder; Displacement of Lumbar Intervertebral Disc without Myelopathy; Lumbar Spondylosis; Lumbosacral Spondylosis without Myelopathy; Inflammation of Sacroiliac Joint; Myofascial Pain; Post-laminectomy Syndrome Christopher Tobar MD: [address] [address], [place] [address], Ph. 04/27/2020 Pre-surgery Testing; Viral Screening Christopher Tobar MD: [address] [address], [place] [address], Ph. [phone] 04/24/2020 Lumbar Post-laminectomy Syndrome; Spinal Stenosis of Lumbar Region; Degeneration of Lumbar Intervertebral Disc; Degeneration of Intervertebral Disc; Intervertebral Disc Disorder; Displacement of Lumbar Intervertebral Disc without Myelopathy; Degeneration of Cervical Intervertebral Disc; Displacement of Cervical Intervertebral Disc without Myelopathy; Cervical Spondylosis without Myelopathy; Cervical Radiculopathy; Lumbar Spondylosis; Lumbosacral Spondylosis without Myelopathy; Inflammation of Sacroiliac Joint; Myofascial Pain; Post- laminectomy Syndrome Tasha Jacobs EXPERIMENTAL OUTBOARD MOTORS MECHANIC: [address] [facility], [facility] [place] [address], Ph. 03/20/2020 Cervical Radiculopathy; Degeneration of Cervical [...] Myofascial Pain; Post-laminectomy Syndrome Christopher Tobar MD: [address] [address], [facility] [place] [address], Ph. 03/16/2020 Pre-surgery Testing; Viral Screening Christopher Tobar MD: [address] [address], [facility] [place] [address], Ph. [phone] 02/28/2020 Lumbar Post-laminectomy Syndrome; Spinal Stenosis of Lumbar Region; Degeneration of Lumbar Intervertebral Disc; Degeneration of Intervertebral Disc; Intervertebral Disc Disorder; Displacement of Lumbar Intervertebral Disc without Myelopathy; Degeneration of Cervical Intervertebral Disc; Displacement of Cervical Intervertebral Disc without Myelopathy; Cervical Spondylosis without Myelopathy; Cervical Radiculopathy; Lumbar Spondylosis; Lumbosacral Spondylosis without Myelopathy; Inflammation of Sacroiliac Joint; Myofascial Pain; Post- laminectomy Syndrome Tasha Jacobs EXPERIMENTAL OUTBOARD MOTORS MECHANIC: [address] [facility], [facility] [place] [address], Ph. 02/14/2020 Cervical Spondylosis without Myelopathy; Degeneration [...] Myofascial Pain; Post-laminectomy Syndrome Christopher Tobar MD: [address] [address], [place] [address], Ph. 02/10/2020 Pre-surgery Testing; Viral Screening Christopher Tobar MD: [address] [address], [place] [address], Ph. [phone] 01/24/2020 Lumbar Post-laminectomy Syndrome; Spinal Stenosis of [...] Pain; Post- laminectomy Syndrome Tasha Jacobs NP: [address] [address], [facility] [place] [address], Ph. 01/10/2020 Inflammation of Sacroiliac Joint; Lumbar [...] Myofascial Pain; Post-laminectomy Syndrome Christopher Tobar MD: [address] [address], [place] [address], Ph. 01/07/2020 Pre-surgery Testing; Viral Screening Christopher Tobar MD: [address] [address], [place] [address], Ph. [phone] 11/07/2019 Lumbar Post-laminectomy Syndrome; Spinal Stenosis of [...] Pain; Post- laminectomy Syndrome Tasha Jacobs NP: [address] [address], [place] [address], Ph. 08/23/2019 Cervical Spondylosis without Myelopathy; Degeneration of Cervical Intervertebral Disc; Displacement of Cervical Intervertebral Disc without Myelopathy; Cervical Radiculopathy; Lumbar Post-laminectomy Syndrome; Spinal Stenosis of Lumbar Region; Degeneration of Lumbar Intervertebral Disc; Degeneration of Intervertebral Disc; Intervertebral Disc Disorder; Displacement of Lumbar Intervertebral Disc without Myelopathy; Lumbar Spondylosis; Lumbosacral Spondylosis without Myelopathy; Inflammation of Sacroiliac Joint; Myofascial Pain Christopher Tobar MD: [address] [address], [facility] [place] [address], Ph. 07/22/2019 Lumbar Post-laminectomy Syndrome; Spinal Stenosis of Lumbar Region; Degeneration of Lumbar Intervertebral Disc; Degeneration of Intervertebral Disc; Intervertebral Disc Disorder; Displacement of Lumbar Intervertebral Disc without Myelopathy; Degeneration of Cervical Intervertebral Disc; Displacement of Cervical Intervertebral Disc without Myelopathy; Cervical Spondylosis without Myelopathy; Cervical Radiculopathy; Lumbar Spondylosis; Lumbosacral Spondylosis without Myelopathy; Inflammation of Sacroiliac Joint; Myofascial Pain Tasha Jacobs NP: [address] [address], [place] [address], Ph. 06/13/2019 Cervical Radiculopathy; Displacement of Cervical Intervertebral Disc without Myelopathy; Degeneration of Cervical Intervertebral Disc; Cervical Spondylosis without Myelopathy; Lumbar Post-laminectomy Syndrome; Spinal Stenosis of Lumbar Region; Degeneration of Lumbar Intervertebral Disc; Degeneration of Intervertebral Disc; Intervertebral Disc Disorder; Displacement of Lumbar Intervertebral Disc without Myelopathy; Lumbar Spondylosis; Lumbosacral Spondylosis without Myelopathy; Inflammation of Sacroiliac Joint; Myofascial Pain Christopher Tobar MD: [address] [address], [place] [address], Ph. 05/23/2019 Lumbar Post-laminectomy Syndrome; Spinal Stenosis of Lumbar Region; Degeneration of Lumbar Intervertebral Disc; Degeneration of Intervertebral Disc; Intervertebral Disc Disorder; Displacement of Lumbar Intervertebral Disc without Myelopathy; Degeneration of Cervical Intervertebral Disc; Displacement of Cervical Intervertebral Disc without Myelopathy; Cervical Spondylosis without Myelopathy; Cervical Radiculopathy; Lumbar Spondylosis; Lumbosacral Spondylosis without Myelopathy; Inflammation of Sacroiliac Joint; Myofascial Pain Tasha Jacobs EXPERIMENTAL OUTBOARD MOTORS MECHANIC: [address] [address], Ph. 04/19/2019 Lumbar Post-laminectomy Syndrome; Spinal Stenosis of Lumbar Region; Degeneration of Lumbar Intervertebral Disc; Degeneration of Intervertebral Disc; Intervertebral Disc Disorder; Displacement of Lumbar Intervertebral Disc without Myelopathy; Degeneration of Cervical Intervertebral Disc; Displacement of Cervical Intervertebral Disc without Myelopathy; Cervical Spondylosis without Myelopathy; Cervical Radiculopathy; Lumbar Spondylosis; Lumbosacral Spondylosis without Myelopathy; Inflammation of Sacroiliac Joint; Myofascial Pain Christopher Tobar MD: [address] [address], Ph. 04/05/2019 Lumbar Post-laminectomy Syndrome; Spinal Stenosis of Lumbar Region; Degeneration of Lumbar Intervertebral Disc; Degeneration of Intervertebral Disc; Intervertebral Disc Disorder; Displacement of Lumbar Intervertebral Disc without Myelopathy; Degeneration of Cervical Intervertebral Disc; Displacement of Cervical Intervertebral Disc without Myelopathy; Cervical Spondylosis without Myelopathy; Cervical Radiculopathy; Lumbar Spondylosis; Lumbosacral Spondylosis without Myelopathy; Inflammation of Sacroiliac Joint; Myofascial Pain Tasha Jacobs EXPERIMENTAL OUTBOARD MOTORS MECHANIC: [address] [address], Ph. 02/07/2019 Cervical Radiculopathy; Degeneration of Cervical Intervertebral Disc; Displacement of Cervical Intervertebral Disc without Myelopathy; Cervical Spondylosis without Myelopathy; Lumbar Post-laminectomy Syndrome; Spinal Stenosis of Lumbar Region; Lumbar Spondylosis; Degeneration of Lumbar Intervertebral Disc; Degeneration of Intervertebral Disc; Displacement of Lumbar Intervertebral Disc without Myelopathy; Lumbosacral Spondylosis without Myelopathy; Intervertebral Disc Disorder Christopher Tobar MD: [address] [address], [place] [address], Ph. 01/16/2019 Lumbosacral Spondylosis without Myelopathy; Lumbar Spondylosis; Degeneration of Lumbar Intervertebral Disc; Degeneration of Intervertebral Disc; Intervertebral Disc Disorder; Displacement of Lumbar Intervertebral Disc without Myelopathy; Lumbar Post-laminectomy Syndrome; Spinal Stenosis of Lumbar Region; Degeneration of Cervical Intervertebral Disc; Displacement of Cervical Intervertebral Disc without Myelopathy; Cervical Spondylosis without Myelopathy; Cervical Radiculopathy Christopher Tobar MD: [address] [address], Ph. 01/01/2019 Lumbar Post-laminectomy Syndrome; Spinal Stenosis of Lumbar Region; Degeneration of Lumbar Intervertebral Disc; Degeneration of Intervertebral Disc; Intervertebral Disc Disorder; Displacement of Lumbar Intervertebral Disc without Myelopathy; Degeneration of Cervical Intervertebral Disc; Displacement of Cervical Intervertebral Disc without Myelopathy; Cervical Spondylosis without Myelopathy; Cervical Radiculopathy; Lumbar Spondylosis; Lumbosacral Spondylosis without Myelopathy Christopher Tobar MD: [address] [address], [place] [address], Ph. 12/12/2018 Lumbosacral Spondylosis without Myelopathy; Lumbar Spondylosis; Degeneration of Lumbar Intervertebral Disc; Degeneration of Intervertebral Disc; Lumbar Post- laminectomy Syndrome; Spinal Stenosis of Lumbar Region; Intervertebral Disc Disorder; Displacement of Lumbar Intervertebral Disc without Myelopathy; Degeneration of Cervical Intervertebral Disc; Displacement of Cervical Intervertebral Disc without Myelopathy; Cervical Spondylosis without Myelopathy; Cervical Radiculopathy Christopher Tobar MD: [address]31 [facility], [place] [address], Ph. 11/16/2018 Lumbosacral Spondylosis without Myelopathy; Lumbar Spondylosis; Degeneration of Lumbar Intervertebral Disc; Degeneration of Intervertebral Disc; Lumbar Post- laminectomy Syndrome; Spinal Stenosis of Lumbar Region; Intervertebral Disc Disorder; Displacement of Lumbar Intervertebral Disc without Myelopathy; Degeneration of Cervical Intervertebral Disc; Displacement of Cervical Intervertebral Disc without Myelopathy; Cervical Spondylosis without Myelopathy; Cervical Radiculopathy Christopher Tobar MD: [address] [address], [place] [address], Ph. 10/25/2018 Lumbar Post-laminectomy Syndrome; Spinal Stenosis of Lumbar Region; Degeneration of Lumbar Intervertebral Disc; Degeneration of Intervertebral Disc; Intervertebral Disc Disorder; Displacement of Lumbar Intervertebral Disc without Myelopathy; Degeneration of Cervical Intervertebral Disc; Displacement of Cervical Intervertebral Disc without Myelopathy; Cervical Spondylosis without Myelopathy; Cervical Radiculopathy; Lumbar Spondylosis; Lumbosacral Spondylosis without Myelopathy Christopher Tobar MD: [address] [address], Ph. 10/03/2018 Lumbar Post-laminectomy Syndrome; Spinal Stenosis of Lumbar Region; Degeneration of Lumbar Intervertebral Disc; Degeneration of Intervertebral Disc; Intervertebral Disc Disorder; Displacement of Lumbar Intervertebral Disc without Myelopathy; Degeneration of Cervical Intervertebral Disc; Displacement of Cervical Intervertebral Disc without Myelopathy; Cervical Spondylosis without Myelopathy; Cervical Radiculopathy; Lumbar Spondylosis; Lumbosacral Spondylosis without Myelopathy Christopher Tobar MD: [address] [address], [place] [address], Ph. 08/03/2018 Degeneration of Cervical Intervertebral Disc; Displacement of Cervical Intervertebral Disc without Myelopathy; Cervical Spondylosis without Myelopathy; Cervical Radiculopathy; Lumbar Post-laminectomy Syndrome; Spinal Stenosis of Lumbar Region; Lumbar Spondylosis; Degeneration of Lumbar Intervertebral Disc; Degeneration of Intervertebral Disc; Displacement of Lumbar Intervertebral Disc without Myelopathy; Lumbosacral Spondylosis without Myelopathy; Intervertebral Disc Disorder Christopher Tobar MD: [address] [address], [place] [address], Ph. 07/05/2018 Degeneration of Cervical Intervertebral Disc; Displacement of Cervical Intervertebral Disc without Myelopathy; Cervical Spondylosis without Myelopathy; Cervical Radiculopathy; Lumbar Post-laminectomy Syndrome; Spinal Stenosis of Lumbar Region; Lumbar Spondylosis; Degeneration of Lumbar Intervertebral Disc; Degeneration of Intervertebral Disc; Displacement of Lumbar Intervertebral Disc without Myelopathy; Lumbosacral Spondylosis without Myelopathy; Intervertebral Disc Disorder Christopher Tobar MD: [address], [place] [address], Ph. 06/14/2018 Degeneration of Cervical Intervertebral Disc; Displacement of Cervical Intervertebral Disc without Myelopathy; Cervical Spondylosis without Myelopathy; Cervical Radiculopathy; Lumbar Post-laminectomy Syndrome; Spinal Stenosis of Lumbar Region; Lumbar Spondylosis; Degeneration of Lumbar Intervertebral Disc; Degeneration of Intervertebral Disc; Displacement of Lumbar Intervertebral Disc without Myelopathy; Lumbosacral Spondylosis without Myelopathy; Intervertebral Disc Disorder Christopher Tobar MD: [address], [facility] [place] [address], Ph. Social History Tobacco Smoking Status Never [...]
--- OUTSIDE RECORDS SUMMARY | 2021-07-01 07:27 | CCD ---
Author Author [facility] Organization [facility] Address Unknown Phone Unavailable Care Team Providers Care Real Estate Agent Name Role Phone Tiffanie Tobar MD Unavailable Unavailable Tiffanie Tobar MD Unavailable Unavailable Tiffanie Tobar MD Unavailable Unavailable Tiffanie Tobar MD Unavailable Unavailable Tiffanie Tobar MD Unavailable Unavailable Tiffanie Tobar MD Unavailable Unavailable Tiffanie Tobar MD Unavailable Unavailable Tiffanie Tobar MD Unavailable Unavailable Tiffanie Tobar MD Unavailable Unavailable Tiffanie Tobar MD Unavailable Unavailable Tiffanie Tobar MD Unavailable Unavailable Tiffanie Tobar MD Unavailable Unavailable Tiffanie Tobar MD Unavailable Unavailable Tiffanie Tobar MD Unavailable Unavailable Tiffanie Tobar MD Unavailable Unavailable Tiffanie Tobar MD Unavailable Unavailable Tiffanie Tobar MD Unavailable Unavailable Tiffanie Tobar MD Unavailable Unavailable Tiffanie Tobar MD Unavailable Unavailable Tifafnie Tobar MD Unavailable Unavailable Tiffanie Tobar MD Unavailable Unavailable Tifafnie Tobar MD Unavailable Unavailable Tiffanie Tobar MD Unavailable Unavailable Tiffanie Tobar MD Unavailable Unavailable Tiffanie Tobar MD Unavailable Unavailable Bolviet S Christopher TORRES Unavailable Unavailable BolTiffanie llanos MD Unavailable Unavailable Bolla S Christopher TORRES Unavailable Unavailable BollaTiffanie MD Unavailable Unavailable Bolla S Christopher TORRES Unavailable Unavailable Bolla, S Christopher TORRES Unavailable Unavailable Bolla, S Christopher TORRES Unavailable Unavailable Bolla, Tiffanie White MD Unavailable Unavailable Bolla, S Christopher TORRES Unavailable Unavailable Bolla, S Christopher TORRES Unavailable Unavailable Bolla, Tiffanie White MD Unavailable Unavailable Bolla, S Christopher TORRES Unavailable Unavailable Bolla, S Christopher TORRES Unavailable Unavailable Bolla, S Christopher TORRES Unavailable Unavailable Bolla, S Christopher TORRES Unavailable Unavailable Bolla, S Christopher TORRES Unavailable Unavailable Bolla, S Christopher TORRES Unavailable Unavailable Bolla, S Christopher TORRES Unavailable Unavailable Bolla, Tiffanie White MD Unavailable Unavailable Bolviet, S Christopher TORRES Unavailable Unavailable [place], S Christopher TORRES Unavailable Unavailable [place], Tiffanie White MD Unavailable Unavailable BolTiffanie llanos MD Unavailable Unavailable BolTiffanie llanos MD Unavailable Unavailable Sierra, Jules Aguirre MD Unavailable Unavailable Sierra, Jules Aguirre MD Unavailable Unavailable Sierra, Jules Aguirre MD Unavailable Unavailable Sierra, Jules Aguirre MD Unavailable Unavailable Sierra, Jules Aguirre MD Unavailable Unavailable Sierra, Jules Aguirre MD Unavailable Unavailable Sierra, Jules Aguirre MD Unavailable Unavailable Sierra, Jules Aguirre MD Unavailable Unavailable Sierra, Jules Aguirre MD Unavailable Unavailable Sierra, Jules Aguirre MD Unavailable Unavailable Sierra, Jules Aguirre MD Unavailable Unavailable Sierra, Jules Aguirre MD Unavailable Unavailable Sierra, Jules Aguirre MD Unavailable Unavailable Sierra, Jules Aguirre MD Unavailable Unavailable Sierra, Jules Aguirre MD Unavailable Unavailable Sierra, Jules Aguirre MD Unavailable Unavailable Sierra, Jules Aguirre MD Unavailable Unavailable Sierra, Jules Aguirre MD Unavailable Unavailable Sierra, Jules Aguirre MD Unavailable Unavailable Sierra, Jules Aguirre MD Unavailable Unavailable Sierra, Jules Aguirre MD Unavailable Unavailable Sierra, Jules Aguirre MD Unavailable Unavailable Sierra, Jules Aguirre MD Unavailable Unavailable Sierra, Jules Aguirre MD Unavailable Unavailable Sierra, Jules Aguirre MD Unavailable Unavailable Sierra, Jules Aguirre MD Unavailable Unavailable Sierra, Jules Aguirre MD Unavailable Unavailable Sierra, Jules Aguirre MD Unavailable Unavailable Sierra, Jules Aguirre MD Unavailable Unavailable Sierra, Jules Aguirre MD Unavailable Unavailable Sierra, Jules Aguirre MD Unavailable Unavailable Sierra, Jules Aguirre MD Unavailable Unavailable Sierra, Jules Aguirre MD Unavailable Unavailable Sirera, Jules Aguirre MD Unavailable Unavailable Sierra, Jules Aguirre MD Unavailable Unavailable Sierra, Jules Aguirre MD Unavailable Unavailable Sierra, Jules Aguirre MD Unavailable Unavailable Sierra, Jules Aguirre MD Unavailable Unavailable Sierra, Jules Aguirre MD Unavailable Unavailable Sierra, Jules Aguirre MD Unavailable Unavailable Sierra, Jules Aguirre MD Unavailable Unavailable Sierra, Jules Aguirre MD Unavailable Unavailable Sierra, Jules Aguirre MD Unavailable Unavailable Sierra, Jules Aguirre MD Unavailable Unavailable Sierra, Jules Aguirre MD Unavailable Unavailable Sierra, Jules Aguirre MD Unavailable Unavailable Sierra, Jules Aguirre MD Unavailable Unavailable Sierra, Jules Aguirre MD Unavailable Unavailable Sierra, Jules Aguirre MD Unavailable Unavailable Sierra, Jules Aguirre MD Unavailable Unavailable Jumalon, M Tasha SENIOR DIRECTOR Unavailable Unavailable Jumalon, M Tasha SENIOR DIRECTOR Unavailable Unavailable Jumalon, M Tasha SENIOR DIRECTOR Unavailable Unavailable Jumalon, M Tasha SENIOR DIRECTOR Unavailable Unavailable Jumalon, M Tasha SENIOR DIRECTOR Unavailable Unavailable Jumalon, M Tasha SENIOR DIRECTOR Unavailable Unavailable Jumalon, M Tasha SENIOR DIRECTOR Unavailable Unavailable Jumalon, M Tasha SENIOR DIRECTOR Unavailable Unavailable Jumalon, M Tasha SENIOR DIRECTOR Unavailable Unavailable Jumalon, M Tasha SENIOR DIRECTOR Unavailable Unavailable Jumalon, M Tasha SENIOR DIRECTOR Unavailable Unavailable Jumalon, M Tasha SENIOR DIRECTOR Unavailable Unavailable Jumalon, M Tasha SENIOR DIRECTOR Unavailable Unavailable Jumalon, M Tasha SENIOR DIRECTOR Unavailable Unavailable Jumalon, M Tasha SENIOR DIRECTOR Unavailable Unavailable Jumalon, M Tasha SENIOR DIRECTOR Unavailable Unavailable Jumalon, M Tasha SENIOR DIRECTOR Unavailable Unavailable Jumalon, M Tasha SENIOR DIRECTOR Unavailable Unavailable Jumalon, M Tasha SENIOR DIRECTOR Unavailable Unavailable Jumalon, M Tasha SENIOR DIRECTOR Unavailable Unavailable Jumalon, M Tasha SENIOR DIRECTOR Unavailable Unavailable Jumalon, M Tasha SENIOR DIRECTOR Unavailable Unavailable Jumalon, M Tasha SENIOR DIRECTOR Unavailable Unavailable Jumalon, M Tasha SENIOR DIRECTOR Unavailable Unavailable Jumalon, M Tasha SENIOR DIRECTOR Unavailable Unavailable Jumalon, M Tasha SENIOR DIRECTOR Unavailable Unavailable Jumalon, M Tasha SENIOR DIRECTOR Unavailable Unavailable Jumalon, M Tahsa SENIOR DIRECTOR Unavailable Unavailable Jumalon, M Tasha SENIOR DIRECTOR Unavailable Unavailable Jumalon, M Tasha SENIOR DIRECTOR Unavailable Unavailable Re-disclosure Warning The records that you are about to access may contain information from federally-assisted alcohol or drug abuse programs. If such information is present, then the following federally mandated warning applies: This information has been disclosed to you from records protected by federal confidentiality rules (42 CFR part 2). The federal rules prohibit you from making any further disclosure of this information unless further disclosure is expressly permitted by the written consent of the person to whom it pertains or as otherwise permitted by 42 CFR part 2. A general authorization for the release of medical or other information is NOT sufficient for this purpose. The Federal rules restrict any use of the information to criminally investigate or prosecute any alcohol or drug abuse patient.The records that you are about to access may contain highly sensitive health information, the redisclosure of which is protected by Article 27-F of the [facility] Public Health law. If you continue you may have access to information: Regarding HIV / AIDS; Provided by facilities licensed or operated by the [facility] Office of Mental Health; or Provided by the [facility] Office for People With Developmental Disabilities. If such information is present, then the following [facility] mandated warning applies: This information has been disclosed to you from confidential records which are protected by state law. State law prohibits you from making any further disclosure of this information without the specific written consent of the person to whom it pertains, or as otherwise permitted by law. Any unauthorized further disclosure in violation of state law may result in a fine or shelter sentence or both. A general authorization for the release of medical or other information is NOT sufficient authorization for further disc losure. Family History Family Member Name Family Member Gender Family Member Status Date o f Status Description Data Source(s) Unknown Unknown Problem MEDENT ([facility]) Unknown Female Problem MEDENT ([facility]) Encounters Encounter Providers Location Date Indications Data Source(s ) Unknown [address] [facility] [address] 06/28/2021 12:00:00 AM EST eCW1 ([facility]) Tasha Jacobs, FASHION ILLUSTRATOR: [address], [place] [address], Ph. Attender: Tasha Jacobs SENIOR DIRECTOR [place] - [facility] - [facility] 06/23/2021 12:00:00 AM EST ATHE NA ([facility]) Christopher Tobar MD: [address], [place] [address], Ph. Attender: Christopher Tobar MD [place] - [facility] 05/26/2021 12:00:00 AM EDT TALIA ([facility]) Outpatient [address] [facility] [address] 05/26/2021 12:00:00 AM EDT eCW1 ([facility]) Christopher Tobar MD: [address], [place] [address], Ph. Attender: Christopher Tobar [place] - [facility] 05/26/2021 12:00:00 AM EDT TALIA ([facility]) Unknown [address] [facility] [address] 05/25/2021 12:00:00 AM EDT eCW1 ([facility]) Christopher Tobar MD: [address], [address] [place], [place] [address], Ph. [phone] Attender: Christopher YEN - [facility] 05/21/2021 12:00:00 AM EDT TALIA ([facility]) Christopher Tobar MD: [address], [address] [place], [place] [address], Ph. [phone] Attender: Christopher Tobar MD [place] - [facility] 05/21/2021 12:00:00 AM EDT TALIA ([facility]) Christopher Tobar MD: [address], [place] [address], Ph. [phone] Attender: Christopher Tobar MD [place] - [facility] - [facility] 05/21/2021 12:00:00 AM EDT TALIA ([facility]) [place] [address] [facility] [address] 05/17/2021 12:00:00 AM EDT eCW1 ([facility]) Tasha Jacobs, FASHION ILLUSTRATOR: [address], [place] [address], Ph. Attender: Tasha Jacobs [facility] - [facility] - [facility] 05/03/2021 12:00:00 AM EDT YOGESH CLARK ([facility]) Tasha Jacobs, FASHION ILLUSTRATOR: [address], [place] [address], Ph. Attender: Tasha Jacobs [facility] - [facility] - [facility] 05/03/2021 12:00:00 AM EDT YOGESH CLRAK ([facility]) Tasha Jacobs, FASHION ILLUSTRATOR: [address], [place] [address], Ph. Attender: Tasha Jacobs [facility] - [facility] - [facility] 05/03/2021 12:00:00 AM EDT ATHDeena NA ([facility]) Unknown [address] [facility] [address] 05/03/2021 12:00:00 AM EDT eCW1 ([facility]) Tasha Jacobs, FASHION ILLUSTRATOR: [address], [place] [address], Ph. Attender: Tasha Jacobs [facility] - [facility] - [facility] 05/03/2021 12:00:00 AM EDT ATHDeena CLARK ([facility]) Unknown [address] [facility] [address] 04/28/2021 12:00:00 AM EDT eCW1 ([facility]) Outpatient Attender: Timothy Sierra MD Physical Therapy 04/01/2021 0 9:45:00 AM EDT MEDFARNAZ ([facility] ) Unknown [address] [facility], [facility] [address] 03/31/2021 12:00:00 AM EDT eCW1 ([facility]) Tasha Rodriguez Arlene, FASHION ILLUSTRATOR: [address], [place] [address], Ph. Attender: Tasha Gagnoncintia [facility] - [facility] 03/18/2021 12:00:00 AM EDT ATHE NA ([facility]) Tasha Webbzahiracintia, FASHION ILLUSTRATOR: [address], [place] [address], Ph. Attender: Tasha Arlene [facility] - [facility] 03/18/2021 12:00:00 AM EDT ATHE NA ([facility]) Tasha Rodriguez Arlene, FASHION ILLUSTRATOR: [address], [place] [address], Ph. Attender: Tasha Arlene [facility] 03/18/2021 12:00:00 AM EDT ATHE NA ([facility]) Tasha Manandreareynoldyuan Arlene, FASHION ILLUSTRATOR: [address], [place] [address], Ph. Attender: Tasha Traceynicole [facility] - [facility] 03/18/2021 12:00:00 AM EDT ATHE NA ([facility]) Tasha Jacobs, FASHION ILLUSTRATOR: [address], [place] [address], Ph. Attender: Tasha Jacobs [facility] - [facility] 03/18/2021 12:00:00 AM EDT ATHE NA ([facility]) Unknown [address] [facility] [address] 03/03/2021 12:00:00 AM EDT [facility]CW1 [facility] Unknown [address] [facility] [address] 02/22/2021 12:00:00 AM EDT eCW1 [facility]) Unknown [address] [facility] [address] 02/19/2021 12:00:00 AM EDT eCW1 [facility]) Unknown [address] [facility] [address] 02/15/2021 12:00:00 AM EDT eCW1 ([facility]) Tasha Jacobs, FASHION ILLUSTRATOR: [address], [place] [address], Ph. Attender: Tasha Jacobs [facility] - [facility] 02/05/2021 12:00:00 AM EDT ATHDeena CLARK ([facility]) Tasha Jacobs, FASHION ILLUSTRATOR: [address], [place] [address], Ph. Attender: Tasha Jacobs [facility] - [facility] 02/05/2021 12:00:00 AM EDT ATHDeena NA ([facility]) Tasha Jacobs, FASHION ILLUSTRATOR: [address], [place] [address], Ph. Attender: Tasha Jacobs [facility] - [facility] 02/05/2021 12:00:00 AM EDT ATHE NA ([facility]) Tasha Jacobs, FASHION ILLUSTRATOR: [address], [place] [address], Ph. Attender: Tasha Jacobs [facility] - [facility] 02/05/2021 12:00:00 AM EDT ATHDeena NA ([facility]) Tasha Jacobs, FASHION ILLUSTRATOR: [address], [place] [address], Ph. Attender: Tasha Jacobs [facility] - [facility] 02/05/2021 12:00:00 AM EDT ATHDeena NA ([facility]) Tasha Jacobs, FASHION ILLUSTRATOR: [address], [place] [address], Ph. Attender: Tasha Jacobs [facility] - [facility] 02/05/2021 12:00:00 AM EDT ATHDenea NA ([facility]) Unknown [address] [facility], [facility] [address] 02/04/2021 12:00:00 AM EDT eC ([facility]) Outpatient Attender: Timothy Sierra MD Physical Therapy 01/21/2021 0 2:00:00 PM EDT MEDENT ([facility]) Tasha Jacobs, FASHION ILLUSTRATOR: [address], [place] [address], Ph. Attender: Tasha Jacobs [facility] - [facility] 01/07/2021 12:00:00 AM EDT ATHDeena CLARK ([facility]) Tasha Jacobs, FASHION ILLUSTRATOR: [address], [place] [address], Ph. Attender: Tasha Jacobs [facility] - [facility] 01/07/2021 12:00:00 AM EDT ATHE NA ([facility]) Tasha Jacobs, FASHION ILLUSTRATOR: [address], [place] [address], Ph. Attender: Tasha Jacobs [facility] - [facility] 01/07/2021 12:00:00 AM EDT ATHE NA ([facility]) Tasha Jacobs, FASHION ILLUSTRATOR: [address], [address], [place] [address], Ph. Attender: Tasha Jacobs [facility] - [facility] 01/07/2021 12:00:00 AM EDT ATHE NA ([facility]) Tasha Jacobs, FASHION ILLUSTRATOR: [address], [place] [address], Ph. Attender: Tasha Jacobs [facility] - [facility] 01/07/2021 12:00:00 AM EDT ATHE NA ([facility]) Tasha Jacobs, FASHION ILLUSTRATOR: [address], [place] [address], Ph. Attender: Tasha Jacobs [facility] - [facility] 01/07/2021 12:00:00 AM EDT ATHE NA ([facility]) Tasha Jacobs, FASHION ILLUSTRATOR: [address], [place] [address], Ph. Attender: Tasha Jacobs [facility] - [facility] 01/07/2021 12:00:00 AM EDT ATHE NA ([facility]) Unknown [address] [facility] [address] 01/06/2021 12:00:00 AM EDT eCW1 ([facility]) Unknown [address] [facility] [address] 12/08/2020 12:00:00 AM EDT eCW1 ([facility]) Christopher Tobar MD: [address], [place] [address], Ph. Attender: Christopher Tobar MD [place] - [facility] 11/30/2020 12:00:00 AM EDT TALIA ([facility]) Christopher Tobar MD: [address], [place] [address], Ph. Attender: Christopher YEN - [facility] 11/30/2020 12:00:00 AM EDT TALIA ([facility]) Christopher Tobar MD: [address], [place] [address], Ph. Attender: Christopher YEN - [facility] 11/30/2020 12:00:00 AM EDT TALIA ([facility]) Christopher Tobar MD: [address], [place] [address], Ph. Attender: Christopher YEN - [facility] 11/30/2020 12:00:00 AM EDT TALIA ([facility]) Christopher Tobar MD: [address], [place] [address], Ph. Attender: Christopher Tobar MD [place] - [facility] 11/30/2020 12:00:00 AM EDT TALIA ([facility]) Christopher Tobar MD: [address], [place] [address], Ph. Attender: Christopher Tobar MD [place] - [facility] 11/30/2020 12:00:00 AM EDT TALIA ([facility]) Christopher Tobar MD: [address], [place] [address], Ph. Attender: Christopher Tobar MD [place] - [facility] 11/30/2020 12:00:00 AM EDT TALIA ([facility]) Christopher Tobar MD: [address], [facility] [place] [address], Ph. Attender: Christopher Tobar MD [place] - [facility] 11/30/2020 12:00:00 AM EDT TALIA ([facility]) Tasha Jacobs, FASHION ILLUSTRATOR: [address], [place] [address], Ph. Attender: Tasha Jacobs [facility] - [facility] 11/16/2020 12:00:00 AM EDT ATHE NA ([facility]) Tasha Jacobs, FASHION ILLUSTRATOR: [address], [place] [address], Ph. Attender: Tasha Jacobs [facility] - [facility] 11/16/2020 12:00:00 AM EDT ATHDeena CLARK ([facility]) Tasha Jacobs, FASHION ILLUSTRATOR: [address], [place] [address], Ph. Attender: Tasha Jacobs [facility] - [facility] 11/16/2020 12:00:00 AM EDT ATHE NA ([facility]) Tasha Jacobs, FASHION ILLUSTRATOR: [address], [place] [address], Ph. Attender: Tasha Jacobs [facility] - [facility] 11/16/2020 12:00:00 AM EDT ATHE NA ([facility]) Outpatient [address] [facility], [facility] [address] 11/16/2020 12:00:00 AM EDT [facility] ([facility]) Tasha Jacobs, FASHION ILLUSTRATOR: [address], [place] [address], Ph. Attender: Tasha Jacobs [facility] - [facility] 11/16/2020 12:00:00 AM EDT ATHE NA ([facility]) Tasha Jacobs, FASHION ILLUSTRATOR: [address], [place] [address], Ph. Attender: Tasha Jacobs [facility] - [facility] 11/16/2020 12:00:00 AM EDT ATHE NA ([facility]) Tasha Jacobs, FASHION ILLUSTRATOR: [address], [place] [address], Ph. Attender: Tasha Jacobs [facility] - [facility] 11/16/2020 12:00:00 AM EDT ATHE NA ([facility]) Tasha Jacobs, FASHION ILLUSTRATOR: [address], [place] [address], Ph. Attender: Tasha Arlene [facility] - [facility] 11/16/2020 12:00:00 AM EDT ATHE NA ([facility] [facility]) Tasha Jacobs, FASHION ILLUSTRATOR: [address], [place] [address], Ph. Attender: Tasha Jacobs [facility] - [facility] 11/16/2020 12:00:00 AM EDT ATHE NA ([facility]) OFFICE OUTPATIENT VISIT 15 MINUTES Attender: Timothy Sierra MD Phys ical Therapy 11/13/2020 02:15:00 PM EDT MEDENT ([facility]) Unknown [address] [facility], [place] [address] 11/10/2020 12:00:00 AM EDT [facility]CW1 [facility]) Outpatient [address] [facility] [place] [address] 10/12/2020 12:00:00 AM EDT eCW1 ([facility]) Outpatient Attender: Timothy Sierra MD Physical Therapy 10/06/2020 0 2:15:00 PM EST MEDENT ([facility]) Tasha Jacobs, FASHION ILLUSTRATOR: [address], [place] [address], Ph. Attender: Tasha Jacobs [facility] - [facility] 10/02/2020 12:00:00 AM EST ATHE NA ([facility]) Tasha Jacobs, FASHION ILLUSTRATOR: [address], [place] [address], Ph. Attender: Tasha Jacobs [facility] - [facility] 10/02/2020 12:00:00 AM EST ATHE NA ([facility]) Tasha Jacobs, FASHION ILLUSTRATOR: [address], [place] [address], Ph. Attender: Tasha Jacobs [facility] 10/02/2020 12:00:00 AM EST ATHE NA ([facility]) Tasha Jacobs, FASHION ILLUSTRATOR: [address], [place] [address], Ph. Attender: Tasha Jacobs [facility] - [facility] 10/02/2020 12:00:00 AM EST ATHE NA ([facility]) Tasha Jacobs, FASHION ILLUSTRATOR: [address], [place] [address], Ph. Attender: Tasha Jacobs [facility] - [facility] 10/02/2020 12:00:00 AM EST ATHE NA ([facility]) Tasha Jacobs, FASHION ILLUSTRATOR: [address], [place] [address], Ph. Attender: Tasha Jacobs [facility] - [facility] 10/02/2020 12:00:00 AM EST ATHE NA ([facility]) Tasha Jacobs, FASHION ILLUSTRATOR: [address], [place] [address], Ph. Attender: Tasha Jacobs [facility] - [facility] 10/02/2020 12:00:00 AM EST ATHE NA ([facility]) Tasha Jacobs, FASHION ILLUSTRATOR: [address], [place] [address], Ph. Attender: Tasha Jacobs [facility] - [facility] 10/02/2020 12:00:00 AM EST ATHE NA ([facility]) Tasha Jacobs, FASHION ILLUSTRATOR: [address], [place] [address], Ph. Attender: Tasha Jacobs [facility] - [facility] 10/02/2020 12:00:00 AM EST ATHE NA ([facility]) Tasha Jacobs, FASHION ILLUSTRATOR: [address], [place] [address], Ph. Attender: Tasha Jacobs [facility] - [facility] 10/02/2020 12:00:00 AM EST ATHE NA ([facility]) Unknown [address] [facility] [address] 09/15/2020 12:00:00 AM EST eCW1 ([facility]) Unknown [address] [facility] [address] 09/15/2020 12:00:00 AM EST eCW1 ([facility]) Christopher Tobar MD: [address]38 [address], [facility] [place] [address], Ph. Attender: Christopher Tobar [place] [facility] 09/09/2020 12:00:00 AM EST TALIA ([facility]) Christopher Tobar MD: [address]78 [address], [place] [address], Ph. Attender: Christopher Tobar [place] [facility] 09/09/2020 12:00:00 AM EST TALIA ([facility]) Christopher Tobar MD: [address]255 [address], [place] [address], Ph. Attender: Christopher Tobar [place] [facility] 09/09/2020 12:00:00 AM EST TALIA ([facility]) Christopher Tobar MD: [address]694 [address], [place] [address], Ph. Attender: Christopher Tobar [place] [facility] 09/09/2020 12:00:00 AM EST TALIA ([facility]) Christopher Tobar MD: [address]46 [address], [address], [place] [address], Ph. Attender: Christopher Tobar [place] [facility] 09/09/2020 12:00:00 AM EST TALIA ([facility]) Christopher Tobar MD: [address]373 [address], [address], [place] [address], Ph. Attender: Christopher Tobar [place] [facility] 09/09/2020 12:00:00 AM EST TALIA ([facility]) Christopher Tobar MD: 61317 [address], [address], [place] [address], Ph. Attender: Christopher Tobar [place] [facility] 09/09/2020 12:00:00 AM EST TALIA ([facility]) Christopher Tobar MD: [address]169 [address], [place] [address], Ph. Attender: Christopher Tobar [place] [facility] 09/09/2020 12:00:00 AM EST TALIA ([facility]) Christopher Tobra MD: 16965 [address], [address], [place] [address], Ph. Attender: Christopher Tobar [place] [facility] 09/09/2020 12:00:00 AM EST TALIA ([facility]) Christopher Tobar MD: 75342 [address], [address], [place] [address], Ph. Attender: Christopher Tobar [place] [facility] 09/09/2020 12:00:00 AM EST TALIA ([facility]) Christopher Tobar MD: 36362 [address], [address], [place] [address], Ph. Attender: Christopher Tobar [place] [facility] 09/09/2020 12:00:00 AM EST TALIA ([facility]) Christopher Tobar MD: [address]39 [address], [address], [place] [address], Ph. [phone] Attender: Christopher YEN - [facility] 09/04/2020 12:00:00 AM EST TALIA ([facility]) hCristopher Tobar MD: 02757 [address], [address], [place] [address], Ph. [phone] Attender: Christopher YEN - [facility] 09/04/2020 12:00:00 AM EST TALIA ([facility]) Christopher Tobar MD: [address]9317 [address], [address], [place] [address], Ph. [phone] Attender: Christopher YEN - [facility] 09/04/2020 12:00:00 AM EST TALIA ([facility]) Christopher Tobar MD: [address]018 [address], [address], [place] [address], Ph. [phone] Attender: Christopher Tobar [place] [facility] 09/04/2020 12:00:00 AM EST TALIA ([facility]) Christopher Tobar MD: [address]123 [address], [address], [place] [address], Ph. [phone] Attender: Christopher Tobar [place] [facility] 09/04/2020 12:00:00 AM EST TALIA ([facility]) Christopher Tobar MD: 13875 [address], [place] [address], Ph. [phone] Attender: Christopher Tobar [place] [facility] 09/04/2020 12:00:00 AM EST TALIA ([facility]) Christopher Tobar MD: [address]14 [address], [place] [address], Ph. [phone] Attender: Christopher YEN - [facility] 09/04/2020 12:00:00 AM EST TALIA ([facility]) Christopher Tobar MD: [address]0495 [address], [place] [address], Ph. [phone] Attender: Christopher YEN - [facility] 09/04/2020 12:00:00 AM EST TALIA ([facility]) Christopher Tobar MD: [address]9735 [address], [place] [address], Ph. [phone] Attender: Christopher [place]ar [place] [facility] 09/04/2020 12:00:00 AM EST TALIA ([facility]) Christopher Tobar MD: 16452 [address], [place] [address], Ph. [phone] Attender: [place]ar [place] [facility] 09/04/2020 12:00:00 AM EST TALIA ([facility]) Christopher Tobar MD: [address]69 [address], [place] [address], Ph. [phone] Attender: Christopher YEN - [facility] 09/04/2020 12:00:00 AM EST TALIA ([facility]) Christopher Tobar MD: 96648 [address], [place] [address], Ph. [phone] Attender: Christopher Tobar [place] [facility] 09/04/2020 12:00:00 AM EST TALIA ([facility]) Tasha Jacobs, FASHION ILLUSTRATOR: [address], [place] [address], Ph. Attender: Tasha Jacobs [facility] - [facility] 08/26/2020 12:00:00 AM EST ATHE NA ([facility]) Tasha Jacobs, FASHION ILLUSTRATOR: [address], [facility] [address], Ph. Attender: Tasha Jacobs [facility] - [facility] 08/26/2020 12:00:00 AM EST ATHE NA ([facility]) Tasha Jacobs, FASHION ILLUSTRATOR: [address]253 [address], [facility] [place] [address], Ph. Attender: Tasha Jacobs [facility] - [facility] 08/26/2020 12:00:00 AM EST ATHE NA ([facility]) Tasha Jacobs, FASHION ILLUSTRATOR: [address]97 [address], [place] [address], Ph. Attender: Tasha Jacobs [facility] - [facility] 08/26/2020 12:00:00 AM EST ATHE NA ([facility]) Tasha Jacobs, FASHION ILLUSTRATOR: 23965 [address], [facility] [address], Ph. Attender: Tasha Jacobs [facility] - [facility] 08/26/2020 12:00:00 AM EST ATHE NA ([facility]) Tasha Jacobs, FASHION ILLUSTRATOR: [address]53 [address], [place] [address], Ph. Attender: Tasha Jacobs [facility] - [facility] 08/26/2020 12:00:00 AM EST ATHE NA ([facility]) Tasha Jacobs, FASHION ILLUSTRATOR: [address], [place] [address], Ph. Attender: Tasha Jacobs [facility] - [facility] 08/26/2020 12:00:00 AM EST ATHE NA ([facility]) Tasha Jacobs, FASHION ILLUSTRATOR: [address]74 [address], [place] [address], Ph. Attender: Tasha Jacobs [facility] - [facility] 08/26/2020 12:00:00 AM EST ATHE NA ([facility]) Tasha Jacobs, FASHION ILLUSTRATOR: [address]709 [address], [place] [address], Ph. Attender: Tasha Jacobs [facility] - [facility] 08/26/2020 12:00:00 AM EST ATHE NA ([facility]) Tasha Jacobs, FASHION ILLUSTRATOR: [address]90 [address], [address], [place] [address], Ph. Attender: Tasha Jacobs [facility] - [facility] 08/26/2020 12:00:00 AM EST ATHE NA ([facility]) Tasha Jacobs, FASHION ILLUSTRATOR: [address]388 [address], [address], [place] [address], Ph. Attender: Tasha Jacobs [facility] - [facility] 08/26/2020 12:00:00 AM EST ATHE NA ([facility]) Tasha Jacobs, FASHION ILLUSTRATOR: [address]707 [address], [place] [address], Ph. Attender: Tasha Arlene [facility] - [facility] 08/26/2020 12:00:00 AM EST ATHE NA ([facility]) Tasha Jacobs, FASHION ILLUSTRATOR: [address]237 [address], [place] [address], Ph. Attender: Tasha Traceyzahiracintia [facility] - [facility] 08/26/2020 12:00:00 AM EST ATHE NA ([facility]) Unknown [address] [facility] [address] 08/14/2020 12:00:00 AM EST eCW1 ([facility]) Unknown [address] [facility] [address] 07/15/2020 12:00:00 AM EST eCW1 ([facility]) Unknown [address] [facility] [address] 07/14/2020 12:00:00 AM EST eCW1 ([facility]) Unknown [address] [facility] [address] 06/17/2020 12:00:00 AM EST eCW1 ([facility]) Tasha Jacobs, FASHION ILLUSTRATOR: [address], [place] [address], Ph. Attender: Tasha Arlene [facility] - [facility] 06/12/2020 12:00:00 AM EST ATHE NA ([facility]) Tasha Jacobs, FASHION ILLUSTRATOR: [address]16 [address], [place] [address], Ph. Attender: Tasha Jacobs [facility] - [facility] 06/12/2020 12:00:00 AM EST ATHE NA ([facility]) Tasha Jacobs, FASHION ILLUSTRATOR: [address]329 [address], [place] [address], Ph. Attender: Tasha Jacobs [facility] - [facility] 06/12/2020 12:00:00 AM EST ATHE NA ([facility]) Tasha Jacobs, FASHION ILLUSTRATOR: [address]234 [address], [place] [address], Ph. Attender: Tasha Jacobs [facility] - [facility] 06/12/2020 12:00:00 AM EST ATHE NA ([facility]) Tasha Jacobs, FASHION ILLUSTRATOR: [address], [place] [address], Ph. Attender: Tasha Jacobs [facility] - [facility] 06/12/2020 12:00:00 AM EST ATHE NA ([facility]) Tasha Jacobs, FASHION ILLUSTRATOR: [address]691 [address], [address], [place] [address], Ph. Attender: Tasha Jacobs [facility] - [facility] 06/12/2020 12:00:00 AM EST ATHE NA ([facility]) Tasha Jacobs, FASHION ILLUSTRATOR: 73788 [address], [place] [address], Ph. Attender: Tasha Jacobs [facility] - [facility] 06/12/2020 12:00:00 AM EST ATHE NA ([facility]) Tasha Jacobs, FASHION ILLUSTRATOR: [address]51 [address], [place] [address], Ph. Attender: Tasha Jacobs [facility] - [facility] 06/12/2020 12:00:00 AM EST ATHE NA ([facility]) Tasha Jacobs, FASHION ILLUSTRATOR: 94643 [address], [place] [address], Ph. Attender: Tasha Jacobs [facility] - [facility] 06/12/2020 12:00:00 AM EST ATHE NA ([facility]) Tasha Jacobs, FASHION ILLUSTRATOR: [address]45 [address], [place] [address], Ph. Attender: Tasha Jacobs [facility] - [facility] 06/12/2020 12:00:00 AM EST ATHE NA ([facility]) Tasha Jacobs, FASHION ILLUSTRATOR: 74406 [address], [place] [address], Ph. Attender: Tasha Gagnoncintia [facility] - [facility] 06/12/2020 12:00:00 AM EST ATHE NA ([facility]) Tasha Jacobs, FASHION ILLUSTRATOR: 06558 [address], [address], [place] [address], Ph. Attender: Tasha Jacobs [facility] - [facility] 06/12/2020 12:00:00 AM EST ATHE NA ([facility]) Tasha Jacobs, FASHION ILLUSTRATOR: [address]95 [address], [address], [place] [address], Ph. Attender: Tasha Jacobs [facility] - [facility] 06/12/2020 12:00:00 AM EST ATHE NA ([facility]) Tasha Jacobs, FASHION ILLUSTRATOR: 0[address]01 [address], [address], [place] [address], Ph. Attender: Tasha Jacobs [facility] - [facility] 06/12/2020 12:00:00 AM EST ATHE NA ([facility]) Christopher Tobar MD: 19791 [address], [address], [place] [address], Ph. Attender: Christopher Tobar MD [place] [facility] 05/29/2020 12:00:00 AM EDT TALIA ([facility]) Christopher Tobar MD: 46687 [address], [address], [place] [address], Ph. Attender: Christopher Tobar MD [place] [facility] 05/29/2020 12:00:00 AM EDT TALIA ([facility]) Christopher Tobar MD: 87884 [address], [address], [place] [address], Ph. Attender: Christopher Tobar MD [place] [facility] 05/29/2020 12:00:00 AM EDT TALIA ([facility]) Christopher Tobar MD: 99528 [address], [address], [place] [address], Ph. Attender: Christopher Tobar MD [place] [facility] 05/29/2020 12:00:00 AM EDT TALIA ([facility]) Christopher Tobar MD: 24531 [address], [address], [place] [address], Ph. Attender: Christopher Tobar MD [place] [facility] 05/29/2020 12:00:00 AM EDT TALIA ([facility]) Christopher Tobar MD: 03925 [address], [address], [place] [address], Ph. Attender: Christopher Tobar MD [place] [facility] 05/29/2020 12:00:00 AM EDT TALIA ([facility]) Christopher Tobar MD: 29460 [address], [address], [place] [address], Ph. Attender: Christopher Tobar MD [place] [facility] 05/29/2020 12:00:00 AM EDT TALIA ([facility]) Christopher Tobar MD: 36619 [address], [address], [place] [address], Ph. Attender: Christopher Tobar MD [place] [facility] 05/29/2020 12:00:00 AM EDT TALIA ([facility]) Christopher Tobar MD: 09155 [address], [address], [place] [address], Ph. Attender: Christopher YEN - [facility] 05/29/2020 12:00:00 AM EDT TALIA ([facility]) Christopher Tobar MD: 69278 [address], [address], [place] [address], Ph. Attender: Christopher Tobar MD [place] [facility] 05/29/2020 12:00:00 AM EDT TALIA ([facility]) Christopher Tobar MD: 63841 [address], [address], [place] [address], Ph. Attender: Christopher Tobar MD [place] [facility] 05/29/2020 12:00:00 AM EDT TALIA ([facility]) Christopher Tobar MD: 08089 [address], [address], [place] [address], Ph. Attender: Christopher Tobar MD [place] [facility] 05/29/2020 12:00:00 AM EDT TALIA ([facility]) Christopher Tobar MD: 95144 [address], [address], [place] [address], Ph. Attender: Christopher Tobar MD [place] [facility] 05/29/2020 12:00:00 AM EDT TALIA ([facility]) Christopher Tobar MD: 66685 [address], [address], [place] [address], Ph. Attender: Christopher YEN - [facility] 05/29/2020 12:00:00 AM EDT TALIA ([facility]) Christopher Tobar MD: 81419 [address], [address], [place] [address], Ph. Attender: Christopher YEN - [facility] 05/29/2020 12:00:00 AM EDT TALIA ([facility]) Christopher Tobar MD: 86886 [address], [address], [place] [address], Ph. [phone] Attender: Christopher YEN - [facility] 05/25/2020 12:00:00 AM EDT TALIA ([facility]) Christopher Tobar MD: 97627 [address], [address], [place] [address], Ph. [phone] Attender: Christopher Tobar MD [place] [facility] 05/25/2020 12:00:00 AM EDT TALIA ([facility]) Christopher Tobar MD: 52460 [address], [address], [place] [address], Ph. [phone] Attender: Christopher Tobar MD [place] [facility] 05/25/2020 12:00:00 AM EDT TALIA ([facility]) Christopher Tobar MD: 56525 [address], [address], [place] [address], Ph. [phone] Attender: Christopher Tobar MD [place] [facility] 05/25/2020 12:00:00 AM EDT TALIA ([facility]) Christopher Tobar MD: 76965 [address], [address], [place] [address], Ph. [phone] Attender: Christopher Tobar MD [place] [facility] 05/25/2020 12:00:00 AM EDT TALIA ([facility]) Christopher Tobar MD: 68250 [address], [address], [place] [address], Ph. [phone] Attender: Christopher Tobar MD [place] [facility] 05/25/2020 12:00:00 AM EDT TALIA ([facility]) Christopher Tobar MD: [id number], [address], [place] [address], Ph. [phone] Attender: Christopher YEN - [facility] 05/25/2020 12:00:00 AM EDT TALIA ([facility]) Christopher Tobar MD: [id number], [address], [place] [address], Ph. [phone] Attender: Christopher YEN - [facility] 05/25/2020 12:00:00 AM EDT TALIA ([facility]) Christopher Tobar MD: [id number], [address], [place] [address], Ph. [phone] Attender: Christopher Tobar MD [place] - [facility] - [facility] 05/25/2020 12:00:00 AM EDT TALIA ([facility]) Christopher Tobar MD: [id number], [address], [place] [address], Ph. [phone] Attender: Christopher Tobar MD [place] - [facility] - [facility] 05/25/2020 12:00:00 AM EDT TALIA ([facility]) Christopher Tobar MD: [id number], [address], [place] [address], Ph. [phone] Attender: Christopher YEN - [facility] - [facility] 05/25/2020 12:00:00 AM EDT TALIA ([facility]) Christopher Tobar MD: [id number], [address], [place] [address], Ph. [phone] Attender: Christopher Tobar MD [place] - [facility] - [facility] 05/25/2020 12:00:00 AM EDT TALIA ([facility]) Christopher Tobar MD: [id number], [address], [place] [address], Ph. [phone] Attender: Christopher YEN - [facility] - [facility] 05/25/2020 12:00:00 AM EDT TALIA ([facility]) Christopher Tobar MD: [id number], [address], [place] [address], Ph. [phone] Attender: Christopher YEN - [facility] - [facility] 05/25/2020 12:00:00 AM EDT TALIA ([facility]) Christopher Tobar MD: [id number], [address], [place] [address], Ph. [phone] Attender: Christopher Tobar MD [place] - [facility] 05/25/2020 12:00:00 AM EDT TALIA ([facility]) Christopher Tobar MD: [id number] [facility] [address], [place] [address], Ph. [phone] Attender: Christopher Tobar MD [place] - [facility] 05/25/2020 12:00:00 AM EDT TALIA ([facility]) [place] [address] [facility] [address] 05/20/2020 12:00:00 AM EDT eCW1 ([facility]) Out[place] [address] [facility] [address] 05/11/2020 12:00:00 AM EDT eCW1 ([facility]) Immunizations Vaccine Date Status Description Data Source(s) influenza, recombinant, quadrIvalent,injectable, prese rvative free 05/26/2021 11:31:00 AM EDT completed eCW1 ([facility]) influenza, recombinant, quadrIvalent,injectable, prese rvative free 05/26/2021 11:31:00 AM EDT completed eCW1 ([facility]) Pfizer #3 dose COVID-19 SARSCOV2 VAC 30MCG/0.3ML IM 04/28/20 21 01:32:00 PM EDT completed eCW1 ([facility]) Pfizer #3 dose COVID-19 SARSCOV2 VAC 30MCG/0.3ML IM 04/28/20 21 01:32:00 PM EDT completed eCW1 ([facility]) Pfizer #3 dose COVID-19 SARSCOV2 VAC 30MCG/0.3ML IM 04/28/20 21 01:32:00 PM EDT completed eCW1 ([facility]) Pfizer #3 dose COVID-19 SARSCOV2 VAC 30MCG/0.3ML IM 04/28/20 21 01:32:00 PM EDT completed eCW1 ([facility]) COVID-19 VACCINE Pfizer 04/28/2021 12:00:00 AM EDT completed [place] Vaccine Series Complete: YESThis Data wa s Submitted to [facility] Via [facility]. Pfizer #2 dose COVID-19 SARSCOV2 VAC 30MCG/0.3ML IM 08/13/19 21 01:32:00 PM EST completed eCW1 ([facility]) Pfizer #2 dose COVID-19 SARSCOV2 VAC 30MCG/0.3ML IM 08/13/19 21 01:32:00 PM EST completed eCW1 ([facility]) Pfizer #2 dose COVID-19 SARSCOV2 VAC 30MCG/0.3ML IM 08/13/19 21 01:32:00 PM EST completed eCW1 ([facility]) Pfizer #2 dose COVID-19 SARSCOV2 VAC 30MCG/0.3ML IM 08/13/19 21 01:32:00 PM EST completed eCW1 ([facility]) COVID-19 VACCINE Pfizer 08/13/2020 12:00:00 AM EST completed [place] Vaccine Series Complete: YESThis Data wa s Submitted to [facility] Via [employer]. Pfizer #1 dose COVID-19 SARSCOV2 VAC 30MCG/0.3ML IM 07/22/20 20 01:31:00 PM EST completed eCW1 ([facility]) Pfizer #1 dose COVID-19 SARSCOV2 VAC 30MCG/0.3ML IM 07/22/20 20 01:31:00 PM EST completed eCW1 ([facility]) Pfizer #1 dose COVID-19 SARSCOV2 VAC 30MCG/0.3ML IM 07/22/20 20 01:31:00 PM EST completed eCW1 ([facility]) Pfizer #1 dose COVID-19 SARSCOV2 VAC 30MCG/0.3ML IM 07/22/20 20 01:31:00 PM EST completed eCW1 ([facility]) COVID-19 VACCINE Pfizer 07/22/2020 12:00:00 AM EST completed [place] Vaccine Series Complete: NOThis Data was Submitted to [facility] Via [facility]. influenza, recombinant, quadrIvalent,injectable, prese rvative free 05/11/2020 03:16:00 PM EDT completed eCW1 ([facility]) influenza, recombinant, quadrIvalent,injectable, prese rvative free 05/11/2020 03:16:00 PM EDT completed eCW1 ([facility]) influenza, recombinant, quadrIvalent,injectable, prese rvative free 05/11/2020 03:16:00 PM EDT completed eCW1 ([facility]) influenza, recombinant, quadrIvalent,injectable, prese rvative free 05/11/2020 03:16:00 PM EDT completed eCW1 ([facility]) influenza, recombinant, quadrIvalent,injectable, prese rvative free 05/11/2020 03:16:00 PM EDT completed eCW1 ([facility]) influenza, recombinant, quadrIvalent,injectable, prese rvative free 05/11/2020 03:16:00 PM EDT completed eCW1 ([facility]) influenza, recombinant, quadrIvalent,injectable, prese rvative free 05/11/2020 03:16:00 PM EDT completed eCW1 ([facility]) influenza, recombinant, quadrIvalent,injectable, prese rvative free 05/11/2020 03:16:00 PM EDT completed eCW1 ([facility]) influenza, recombinant, quadrIvalent,injectable, prese rvative free 05/11/2020 03:16:00 PM EDT completed eCW1 ([facility]) influenza, recombinant, quadrIvalent,injectable, prese rvative free 05/11/2020 03:16:00 PM EDT completed eCW1 ([facility]) influenza, recombinant, quadrIvalent,injectable, prese rvative free 05/11/2020 03:16:00 PM EDT completed eCW1 ([facility]) influenza, recombinant, quadrIvalent,injectable, prese rvative free 05/11/2020 03:16:00 PM EDT completed eCW1 ([facility]) influenza, recombinant, quadrIvalent,injectable, prese rvative free 05/11/2020 03:16:00 PM EDT completed eCW1 ([facility]) influenza, recombinant, quadrIvalent,injectable, prese rvative free 05/11/2020 03:16:00 PM EDT completed eCW1 ([facility]) influenza, recombinant, quadrIvalent,injectable, prese rvative free 05/11/2020 03:16:00 PM EDT completed eCW1 ([facility]) influenza, recombinant, quadrIvalent,injectable, prese rvative free 05/11/2020 03:16:00 PM EDT completed eCW1 ([facility]) influenza, recombinant, quadrIvalent,injectable, prese rvative free 05/11/2020 03:16:00 PM EDT completed eCW1 ([facility]) influenza, recombinant, quadrIvalent,injectable, prese rvative free 05/11/2020 03:16:00 PM EDT completed eCW1 ([facility]) influenza, recombinant, quadrIvalent,injectable, prese rvative free 05/11/2020 03:16:00 PM EDT completed eCW1 ([facility]) influenza, recombinant, quadrIvalent,injectable, prese rvative free 05/11/2020 03:16:00 PM EDT completed eCW1 ([facility]) influenza, recombinant, quadrIvalent,injectable, prese rvative free 05/11/2020 03:16:00 PM EDT completed eCW1 ([facility]) influenza, recombinant, quadrIvalent,injectable, prese rvative free 05/11/2020 03:16:00 PM EDT completed eCW1 ([facility]) influenza, recombinant, quadrIvalent,injectable, prese rvative free 05/11/2020 03:16:00 PM EDT completed eCW1 ([facility]) influenza, recombinant, quadrIvalent,injectable, prese rvative free 05/11/2020 03:16:00 PM EDT completed eCW1 ([facility]) influenza, recombinant, quadrIvalent,injectable, prese rvative free 05/11/2020 03:16:00 PM EDT completed eCW1 ([facility]) Medications Medication Brand Name Start Date Product Form Dose Route Admi nistrative Instructions Pharmacy Instructions Status Indications Reaction Description Data Source(s) Acetaminophen 325 MG / Hydrocodone Harinder trate 5 MG Oral Tablet HYDROcodone- Acetaminophen 5-325 MG HYDROcodone-Acetaminophen 5-325 MG 06/28/2021 12:00:00 AM EST 1.0 {tablet} active HYDROcodone -Acetaminophen 5-325 MG eCW1 ([facility]) Acetaminophen 325 MG / Hydrocodone Harinder trate 5 MG Oral Tablet HYDROcodone- Acetaminophen 5-325 MG HYDROcodone-Acetaminophen 5-325 MG 05/25/2021 12:00:00 AM EDT 1.0 {tablet} active HYDROcodone -Acetaminophen 5-325 MG eCW1 ([facility]) Acetaminophen 325 MG / Hydrocodone Harinder trate 5 MG Oral Tablet HYDROcodone- Acetaminophen 5-325 MG HYDROcodone-Acetaminophen 5-325 MG 05/25/2021 12:00:00 AM EDT 1.0 {tablet} active HYDROcodone -Acetaminophen 5-325 MG eCW1 ([facility]) Bupropion Hydrochloride 75 MG Oral Tablet buPROPion HC l 75 MG buPROPion HCl 75 MG 05/17/2021 12:00:00 AM EDT 1.0 {tablet} activ e buPROPion HCl 75 MG eCW1 ([facility]) ferrous sulfate 325 MG Oral Tablet Ferrous Sulfate 325 (65 Fe) MG Ferrous Sulfate 325 (65 Fe) MG 05/17/2021 12:00:00 AM EDT 1.0 {tablet} active Ferrous Sulfate 325 (65 Fe) MG eCW1 ([facility]) ferrous sulfate 325 MG Oral Tablet Ferrous Sulfate 325 (65 Fe) MG Ferrous Sulfate 325 (65 Fe) MG 05/17/2021 12:00:00 AM EDT 1.0 {tablet} active Ferrous Sulfate 325 (65 Fe) MG eCW1 ([facility]) Bupropion Hydrochloride 75 MG Oral Tablet buPROPion HC l 75 MG buPROPion HCl 75 MG 05/17/2021 12:00:00 AM EDT 1.0 {tablet} activ e buPROPion HCl 75 MG eCW1 ([facility]) Bupropion Hydrochloride 75 MG Oral Tablet buPROPion HC l 75 MG buPROPion HCl 75 MG 05/17/2021 12:00:00 AM EDT 1.0 {tablet} activ e buPROPion HCl 75 MG eCW1 ([facility]) Bupropion Hydrochloride 75 MG Oral Tablet buPROPion HC l 75 MG buPROPion HCl 75 MG 05/17/2021 12:00:00 AM EDT 1.0 {tablet} activ e buPROPion HCl 75 MG eCW1 ([facility]) ferrous sulfate 325 MG Oral Tablet Ferrous Sulfate 325 (65 Fe) MG Ferrous Sulfate 325 (65 Fe) MG 05/17/2021 12:00:00 AM EDT 1.0 {tablet} active Ferrous Sulfate 325 (65 Fe) MG eCW1 ([facility]) ferrous sulfate 325 MG Oral Tablet Ferrous Sulfate 325 (65 Fe) MG Ferrous Sulfate 325 (65 Fe) MG 05/17/2021 12:00:00 AM EDT 1.0 {tablet} active Ferrous Sulfate 325 (65 Fe) MG eCW1 ([facility]) Acetaminophen 325 MG / Hydrocodone Harinder trate 5 MG Oral Tablet HYDROcodone- Acetaminophen 5-325 MG HYDROcodone-Acetaminophen 5-325 MG 04/28/2021 12:00:00 AM EDT 1.0 {tablet} active HYDROcodone -Acetaminophen 5-325 MG eCW1 ([facility]) Acetaminophen 325 MG / Hydrocodone Harinder trate 5 MG Oral Tablet HYDROcodone- Acetaminophen 5-325 MG HYDROcodone-Acetaminophen 5-325 MG 04/28/2021 12:00:00 AM EDT 1.0 {tablet} active HYDROcodone -Acetaminophen 5-325 MG eCW1 ([facility]) Acetaminophen 325 MG / Hydrocodone Harinder trate 5 MG Oral Tablet HYDROcodone- Acetaminophen 5-325 MG HYDROcodone-Acetaminophen 5-325 MG 04/28/2021 12:00:00 AM EDT 1.0 {tablet} active HYDROcodone -Acetaminophen 5-325 MG eCW1 ([facility]) Acetaminophen 325 MG / Hydrocodone Harinder trate 5 MG Oral Tablet HYDROcodone- Acetaminophen 5-325 MG HYDROcodone-Acetaminophen 5-325 MG 03/31/2021 12:00:00 AM EDT 1.0 {tablet} active HYDROcodone -Acetaminophen 5-325 MG eCW1 ([facility]) Acetaminophen 325 MG / Hydrocodone Harinder trate 5 MG Oral Tablet HYDROcodone- Acetaminophen 5-325 MG HYDROcodone-Acetaminophen 5-325 MG 03/03/2021 12:00:00 AM EDT 1.0 {tablet} active HYDROcodone -Acetaminophen 5-325 MG eCW1 ([facility]) NITROFURANTOIN, MACROCRYSTALS 25 MG / Ni trofurantoin, Monohydrate 75 MG Oral Capsule Nitrofurantoin Monohyd Macro 100 MG Nitrofurantoin Monohyd Macro 100 MG 02/19/2021 12:00:00 AM EDT active Nitrofurantoin Monohyd Macro 100 MG eCW1 ([facility]) NITROFURANTOIN, MACROCRYSTALS 25 MG / Ni trofurantoin, Monohydrate 75 MG Oral Capsule Nitrofurantoin Monohyd Macro 100 MG Nitrofurantoin Monohyd Macro 100 MG 02/19/2021 12:00:00 AM EDT active Nitrofurantoin Monohyd Macro 100 MG eCW1 ([facility]) NITROFURANTOIN, MACROCRYSTALS 25 MG / Ni trofurantoin, Monohydrate 75 MG Oral Capsule Nitrofurantoin Monohyd Macro 100 MG Nitrofurantoin Monohyd Macro 100 MG 02/19/2021 12:00:00 AM EDT active Nitrofurantoin Monohyd Macro 100 MG eCW1 ([facility]) NITROFURANTOIN, MACROCRYSTALS 25 MG / Ni trofurantoin, Monohydrate 75 MG Oral Capsule Nitrofurantoin Monohyd Macro 100 MG Nitrofurantoin Monohyd Macro 100 MG 02/19/2021 12:00:00 AM EDT active Nitrofurantoin Monohyd Macro 100 MG eCW1 ([facility]) NITROFURANTOIN, MACROCRYSTALS 25 MG / Ni trofurantoin, Monohydrate 75 MG Oral Capsule Nitrofurantoin Monohyd Macro 100 MG Nitrofurantoin Monohyd Macro 100 MG 02/19/2021 12:00:00 AM EDT active Nitrofurantoin Monohyd Macro 100 MG eCW1 ([facility]) NITROFURANTOIN, MACROCRYSTALS 25 MG / Ni trofurantoin, Monohydrate 75 MG Oral Capsule Nitrofurantoin Monohyd Macro 100 MG Nitrofurantoin Monohyd Macro 100 MG 02/19/2021 12:00:00 AM EDT active Nitrofurantoin Monohyd Macro 100 MG eCW1 ([facility]) Acetaminophen 325 MG / Hydrocodone Harinder trate 5 MG Oral Tablet HYDROcodone- Acetaminophen 5-325 MG HYDROcodone-Acetaminophen 5-325 MG 02/04/2021 12:00:00 AM EDT 1.0 {tablet} active HYDROcodone -Acetaminophen 5-325 MG eCW1 ([facility]) Acetaminophen 325 MG / Hydrocodone Harinder trate 5 MG Oral Tablet HYDROcodone- Acetaminophen 5-325 MG HYDROcodone-Acetaminophen 5-325 MG 02/04/2021 12:00:00 AM EDT 1.0 {tablet} active HYDROcodone -Acetaminophen 5-325 MG eCW1 ([facility]) Acetaminophen 325 MG / Hydrocodone Harinder trate 5 MG Oral Tablet HYDROcodone- Acetaminophen 5-325 MG HYDROcodone-Acetaminophen 5-325 MG 02/04/2021 12:00:00 AM EDT 1.0 {tablet} active HYDROcodone -Acetaminophen 5-325 MG eCW1 ([facility]) Acetaminophen 325 MG / Hydrocodone Harinder trate 5 MG Oral Tablet HYDROcodone- Acetaminophen 5-325 MG HYDROcodone-Acetaminophen 5-325 MG 02/04/2021 12:00:00 AM EDT 1.0 {tablet} active HYDROcodone -Acetaminophen 5-325 MG eCW1 ([facility]) Baclofen 10 MG Oral Tablet Baclofen 01/21/2021 12:00:00 AM EDT ORAL active MEDENT ([facility]) Acetaminophen 325 MG / Hydrocodone Harinder trate 5 MG Oral Tablet HYDROcodone- Acetaminophen 5-325 MG HYDROcodone-Acetaminophen 5-325 MG 01/06/2021 12:00:00 AM EDT 1.0 {tablet} active HYDROcodone -Acetaminophen 5-325 MG eCW1 ([facility]) Acetaminophen 325 MG / Hydrocodone Harinder trate 5 MG Oral Tablet Hydrocodone- Acetaminophen 5-325 MG Hydrocodone-Acetaminophen 5-325 MG 12/08/2020 12:00:00 AM EDT 1.0 {tablet} active Hydrocodone -Acetaminophen 5-325 MG eCW1 ([facility]) Acetaminophen 325 MG / Hydrocodone Harinder trate 5 MG Oral Tablet Hydrocodone- Acetaminophen 5-325 MG Hydrocodone-Acetaminophen 5-325 MG 11/10/2020 12:00:00 AM EDT 1.0 {tablet} active Hydrocodone -Acetaminophen 5-325 MG eCW1 ([facility]) Acetaminophen 325 MG / Hydrocodone Harinder trate 5 MG Oral Tablet Hydrocodone- Acetaminophen 5-325 MG Hydrocodone-Acetaminophen 5-325 MG 11/10/2020 12:00:00 AM EDT 1.0 {tablet} active Hydrocodone -Acetaminophen 5-325 MG eCW1 ([facility]) Acetaminophen 325 MG / Hydrocodone Harinder trate 5 MG Oral Tablet Hydrocodone- Acetaminophen 5-325 MG Hydrocodone-Acetaminophen 5-325 MG 10/12/2020 12:00:00 AM EDT 1.0 {tablet} active Hydrocodone -Acetaminophen 5-325 MG eCW1 ([facility]) tramadol hydrochloride 50 MG Oral Tablet Tramadol HCL 10/09/2020 12:00:00 AM EST active MEDENT ([facility] ) Acetaminophen 325 MG / Hydrocodone Harinder trate 5 MG Oral Tablet Hydrocodone- Acetaminophen 5-325 MG Hydrocodone-Acetaminophen 5-325 MG 09/15/2020 12:00:00 AM EST 1.0 {tablet} active Hydrocodone -Acetaminophen 5-325 MG eCW1 ([facility]) Acetaminophen 325 MG / Hydrocodone Harinder trate 5 MG Oral Tablet Hydrocodone- Acetaminophen 5-325 MG Hydrocodone-Acetaminophen 5-325 MG 09/15/2020 12:00:00 AM EST 1.0 {tablet} active Hydrocodone -Acetaminophen 5-325 MG eCW1 ([facility]) Acetaminophen 325 MG / Hydrocodone Harinder trate 5 MG Oral Tablet [[place]] [place] 5- 325 MG [place] 5-325 MG 08/17/2020 12:00:00 AM EST 1.0 {tablet} active [place] 5-325 MG eCW1 ([facility]) Ondansetron 4 MG Disintegrating Oral Tablet Ondansetron 4 MG 07/15/2020 12:00:00 AM EST 1.0 {tablet_on_the_tongue_and_allow_to_dissolve} active Ondansetron 4 MG eCW1 ([facility]) Ondansetron 4 MG Disintegrating Oral Tablet Ondansetron 4 MG 07/15/2020 12:00:00 AM EST 1.0 {tablet_on_the_tongue_and_allow_to_dissolve} active Ondansetron 4 MG eCW1 ([facility]) 24 HR Bupropion Hydrochloride 150 MG Ext ended Release Oral Tablet BuPROPion HCl ER (XL) 150 MG BuPROPion HCl ER (XL) 150 MG 07/15/2020 12:00:00 AM EST 1.0 {tablet_in_the_morning} active BuPROPio n HCl ER (XL) 150 MG eCW1 ([facility]) 24 HR Bupropion Hydrochloride 300 MG Ext ended Release Oral Tablet BuPROPion HCl ER (XL) 300 MG BuPROPion HCl ER (XL) 300 MG 07/15/2020 12:00:00 AM EST 1.0 {tablet_in_the_morning} active BuPROPio n HCl ER (XL) 300 MG eCW1 ([facility]) Ondansetron 4 MG Disintegrating Oral Tablet Ondansetron 4 MG 07/15/2020 12:00:00 AM EST 1.0 {tablet_on_the_tongue_and_allow_to_dissolve} active Ondansetron 4 MG eCW1 ([facility]) 24 HR Bupropion Hydrochloride 150 MG Ext ended Release Oral Tablet BuPROPion HCl ER (XL) 150 MG BuPROPion HCl ER (XL) 150 MG 07/15/2020 12:00:00 AM EST 1.0 {tablet_in_the_morning} active BuPROPio n HCl ER (XL) 150 MG eCW1 ([facility]) Ondansetron 4 MG Disintegrating Oral Tablet Ondansetron 4 MG 07/15/2020 12:00:00 AM EST 1.0 {tablet_on_the_tongue_and_allow_to_dissolve} active Ondansetron 4 MG eCW1 ([facility]) Ondansetron 4 MG Disintegrating Oral Tablet Ondansetron 4 MG 07/15/2020 12:00:00 AM EST 1.0 {tablet_on_the_tongue_and_allow_to_dissolve} active Ondansetron 4 MG eCW1 ([facility]) 24 HR Bupropion Hydrochloride 150 MG Ext ended Release Oral Tablet BuPROPion HCl ER (XL) 150 MG BuPROPion HCl ER (XL) 150 MG 07/15/2020 12:00:00 AM EST 1.0 {tablet_in_the_morning} active BuPROPio n HCl ER (XL) 150 MG eCW1 ([facility]) Ondansetron 4 MG Disintegrating Oral Tablet Ondansetron 4 MG 07/15/2020 12:00:00 AM EST 1.0 {tablet_on_the_tongue_and_allow_to_dissolve} active Ondansetron 4 MG eCW1 ([facility]) Ondansetron 4 MG Disintegrating Oral Tablet Ondansetron 4 MG 07/15/2020 12:00:00 AM EST 1.0 {tablet_on_the_tongue_and_allow_to_dissolve} active Ondansetron 4 MG eCW1 ([facility]) Ondansetron 4 MG Disintegrating Oral Tablet Ondansetron 4 MG 07/15/2020 12:00:00 AM EST 1.0 {tablet_on_the_tongue_and_allow_to_dissolve} active Ondansetron 4 MG eCW1 ([facility]) Ondansetron 4 MG Disintegrating Oral Tablet Ondansetron 4 MG 07/15/2020 12:00:00 AM EST 1.0 {tablet_on_the_tongue_and_allow_to_dissolve} active Ondansetron 4 MG eCW1 ([facility]) 24 HR Bupropion Hydrochloride 300 MG Ext ended Release Oral Tablet BuPROPion HCl ER (XL) 300 MG BuPROPion HCl ER (XL) 300 MG 07/15/2020 12:00:00 AM EST 1.0 {tablet_in_the_morning} active BuPROPio n HCl ER (XL) 300 MG eCW1 ([facility]) Acetaminophen 325 MG / Hydrocodone Harinder trate 5 MG Oral Tablet [[place]] [place] 5- 325 MG [place] 5-325 MG 07/15/2020 12:00:00 AM EST 1.0 {tablet} active [place] 5-325 MG eCW1 ([facility]) Ondansetron 4 MG Disintegrating Oral Tablet Ondansetron 4 MG 07/15/2020 12:00:00 AM EST 1.0 {tablet_on_the_tongue_and_allow_to_dissolve} active Ondansetron 4 MG eCW1 ([facility]) Ondansetron 4 MG Disintegrating Oral Tablet Ondansetron 4 MG 07/15/2020 12:00:00 AM EST 1.0 {tablet_on_the_tongue_and_allow_to_dissolve} active Ondansetron 4 MG eCW1 ([facility]) Ondansetron 4 MG Disintegrating Oral Tablet Ondansetron 4 MG 07/15/2020 12:00:00 AM EST 1.0 {tablet_on_the_tongue_and_allow_to_dissolve} active Ondansetron 4 MG eCW1 ([facility]) Ondansetron 4 MG Disintegrating Oral Tablet Ondansetron 4 MG 07/15/2020 12:00:00 AM EST 1.0 {tablet_on_the_tongue_and_allow_to_dissolve} active Ondansetron 4 MG eCW1 ([facility]) 24 HR Bupropion Hydrochloride 150 MG Ext ended Release Oral Tablet BuPROPion HCl ER (XL) 150 MG BuPROPion HCl ER (XL) 150 MG 07/15/2020 12:00:00 AM EST 1.0 {tablet_in_the_morning} active BuPROPio n HCl ER (XL) 150 MG eCW1 ([facility]) Ondansetron 4 MG Disintegrating Oral Tablet Ondansetron 4 MG 07/15/2020 12:00:00 AM EST 1.0 {tablet_on_the_tongue_and_allow_to_dissolve} active Ondansetron 4 MG eCW1 ([facility]) Ondansetron 4 MG Disintegrating Oral Tablet Ondansetron 4 MG 07/15/2020 12:00:00 AM EST 1.0 {tablet_on_the_tongue_and_allow_to_dissolve} active Ondansetron 4 MG eCW1 ([facility]) Ondansetron 4 MG Disintegrating Oral Tablet Ondansetron 4 MG 07/15/2020 12:00:00 AM EST 1.0 {tablet_on_the_tongue_and_allow_to_dissolve} active Ondansetron 4 MG eCW1 ([facility]) Ondansetron 4 MG Disintegrating Oral Tablet Ondansetron 4 MG 07/15/2020 12:00:00 AM EST 1.0 {tablet_on_the_tongue_and_allow_to_dissolve} active Ondansetron 4 MG eCW1 ([facility]) Ondansetron 4 MG Disintegrating Oral Tablet Ondansetron 4 MG 07/15/2020 12:00:00 AM EST 1.0 {tablet_on_the_tongue_and_allow_to_dissolve} active Ondansetron 4 MG eCW1 ([facility]) 24 HR Bupropion Hydrochloride 150 MG Ext ended Release Oral Tablet BuPROPion HCl ER (XL) 150 MG BuPROPion HCl ER (XL) 150 MG 07/15/2020 12:00:00 AM EST 1.0 {tablet_in_the_morning} active BuPROPio n HCl ER (XL) 150 MG eCW1 ([facility]) Ondansetron 4 MG Disintegrating Oral Tablet Ondansetron 4 MG 07/15/2020 12:00:00 AM EST 1.0 {tablet_on_the_tongue_and_allow_to_dissolve} active Ondansetron 4 MG eCW1 ([facility]) 24 HR Bupropion Hydrochloride 150 MG Ext ended Release Oral Tablet BuPROPion HCl ER (XL) 150 MG BuPROPion HCl ER (XL) 150 MG 07/15/2020 12:00:00 AM EST 1.0 {tablet_in_the_morning} active BuPROPio n HCl ER (XL) 150 MG eCW1 ([facility]) Ondansetron 4 MG Disintegrating Oral Tablet Ondansetron 4 MG 07/15/2020 12:00:00 AM EST 1.0 {tablet_on_the_tongue_and_allow_to_dissolve} active Ondansetron 4 MG eCW1 ([facility]) Ondansetron 4 MG Disintegrating Oral Tablet Ondansetron 4 MG 07/15/2020 12:00:00 AM EST 1.0 {tablet_on_the_tongue_and_allow_to_dissolve} active Ondansetron 4 MG eCW1 ([facility]) Acetaminophen 325 MG / Hydrocodone Harinder trate 5 MG Oral Tablet [[place]] [place] 5- 325 MG [place] 5-325 MG 06/17/2020 12:00:00 AM EST 1.0 {tablet} active [place] 5-325 MG eCW1 ([facility]) Acetaminophen 325 MG / Hydrocodone Harinder trate 5 MG Oral Tablet [[place]] [place] 5- 325 MG [place] 5-325 MG 06/17/2020 12:00:00 AM EST 1.0 {tablet} active [place] 5-325 MG eCW1 ([facility]) Acetaminophen 325 MG / Hydrocodone Harinder trate 5 MG Oral Tablet [[place]] [place] 5- 325 MG [place] 5-325 MG 05/20/2020 12:00:00 AM EDT 1.0 {tablet} active [place] 5-325 MG eCW1 ([facility]) Acetaminophen 325 MG / Hydrocodone Harinder trate 5 MG Oral Tablet [[place]] [place] 5- 325 MG [place] 5-325 MG 05/20/2020 12:00:00 AM EDT 1.0 {tablet} active [place] 5-325 MG eCW1 ([facility]) duloxetine 30 MG Delayed Release Oral Capsule Duloxeti ne HCl 30 MG Duloxetine HCl 30 MG 05/11/2020 12:00:00 AM EDT 1.0 {capsule} a ctive Duloxetine HCl 30 MG eCW1 ([facility]) duloxetine 30 MG Delayed Release Oral Capsule Duloxeti ne HCl 30 MG Duloxetine HCl 30 MG 05/11/2020 12:00:00 AM EDT 1.0 {capsule} a ctive Duloxetine HCl 30 MG eCW1 ([facility]) duloxetine 30 MG Delayed Release Oral Capsule Duloxeti ne HCl 30 MG Duloxetine HCl 30 MG 05/11/2020 12:00:00 AM EDT 1.0 {capsule} a ctive Duloxetine HCl 30 MG eCW1 ([facility]) duloxetine 30 MG Delayed Release Oral Capsule Duloxeti ne HCl 30 MG Duloxetine HCl 30 MG 05/11/2020 12:00:00 AM EDT 1.0 {capsule} a ctive Duloxetine HCl 30 MG eCW1 ([facility]) Estradiol 1 MG Oral Tablet estradiol 1 mg tablet estradiol 1 mg tablet completed estradiol 1 MG Oral Table t TALIA ([facility]) Sulfamethoxazole 800 MG / Trimethoprim 1 60 MG Oral Tablet sulfamethoxazole 800 mg-trimethoprim 160 mg tablet sulfamethoxazole 800 mg-trimethoprim 160 mg tablet completed sulfame thoxazole 800 MG / trimethoprim 160 MG Oral Tablet TALIA ([facility]) Bacitracin 0.5 UNT/MG / Polymyxin B 10 U NT/MG Ophthalmic Ointment bacitracin- polymyxin B 500 unit-10,000 unit/gram eye ointment KANCHAN TOPICALLY BID bacitracin- polymyxin B 500 unit-10,000 unit/gram eye ointment KANCHAN TOPICALLY BID completed bacitracin 0.5 U NT/MG / polymyxin B 10 UNT/MG Ophthalmic Ointment TALIA ([facility]) Amoxicillin 500 MG Oral Capsule amoxicil major 500 mg capsule TAKE 1 CAPSULE BY MOUTH THREE TIMES DAILY UNTIL GONE amoxicillin 500 mg capsule TAKE 1 CAPSUL E BY MOUTH THREE TIMES DAILY UNTIL GONE com pleted amoxicillin 500 MG Oral Capsule TALIA ([facility]) Tamsulosin hydrochloride 0.4 MG Oral Capsule tamsulosi n 0.4 mg capsule tamsulosin 0.4 mg capsule completed tamsulosin hydrochloride 0.4 MG Oral Capsule TALIA ([facility]) Bacitracin 0.5 UNT/MG / Polymyxin B 10 U NT/MG Ophthalmic Ointment bacitracin- polymyxin B 500 unit-10,000 unit/gram eye ointment KANCHAN TOPICALLY BID bacitracin- polymyxin B 500 unit-10,000 unit/gram eye ointment KANCHAN TOPICALLY BID completed bacitracin 0.5 U NT/MG / polymyxin B 10 UNT/MG Ophthalmic Ointment TALIA ([facility]) 24 HR Bupropion Hydrochloride 150 MG Ext ended Release Oral Tablet bupropion HCl XL 150 mg 24 hr tablet, extended release TAKE 1 TABLET BY MOUTH EVERY DAY IN THE MORNING bupropion HCl XL 150 mg 24 hr tablet, ex tended release TAKE 1 TABLET BY MOUTH EVERY DAY IN THE MORNING comple eber 24 HR bupropion hydrochloride 150 MG Extended Release Oral Tablet TALIA ([facility]) Carisoprodol 350 MG Oral Tablet carisoprodol 350 mg ta blet carisoprodol 350 mg tablet completed carisoprodol 35 0 MG Oral Tablet TALIA ([facility]) duloxetine 30 MG Delayed Release Oral Ca psule duloxetine 30 mg capsule,delayed release duloxetine 30 mg capsule,delayed release completed duloxetine 30 MG Delayed Release Oral Capsule TALIA ([facility]) tramadol hydrochloride 50 MG Oral Tablet tramadol 50 m g tablet tramadol 50 mg tablet completed tramadol hydroc hloride 50 MG Oral Tablet TALIA ([facility]) duloxetine 30 MG Delayed Release Oral Ca psule duloxetine 30 mg capsule,delayed release duloxetine 30 mg capsule,delayed release completed duloxetine 30 MG Delayed Release Oral Capsule TALIA ([facility]) gabapentin 600 MG Oral Tablet gabapentin 600 mg tablet TAKE 1 TABLET BY MOUTH THREE TIMES DAILY gabapentin 600 mg tablet TAKE 1 TABLET B Y MOUTH THREE TIMES DAILY completed gabapentin 600 M G Oral Tablet TALIA ([facility]) pregabalin 100 MG Oral Capsule pregabali n 100 mg capsule TAKE 1 CAPSULE BY MOUTH TWICE DAILY. MAXIMUM DAILY DOSE IS 2 CAPSULES pregabalin 100 mg capsule TAKE 1 CAPSULE BY MOUTH TWICE DAILY. MAXIMUM DAILY DOSE IS 2 CAPSULES completed pregabalin 100 MG Oral Capsule A THENA ([facility]) tramadol hydrochloride 50 MG Oral Tablet tramadol 50 m g tablet tramadol 50 mg tablet completed tramadol hydroc hloride 50 MG Oral Tablet TALIA ([facility]) Sulfamethoxazole 800 MG / Trimethoprim 1 60 MG Oral Tablet sulfamethoxazole 800 mg-trimethoprim 160 mg tablet sulfamethoxazole 800 mg-trimethoprim 160 mg tablet completed sulfame thoxazole 800 MG / trimethoprim 160 MG Oral Tablet TALIA ([facility]) gabapentin 300 MG Oral Capsule gabapentin 300 mg capsu le gabapentin 300 mg capsule completed gabapentin 300 MG Oral Capsule TALIA ([facility]) Amoxicillin 500 MG Oral Capsule amoxicil major 500 mg capsule TAKE 1 CAPSULE BY MOUTH THREE TIMES DAILY UNTIL GONE amoxicillin 500 mg capsule TAKE 1 CAPSUL E BY MOUTH THREE TIMES DAILY UNTIL GONE com pleted amoxicillin 500 MG Oral Capsule TALIA ([facility]) pregabalin 100 MG Oral Capsule pregabali n 100 mg capsule TAKE 1 CAPSULE BY MOUTH TWICE DAILY. MAXIMUM DAILY DOSE IS 2 CAPSULES pregabalin 100 mg capsule TAKE 1 CAPSULE BY MOUTH TWICE DAILY. MAXIMUM DAILY DOSE IS 2 CAPSULES completed pregabalin 100 MG Oral Capsule A THENA ([facility]) tramadol hydrochloride 50 MG Oral Tablet tramadol 50 m g tablet tramadol 50 mg tablet completed tramadol hydroc hloride 50 MG Oral Tablet TALIA ([facility]) 24 HR Bupropion Hydrochloride 150 MG Ext ended Release Oral Tablet bupropion HCl XL 150 mg 24 hr tablet, extended release TAKE 1 TABLET BY MOUTH EVERY DAY IN THE MORNING bupropion HCl XL 150 mg 24 hr tablet, ex tended release TAKE 1 TABLET BY MOUTH EVERY DAY IN THE MORNING comple eber 24 HR bupropion hydrochloride 150 MG Extended Release Oral Tablet TALIA ([facility]) duloxetine 30 MG Delayed Release Oral Ca psule duloxetine 30 mg capsule,delayed release duloxetine 30 mg capsule,delayed release completed duloxetine 30 MG Delayed Release Oral Capsule TALIA ([facility]) Tamsulosin hydrochloride 0.4 MG Oral Capsule tamsulosi n 0.4 mg capsule tamsulosin 0.4 mg capsule completed tamsulosin hydrochloride 0.4 MG Oral Capsule TALIA ([facility]) Oxybutynin chloride 5 MG Oral Tablet oxybutynin chlori de 5 mg tablet oxybutynin chloride 5 mg tablet completed oxybutynin chloride 5 MG Oral Tablet TALIA ([facility]) Amoxicillin 500 MG Oral Capsule amoxicil major 500 mg capsule TAKE 1 CAPSULE BY MOUTH THREE TIMES DAILY UNTIL GONE amoxicillin 500 mg capsule TAKE 1 CAPSUL E BY MOUTH THREE TIMES DAILY UNTIL GONE com pleted amoxicillin 500 MG Oral Capsule TALIA ([facility]) Carisoprodol 350 MG Oral Tablet carisoprodol 350 mg ta blet carisoprodol 350 mg tablet completed carisoprodol 35 0 MG Oral Tablet TALIA ([facility]) Bacitracin 0.5 UNT/MG / Polymyxin B 10 U NT/MG Ophthalmic Ointment bacitracin- polymyxin B 500 unit-10,000 unit/gram eye ointment KANCHAN TOPICALLY BID bacitracin- polymyxin B 500 unit-10,000 unit/gram eye ointment KANCHAN TOPICALLY BID completed bacitracin 0.5 U NT/MG / polymyxin B 10 UNT/MG Ophthalmic Ointment TALIA ([facility]) Sulfamethoxazole 800 MG / Trimethoprim 1 60 MG Oral Tablet sulfamethoxazole 800 mg-trimethoprim 160 mg tablet sulfamethoxazole 800 mg-trimethoprim 160 mg tablet completed sulfame thoxazole 800 MG / trimethoprim 160 MG Oral Tablet TALIA ([facility]) Carisoprodol 350 MG Oral Tablet carisoprodol 350 mg ta blet carisoprodol 350 mg tablet completed carisoprodol 35 0 MG Oral Tablet TALIA ([facility]) gabapentin 300 MG Oral Capsule gabapentin 300 mg capsu le gabapentin 300 mg capsule completed gabapentin 300 MG Oral Capsule TALIA ([facility]) Estradiol 1 MG Oral Tablet estradiol 1 mg tablet estradiol 1 mg tablet completed estradiol 1 MG Oral Table t TALIA ([facility]) tramadol hydrochloride 50 MG Oral Tablet tramadol 50 m g tablet tramadol 50 mg tablet completed tramadol hydroc hloride 50 MG Oral Tablet TALIA ([facility]) tramadol hydrochloride 50 MG Oral Tablet tramadol 50 m g tablet tramadol 50 mg tablet completed tramadol hydroc hloride 50 MG Oral Tablet TALIA ([facility]) pregabalin 150 MG Oral Capsule pregabali n 150 mg capsule TAKE ONE CAPSULE BY MOUTH TWICE A DAY MAXIMUM DAILY DOSE 2 pregabalin 150 mg capsule TAKE ONE CAPSULE BY MOUTH TWICE A DAY MAXIMUM DAILY DOSE 2 completed pregabalin 150 MG Oral Capsule TALIA ([facility]) duloxetine 30 MG Delayed Release Oral Ca psule duloxetine 30 mg capsule,delayed release duloxetine 30 mg capsule,delayed release completed duloxetine 30 MG Delayed Release Oral Capsule TALIA ([facility]) Sulfamethoxazole 800 MG / Trimethoprim 1 60 MG Oral Tablet sulfamethoxazole 800 mg-trimethoprim 160 mg tablet sulfamethoxazole 800 mg-trimethoprim 160 mg tablet completed sulfame thoxazole 800 MG / trimethoprim 160 MG Oral Tablet TALIA ([facility]) Omeprazole 40 MG Delayed Release Oral Ca psule omeprazole 40 mg capsule,delayed release TAKE ONE CAPSULE BY MOUTH ONCE A DAY omeprazole 40 mg capsule,delayed release TAKE ONE CAPSULE BY MOUTH ONCE A DAY completed omeprazole 40 MG Delayed Release Oral Capsule TALIA ([facility]) Sulfamethoxazole 800 MG / Trimethoprim 1 60 MG Oral Tablet sulfamethoxazole 800 mg-trimethoprim 160 mg tablet sulfamethoxazole 800 mg-trimethoprim 160 mg tablet completed sulfame thoxazole 800 MG / trimethoprim 160 MG Oral Tablet TALIA ([facility]) gabapentin 300 MG Oral Capsule gabapentin 300 mg capsu le gabapentin 300 mg capsule completed gabapentin 300 MG Oral Capsule TALIA ([facility]) Acetaminophen 325 MG / Oxycodone Hydroch loride 5 MG Oral Tablet oxycodone- acetaminophen 5 mg-325 mg tablet TAKE 1 TABLET BY MOUTH EVERY 4 TO 6 HOURS NEEDED FOR PAIN. MAXIMUM DAILY DOSE IS 5 TABLETS oxycodone-acetaminophen 5 mg- 325 mg tablet TAKE 1 TABLET BY MOUTH EVERY 4 TO 6 HOURS NEEDED FOR PAIN. MAXIMUM DAILY DOSE IS 5 TABLETS comple eber acetaminophen 325 MG / oxycodone hydrochloride 5 MG Oral Tablet TALIA ([facility]) Estradiol 1 MG Oral Tablet estradiol 1 mg tablet estradiol 1 mg tablet completed estradiol 1 MG Oral Table t TALIA ([facility]) Prednisone 20 MG Oral Tablet prednisone 20 mg tablet prednisone 20 mg tablet completed prednisone 20 MG Oral Tablet TALIA ([facility]) 24 HR Bupropion Hydrochloride 150 MG Ext ended Release Oral Tablet bupropion HCl XL 150 mg 24 hr tablet, extended release TAKE 1 TABLET BY MOUTH EVERY DAY IN THE MORNING bupropion HCl XL 150 mg 24 hr tablet, ex tended release TAKE 1 TABLET BY MOUTH EVERY DAY IN THE MORNING comple eber 24 HR bupropion hydrochloride 150 MG Extended Release Oral Tablet TALIA ([facility]) gabapentin 300 MG Oral Capsule gabapentin 300 mg capsu le gabapentin 300 mg capsule completed gabapentin 300 MG Oral Capsule TALIA ([facility]) tramadol hydrochloride 50 MG Oral Tablet tramadol 50 m g tablet tramadol 50 mg tablet completed tramadol hydroc hloride 50 MG Oral Tablet TALIA ([facility]) Tamsulosin hydrochloride 0.4 MG Oral Capsule tamsulosi n 0.4 mg capsule tamsulosin 0.4 mg capsule completed tamsulosin hydrochloride 0.4 MG Oral Capsule TALIA ([facility]) gabapentin 600 MG Oral Tablet gabapentin 600 mg tablet TAKE 1 TABLET BY MOUTH THREE TIMES DAILY gabapentin 600 mg tablet TAKE 1 TABLET B Y MOUTH THREE TIMES DAILY completed gabapentin 600 M G Oral Tablet TALIA ([facility]) gabapentin 300 MG Oral Capsule gabapentin 300 mg capsu le gabapentin 300 mg capsule completed gabapentin 300 MG Oral Capsule TALIA ([facility]) Carisoprodol 350 MG Oral Tablet carisoprodol 350 mg ta blet carisoprodol 350 mg tablet completed carisoprodol 35 0 MG Oral Tablet TALIA ([facility]) duloxetine 30 MG Delayed Release Oral Ca psule duloxetine 30 mg capsule,delayed release duloxetine 30 mg capsule,delayed release completed duloxetine 30 MG Delayed Release Oral Capsule TALIA ([facility]) Sulfamethoxazole 800 MG / Trimethoprim 1 60 MG Oral Tablet sulfamethoxazole 800 mg-trimethoprim 160 mg tablet sulfamethoxazole 800 mg-trimethoprim 160 mg tablet completed sulfame thoxazole 800 MG / trimethoprim 160 MG Oral Tablet TALIA ([facility]) Estradiol 1 MG Oral Tablet estradiol 1 mg tablet estradiol 1 mg tablet completed estradiol 1 MG Oral Table t TALIA ([facility]) Acetaminophen 325 MG / Oxycodone Hydroch loride 5 MG Oral Tablet oxycodone- acetaminophen 5 mg-325 mg tablet TAKE 1 TABLET BY MOUTH EVERY 4 TO 6 HOURS NEEDED FOR PAIN. MAXIMUM DAILY DOSE IS 5 TABLETS oxycodone-acetaminophen 5 mg- 325 mg tablet TAKE 1 TABLET BY MOUTH EVERY 4 TO 6 HOURS NEEDED FOR PAIN. MAXIMUM DAILY DOSE IS 5 TABLETS comple eber acetaminophen 325 MG / oxycodone hydrochloride 5 MG Oral Tablet TALIA ([facility]) Carisoprodol 350 MG Oral Tablet carisoprodol 350 mg ta blet carisoprodol 350 mg tablet completed carisoprodol 35 0 MG Oral Tablet TALIA ([facility]) gabapentin 300 MG Oral Capsule gabapentin 300 mg capsu le gabapentin 300 mg capsule completed gabapentin 300 MG Oral Capsule TALIA ([facility]) Bacitracin 0.5 UNT/MG / Polymyxin B 10 U NT/MG Ophthalmic Ointment bacitracin- polymyxin B 500 unit-10,000 unit/gram eye ointment KANCHAN TOPICALLY BID bacitracin- polymyxin B 500 unit-10,000 unit/gram eye ointment KANCHAN TOPICALLY BID completed bacitracin 0.5 U NT/MG / polymyxin B 10 UNT/MG Ophthalmic Ointment TALIA ([facility]) Carisoprodol 350 MG Oral Tablet carisoprodol 350 mg ta blet carisoprodol 350 mg tablet completed carisoprodol 35 0 MG Oral Tablet TALIA ([facility]) duloxetine 30 MG Delayed Release Oral Ca psule duloxetine 30 mg capsule,delayed release duloxetine 30 mg capsule,delayed release completed duloxetine 30 MG Delayed Release Oral Capsule TALIA ([facility]) pregabalin 100 MG Oral Capsule pregabali n 100 mg capsule TAKE 1 CAPSULE BY MOUTH TWICE DAILY. MAXIMUM DAILY DOSE IS 2 CAPSULES pregabalin 100 mg capsule TAKE 1 CAPSULE BY MOUTH TWICE DAILY. MAXIMUM DAILY DOSE IS 2 CAPSULES completed pregabalin 100 MG Oral Capsule A THENA ([facility]) Tamsulosin hydrochloride 0.4 MG Oral Capsule tamsulosi n 0.4 mg capsule tamsulosin 0.4 mg capsule completed tamsulosin hydrochloride 0.4 MG Oral Capsule TALIA ([facility]) pregabalin 150 MG Oral Capsule pregabali n 150 mg capsule TAKE ONE CAPSULE BY MOUTH TWICE A DAY MAXIMUM DAILY DOSE 2 pregabalin 150 mg capsule TAKE ONE CAPSULE BY MOUTH TWICE A DAY MAXIMUM DAILY DOSE 2 completed pregabalin 150 MG Oral Capsule TALIA ([facility]) Carisoprodol 350 MG Oral Tablet carisoprodol 350 mg ta blet carisoprodol 350 mg tablet completed carisoprodol 35 0 MG Oral Tablet TALIA ([facility]) Bacitracin 0.5 UNT/MG / Polymyxin B 10 U NT/MG Ophthalmic Ointment bacitracin- polymyxin B 500 unit-10,000 unit/gram eye ointment KANCHAN TOPICALLY BID bacitracin- polymyxin B 500 unit-10,000 unit/gram eye ointment KANCHAN TOPICALLY BID completed bacitracin 0.5 U NT/MG / polymyxin B 10 UNT/MG Ophthalmic Ointment TALIA ([facility]) Sulfamethoxazole 800 MG / Trimethoprim 1 60 MG Oral Tablet sulfamethoxazole 800 mg-trimethoprim 160 mg tablet sulfamethoxazole 800 mg-trimethoprim 160 mg tablet completed sulfame thoxazole 800 MG / trimethoprim 160 MG Oral Tablet TALIA ([facility]) Omeprazole 40 MG Delayed Release Oral Ca psule omeprazole 40 mg capsule,delayed release TAKE ONE CAPSULE BY MOUTH ONCE A DAY omeprazole 40 mg capsule,delayed release TAKE ONE CAPSULE BY MOUTH ONCE A DAY completed omeprazole 40 MG Delayed Release Oral Capsule TALIA ([facility]) duloxetine 30 MG Delayed Release Oral Ca psule duloxetine 30 mg capsule,delayed release duloxetine 30 mg capsule,delayed release completed duloxetine 30 MG Delayed Release Oral Capsule TALIA ([facility]) Sulfamethoxazole 800 MG / Trimethoprim 1 60 MG Oral Tablet sulfamethoxazole 800 mg-trimethoprim 160 mg tablet sulfamethoxazole 800 mg-trimethoprim 160 mg tablet completed sulfame thoxazole 800 MG / trimethoprim 160 MG Oral Tablet TALIA ([facility]) Prednisone 20 MG Oral Tablet prednisone 20 mg tablet prednisone 20 mg tablet completed prednisone 20 MG Oral Tablet TALIA ([facility]) Estradiol 1 MG Oral Tablet estradiol 1 mg tablet estradiol 1 mg tablet completed estradiol 1 MG Oral Table t TALIA ([facility]) Tamsulosin hydrochloride 0.4 MG Oral Capsule tamsulosi n 0.4 mg capsule tamsulosin 0.4 mg capsule completed tamsulosin hydrochloride 0.4 MG Oral Capsule TALIA ([facility]) duloxetine 30 MG Delayed Release Oral Ca psule duloxetine 30 mg capsule,delayed release duloxetine 30 mg capsule,delayed release completed duloxetine 30 MG Delayed Release Oral Capsule TALIA ([facility]) Carisoprodol 350 MG Oral Tablet carisoprodol 350 mg ta blet carisoprodol 350 mg tablet completed carisoprodol 35 0 MG Oral Tablet TALIA ([facility]) Prednisone 20 MG Oral Tablet prednisone 20 mg tablet prednisone 20 mg tablet completed prednisone 20 MG Oral Tablet TALIA ([facility]) Omeprazole 40 MG Delayed Release Oral Ca psule omeprazole 40 mg capsule,delayed release TAKE ONE CAPSULE BY MOUTH ONCE A DAY omeprazole 40 mg capsule,delayed release TAKE ONE CAPSULE BY MOUTH ONCE A DAY completed omeprazole 40 MG Delayed Release Oral Capsule TALIA ([facility]) Tamsulosin hydrochloride 0.4 MG Oral Capsule tamsulosi n 0.4 mg capsule tamsulosin 0.4 mg capsule completed tamsulosin hydrochloride 0.4 MG Oral Capsule TALIA ([facility]) pregabalin 150 MG Oral Capsule pregabali n 150 mg capsule TAKE ONE CAPSULE BY MOUTH TWICE A DAY MAXIMUM DAILY DOSE 2 pregabalin 150 mg capsule TAKE ONE CAPSULE BY MOUTH TWICE A DAY MAXIMUM DAILY DOSE 2 completed pregabalin 150 MG Oral Capsule TALIA ([facility]) Bacitracin 0.5 UNT/MG / Polymyxin B 10 U NT/MG Ophthalmic Ointment bacitracin- polymyxin B 500 unit-10,000 unit/gram eye ointment KANCHAN TOPICALLY BID bacitracin- polymyxin B 500 unit-10,000 unit/gram eye ointment KANCHAN TOPICALLY BID completed bacitracin 0.5 U NT/MG / polymyxin B 10 UNT/MG Ophthalmic Ointment TALIA ([facility]) Carisoprodol 350 MG Oral Tablet carisoprodol 350 mg ta blet carisoprodol 350 mg tablet completed carisoprodol 35 0 MG Oral Tablet TALIA ([facility]) duloxetine 30 MG Delayed Release Oral Ca psule duloxetine 30 mg capsule,delayed release duloxetine 30 mg capsule,delayed release completed duloxetine 30 MG Delayed Release Oral Capsule TALIA ([facility]) Amoxicillin 500 MG Oral Capsule amoxicil major 500 mg capsule TAKE 1 CAPSULE BY MOUTH THREE TIMES DAILY UNTIL GONE amoxicillin 500 mg capsule TAKE 1 CAPSUL E BY MOUTH THREE TIMES DAILY UNTIL GONE com pleted amoxicillin 500 MG Oral Capsule TALIA ([facility]) Acetaminophen 325 MG / Oxycodone Hydroch loride 5 MG Oral Tablet oxycodone- acetaminophen 5 mg-325 mg tablet TAKE 1 TABLET BY MOUTH EVERY 4 TO 6 HOURS NEEDED FOR PAIN. MAXIMUM DAILY DOSE IS 5 TABLETS oxycodone-acetaminophen 5 mg- 325 mg tablet TAKE 1 TABLET BY MOUTH EVERY 4 TO 6 HOURS NEEDED FOR PAIN. MAXIMUM DAILY DOSE IS 5 TABLETS comple eber acetaminophen 325 MG / oxycodone hydrochloride 5 MG Oral Tablet TALIA ([facility]) Sulfamethoxazole 800 MG / Trimethoprim 1 60 MG Oral Tablet sulfamethoxazole 800 mg-trimethoprim 160 mg tablet sulfamethoxazole 800 mg-trimethoprim 160 mg tablet completed sulfame thoxazole 800 MG / trimethoprim 160 MG Oral Tablet TALIA ([facility]) Omeprazole 40 MG Delayed Release Oral Ca psule omeprazole 40 mg capsule,delayed release TAKE ONE CAPSULE BY MOUTH ONCE A DAY omeprazole 40 mg capsule,delayed release TAKE ONE CAPSULE BY MOUTH ONCE A DAY completed omeprazole 40 MG Delayed Release Oral Capsule TALIA ([facility]) Oxybutynin chloride 5 MG Oral Tablet oxybutynin chlori de 5 mg tablet oxybutynin chloride 5 mg tablet completed oxybutynin chloride 5 MG Oral Tablet TALIA ([facility]) pregabalin 100 MG Oral Capsule pregabali n 100 mg capsule TAKE 1 CAPSULE BY MOUTH TWICE DAILY. MAXIMUM DAILY DOSE IS 2 CAPSULES pregabalin 100 mg capsule TAKE 1 CAPSULE BY MOUTH TWICE DAILY. MAXIMUM DAILY DOSE IS 2 CAPSULES completed pregabalin 100 MG Oral Capsule A THENA ([facility]) Oxybutynin chloride 5 MG Oral Tablet oxybutynin chlori de 5 mg tablet oxybutynin chloride 5 mg tablet completed oxybutynin chloride 5 MG Oral Tablet TALIA ([facility]) gabapentin 300 MG Oral Capsule gabapentin 300 mg capsu le gabapentin 300 mg capsule completed gabapentin 300 MG Oral Capsule TALIA ([facility]) Carisoprodol 350 MG Oral Tablet carisoprodol 350 mg ta blet carisoprodol 350 mg tablet completed carisoprodol 35 0 MG Oral Tablet TAL[facility] ([facility]) Sulfamethoxazole 800 MG / Trimethoprim 1 60 MG Oral Tablet sulfamethoxazole 800 mg-trimethoprim 160 mg tablet sulfamethoxazole 800 mg-trimethoprim 160 mg tablet completed sulfame thoxazole 800 MG / trimethoprim 160 MG Oral Tablet TAL[facility] ([facility]) gabapentin 600 MG Oral Tablet gabapentin 600 mg tablet TAKE 1 TABLET BY MOUTH THREE TIMES DAILY gabapentin 600 mg tablet TAKE 1 TABLET B Y MOUTH THREE TIMES DAILY completed gabapentin 600 M G Oral Tablet TALIA ([facility]) Omeprazole 40 MG Delayed Release Oral Ca psule omeprazole 40 mg capsule,delayed release TAKE ONE CAPSULE BY MOUTH ONCE A DAY omeprazole 40 mg capsule,delayed release TAKE ONE CAPSULE BY MOUTH ONCE A DAY completed omeprazole 40 MG Delayed Release Oral Capsule TALIA ([facility]) gabapentin 600 MG Oral Tablet gabapentin 600 mg tablet TAKE 1 TABLET BY MOUTH THREE TIMES DAILY gabapentin 600 mg tablet TAKE 1 TABLET B Y MOUTH THREE TIMES DAILY completed gabapentin 600 M G Oral Tablet TALIA ([facility]) Tamsulosin hydrochloride 0.4 MG Oral Capsule tamsulosi n 0.4 mg capsule tamsulosin 0.4 mg capsule completed tamsulosin hydrochloride 0.4 MG Oral Capsule TAL[facility] ([facility]) Oxybutynin chloride 5 MG Oral Tablet oxybutynin chlori de 5 mg tablet oxybutynin chloride 5 mg tablet completed oxybutynin chloride 5 MG Oral Tablet TALIA ([facility]) Bacitracin 0.5 UNT/MG / Polymyxin B 10 U NT/MG Ophthalmic Ointment bacitracin- polymyxin B 500 unit-10,000 unit/gram eye ointment [place] TOPICALLY BID bacitracin- polymyxin B 500 unit-10,000 unit/gram eye ointment [place] TOPICALLY BID completed bacitracin 0.5 U NT/MG / polymyxin B 10 UNT/MG Ophthalmic Ointment TALIA ([facility]) gabapentin 300 MG Oral Capsule gabapentin 300 mg capsu le gabapentin 300 mg capsule completed gabapentin 300 MG Oral Capsule TALIA ([facility]) Sulfamethoxazole 800 MG / Trimethoprim 1 60 MG Oral Tablet sulfamethoxazole 800 mg-trimethoprim 160 mg tablet sulfamethoxazole 800 mg-trimethoprim 160 mg tablet completed sulfame thoxazole 800 MG / trimethoprim 160 MG Oral Tablet [facility] ([facility]) Oxybutynin chloride 5 MG Oral Tablet oxybutynin chlori de 5 mg tablet oxybutynin chloride 5 mg tablet completed oxybutynin chloride 5 MG Oral Tablet TAL[facility] ([facility]) duloxetine 30 MG Delayed Release Oral Ca psule duloxetine 30 mg capsule,delayed release duloxetine 30 mg capsule,delayed release completed duloxetine 30 MG Delayed Release Oral Capsule TALIA ([facility]) Acetaminophen 325 MG / Oxycodone Hydroch loride 5 MG Oral Tablet oxycodone- acetaminophen 5 mg-325 mg tablet TAKE 1 TABLET BY MOUTH EVERY 4 TO 6 HOURS NEEDED FOR PAIN. MAXIMUM DAILY DOSE IS 5 TABLETS oxycodone-acetaminophen 5 mg- 325 mg tablet TAKE 1 TABLET BY MOUTH EVERY 4 TO 6 HOURS NEEDED FOR PAIN. MAXIMUM DAILY DOSE IS 5 TABLETS comple eber acetaminophen 325 MG / oxycodone hydrochloride 5 MG Oral Tablet TAL[facility] ([facility]) duloxetine 30 MG Delayed Release Oral Ca psule duloxetine 30 mg capsule,delayed release duloxetine 30 mg capsule,delayed release completed duloxetine 30 MG Delayed Release Oral Capsule TALIA ([facility]) duloxetine 30 MG Delayed Release Oral Ca psule duloxetine 30 mg capsule,delayed release duloxetine 30 mg capsule,delayed release completed duloxetine 30 MG Delayed Release Oral Capsule [facility]AL[facility] ([facility]) Prednisone 20 MG Oral Tablet prednisone 20 mg tablet prednisone 20 mg tablet completed prednisone 20 MG Oral Tablet [facility] ([facility]) Omeprazole 40 MG Delayed Release Oral Ca psule omeprazole 40 mg capsule,delayed release TAKE ONE CAPSULE BY MOUTH ONCE A DAY omeprazole 40 mg capsule,delayed release TAKE ONE CAPSULE BY MOUTH ONCE A DAY completed omeprazole 40 MG Delayed Release Oral Capsule [facility]AL[facility] ([facility]) pregabalin 150 MG Oral Capsule pregabali n 150 mg capsule TAKE ONE CAPSULE BY MOUTH TWICE A DAY MAXIMUM DAILY DOSE 2 pregabalin 150 mg capsule TAKE ONE CAPSULE BY MOUTH TWICE A DAY MAXIMUM DAILY DOSE 2 completed pregabalin 150 MG Oral Capsule TALIA ([facility]) Oxybutynin chloride 5 MG Oral Tablet oxybutynin chlori de 5 mg tablet oxybutynin chloride 5 mg tablet completed oxybutynin chloride 5 MG Oral Tablet [facility]AL[facility] ([facility]) Tamsulosin hydrochloride 0.4 MG Oral Capsule tamsulosi n 0.4 mg capsule tamsulosin 0.4 mg capsule completed tamsulosin hydrochloride 0.4 MG Oral Capsule TALIA ([facility]) Acetaminophen 325 MG / Oxycodone Hydroch loride 5 MG Oral Tablet oxycodone- acetaminophen 5 mg-325 mg tablet TAKE 1 TABLET BY MOUTH EVERY 4 TO 6 HOURS NEEDED FOR PAIN. MAXIMUM DAILY DOSE IS 5 TABLETS oxycodone-acetaminophen 5 mg- 325 mg tablet TAKE 1 TABLET BY MOUTH EVERY 4 TO 6 HOURS NEEDED FOR PAIN. MAXIMUM DAILY DOSE IS 5 TABLETS comple eber acetaminophen 325 MG / oxycodone hydrochloride 5 MG Oral Tablet [facility] ([facility]) Estradiol 1 MG Oral Tablet estradiol 1 mg tablet estradiol 1 mg tablet completed estradiol 1 MG Oral Table t [facility]AL[facility] ([facility]) pregabalin 150 MG Oral Capsule pregabali n 150 mg capsule TAKE ONE CAPSULE BY MOUTH TWICE A DAY MAXIMUM DAILY DOSE 2 pregabalin 150 mg capsule TAKE ONE CAPSULE BY MOUTH TWICE A DAY MAXIMUM DAILY DOSE 2 completed pregabalin 150 MG Oral Capsule TALIA ([facility]) Sulfamethoxazole 800 MG / Trimethoprim 1 60 MG Oral Tablet sulfamethoxazole 800 mg-trimethoprim 160 mg tablet sulfamethoxazole 800 mg-trimethoprim 160 mg tablet completed sulfame thoxazole 800 MG / trimethoprim 160 MG Oral Tablet [facility] ([facility]) Tamsulosin hydrochloride 0.4 MG Oral Capsule tamsulosi n 0.4 mg capsule tamsulosin 0.4 mg capsule completed tamsulosin hydrochloride 0.4 MG Oral Capsule [facility]AL[facility] ([facility]) Oxybutynin chloride 5 MG Oral Tablet oxybutynin chlori de 5 mg tablet oxybutynin chloride 5 mg tablet completed oxybutynin chloride 5 MG Oral Tablet [facility]AL[facility] ([facility]) Carisoprodol 350 MG Oral Tablet carisoprodol 350 mg ta blet carisoprodol 350 mg tablet completed carisoprodol 35 0 MG Oral Tablet [facility] ([facility]) Omeprazole 40 MG Delayed Release Oral Ca psule omeprazole 40 mg capsule,delayed release TAKE ONE CAPSULE BY MOUTH ONCE A DAY omeprazole 40 mg capsule,delayed release TAKE ONE CAPSULE BY MOUTH ONCE A DAY completed omeprazole 40 MG Delayed Release Oral Capsule [facility]AL[facility] ([facility]) Amoxicillin 500 MG Oral Capsule amoxicil major 500 mg capsule TAKE 1 CAPSULE BY MOUTH THREE TIMES DAILY UNTIL GONE amoxicillin 500 mg capsule TAKE 1 CAPSUL E BY MOUTH THREE TIMES DAILY UNTIL GONE com pleted amoxicillin 500 MG Oral Capsule [facility] ([facility]) Carisoprodol 350 MG Oral Tablet carisoprodol 350 mg ta blet carisoprodol 350 mg tablet completed carisoprodol 35 0 MG Oral Tablet [facility]AL[facility] ([facility]) pregabalin 100 MG Oral Capsule pregabali n 100 mg capsule TAKE 1 CAPSULE BY MOUTH TWICE DAILY. MAXIMUM DAILY DOSE IS 2 CAPSULES pregabalin 100 mg capsule TAKE 1 CAPSULE BY MOUTH TWICE DAILY. MAXIMUM DAILY DOSE IS 2 CAPSULES completed pregabalin 100 MG Oral Capsule A THENA ([facility]) duloxetine 30 MG Delayed Release Oral Ca psule duloxetine 30 mg capsule,delayed release duloxetine 30 mg capsule,delayed release completed duloxetine 30 MG Delayed Release Oral Capsule [facility]AL[facility] ([facility]) Bacitracin 0.5 UNT/MG / Polymyxin B 10 U NT/MG Ophthalmic Ointment bacitracin- polymyxin B 500 unit-10,000 unit/gram eye ointment [place] TOPICALLY BID bacitracin- polymyxin B 500 unit-10,000 unit/gram eye ointment [place] TOPICALLY BID completed bacitracin 0.5 U NT/MG / polymyxin B 10 UNT/MG Ophthalmic Ointment TALIA ([facility]) gabapentin 600 MG Oral Tablet gabapentin 600 mg tablet TAKE 1 TABLET BY MOUTH THREE TIMES DAILY gabapentin 600 mg tablet TAKE 1 TABLET B Y MOUTH THREE TIMES DAILY completed gabapentin 600 M G Oral Tablet [facility]AL[facility] ([facility]) Sulfamethoxazole 800 MG / Trimethoprim 1 60 MG Oral Tablet sulfamethoxazole 800 mg-trimethoprim 160 mg tablet sulfamethoxazole 800 mg-trimethoprim 160 mg tablet completed sulfame thoxazole 800 MG / trimethoprim 160 MG Oral Tablet [facility] ([facility]) Prednisone 20 MG Oral Tablet prednisone 20 mg tablet prednisone 20 mg tablet completed prednisone 20 MG Oral Tablet [facility] ([facility]) Bacitracin 0.5 UNT/MG / Polymyxin B 10 U NT/MG Ophthalmic Ointment bacitracin- polymyxin B 500 unit-10,000 unit/gram eye ointment [place]ANCHAN TOPICALLY BID bacitracin- polymyxin B 500 unit-10,000 unit/gram eye ointment [place]ANCHAN TOPICALLY BID completed bacitracin 0.5 U NT/MG / polymyxin B 10 UNT/MG Ophthalmic Ointment TALIA ([facility]) Tamsulosin hydrochloride 0.4 MG Oral Capsule tamsulosi n 0.4 mg capsule tamsulosin 0.4 mg capsule completed tamsulosin hydrochloride 0.4 MG Oral Capsule [facility]AL[facility] ([facility]) Oxybutynin chloride 5 MG Oral Tablet oxybutynin chlori de 5 mg tablet oxybutynin chloride 5 mg tablet completed oxybutynin chloride 5 MG Oral Tablet TALIA ([facility]) gabapentin 300 MG Oral Capsule gabapentin 300 mg capsu le gabapentin 300 mg capsule completed gabapentin 300 MG Oral Capsule TALIA ([facility]) gabapentin 600 MG Oral Tablet gabapentin 600 mg tablet TAKE 1 TABLET BY MOUTH THREE TIMES DAILY gabapentin 600 mg tablet TAKE 1 TABLET B Y MOUTH THREE TIMES DAILY completed gabapentin 600 M G Oral Tablet TALIA ([facility]) Omeprazole 40 MG Delayed Release Oral Ca psule omeprazole 40 mg capsule,delayed release TAKE ONE CAPSULE BY MOUTH ONCE A DAY omeprazole 40 mg capsule,delayed release TAKE ONE CAPSULE BY MOUTH ONCE A DAY completed omeprazole 40 MG Delayed Release Oral Capsule TALIA ([facility]) gabapentin 300 MG Oral Capsule gabapentin 300 mg capsu le gabapentin 300 mg capsule completed gabapentin 300 MG Oral Capsule TALIA ([facility]) Carisoprodol 350 MG Oral Tablet carisoprodol 350 mg ta blet carisoprodol 350 mg tablet completed carisoprodol 35 0 MG Oral Tablet [facility]ALIA ([facility]) Carisoprodol 350 MG Oral Tablet carisoprodol 350 mg ta blet carisoprodol 350 mg tablet completed carisoprodol 35 0 MG Oral Tablet [facility]ALIA ([facility]) gabapentin 300 MG Oral Capsule gabapentin 300 mg capsu le gabapentin 300 mg capsule completed gabapentin 300 MG Oral Capsule TALIA ([facility]) 24 HR Bupropion Hydrochloride 150 MG Ext ended Release Oral Tablet bupropion HCl XL 150 mg 24 hr tablet, extended release TAKE 1 TABLET BY MOUTH EVERY DAY IN THE MORNING bupropion HCl XL 150 mg 24 hr tablet, ex tended release TAKE 1 TABLET BY MOUTH EVERY DAY IN THE MORNING comple eber 24 HR bupropion hydrochloride 150 MG Extended Release Oral Tablet [facility]AL[facility] ([facility]) Estradiol 1 MG Oral Tablet estradiol 1 mg tablet estradiol 1 mg tablet completed estradiol 1 MG Oral Table t [facility]ALIA ([facility]) Bacitracin 0.5 UNT/MG / Polymyxin B 10 U NT/MG Ophthalmic Ointment bacitracin- polymyxin B 500 unit-10,000 unit/gram eye ointment [place]CH[place] TOPICALLY BID bacitracin- polymyxin B 500 unit-10,000 unit/gram eye ointment [place]ANCHAN TOPICALLY BID completed bacitracin 0.5 U NT/MG / polymyxin B 10 UNT/MG Ophthalmic Ointment TALIA ([facility]) Omeprazole 40 MG Delayed Release Oral Ca psule omeprazole 40 mg capsule,delayed release TAKE ONE CAPSULE BY MOUTH ONCE A DAY omeprazole 40 mg capsule,delayed release TAKE ONE CAPSULE BY MOUTH ONCE A DAY completed omeprazole 40 MG Delayed Release Oral Capsule TALIA ([facility]) gabapentin 300 MG Oral Capsule gabapentin 300 mg capsu le gabapentin 300 mg capsule completed gabapentin 300 MG Oral Capsule TALIA ([facility]) Prednisone 20 MG Oral Tablet prednisone 20 mg tablet prednisone 20 mg tablet completed prednisone 20 MG Oral Tablet [facility]ALIA ([facility]) Acetaminophen 325 MG / Oxycodone Hydroch loride 5 MG Oral Tablet oxycodone- acetaminophen 5 mg-325 mg tablet TAKE 1 TABLET BY MOUTH EVERY 4 TO 6 HOURS NEEDED FOR PAIN. MAXIMUM DAILY DOSE IS 5 TABLETS oxycodone-acetaminophen 5 mg- 325 mg tablet TAKE 1 TABLET BY MOUTH EVERY 4 TO 6 HOURS NEEDED FOR PAIN. MAXIMUM DAILY DOSE IS 5 TABLETS comple eber acetaminophen 325 MG / oxycodone hydrochloride 5 MG Oral Tablet TALIA ([facility]) Oxybutynin chloride 5 MG Oral Tablet oxybutynin chlori de 5 mg tablet oxybutynin chloride 5 mg tablet completed oxybutynin chloride 5 MG Oral Tablet TAL[facility] ([facility]) Acetaminophen 325 MG / Oxycodone Hydroch loride 5 MG Oral Tablet oxycodone- acetaminophen 5 mg-325 mg tablet TAKE 1 TABLET BY MOUTH EVERY 4 TO 6 HOURS NEEDED FOR PAIN. MAXIMUM DAILY DOSE IS 5 TABLETS oxycodone-acetaminophen 5 mg- 325 mg tablet TAKE 1 TABLET BY MOUTH EVERY 4 TO 6 HOURS NEEDED FOR PAIN. MAXIMUM DAILY DOSE IS 5 TABLETS comple eber acetaminophen 325 MG / oxycodone hydrochloride 5 MG Oral Tablet TALIA ([facility]) Amoxicillin 500 MG Oral Capsule amoxicil major 500 mg capsule TAKE 1 CAPSULE BY MOUTH THREE TIMES DAILY UNTIL GONE amoxicillin 500 mg capsule TAKE 1 CAPSUL E BY MOUTH THREE TIMES DAILY UNTIL GONE com pleted amoxicillin 500 MG Oral Capsule TALIA ([facility]) Acetaminophen 325 MG / Oxycodone Hydroch loride 5 MG Oral Tablet oxycodone- acetaminophen 5 mg-325 mg tablet TAKE 1 TABLET BY MOUTH EVERY 4 TO 6 HOURS NEEDED FOR PAIN. MAXIMUM DAILY DOSE IS 5 TABLETS oxycodone-acetaminophen 5 mg- 325 mg tablet TAKE 1 TABLET BY MOUTH EVERY 4 TO 6 HOURS NEEDED FOR PAIN. MAXIMUM DAILY DOSE IS 5 TABLETS comple eber acetaminophen 325 MG / oxycodone hydrochloride 5 MG Oral Tablet [facility]ALIA ([facility]) gabapentin 600 MG Oral Tablet gabapentin 600 mg tablet TAKE 1 TABLET BY MOUTH THREE TIMES DAILY gabapentin 600 mg tablet TAKE 1 TABLET B Y MOUTH THREE TIMES DAILY completed gabapentin 600 M G Oral Tablet TALIA ([facility]) 24 HR Bupropion Hydrochloride 150 MG Ext ended Release Oral Tablet bupropion HCl XL 150 mg 24 hr tablet, extended release TAKE 1 TABLET BY MOUTH EVERY DAY IN THE MORNING bupropion HCl XL 150 mg 24 hr tablet, ex tended release TAKE 1 TABLET BY MOUTH EVERY DAY IN THE MORNING comple eber 24 HR bupropion hydrochloride 150 MG Extended Release Oral Tablet TALIA ([facility]) pregabalin 100 MG Oral Capsule pregabali n 100 mg capsule TAKE 1 CAPSULE BY MOUTH TWICE DAILY. MAXIMUM DAILY DOSE IS 2 CAPSULES pregabalin 100 mg capsule TAKE 1 CAPSULE BY MOUTH TWICE DAILY. MAXIMUM DAILY DOSE IS 2 CAPSULES completed pregabalin 100 MG Oral Capsule A THENA ([facility]) Omeprazole 40 MG Delayed Release Oral Ca psule omeprazole 40 mg capsule,delayed release TAKE ONE CAPSULE BY MOUTH ONCE A DAY omeprazole 40 mg capsule,delayed release TAKE ONE CAPSULE BY MOUTH ONCE A DAY completed omeprazole 40 MG Delayed Release Oral Capsule TALIA ([facility]) 24 HR Bupropion Hydrochloride 150 MG Ext ended Release Oral Tablet bupropion HCl XL 150 mg 24 hr tablet, extended release TAKE 1 TABLET BY MOUTH EVERY DAY IN THE MORNING bupropion HCl XL 150 mg 24 hr tablet, ex tended release TAKE 1 TABLET BY MOUTH EVERY DAY IN THE MORNING comple eber 24 HR bupropion hydrochloride 150 MG Extended Release Oral Tablet TALIA ([facility]) Oxybutynin chloride 5 MG Oral Tablet oxybutynin chlori de 5 mg tablet oxybutynin chloride 5 mg tablet completed oxybutynin chloride 5 MG Oral Tablet TALIA ([facility]) tramadol hydrochloride 50 MG Oral Tablet tramadol 50 m g tablet tramadol 50 mg tablet completed tramadol hydroc hloride 50 MG Oral Tablet [facility]AL[facility] ([facility]) Acetaminophen 325 MG / Oxycodone Hydroch loride 5 MG Oral Tablet oxycodone- acetaminophen 5 mg-325 mg tablet TAKE 1 TABLET BY MOUTH EVERY 4 TO 6 HOURS NEEDED FOR PAIN. MAXIMUM DAILY DOSE IS 5 TABLETS oxycodone-acetaminophen 5 mg- 325 mg tablet TAKE 1 TABLET BY MOUTH EVERY 4 TO 6 HOURS NEEDED FOR PAIN. MAXIMUM DAILY DOSE IS 5 TABLETS comple eber acetaminophen 325 MG / oxycodone hydrochloride 5 MG Oral Tablet TALIA ([facility]) 24 HR Bupropion Hydrochloride 150 MG Ext ended Release Oral Tablet bupropion HCl XL 150 mg 24 hr tablet, extended release TAKE 1 TABLET BY MOUTH EVERY DAY IN THE MORNING bupropion HCl XL 150 mg 24 hr tablet, ex tended release TAKE 1 TABLET BY MOUTH EVERY DAY IN THE MORNING comple eber 24 HR bupropion hydrochloride 150 MG Extended Release Oral Tablet [facility]AL[facility] ([facility]) Sulfamethoxazole 800 MG / Trimethoprim 1 60 MG Oral Tablet sulfamethoxazole 800 mg-trimethoprim 160 mg tablet sulfamethoxazole 800 mg-trimethoprim 160 mg tablet completed sulfame thoxazole 800 MG / trimethoprim 160 MG Oral Tablet [facility]ALIA ([facility]) Amoxicillin 500 MG Oral Capsule amoxicil major 500 mg capsule TAKE 1 CAPSULE BY MOUTH THREE TIMES DAILY UNTIL GONE amoxicillin 500 mg capsule TAKE 1 CAPSUL E BY MOUTH THREE TIMES DAILY UNTIL GONE com pleted amoxicillin 500 MG Oral Capsule [facility]ALIA ([facility]) gabapentin 300 MG Oral Capsule gabapentin 300 mg capsu le gabapentin 300 mg capsule completed gabapentin 300 MG Oral Capsule TALIA ([facility]) gabapentin 300 MG Oral Capsule gabapentin 300 mg capsu le gabapentin 300 mg capsule completed gabapentin 300 MG Oral Capsule [facility]ALIA ([facility]) Prednisone 20 MG Oral Tablet prednisone 20 mg tablet prednisone 20 mg tablet completed prednisone 20 MG Oral Tablet [facility]AL[facility] ([facility]) Insurance Providers Payer name Policy type / Coverage type Policy ID Covered republican ID Covered republican's relationship to long Policy Long Plan Information BS [place] Medigap Part B [id number] Self [id number] BS [place] Medigap Part B [id number] [id number] [facility] VYA [id number] BS [place] Medigap Part B [id number] Self [id number] BS [place] Medigap Part B [id number] Self V [id number] BS [place] Commercial [id number] Self BS [place] Medigap Part B [id number] Self V [id number] [facility] [id number] 0 1 [id number] [facility] ([facility] Commercial [id number] Self [id number] [facility] ([facility]) Medigap Part B [id number] Self [id number] [facility] [id number] BS [place] Commercial [id number] Self [id number] ANSI-Commercial [id number] [facility]/806 [id number] SP [id number] ANSI-Commercial [id number] ANSI-Commercial [id number] [facility] 302/307 [id number] SP [id number] ANSI-Commercial [id number] ANSI-Commercial [id number] ANSI-Commercial [id number] [employer] Commercial [id number] Self [id number] ANSI-Commercial [id number] ANSI-Commercial [id number] ANSI-Commercial [id number] ANSI-Commercial [id number] ANSI-Commercial [id number] ANSI-Commercial [id number] ANSI-Commercial [id number] [employer] Commercial [id number] Self [id number] ANSI-Commercial [id number] [employer] BCBS B [id number] S VYA [id number] [place] PPO 302/307 [id number] SP [id number] ANSI-Commercial [id number] ANSI-Commercial [id number] ANSI-Commercial [id number] ANSI-Commercial [id number] ANSI-Commercial [id number] ANSI-Commercial [id number] ANSI-Commercial [id number] ANSI-Commercial [id number] [facility] Commercial [id number] [facility] [id number] [place] 306/806 [id number] SP [id number] [place] 306/806 [id number] SP [id number] [employer] BCBS B [id number] S VYA [id number] [employer] Commercial [id number] Self [place] OF [place] 306/806 [id number] SP [id number] [place] 306/806 [id number] SP [id number] [employer] [place] PPO 302/307 [id number] SP [id number] [employer] [id number] SP [id number] [employer] [id number] SP [id number] [employer] [id number] SP [id number] [employer] [id number] SP [id number] [facility] [employer] O [id number] S [id number] [facility] [id number] 0 [id number] [facility] [id number] SP 1 [id number] [employer] [place] 306/806 [id number] SP [id number] ANSI-Commercial [id number] ANSI-Commercial [id number] Problems, Conditions, and Diagnoses Code Display Name Description Problem Type Effective Dates Data Source(s) D50.8 [id number] Other iron deficiency anemia Problem 021 12:00:00 AM EDT eCW1 ([facility]) M25.511 [id number] Right shoulder pain, unspecified chronici ty Problem 11/16/2020 12:00:00 AM EDT eCW1 ([facility]) Surgeries/Procedures Procedure Description Date Indications Data Source(s) Imm: Flublok Quadrivalent 18 years & older 0.5mL IM Influenz a 05/26/2021 12:00:00 AM EDT eCW1 ([facility]) RADEX SPINE CRV COMPL W/OBLQ&FLEX&/XTN STDS 04/01/2021 12:00:00 AM EDT MEDENT ([facility] ) RADEX TOE MINIMUM 2 VIEWS 04/01/2021 12:00:00 AM EDT [facility] ([facility] ) OFFICE OUTPATIENT VISIT 25 MINUTES 04/01/2021 12:00:00 AM EDT [facility] ([facility]) RADEX TOE MINIMUM 2 VIEWS 04/01/2021 12:00:00 AM EDT [facility] ([facility]) OFFICE OUTPATIENT VISIT 25 MINUTES 01/21/2021 12:00:00 AM EDT MEDENT ([facility]) MRI, cervical spine, w/o contrast 11/16/2020 12:00:00 AM EDT TAL[facility] ([facility]) OFFICE OUTPATIENT VISIT 15 MINUTES 11/13/2020 12:00:00 AM EDT MEDENT ([facility]) OFFICE OUTPATIENT VISIT 25 MINUTES 10/06/2020 12:00:00 AM EST MEDENT ([facility] ) Immunization: Flublok Quadrivalent (18 years & older) 0.5mL IM (Influenza) 05/11/2020 12:00:00 AM EDT eCW1 ([facility]) Results ID Date Data Source [id number] 05/21/2021 12:00:00 AM EDT [facility] ([facility]) Name Value Range Interpretation Code Description Data Emmy rce(s) Supporting Document(s) SARS-CoV-2 (COVID-19) RNA [Presence] in Respiratory specimen by ENRIQUE with probe detection negative negative Sars-cov-2 [place] ([facility]) ID Date Data Source [id number] 05/21/2021 12:00:00 AM EDT [facility] ([facility]) Name Value Range Interpretation Code Description Data Emmy rce(s) Supporting Document(s) ID Date Data Source [id number] 05/21/2021 12:00:00 AM EDT [facility] Name Value Range Interpretation Code Description Data Emmy rce(s) Supporting Document(s) SARS-CoV-2 NEGATIVE [facility] This lab was ordered by [facility]-COVID19 and reported by [employer] ID Date Data Source [id number] 05/21/2021 12:00:00 AM EDT [place] ([facility]) Name Value Range Interpretation Code Description Data Emmy rce(s) Supporting Document(s) SARS-CoV-2 (COVID-19) RNA [Presence] in Respiratory specimen by ENRIQUE with probe detection negative negative Sars-cov-2 [facility] ([facility]) ID Date Data Source [id number] 05/21/2021 12:00:00 AM EDT [place] ([facility]) Name Value Range Interpretation Code Description Data Emmy rce(s) Supporting Document(s) ID Date Data Source [id number] 04/01/2021 11:45:00 AM EDT [facility] ([facility]) Name Value Range Interpretation Code Description Data Emmy rce(s) Supporting Document(s) C reactive protein [Mass/volume] in Serum or Plasma by High sensitivity method Laboratory test result 0.00-0.30 [facility] ([facility]) Erythrocyte sedimentation rate by Westergren method 19 mm/hr 0-30 [facility] ([facility]) ID Date Data Source [id number] 10/06/2020 05:23:00 PM EST [facility] ([facility]) Name Value Range Interpretation Code Description Data Emmy rce(s) Supporting Document(s) Antinuclear Antibodies Direct Laboratory test result MED[facility] ([facility]) Performed at: [facility] [id number] Manager Of Operations: Lana Beckwith MD, Phone: [phone] ID Date Data Source [id number] 10/06/2020 05:23:00 PM EST [facility] ([facility]) Name Value Range Interpretation Code Description Data Emmy rce(s) Supporting Document(s) Rheumatoid factor [Units/volume] in Serum or Plasma Laboratory test result [facility] ([facility]) ID Date Data Source [id number] 09/04/2020 12:00:00 AM EST [facility] ([facility]) Name Value Range Interpretation Code Description Data Emmy rce(s) Supporting Document(s) SARS-CoV-2 (COVID-19) RNA [Presence] in Respiratory specimen by ENRIQUE with probe detection negative negative Sars-cov-2 [facility] ([facility]) ID Date Data Source [id number] 09/04/2020 12:00:00 AM EST [facility] ([facility]) Name Value Range Interpretation Code Description Data Emmy rce(s) Supporting Document(s) ID Date Data Source [id number] 09/04/2020 12:00:00 AM EST [facility] ([facility]) Name Value Range Interpretation Code Description Data Emmy rce(s) Supporting Document(s) SARS-CoV-2 (COVID-19) RNA [Presence] in Respiratory specimen by ENRIQUE with probe detection negative negative Sars-cov-2 [facility] ([facility]) ID Date Data Source [id number] 09/04/2020 12:00:00 AM EST [facility] ([facility]) Name Value Range Interpretation Code Description Data Emmy rce(s) Supporting Document(s) ID Date Data Source [id number] 09/04/2020 12:00:00 AM EST [facility] ([facility]) Name Value Range Interpretation Code Description Data Emmy rce(s) Supporting Document(s) SARS-CoV-2 (COVID-19) RNA [Presence] in Respiratory specimen by ENRIQUE with probe detection negative negative Sars-cov-2 [facility] ([facility]) ID Date Data Source [id number] 09/04/2020 12:00:00 AM EST [facility] ([facility]) Name Value Range Interpretation Code Description Data Emmy rce(s) Supporting Document(s) ID Date Data Source [id number] 09/04/2020 12:00:00 AM EST [facility] ([facility]) Name Value Range Interpretation Code Description Data Emmy rce(s) Supporting Document(s) SARS-CoV-2 (COVID-19) RNA [Presence] in Respiratory specimen by ENRIQUE with probe detection negative negative Sars-cov-2 [facility] ([facility]) ID Date Data Source [id number] 09/04/2020 12:00:00 AM EST [place] ([facility]) Name Value Range Interpretation Code Description Data Emmy rce(s) Supporting Document(s) ID Date Data Source [id number] 09/04/2020 12:00:00 AM EST [facility] ([facility]) Name Value Range Interpretation Code Description Data Emmy rce(s) Supporting Document(s) SARS-CoV-2 (COVID-19) RNA [Presence] in Respiratory specimen by ENRIQUE with probe detection negative negative Sars-cov-2 [place] ([facility]) ID Date Data Source [id number] 09/04/2020 12:00:00 AM EST [place] ([facility]) Name Value Range Interpretation Code Description Data Emmy rce(s) Supporting Document(s) ID Date Data Source [id number] 09/04/2020 12:00:00 AM EST [place] ([facility]) Name Value Range Interpretation Code Description Data Emmy rce(s) Supporting Document(s) SARS-CoV-2 (COVID-19) RNA [Presence] in Respiratory specimen by ENRIQUE with probe detection negative negative Sars-cov-2 [facility] ([facility]) ID Date Data Source [id number] 09/04/2020 12:00:00 AM EST [facility] ([facility]) Name Value Range Interpretation Code Description Data Emmy rce(s) Supporting Document(s) ID Date Data Source [id number] 09/04/2020 12:00:00 AM EST [facility] ([facility]) Name Value Range Interpretation Code Description Data Emmy rce(s) Supporting Document(s) SARS-CoV-2 (COVID-19) RNA [Presence] in Respiratory specimen by ENRIQUE with probe detection negative negative Sars-cov-2 [facility] ([facility]) ID Date Data Source [id number] 09/04/2020 12:00:00 AM EST [facility] ([facility]) Name Value Range Interpretation Code Description Data Emmy rce(s) Supporting Document(s) ID Date Data Source [id number] 09/04/2020 12:00:00 AM EST [facility] ([facility]) Name Value Range Interpretation Code Description Data Emmy rce(s) Supporting Document(s) SARS-CoV-2 (COVID-19) RNA [Presence] in Respiratory specimen by ENRIQUE with probe detection negative negative Sars-cov-2 [facility] ([facility]) ID Date Data Source [id number] 09/04/2020 12:00:00 AM EST [facility] ([facility]) Name Value Range Interpretation Code Description Data Emmy rce(s) Supporting Document(s) ID Date Data Source [id number] 09/04/2020 12:00:00 AM EST [facility] ([facility]) Name Value Range Interpretation Code Description Data Emmy rce(s) Supporting Document(s) SARS-CoV-2 (COVID-19) RNA [Presence] in Respiratory specimen by ENRIQUE with probe detection negative negative Sars-cov-2 [facility] ([facility]) ID Date Data Source [id number] 09/04/2020 12:00:00 AM EST [facility] ([facility]) Name Value Range Interpretation Code Description Data Emmy rce(s) Supporting Document(s) ID Date Data Source [id number] 09/04/2020 12:00:00 AM EST [facility] ([facility]) Name Value Range Interpretation Code Description Data Emmy rce(s) Supporting Document(s) SARS-CoV-2 (COVID-19) RNA [Presence] in Respiratory specimen by ENRIQUE with probe detection negative negative Sars-cov-2 [facility] ([facility]) ID Date Data Source [id number] 09/04/2020 12:00:00 AM EST [facility] ([facility]) Name Value Range Interpretation Code Description Data Emmy rce(s) Supporting Document(s) ID Date Data Source [id number] 09/04/2020 12:00:00 AM EST [facility] ([facility]) Name Value Range Interpretation Code Description Data Emmy rce(s) Supporting Document(s) SARS-CoV-2 (COVID-19) RNA [Presence] in Respiratory specimen by ENRIQUE with probe detection negative negative Sars-cov-2 [facility] ([facility]) ID Date Data Source [id number] 09/04/2020 12:00:00 AM EST [facility] ([facility]) Name Value Range Interpretation Code Description Data Emmy rce(s) Supporting Document(s) ID Date Data Source [id number] 09/04/2020 12:00:00 AM EST [facility] Name Value Range Interpretation Code Description Data Emmy rce(s) Supporting Document(s) SARS-CoV-2 NEGATIVE [facility] This lab was ordered by [facility] and reported by [employer] ID Date Data Source [id number] 05/25/2020 12:00:00 AM EDT [place] ([facility]) Name Value Range Interpretation Code Description Data Emmy rce(s) Supporting Document(s) SARS-CoV-2 (COVID-19) RNA [Presence] in Respiratory specimen by ENRIQUE with probe detection negative negative Sars-cov-2 [facility] ([facility]) ID Date Data Source [id number] 05/25/2020 12:00:00 AM EDT [facility] ([facility]) Name Value Range Interpretation Code Description Data Emmy rce(s) Supporting Document(s) ID Date Data Source [id number] 05/25/2020 12:00:00 AM EDT [place] ([facility]) Name Value Range Interpretation Code Description Data Emmy rce(s) Supporting Document(s) SARS-CoV-2 (COVID-19) RNA [Presence] in Respiratory specimen by ENRIQUE with probe detection negative negative Sars-cov-2 [facility] ([facility]) ID Date Data Source [id number] 05/25/2020 12:00:00 AM EDT [facility] ([facility]) Name Value Range Interpretation Code Description Data Emmy rce(s) Supporting Document(s) ID Date Data Source [id number] 05/25/2020 12:00:00 AM EDT [facility] ([facility]) Name Value Range Interpretation Code Description Data Emmy rce(s) Supporting Document(s) SARS-CoV-2 (COVID-19) RNA [Presence] in Respiratory specimen by ENRIQUE with probe detection negative negative Sars-cov-2 [facility] ([facility]) ID Date Data Source [id number] 05/25/2020 12:00:00 AM EDT [facility] ([facility]) Name Value Range Interpretation Code Description Data Emmy rce(s) Supporting Document(s) ID Date Data Source [id number] 05/25/2020 12:00:00 AM EDT [facility] ([facility]) Name Value Range Interpretation Code Description Data Emmy rce(s) Supporting Document(s) SARS-CoV-2 (COVID-19) RNA [Presence] in Respiratory specimen by ENRIQUE with probe detection negative negative Sars-cov-2 [facility] ([facility]) ID Date Data Source [id number] 05/25/2020 12:00[facility]00 [facility] Name Value Range Interpretation Code Description Data Emmy rce(s) Supporting Document(s) ID Date Data Source [id number] 05/25/2020 12:00:00 AM EDT [place] ([facility]) Name Value Range Interpretation Code Description Data Emmy rce(s) Supporting Document(s) SARS-CoV-2 (COVID-19) RNA [Presence] in Respiratory specimen by ENRIQUE with probe detection negative negative Sars-cov-2 [facility] ([facility]) ID Date Data Source [id number] 05/25/2020 12:00:00 AM EDT [place] ([facility]) Name Value Range Interpretation Code Description Data Emmy rce(s) Supporting Document(s) ID Date Data Source [id number] 05/25/2020 12:00:00 AM EDT [facility] ([facility]) Name Value Range Interpretation Code Description Data Emmy rce(s) Supporting Document(s) SARS-CoV-2 (COVID-19) RNA [Presence] in Respiratory specimen by ENRIQUE with probe detection negative negative Sars-cov-2 [facility] ([facility]) ID Date Data Source [id number] 05/25/2020 12:00:00 AM EDT [place] ([facility]) Name Value Range Interpretation Code Description Data Emmy rce(s) Supporting Document(s) ID Date Data Source [id number] 05/25/2020 12:00:00 AM EDT [place] ([facility]) Name Value Range Interpretation Code Description Data Emmy rce(s) Supporting Document(s) SARS-CoV-2 (COVID-19) RNA [Presence] in Respiratory specimen by ENRIQUE with probe detection negative negative Sars-cov-2 [facility] ([facility]) ID Date Data Source [id number] 05/25/2020 12:00:00 AM EDT [place] ([facility]) Name Value Range Interpretation Code Description Data Emmy rce(s) Supporting Document(s) ID Date Data Source [id number] 05/25/2020 12:00:00 AM EDT [place] ([facility]) Name Value Range Interpretation Code Description Data Emmy rce(s) Supporting Document(s) SARS-CoV-2 (COVID-19) RNA [Presence] in Respiratory specimen by ENRIQUE with probe detection negative negative Sars-cov-2 [facility] ([facility]) ID Date Data Source [id number] 05/25/2020 12:00:00 AM EDT [place] ([facility]) Name Value Range Interpretation Code Description Data Emmy rce(s) Supporting Document(s) ID Date Data Source [id number] 05/25/2020 12:00:00 AM EDT [place] ([facility]) Name Value Range Interpretation Code Description Data Emmy rce(s) Supporting Document(s) SARS-CoV-2 (COVID-19) RNA [Presence] in Respiratory specimen by ENRIQUE with probe detection negative negative Sars-cov-2 [facility] ([facility]) ID Date Data Source [id number] 05/25/2020 12:00:00 AM EDT [place] ([facility]) Name Value Range Interpretation Code Description Data Emmy rce(s) Supporting Document(s) ID Date Data Source [id number] 05/25/2020 12:00:00 AM EDT [place] ([facility]) Name Value Range Interpretation Code Description Data Emmy rce(s) Supporting Document(s) SARS-CoV-2 (COVID-19) RNA [Presence] in Respiratory specimen by ENRIQUE with probe detection negative negative Sars-cov-2 [facility] ([facility]) ID Date Data Source [id number] 05/25/2020 12:00:00 AM EDT [facility] ([facility]) Name Value Range Interpretation Code Description Data Emmy rce(s) Supporting Document(s) ID Date Data Source [id number] 05/25/2020 12:00:00 AM EDT [place] ([facility]) Name Value Range Interpretation Code Description Data Emmy rce(s) Supporting Document(s) SARS-CoV-2 (COVID-19) RNA [Presence] in Respiratory specimen by ENRIQUE with probe detection negative negative Sars-cov-2 [facility] ([facility]) ID Date Data Source [id number] 05/25/2020 12:00:00 AM EDT [place] ([facility]) Name Value Range Interpretation Code Description Data Emmy rce(s) Supporting Document(s) ID Date Data Source [id number] 05/25/2020 12:00:00 AM EDT [facility] ([facility]) Name Value Range Interpretation Code Description Data Emmy rce(s) Supporting Document(s) SARS-CoV-2 (COVID-19) RNA [Presence] in Respiratory specimen by ENRIQUE with probe detection negative negative Sars-cov-2 [facility] ([facility]) ID Date Data Source [id number] 05/25/2020 12:00:00 AM EDT [place] ([facility]) Name Value Range Interpretation Code Description Data Emmy rce(s) Supporting Document(s) ID Date Data Source [id number] 05/25/2020 12:00:00 AM EDT [place] ([facility]) Name Value Range Interpretation Code Description Data Emmy rce(s) Supporting Document(s) SARS-CoV-2 (COVID-19) RNA [Presence] in Respiratory specimen by ENRIQUE with probe detection negative negative Sars-cov-2 [facility] ([facility]) ID Date Data Source [id number] 05/25/2020 12:00:00 AM EDT [place] ([facility]) Name Value Range Interpretation Code Description Data Memy rce(s) Supporting Document(s) ID Date Data Source [id number] 05/25/2020 12:00:00 AM EDT [place] ([facility]) Name Value Range Interpretation Code Description Data Emmy rce(s) Supporting Document(s) SARS coronavirus 2 RNA [Presence] in Res piratory specimen by ENRIQUE with probe detection negative negative Sars-cov-2 [facility] ([facility]) ID Date Data Source [id number] 05/25/2020 12:00:00 AM EDT [place] ([facility]) Name Value Range Interpretation Code Description Data Emmy rce(s) Supporting Document(s) ID Date Data Source [id number] 05/25/2020 12:00:00 AM EDT [place] ([facility]) Name Value Range Interpretation Code Description Data Emmy rce(s) Supporting Document(s) SARS coronavirus 2 RNA [Presence] in Res piratory specimen by ENRIQUE with probe detection negative negative Sars-cov-2 [facility] ([facility]) ID Date Data Source [id number] 05/25/2020 12:00:00 AM EDT [place] ([facility]) Name Value Range Interpretation Code Description Data Emmy rce(s) Supporting Document(s) ID Date Data Source [id number] 05/25/2020 12:00:00 AM EDT [facility] Name Value Range Interpretation Code Description Data Emmy rce(s) Supporting Document(s) SARS-CoV-2 [facility] This lab was ordered by [facility] and reported by [employer] ID Date Data Source Comprehensive Metabolic Profile (CMP) 05/08/2020 09:14:48 AM EDT eCW1 ([facility]) Name Value Range Interpretation Code Description Data Emmy rce(s) Supporting Document(s) 105 GLUCOSE, FASTING eCW1 ([facility]) 13 BLOOD UREA NITROGEN eCW1 ([facility]) 0.55 CREATININE FOR GFR eCW1 ([facility]) > 60.0 GLOMERULAR FILTRATION RATE eCW 1 ([facility]) 142 SODIUM LEVEL eCW1 ([facility]) 105 CHLORIDE LEVEL eCW1 ([facility]) 3.9 POTASSIUM SERUM eCW1 ([facility]) 9.7 CALCIUM LEVEL eCW1 ([facility]) 30 CARBON DIOXIDE LEVEL eCW1 ([facility]) 97 ALKALINE PHOSPHATASE eCW1 ([facility]) 25 ALT/SGPT eCW1 ([facility]) 23 AST/SGOT eCW1 ([facility]) 7.6 TOTAL PROTEIN eCW1 ([facility]) 0.2 BILIRUBIN,TOTAL eCW1 ([facility]) 3.9 ALBUMIN eCW1 ([facility]) 1.1 ALBUMIN/GLOBULIN RATIO eCW1 ([facility]) ID Date Data Source CBC - Complete Blood Count 05/08/2020 09:14:12 AM EDT eCW1 ( [facility]) Name Value Range Interpretation Code Description Data Emmy rce(s) Supporting Document(s) 7.5 WHITE BLOOD COUNT eCW1 ([facility]) 13.3 HEMOGLOBIN eCW1 ([facility]) 4.70 RED BLOOD COUNT eCW1 ([facility]) 93.2 MEAN CORPUSCULAR VOLUME eCW1 ( [facility]) 43.8 HEMATOCRIT eCW1 ([facility]) 28.3 MEAN CORPUSCULAR HEMOGLOBIN eC W1 ([facility]) 30.4 MEAN CORPUSCULAR HGB CONC eCW1 ([facility]) 13.2 RED CELL DISTRIBUTION WIDTH eC W1 ([facility]) 429 PLATELET COUNT, AUTOMATED eCW1 ([facility]) ID Date Data Source LIPID PANEL (CARDIAC RISK) 05/08/2020 09:13:31 AM EDT eCW1 ( [facility]) Name Value Range Interpretation Code Description Data Emmy rce(s) Supporting Document(s) Triglyceride [Mass/volume] in Serum or Plasma by calculation 116 TRIGLYCERIDES LEVEL eCW1 ([facility]) Cholesterol [Moles/volume] in Serum or Plasma 184 CHOLESTEROL LEVEL eCW1 ([facility]) Cholesterol in HDL [Moles/volume] in Serum or Plasma 61 HDL CHOLESTEROL eCW1 ([facility]) 3.016 CHOLESTEROL RISK RATIO eCW1 ([facility]) Cholesterol in LDL [Mass/volume] in Serum or Plasma by calculation 100 LDL CHOLESTEROL eCW1 ([facility]) 123 NON-HDL-C eCW1 ([facility]) ID Date Data Source [id number] 05/08/2020 09:13:21 AM EDT eCW1 ([facility]) Name Value Range Interpretation Code Description Data Emmy rce(s) Supporting Document(s) Hemoglobin A1c/Hemoglobin.total in Blood 6.7 HEMOGLOBIN A1c eCW1 ([facility]) Procedure Social History Code Duration Value Status Description Data Source(s ) Smoking 05/15/2021 12:00:00 AM EDT Never Smoker completed Never S moker eCW1 ([facility]) Smoking 05/15/2021 12:00:00 AM EDT Never Smoker completed Never S moker eCW1 ([facility]) Smoking 05/15/2021 12:00:00 AM EDT Never Smoker completed Never S moker eCW1 ([facility]) Smoking 05/15/2021 12:00:00 AM EDT Never Smoker completed Never S moker eCW1 ([facility]) Smoking 04/01/2021 12:00:00 AM EDT Patient has never smoked co mpleted Patient has never smoked [facility] ([facility]) Smoking 11/16/2020 12:00:00 AM EDT Never Smoker completed Never S moker [facility]CW1 [facility] [facility] Smoking 11/16/2020 12:00:00 AM EDT Never Smoker completed Never S moker eCW1 ([facility]) Smoking 11/16/2020 12:00:00 AM EDT Never Smoker completed Never S moker eCW1 ([facility]) Smoking 11/16/2020 12:00:00 AM EDT Never Smoker completed Never S moker eCW1 ([facility]) Smoking 11/16/2020 12:00:00 AM EDT Never Smoker completed Never S moker eCW1 ([facility]) Smoking 11/16/2020 12:00:00 AM EDT Never Smoker completed Never S moker eCW1 ([facility]) Smoking 11/16/2020 12:00:00 AM EDT Never Smoker completed Never S moker eCW1 ([facility]) Smoking 11/16/2020 12:00:00 AM EDT Never Smoker completed Never S moker eCW1 ([facility]) Smoking 11/16/2020 12:00:00 AM EDT Never Smoker completed Never S moker eCW1 ([facility]) Smoking 11/16/2020 12:00:00 AM EDT Never Smoker completed Never S moker eCW1 ([facility]) Smoking 11/16/2020 12:00:00 AM EDT Never Smoker completed Never S moker eCW1 ([facility]) Smoking 10/12/2020 12:00:00 AM EDT Never Smoker completed Never S moker eCW1 ([facility]) Smoking 10/12/2020 12:00:00 AM EDT Never Smoker completed Never S moker eCW1 ([facility]) Smoking 07/15/2020 12:00:00 AM EST Never Smoker completed Never S moker eCW1 ([facility]) Smoking 07/15/2020 12:00:00 AM EST Never Smoker completed Never S moker eCW1 ([facility]) Smoking 07/15/2020 12:00:00 AM EST Never Smoker completed Never S moker eCW1 ([facility]) Smoking 07/15/2020 12:00:00 AM EST Never Smoker completed Never S moker eCW1 ([facility]) Smoking 05/11/2020 12:00:00 AM EDT Never Smoker completed Never S moker eCW1 ([facility]) Smoking 05/11/2020 12:00:00 AM EDT Never Smoker completed Never S moker eCW1 ([facility]) Smoking 05/11/2020 12:00:00 AM EDT Never Smoker completed Never S moker eCW1 ([facility]) Smoking 05/11/2020 12:00:00 AM EDT Never Smoker completed Never S moker eCW1 ([facility]) Vital Signs ID Date Data Source UNK Name Value Range Interpretation Code Description Data Source(s) Diastolic blood pressure 85 mm[Hg] 85 mm[Hg] TALIA ([facility]) Body height 65 [in_i] 65 [in_i] TALIA ([facility]) Systolic blood pressure 128 mm[Hg] 128 mm[Hg] A THENA ([facility]) Body weight 175.2 [lb_av] 175.2 [lb_av] eCW1 ([facility]) Body height 65.25 [in_i] 65.25 [in_i] eCW1 ([facility]) Body mass index (BMI) [Ratio] 28.93 kg/m2 28.93 kg/m2 eCW1 ([facility]) Heart rate 94 /min 94 /min eCW1 ([facility]) Respiratory rate 18 /min 18 /min eCW1 ([facility]) Body temperature 97.7 [degF] 97.7 [degF] eCW1 ( [facility]) Systolic blood pressure 128 mm[Hg] 128 mm[Hg] e CW1 ([facility]) Diastolic blood pressure 82 mm[Hg] 82 mm[Hg] eCW1 ([facility]) Diastolic blood pressure 84 mm[Hg] 84 mm[Hg] TALIA ([facility]) Body height 65 [in_i] 65 [in_i] TALIA ([facility]) Systolic blood pressure 143 mm[Hg] 143 mm[Hg] A THENA ([facility]) Diastolic blood pressure 84 mm[Hg] 84 mm[Hg] TALIA ([facility]) Body height 65 [in_i] 65 [in_i] TALIA ([facility]) Systolic blood pressure 143 mm[Hg] 143 mm[Hg] A THENA ([facility]) Diastolic blood pressure 84 mm[Hg] 84 mm[Hg] TALIA ([facility]) Body height 65 [in_i] 65 [in_i] TALIA ([facility]) Systolic blood pressure 143 mm[Hg] 143 mm[Hg] A THENA ([facility]) Diastolic blood pressure 84 mm[Hg] 84 mm[Hg] TALIA ([facility]) Body height 65 [in_i] 65 [in_i] TALIA ([facility]) Systolic blood pressure 143 mm[Hg] 143 mm[Hg] A THENA ([facility]) Diastolic blood pressure 82 mm[Hg] 82 mm[Hg] TALIA ([facility]) Body height 65 [in_i] 65 [in_i] TALIA ([facility]) Systolic blood pressure 125 mm[Hg] 125 mm[Hg] A THENA ([facility]) Diastolic blood pressure 82 mm[Hg] 82 mm[Hg] TALIA ([facility]) Body height 65 [in_i] 65 [in_i] TALIA ([facility]) Systolic blood pressure 125 mm[Hg] 125 mm[Hg] A THENA ([facility]) Diastolic blood pressure 82 mm[Hg] 82 mm[Hg] TALIA ([facility]) Body height 65 [in_i] 65 [in_i] TALIA ([facility]) Systolic blood pressure 125 mm[Hg] 125 mm[Hg] A THENA ([facility]) Diastolic blood pressure 82 mm[Hg] 82 mm[Hg] TALIA ([facility]) Body height 65 [in_i] 65 [in_i] TALIA ([facility]) Systolic blood pressure 125 mm[Hg] 125 mm[Hg] A THENA ([facility]) Diastolic blood pressure 82 mm[Hg] 82 mm[Hg] TALIA ([facility]) Body height 65 [in_i] 65 [in_i] TALIA ([facility]) Systolic blood pressure 125 mm[Hg] 125 mm[Hg] A THENA ([facility]) Diastolic blood pressure 61 mm[Hg] 61 mm[Hg] TALIA ([facility]) Body height 65 [in_i] 65 [in_i] TALIA ([facility]) Systolic blood pressure 109 mm[Hg] 109 mm[Hg] A THENA ([facility]) Diastolic blood pressure 61 mm[Hg] 61 mm[Hg] TALIA ([facility]) Body height 65 [in_i] 65 [in_i] TALIA ([facility]) Systolic blood pressure 109 mm[Hg] 109 mm[Hg] A THENA ([facility]) Diastolic blood pressure 61 mm[Hg] 61 mm[Hg] TALIA ([facility]) Body height 65 [in_i] 65 [in_i] TALIA ([facility]) Systolic blood pressure 109 mm[Hg] 109 mm[Hg] A THENA ([facility]) Diastolic blood pressure 61 mm[Hg] 61 mm[Hg] TALIA ([facility]) Body height 65 [in_i] 65 [in_i] TALIA ([facility]) Systolic blood pressure 109 mm[Hg] 109 mm[Hg] A THENA ([facility]) Diastolic blood pressure 61 mm[Hg] 61 mm[Hg] TALIA ([facility]) Body height 65 [in_i] 65 [in_i] TALIA ([facility]) Systolic blood pressure 109 mm[Hg] 109 mm[Hg] A THENA ([facility]) Diastolic blood pressure 61 mm[Hg] 61 mm[Hg] TALIA ([facility]) Body height 65 [in_i] 65 [in_i] TALIA ([facility]) Systolic blood pressure 109 mm[Hg] 109 mm[Hg] A THENA ([facility]) Body height 64.5 [in_i] 64.5 [in_i] MEDENT ([facility]) 5'4.50" Body temperature 97.5 [degF] 97.5 [degF] MEDENT ([facility]) Body weight 167.50 [lb_av] 167.50 [lb_av] MEDEN T ([facility]) Body mass index (BMI) [Ratio] 28.3 kg/m2 28.3 k g/m2 MEDENT ([facility]) Diastolic blood pressure 81 mm[Hg] 81 mm[Hg] TALIA ([facility]) Body height 65 [in_i] 65 [in_i] TALIA ([facility]) Systolic blood pressure 128 mm[Hg] 128 mm[Hg] A THENA ([facility]) Diastolic blood pressure 81 mm[Hg] 81 mm[Hg] TALIA ([facility]) Body height 65 [in_i] 65 [in_i] TALIA ([facility]) Systolic blood pressure 128 mm[Hg] 128 mm[Hg] A THENA ([facility]) Diastolic blood pressure 81 mm[Hg] 81 mm[Hg] TALIA ([facility]) Body height 65 [in_i] 65 [in_i] TALIA ([facility]) Systolic blood pressure 128 mm[Hg] 128 mm[Hg] A THENA ([facility]) Systolic blood pressure 128 mm[Hg] 128 mm[Hg] A THENA ([facility]) Diastolic blood pressure 81 mm[Hg] 81 mm[Hg] TALIA ([facility]) Body height 65 [in_i] 65 [in_i] TALIA ([facility]) Diastolic blood pressure 81 mm[Hg] 81 mm[Hg] TALIA ([facility]) Body height 65 [in_i] 65 [in_i] TALIA ([facility]) Systolic blood pressure 128 mm[Hg] 128 mm[Hg] A THENA ([facility]) Diastolic blood pressure 81 mm[Hg] 81 mm[Hg] TALIA ([facility]) Body height 65 [in_i] 65 [in_i] TALIA ([facility]) Systolic blood pressure 128 mm[Hg] 128 mm[Hg] A THENA ([facility]) Diastolic blood pressure 81 mm[Hg] 81 mm[Hg] TALIA ([facility]) Body height 65 [in_i] 65 [in_i] TALIA ([facility]) Systolic blood pressure 128 mm[Hg] 128 mm[Hg] A THENA ([facility]) Body weight 166.4 [lb_av] 166.4 [lb_av] eCW1 ([facility]) Body height 65.25 [in_i] 65.25 [in_i] eCW1 ([facility]) Body mass index (BMI) [Ratio] 27.48 kg/m2 27.48 kg/m2 eCW1 ([facility]) Heart rate 93 /min 93 /min eCW1 ([facility]) Respiratory rate 18 /min 18 /min eCW1 ([facility]) Body temperature 97.7 [degF] 97.7 [degF] eCW1 ( [facility]) Systolic blood pressure 136 mm[Hg] 136 mm[Hg] e CW1 ([facility]) Diastolic blood pressure 90 mm[Hg] 90 mm[Hg] eCW1 ([facility]) Diastolic blood pressure 88 mm[Hg] 88 mm[Hg] TALIA ([facility]) Body height 65 [in_i] 65 [in_i] TALIA ([facility]) Systolic blood pressure 133 mm[Hg] 133 mm[Hg] A THENA ([facility]) Diastolic blood pressure 88 mm[Hg] 88 mm[Hg] TALIA ([facility]) Body height 65 [in_i] 65 [in_i] TALIA ([facility]) Systolic blood pressure 133 mm[Hg] 133 mm[Hg] A THENA ([facility]) Diastolic blood pressure 88 mm[Hg] 88 mm[Hg] ATLIA ([facility]) Body height 65 [in_i] 65 [in_i] TALIA ([facility]) Systolic blood pressure 133 mm[Hg] 133 mm[Hg] A THENA ([facility]) Diastolic blood pressure 88 mm[Hg] 88 mm[Hg] TALIA ([facility]) Body height 65 [in_i] 65 [in_i] TALIA ([facility]) Systolic blood pressure 133 mm[Hg] 133 mm[Hg] A THENA ([facility]) Diastolic blood pressure 88 mm[Hg] 88 mm[Hg] TALIA ([facility]) Body height 65 [in_i] 65 [in_i] TALIA ([facility]) Systolic blood pressure 133 mm[Hg] 133 mm[Hg] A THENA ([facility]) Diastolic blood pressure 88 mm[Hg] 88 mm[Hg] TALIA ([facility]) Systolic blood pressure 133 mm[Hg] 133 mm[Hg] A THENA ([facility]) Body height 65 [in_i] 65 [in_i] TALIA ([facility]) Diastolic blood pressure 88 mm[Hg] 88 mm[Hg] TALIA ([facility]) Body height 65 [in_i] 65 [in_i] TALIA ([facility]) Systolic blood pressure 133 mm[Hg] 133 mm[Hg] A THENA ([facility]) Systolic blood pressure 133 mm[Hg] 133 mm[Hg] A THENA ([facility]) Diastolic blood pressure 88 mm[Hg] 88 mm[Hg] TALIA ([facility]) Body height 65 [in_i] 65 [in_i] TALIA ([facility]) Diastolic blood pressure 88 mm[Hg] 88 mm[Hg] TALIA ([facility]) Body height 65 [in_i] 65 [in_i] TALIA ([facility]) Systolic blood pressure 133 mm[Hg] 133 mm[Hg] A THENA ([facility]) Body weight 164.6 [lb_av] 164.6 [lb_av] eCW1 ([facility]) Body height 65.25 [in_i] 65.25 [in_i] eCW1 ([facility]) Body mass index (BMI) [Ratio] 27.18 kg/m2 27.18 kg/m2 eCW1 ([facility]) Heart rate 93 /min 93 /min eCW1 ([facility]) Respiratory rate 18 /min 18 /min eCW1 ([facility]) Body temperature 97.3 [degF] 97.3 [degF] eCW1 ( [facility]) Systolic blood pressure 150 mm[Hg] 150 mm[Hg] e CW1 ([facility]) Diastolic blood pressure 94 mm[Hg] 94 mm[Hg] eCW1 ([facility]) Body temperature 97.5 [degF] 97.5 [degF] MEDENT ([facility]) Body height 63 [in_i] 63 [in_i] MEDENT ([facility]) 5'3" Body mass index (BMI) [Ratio] 29.4 kg/m2 29.4 k g/m2 MEDENT ([facility]) Body weight 166.00 [lb_av] 166.00 [lb_av] MEDEN T ([facility]) Body height 65 [in_i] 65 [in_i] TALIA ([facility]) Body height 65 [in_i] 65 [in_i] TALIA ([facility]) Body height 65 [in_i] 65 [in_i] TALIA ([facility]) Body height 65 [in_i] 65 [in_i] TALIA ([facility]) Body height 65 [in_i] 65 [in_i] TALIA ([facility]) Body height 65 [in_i] 65 [in_i] TALIA ([facility]) Body height 65 [in_i] 65 [in_i] TALIA ([facility]) Body height 65 [in_i] 65 [in_i] TALIA ([facility]) Body height 65 [in_i] 65 [in_i] TALIA ([facility]) Body height 65 [in_i] 65 [in_i] TALIA ([facility]) Body height 65 [in_i] 65 [in_i] TALIA ([facility]) Body height 65 [in_i] 65 [in_i] TAILA ([facility]) Body height 65 [in_i] 65 [in_i] TALIA ([facility]) Diastolic blood pressure 82 mm[Hg] 82 mm[Hg] TALIA ([facility]) Body height 65 [in_i] 65 [in_i] TALIA ([facility]) Systolic blood pressure 148 mm[Hg] 148 mm[Hg] A THENA ([facility]) Diastolic blood pressure 82 mm[Hg] 82 mm[Hg] TALIA ([facility]) Body height 65 [in_i] 65 [in_i] TALIA ([facility]) Systolic blood pressure 148 mm[Hg] 148 mm[Hg] A THENA ([facility]) Diastolic blood pressure 82 mm[Hg] 82 mm[Hg] TALIA ([facility]) Diastolic blood pressure 82 mm[Hg] 82 mm[Hg] TALIA ([facility]) Body height 65 [in_i] 65 [in_i] TALIA ([facility]) Systolic blood pressure 148 mm[Hg] 148 mm[Hg] A THENA ([facility]) Body height 65 [in_i] 65 [in_i] TALIA ([facility]) Systolic blood pressure 148 mm[Hg] 148 mm[Hg] A THENA ([facility]) Systolic blood pressure 148 mm[Hg] 148 mm[Hg] A THENA ([facility]) Diastolic blood pressure 82 mm[Hg] 82 mm[Hg] TALIA ([facility]) Body height 65 [in_i] 65 [in_i] TALIA ([facility]) Diastolic blood pressure 82 mm[Hg] 82 mm[Hg] TALIA ([facility]) Body height 65 [in_i] 65 [in_i] TALIA ([facility]) Systolic blood pressure 148 mm[Hg] 148 mm[Hg] A THENA ([facility]) Diastolic blood pressure 82 mm[Hg] 82 mm[Hg] TALIA ([facility]) Body height 65 [in_i] 65 [in_i] TALIA ([facility]) Systolic blood pressure 148 mm[Hg] 148 mm[Hg] A THENA ([facility]) Diastolic blood pressure 82 mm[Hg] 82 mm[Hg] TALIA ([facility]) Body height 65 [in_i] 65 [in_i] TALIA ([facility]) Systolic blood pressure 148 mm[Hg] 148 mm[Hg] A THENA ([facility]) Diastolic blood pressure 82 mm[Hg] 82 mm[Hg] TALIA ([facility]) Body height 65 [in_i] 65 [in_i] TALIA ([facility]) Systolic blood pressure 148 mm[Hg] 148 mm[Hg] A THENA ([facility]) Diastolic blood pressure 82 mm[Hg] 82 mm[Hg] TALIA ([facility]) Body height 65 [in_i] 65 [in_i] TALIA ([facility]) Systolic blood pressure 148 mm[Hg] 148 mm[Hg] A THENA ([facility]) Diastolic blood pressure 82 mm[Hg] 82 mm[Hg] TALIA ([facility]) Body height 65 [in_i] 65 [in_i] TALIA ([facility]) Systolic blood pressure 148 mm[Hg] 148 mm[Hg] A THENA ([facility]) Diastolic blood pressure 82 mm[Hg] 82 mm[Hg] TALIA ([facility]) Body height 65 [in_i] 65 [in_i] TALIA ([facility]) Systolic blood pressure 148 mm[Hg] 148 mm[Hg] A THENA ([facility]) Diastolic blood pressure 82 mm[Hg] 82 mm[Hg] TALIA ([facility]) Body height 65 [in_i] 65 [in_i] TALIA ([facility]) Systolic blood pressure 148 mm[Hg] 148 mm[Hg] A THENA ([facility]) Diastolic blood pressure 82 mm[Hg] 82 mm[Hg] TALIA ([facility]) Body height 65 [in_i] 65 [in_i] TALIA ([facility]) Systolic blood pressure 148 mm[Hg] 148 mm[Hg] A THENA ([facility]) Body weight 171.4 [lb_av] 171.4 [lb_av] eCW1 ([facility]) Body height 65.25 [in_i] 65.25 [in_i] eCW1 ([facility]) Body mass index (BMI) [Ratio] 28.30 kg/m2 28.30 kg/m2 W1 ([facility]) Heart rate 85 /min 85 /min eCW1 ([facility]) Respiratory rate 18 /min 18 /min eCW1 ([facility]) Body temperature 97.4 [degF] 97.4 [degF] eCW1 ( [facility]) Systolic blood pressure 128 mm[Hg] 128 mm[Hg] e CW1 ([facility]) Diastolic blood pressure 86 mm[Hg] 86 mm[Hg] eCW1 ([facility]) Patient Treatment Plan of Care Planned Activity Planned Date Details Description Data Source (s) Acetaminophen 325 MG / Hydrocodone Bitartrate 5 MG Ora l Tablet 06/28/2021 12:00:00 AM EST eCW1 ([facility]) Acetaminophen 325 MG / Hydrocodone Bitartrate 5 MG Ora l Tablet 05/25/2021 12:00:00 AM EDT eCW1 ([facility]) Acetaminophen 325 MG / Hydrocodone Bitartrate 5 MG Ora l Tablet 05/25/2021 12:00:00 AM EDT eCW1 ([facility]) ferrous sulfate 325 MG Oral Tablet 05/17/2021 12:00:00 AM EDT eCW1 ([facility]) Bupropion Hydrochloride 75 MG Oral Tablet 05/17/2021 12:00:00 AM ED T eCW1 ([facility]) ferrous sulfate 325 MG Oral Tablet 05/17/2021 12:00:00 AM EDT eCW1 ([facility]) Bupropion Hydrochloride 75 MG Oral Tablet 05/17/2021 12:00:00 AM ED T eCW1 ([facility]) ferrous sulfate 325 MG Oral Tablet 05/17/2021 12:00:00 AM EDT eCW1 ([facility]) Bupropion Hydrochloride 75 MG Oral Tablet 05/17/2021 12:00:00 AM ED T eCW1 ([facility]) ferrous sulfate 325 MG Oral Tablet 05/17/2021 12:00:00 AM EDT eCW1 ([facility]) Bupropion Hydrochloride 75 MG Oral Tablet 05/17/2021 12:00:00 AM ED T eCW1 ([facility]) Acetaminophen 325 MG / Hydrocodone Bitartrate 5 MG Ora l Tablet 04/28/2021 12:00:00 AM EDT eCW1 ([facility]) Acetaminophen 325 MG / Hydrocodone Bitartrate 5 MG Ora l Tablet 04/28/2021 12:00:00 AM EDT eCW1 ([facility]) Acetaminophen 325 MG / Hydrocodone Bitartrate 5 MG Ora l Tablet 03/31/2021 12:00:00 AM EDT eCW1 ([facility]) Acetaminophen 325 MG / Hydrocodone Bitartrate 5 MG Ora l Tablet 03/03/2021 12:00:00 AM EDT eCW1 ([facility]) NITROFURANTOIN, MACROCRYSTALS 25 MG / Ni trofurantoin, Monohydrate 75 MG Oral Capsule 02/19/2021 12:00:00 AM EDT eCW1 ([facility]) NITROFURANTOIN, MACROCRYSTALS 25 MG / Ni trofurantoin, Monohydrate 75 MG Oral Capsule 02/19/2021 12:00:00 AM EDT eCW1 ([facility]) NITROFURANTOIN, MACROCRYSTALS 25 MG / Ni trofurantoin, Monohydrate 75 MG Oral Capsule 02/19/2021 12:00:00 AM EDT eCW1 ([facility]) NITROFURANTOIN, MACROCRYSTALS 25 MG / Ni trofurantoin, Monohydrate 75 MG Oral Capsule 02/19/2021 12:00:00 AM EDT eCW1 [facility] [facility]) NITROFURANTOIN, MACROCRYSTALS 25 MG / Ni trofurantoin, Monohydrate 75 MG Oral Capsule 02/19/2021 12:00:00 AM EDT eCW1 ([facility]) NITROFURANTOIN, MACROCRYSTALS 25 MG / Ni trofurantoin, Monohydrate 75 MG Oral Capsule 02/19/2021 12:00:00 AM EDT eCW1 ([facility]) Acetaminophen 325 MG / Hydrocodone Bitartrate 5 MG Ora l Tablet 02/04/2021 12:00:00 AM EDT eCW1 ([facility]) Acetaminophen 325 MG / Hydrocodone Bitartrate 5 MG Ora l Tablet 02/04/2021 12:00:00 AM EDT eCW1 ([facility]) Acetaminophen 325 MG / Hydrocodone Bitartrate 5 MG Ora l Tablet 02/04/2021 12:00:00 AM EDT eCW1 ([facility]) Acetaminophen 325 MG / Hydrocodone Bitartrate 5 MG Ora l Tablet 02/04/2021 12:00:00 AM EDT eCW1 ([facility]) Acetaminophen 325 MG / Hydrocodone Bitartrate 5 MG Ora l Tablet 01/06/2021 12:00:00 AM EDT eCW1 ([facility]) Acetaminophen 325 MG / Hydrocodone Bitartrate 5 MG Ora l Tablet 12/08/2020 12:00:00 AM EDT eCW1 ([facility]) Acetaminophen 325 MG / Hydrocodone Bitartrate 5 MG Ora l Tablet 11/10/2020 12:00:00 AM EDT eCW1 ([facility]) Acetaminophen 325 MG / Hydrocodone Bitartrate 5 MG Ora l Tablet 10/12/2020 12:00:00 AM EDT eCW1 ([facility]) Acetaminophen 325 MG / Hydrocodone Bitartrate 5 MG Ora l Tablet 09/15/2020 12:00:00 AM EST eCW1 ([facility]) Acetaminophen 325 MG / Hydrocodone Bitartrate 5 MG Ora l Tablet 09/15/2020 12:00:00 AM EST eCW1 ([facility]) Acetaminophen 325 MG / Hydrocodone Bitartrate 5 MG Ora l Tablet [[place]] 08/17/2020 12:00:00 AM EST eCW1 ([facility]) Ondansetron 4 MG Disintegrating Oral Tablet 07/15/2020 12:00:00 AM EST eCW1 ([facility]) Ondansetron 4 MG Disintegrating Oral Tablet 07/15/2020 12:00:00 AM EST eCW1 ([facility]) Ondansetron 4 MG Disintegrating Oral Tablet 07/15/2020 12:00:00 AM EST eCW1 ([facility]) Ondansetron 4 MG Disintegrating Oral Tablet 07/15/2020 12:00:00 AM EST eCW1 ([facility]) Ondansetron 4 MG Disintegrating Oral Tablet 07/15/2020 12:00:00 AM EST eCW1 ([facility]) Ondansetron 4 MG Disintegrating Oral Tablet 07/15/2020 12:00:00 AM EST eCW1 ([facility]) Ondansetron 4 MG Disintegrating Oral Tablet 07/15/2020 12:00:00 AM EST eCW1 ([facility]) Ondansetron 4 MG Disintegrating Oral Tablet 07/15/2020 12:00:00 AM EST eCW1 ([facility]) Ondansetron 4 MG Disintegrating Oral Tablet 07/15/2020 12:00:00 AM EST eCW1 ([facility]) Ondansetron 4 MG Disintegrating Oral Tablet 07/15/2020 12:00:00 AM EST eCW1 ([facility]) 24 HR Bupropion Hydrochloride 300 MG Extended Release Oral Tablet 07/15/2020 12:00:00 AM EST eCW1 ([facility]) Ondansetron 4 MG Disintegrating Oral Tablet 07/15/2020 12:00:00 AM EST eCW1 ([facility]) Ondansetron 4 MG Disintegrating Oral Tablet 07/15/2020 12:00:00 AM EST eCW1 ([facility]) Ondansetron 4 MG Disintegrating Oral Tablet 07/15/2020 12:00:00 AM EST eCW1 ([facility]) Ondansetron 4 MG Disintegrating Oral Tablet 07/15/2020 12:00:00 AM EST eCW1 ([facility]) 24 HR Bupropion Hydrochloride 300 MG Extended Release Oral Tablet 07/15/2020 12:00:00 AM EST eCW1 ([facility]) Ondansetron 4 MG Disintegrating Oral Tablet 07/15/2020 12:00:00 AM EST eCW1 ([facility]) Ondansetron 4 MG Disintegrating Oral Tablet 07/15/2020 12:00:00 AM EST eCW1 ([facility]) 24 HR Bupropion Hydrochloride 150 MG Extended Release Oral Tablet 07/15/2020 12:00:00 AM EST eCW1 ([facility]) Ondansetron 4 MG Disintegrating Oral Tablet 07/15/2020 12:00:00 AM EST eCW1 ([facility]) 24 HR Bupropion Hydrochloride 150 MG Extended Release Oral Tablet 07/15/2020 12:00:00 AM EST eCW1 ([facility]) 24 HR Bupropion Hydrochloride 150 MG Extended Release Oral Tablet 07/15/2020 12:00:00 AM EST eCW1 ([facility]) Ondansetron 4 MG Disintegrating Oral Tablet 07/15/2020 12:00:00 AM EST eCW1 ([facility]) Acetaminophen 325 MG / Hydrocodone Bitartrate 5 MG Ora l Tablet [[place]] 07/15/2020 12:00:00 AM EST eCW1 ([facility]) 24 HR Bupropion Hydrochloride 150 MG Extended Release Oral Tablet 07/15/2020 12:00:00 AM EST eCW1 ([facility]) Ondansetron 4 MG Disintegrating Oral Tablet 07/15/2020 12:00:00 AM EST eCW1 ([facility]) Acetaminophen 325 MG / Hydrocodone Bitartrate 5 MG Ora l Tablet [[place]] 06/17/2020 12:00:00 AM EST eCW1 ([facility]) Acetaminophen 325 MG / Hydrocodone Bitartrate 5 MG Ora l Tablet [[place]] 06/17/2020 12:00:00 AM EST eCW1 ([facility]) Acetaminophen 325 MG / Hydrocodone Bitartrate 5 MG Ora l Tablet [[place]] 05/20/2020 12:00:00 AM EDT eCW1 ([facility]) Acetaminophen 325 MG / Hydrocodone Bitartrate 5 MG Ora l Tablet [[place]] 05/20/2020 12:00:00 AM EDT eCW1 ([facility]) duloxetine 30 MG Delayed Release Oral Capsule 05/11/2020 12:00:00 A M EDT eCW1 ([facility]) duloxetine 30 MG Delayed Release Oral Capsule 05/11/2020 12:00:00 A M EDT eCW1 ([facility]) duloxetine 30 MG Delayed Release Oral Capsule 05/11/2020 12:00:00 A M EDT eCW1 ([facility]) duloxetine 30 MG Delayed Release Oral Capsule 05/11/2020 12:00:00 A M EDT eCW1 ([facility]) tramadol hydrochloride 50 MG Oral Tablet [facility] ([facility]) Tamsulosin hydrochloride 0.4 MG Oral Capsule [facility] ([facility]) Sulfamethoxazole 800 MG / Trimethoprim 160 MG Oral Tablet [facility] ([facility]) pregabalin 150 MG Oral Capsule [facility] ([facility]) pregabalin 100 MG Oral Capsule [facility] ([facility]) Prednisone 20 MG Oral Tablet [facility] ([facility]) Acetaminophen 325 MG / Oxycodone Hydrochloride 5 MG Oral Tablet [facility] ([facility]) Oxybutynin chloride 5 MG Oral Tablet [facility] ([facility]) Omeprazole 40 MG Delayed Release Oral Capsule [facility] ([facility]) gabapentin 600 MG Oral Tablet [facility] ([facility]) gabapentin 300 MG Oral Capsule [facility] ([facility]) Estradiol 1 MG Oral Tablet A THENA ([facility]) duloxetine 30 MG Delayed Release Oral Capsule [facility] ([facility]) Carisoprodol 350 MG Oral Tablet [facility] ([facility]) 24 HR Bupropion Hydrochloride 150 MG Extended Release Oral Tablet [facility] ([facility]) Bacitracin 0.5 UNT/MG / Polymyxin B 10 UNT/MG Ophthalmic Ointment TALIA ([facility]) Amoxicillin 500 MG Oral Capsule [facility] ([facility]) tramadol hydrochloride 50 MG Oral Tablet [facility] ([facility]) Tamsulosin hydrochloride 0.4 MG Oral Capsule [facility] ([facility]) Sulfamethoxazole 800 MG / Trimethoprim 160 MG Oral Tablet [facility] ([facility]) pregabalin 150 MG Oral Capsule [place] ([facility]) gabapentin 300 MG Oral Capsule [place] ([facility]) Estradiol 1 MG Oral Tablet A THENA ([facility]) duloxetine 30 MG Delayed Release Oral Capsule [facility] ([facility]) Carisoprodol 350 MG Oral Tablet [facility] ([facility]) 24 HR Bupropion Hydrochloride 150 MG Extended Release Oral Tablet [facility] ([facility]) Bacitracin 0.5 UNT/MG / Polymyxin B 10 UNT/MG Ophthalmic Ointment TALIA ([facility]) Amoxicillin 500 MG Oral Capsule [facility] ([facility]) tramadol hydrochloride 50 MG Oral Tablet [facility] ([facility]) Tamsulosin hydrochloride 0.4 MG Oral Capsule [facility] ([facility]) Sulfamethoxazole 800 MG / Trimethoprim 160 MG Oral Tablet [facility] ([facility]) pregabalin 150 MG Oral Capsule [facility] ([facility]) pregabalin 100 MG Oral Capsule [facility] ([facility]) Prednisone 20 MG Oral Tablet [facility] ([facility]) Acetaminophen 325 MG / Oxycodone Hydrochloride 5 MG Oral Tablet [facility] ([facility]) Oxybutynin chloride 5 MG Oral Tablet [facility] ([facility]) Omeprazole 40 MG Delayed Release Oral Capsule [facility] ([facility]) gabapentin 600 MG Oral Tablet [facility] ([facility]) gabapentin 300 MG Oral Capsule [place] ([facility]) Estradiol 1 MG Oral Tablet A THENA ([facility]) duloxetine 30 MG Delayed Release Oral Capsule [facility] ([facility]) Carisoprodol 350 MG Oral Tablet [facility] ([facility]) 24 HR Bupropion Hydrochloride 150 MG Extended Release Oral Tablet [facility] ([facility]) Bacitracin 0.5 UNT/MG / Polymyxin B 10 UNT/MG Ophthalmic Ointment TALIA ([facility]) Amoxicillin 500 MG Oral Capsule [facility] ([facility]) tramadol hydrochloride 50 MG Oral Tablet [facility] ([facility]) Tamsulosin hydrochloride 0.4 MG Oral Capsule [facility] ([facility]) Sulfamethoxazole 800 MG / Trimethoprim 160 MG Oral Tablet [facility] ([facility]) pregabalin 150 MG Oral Capsule [facility] ([facility]) pregabalin 100 MG Oral Capsule [facility] ([facility]) Prednisone 20 MG Oral Tablet [facility] ([facility]) Acetaminophen 325 MG / Oxycodone Hydrochloride 5 MG Oral Tablet [facility] ([facility]) Oxybutynin chloride 5 MG Oral Tablet [facility] ([facility]) Omeprazole 40 MG Delayed Release Oral Capsule [facility] ([facility]) gabapentin 600 MG Oral Tablet [place] ([facility]) gabapentin 300 MG Oral Capsule [place] ([facility]) Estradiol 1 MG Oral Tablet A THENA ([facility]) duloxetine 30 MG Delayed Release Oral Capsule [facility] ([facility]) Carisoprodol 350 MG Oral Tablet [facility] ([facility]) 24 HR Bupropion Hydrochloride 150 MG Extended Release Oral Tablet [facility] ([facility]) Bacitracin 0.5 UNT/MG / Polymyxin B 10 UNT/MG Ophthalmic Ointment TALIA ([facility]) Amoxicillin 500 MG Oral Capsule [facility] ([facility]) tramadol hydrochloride 50 MG Oral Tablet [facility] ([facility]) Tamsulosin hydrochloride 0.4 MG Oral Capsule [facility] ([facility]) Sulfamethoxazole 800 MG / Trimethoprim 160 MG Oral Tablet [facility] ([facility]) pregabalin 150 MG Oral Capsule [facility] ([facility]) pregabalin 100 MG Oral Capsule [facility] ([facility]) Prednisone 20 MG Oral Tablet [facility] ([facility]) Acetaminophen 325 MG / Oxycodone Hydrochloride 5 MG Oral Tablet [facility] ([facility]) Oxybutynin chloride 5 MG Oral Tablet [facility] ([facility]) Omeprazole 40 MG Delayed Release Oral Capsule [facility] ([facility]) gabapentin 600 MG Oral Tablet [facility] ([facility]) gabapentin 300 MG Oral Capsule [facility] ([facility]) Estradiol 1 MG Oral Tablet A THENA ([facility]) duloxetine 30 MG Delayed Release Oral Capsule [facility] ([facility]) Carisoprodol 350 MG Oral Tablet [facility] ([facility]) 24 HR Bupropion Hydrochloride 150 MG Extended Release Oral Tablet [facility] ([facility]) Bacitracin 0.5 UNT/MG / Polymyxin B 10 UNT/MG Ophthalmic Ointment TALIA ([facility]) Amoxicillin 500 MG Oral Capsule [facility] ([facility]) pregabalin 100 MG Oral Capsule [facility] ([facility]) Prednisone 20 MG Oral Tablet [facility] ([facility]) Acetaminophen 325 MG / Oxycodone Hydrochloride 5 MG Oral Tablet [facility] ([facility]) Oxybutynin chloride 5 MG Oral Tablet [facility] ([facility]) Omeprazole 40 MG Delayed Release Oral Capsule [facility] ([facility]) gabapentin 600 MG Oral Tablet [facility] ([facility]) tramadol hydrochloride 50 MG Oral Tablet [facility] ([facility]) Tamsulosin hydrochloride 0.4 MG Oral Capsule [facility] ([facility]) Sulfamethoxazole 800 MG / Trimethoprim 160 MG Oral Tablet [facility] ([facility]) pregabalin 100 MG Oral Capsule [facility] ([facility]) Prednisone 20 MG Oral Tablet [facility] ([facility]) Acetaminophen 325 MG / Oxycodone Hydrochloride 5 MG Oral Tablet [facility] ([facility]) Oxybutynin chloride 5 MG Oral Tablet [facility] ([facility]) Omeprazole 40 MG Delayed Release Oral Capsule [facility] ([facility]) gabapentin 600 MG Oral Tablet [place] ([facility]) gabapentin 300 MG Oral Capsule [place] ([facility]) Estradiol 1 MG Oral Tablet A THENA ([facility]) duloxetine 30 MG Delayed Release Oral Capsule [facility] ([facility]) Carisoprodol 350 MG Oral Tablet [facility] ([facility]) 24 HR Bupropion Hydrochloride 150 MG Extended Release Oral Tablet [facility] ([facility]) Bacitracin 0.5 UNT/MG / Polymyxin B 10 UNT/MG Ophthalmic Ointment TALIA ([facility]) Amoxicillin 500 MG Oral Capsule [facility] ([facility]) tramadol hydrochloride 50 MG Oral Tablet [facility] ([facility]) Tamsulosin hydrochloride 0.4 MG Oral Capsule [facility] ([facility]) Sulfamethoxazole 800 MG / Trimethoprim 160 MG Oral Tablet [facility] ([facility]) Prednisone 20 MG Oral Tablet [facility] ([facility]) Acetaminophen 325 MG / Oxycodone Hydrochloride 5 MG Oral Tablet [facility] ([facility]) Oxybutynin chloride 5 MG Oral Tablet [facility] ([facility]) Omeprazole 40 MG Delayed Release Oral Capsule [facility] ([facility]) gabapentin 600 MG Oral Tablet [facility] ([facility]) gabapentin 300 MG Oral Capsule [facility] ([facility]) Estradiol 1 MG Oral Tablet A THENA ([facility]) duloxetine 30 MG Delayed Release Oral Capsule [facility] ([facility]) Carisoprodol 350 MG Oral Tablet [facility] ([facility]) 24 HR Bupropion Hydrochloride 150 MG Extended Release Oral Tablet [facility] ([facility]) Bacitracin 0.5 UNT/MG / Polymyxin B 10 UNT/MG Ophthalmic Ointment TALIA ([facility]) Amoxicillin 500 MG Oral Capsule [facility] ([facility]) Tamsulosin hydrochloride 0.4 MG Oral Capsule [facility] ([facility]) Sulfamethoxazole 800 MG / Trimethoprim 160 MG Oral Tablet [facility] ([facility]) Acetaminophen 325 MG / Oxycodone Hydrochloride 5 MG Oral Tablet [facility] ([facility]) Oxybutynin chloride 5 MG Oral Tablet [facility] ([facility]) Omeprazole 40 MG Delayed Release Oral Capsule [facility] ([facility]) gabapentin 300 MG Oral Capsule [facility] ([facility]) duloxetine 30 MG Delayed Release Oral Capsule [facility] ([facility]) Carisoprodol 350 MG Oral Tablet [facility] ([facility]) Bacitracin 0.5 UNT/MG / Polymyxin B 10 UNT/MG Ophthalmic Ointment TALIA ([facility]) Tamsulosin hydrochloride 0.4 MG Oral Capsule [facility] ([facility]) Sulfamethoxazole 800 MG / Trimethoprim 160 MG Oral Tablet [facility] ([facility]) Acetaminophen 325 MG / Oxycodone Hydrochloride 5 MG Oral Tablet [facility] ([facility]) Oxybutynin chloride 5 MG Oral Tablet [facility] ([facility]) Omeprazole 40 MG Delayed Release Oral Capsule [facility] ([facility]) gabapentin 300 MG Oral Capsule [facility] ([facility]) duloxetine 30 MG Delayed Release Oral Capsule [facility] ([facility]) Carisoprodol 350 MG Oral Tablet [facility] ([facility]) Bacitracin 0.5 UNT/MG / Polymyxin B 10 UNT/MG Ophthalmic Ointment TALIA ([facility]) gabapentin 300 MG Oral Capsule [facility] ([facility]) duloxetine 30 MG Delayed Release Oral Capsule [facility] ([facility]) Carisoprodol 350 MG Oral Tablet [facility] ([facility]) Bacitracin 0.5 UNT/MG / Polymyxin B 10 UNT/MG Ophthalmic Ointment TALIA ([facility]) Sulfamethoxazole 800 MG / Trimethoprim 160 MG Oral Tablet [facility] ([facility]) gabapentin 300 MG Oral Capsule [facility] ([facility]) duloxetine 30 MG Delayed Release Oral Capsule [facility] ([facility]) Carisoprodol 350 MG Oral Tablet [facility] ([facility]) Sulfamethoxazole 800 MG / Trimethoprim 160 MG Oral Tablet [facility] ([facility]) gabapentin 300 MG Oral Capsule [facility] ([facility]) duloxetine 30 MG Delayed Release Oral Capsule [facility] ([facility]) Carisoprodol 350 MG Oral Tablet [facility] ([facility]) Sulfamethoxazole 800 MG / Trimethoprim 160 MG Oral Tablet [facility] ([facility]) gabapentin 300 MG Oral Capsule [facility] ([facility]) duloxetine 30 MG Delayed Release Oral Capsule [facility] ([facility]) Carisoprodol 350 MG Oral Tablet [facility] ([facility]) Tamsulosin hydrochloride 0.4 MG Oral Capsule [facility] ([facility]) Sulfamethoxazole 800 MG / Trimethoprim 160 MG Oral Tablet [facility] ([facility]) Oxybutynin chloride 5 MG Oral Tablet [facility] ([facility]) Omeprazole 40 MG Delayed Release Oral Capsule [facility] ([facility]) Sulfamethoxazole 800 MG / Trimethoprim 160 MG Oral Tablet [facility] ([facility]) gabapentin 300 MG Oral Capsule [facility] ([facility]) Carisoprodol 350 MG Oral Tablet [facility] ([facility])
[2021-07-01 08:04] LABS: BASO % 0.4 % (0.0-1.0); EOS # 0.2 10^3/uL (0.0-0.5); EOS % 3.3 % (0.0-3.0); HEMATOCRIT 38.1 % (36.0-47.0); HEMOGLOBIN 10.9 g/dl (12.0-15.5); LYMPH # 1.5 10^3/uL (1.5-5.0); LYMPH % 21.4 % (24.0-44.0); MEAN CORPUSCULAR HEMOGLOBIN 23.2 pg (27.0-33.0); MEAN CORPUSCULAR HGB CONC 28.6 g/dl (32.0-36.5); MEAN CORPUSCULAR VOLUME 81.2 fl (80.0-96.0); MONO # 0.4 10^3/uL (0.0-0.8); MONO % 5.8 % (2.0-8.0); NEUTROPHILS # 4.7 10^3/uL (1.5-8.5); NEUTROPHILS % 68.8 % (36.0-66.0); PLATELET COUNT, AUTOMATED 450 10^3/uL (150-450); RED BLOOD COUNT 4.69 10^6/uL (4.00-5.40); WHITE BLOOD COUNT 6.9 10^3/uL (4.0-10.0)
[2021-07-01] MEDS ORDERED: PREG200C (08:09)
[2021-07-01] MEDS ORDERED: ONDA4TAB6 (08:09)
[2021-07-01] MEDS ORDERED: IRON65TA2 PO (08:09)
[2021-07-01] MEDS ORDERED: BACL10TA8 (08:09)
[2021-07-01] MEDS ORDERED: CVS50CAP PO (08:10)
[2021-07-01 08:34] LABS: ALBUMIN 3.6 GM/DL (3.2-5.2); ALT/SGPT 35 U/L (12-78); BILIRUBIN,DIRECT < 0.1 MG/DL (0.0-0.2); BILIRUBIN,TOTAL 0.2 MG/DL (0.2-1.0); BLOOD UREA NITROGEN 17 MG/DL (7-18); CALCIUM LEVEL 9.2 MG/DL (8.5-10.1); CARBON DIOXIDE LEVEL 30 MEQ/L (21-32); CHLORIDE LEVEL 106 MEQ/L (98-107); CREATININE FOR GFR 0.63 MG/DL (0.55-1.30); GLOMERULAR FILTRATION RATE > 60.0 (>51); GLUCOSE, FASTING 127 MG/DL (70-100); LIPASE 265 U/L (73-393); NT-PRO BNP 98 PG/ML (<125); SODIUM LEVEL 142 MEQ/L (136-145)
[2021-07-01 08:37] LABS: RSV AMPLIFICATION NEGATIVE (NEGATIVE)
--- OUTSIDE RECORDS SUMMARY | 2021-07-01 09:34 | CCD ---
Author Author [facility] Organization [facility] Address Unknown Phone Unavailable Care Team Providers Care Molecular Biology Director Name Role Phone Tiffanie Tobar MD Unavailable [...] Jules Aguirre MD Unavailable Unavailable Sierra, Jules Agiurre MD Unavailable Unavailable Sierra, Jules Aguirre MD [...] Aguirre MD Unavailable Unavailable Jumalon, M Tasha STRUCTURED CABLING TECHNICIAN Unavailable Unavailable Jumalon, M Tasha STRUCTURED CABLING TECHNICIAN Unavailable Unavailable Jumalon, M Tasha STRUCTURED CABLING TECHNICIAN Unavailable Unavailable Jumalon, M Tasha STRUCTURED CABLING TECHNICIAN Unavailable Unavailable Jumalon, M Tasha STRUCTURED CABLING TECHNICIAN Unavailable Unavailable Jumalon, M Tasha STRUCTURED CABLING TECHNICIAN Unavailable Unavailable Jumalon, M Tasha STRUCTURED CABLING TECHNICIAN Unavailable Unavailable Jumalon, M Tasha STRUCTURED CABLING TECHNICIAN Unavailable Unavailable Jumalon, M Tasha STRUCTURED CABLING TECHNICIAN Unavailable Unavailable Jumalon, M Tasha STRUCTURED CABLING TECHNICIAN Unavailable Unavailable Jumalon, M Tasha STRUCTURED CABLING TECHNICIAN Unavailable Unavailable Jumalon, M Tasha STRUCTURED CABLING TECHNICIAN Unavailable Unavailable Jumalon, M Tasha STRUCTURED CABLING TECHNICIAN Unavailable Unavailable Jumalon, M Tasha STRUCTURED CABLING TECHNICIAN Unavailable Unavailable Jumalon, M Tasha STRUCTURED CABLING TECHNICIAN Unavailable Unavailable Jumalon, M Tasha STRUCTURED CABLING TECHNICIAN Unavailable Unavailable Jumalon, M Tasha STRUCTURED CABLING TECHNICIAN Unavailable Unavailable Jumalon, M Tasha STRUCTURED CABLING TECHNICIAN Unavailable Unavailable Jumalon, M Tasha STRUCTURED CABLING TECHNICIAN Unavailable Unavailable Jumalon, M Tasha STRUCTURED CABLING TECHNICIAN Unavailable Unavailable Jumalon, M Tasha STRUCTURED CABLING TECHNICIAN Unavailable Unavailable Jumalon, M Tasha STRUCTURED CABLING TECHNICIAN Unavailable Unavailable Jumalon, M Tasha STRUCTURED CABLING TECHNICIAN Unavailable Unavailable Jumalon, M Tasha STRUCTURED CABLING TECHNICIAN Unavailable Unavailable Jumalon, M Tasha STRUCTURED CABLING TECHNICIAN Unavailable Unavailable Jumalon, M Tasha STRUCTURED CABLING TECHNICIAN Unavailable Unavailable Jumalon, M Tasha STRUCTURED CABLING TECHNICIAN Unavailable Unavailable Jumalon, M Tasha STRUCTURED CABLING TECHNICIAN Unavailable Unavailable Jumalon, M Tasha STRUCTURED CABLING TECHNICIAN Unavailable Unavailable Jumalon, M Tasha STRUCTURED CABLING TECHNICIAN Unavailable Unavailable Re-disclosure Warning The records that [...] is protected by Article 27-F of the [employer] [facility] Public Health law. If you continue you may have access to information: Regarding HIV / AIDS; Provided by facilities licensed or operated by the [facility] Office of Mental Health; or Provided by the [facility] Office for People With Developmental Disabilities. If such information is present, then the following [facility] mandated warning applies: This information has been [...] law may result in a fine or halfway sentence or both. A general authorization for the release of medical or other information is NOT sufficient authorization for further disc losure. Family History Family Member Name Family Member Gender Family Member Status Date o f Status Description Data Source(s) Unknown Unknown Problem MEDENT ([facility]) Unknown Female Problem MEDENT ([facility]) Encounters Encounter Providers Location Date Indications Data Source(s ) Unknown [address] [facility] [address] 06/28/2021 12:00:00 AM EST eCW1 ([facility]) Tasha Jacobs, SERVICE ESTABLISHMENT ATTENDANT: [address], [place] [address], Ph. Attender: Tasha Jacobs STRUCTURED CABLING TECHNICIAN [place] - [facility] 06/23/2021 12:00:00 AM EST ATHE NA ([facility]) Christopher Tobar MD: [address], [place] [address], Ph. Attender: Christopher Tobar MD [place] - [facility] 05/26/2021 12:00:00 AM EDT TALIA ([facility]) Outpatient [address] [facility] [address] 05/26/2021 12:00:00 AM EDT eCW1 ([facility]) Christopher Tobar MD: [address], [place] [address], Ph. Attender: Christopher Tobar MD [place] - [facility] 05/26/2021 12:00:00 AM EDT TALIA ([facility]) Unknown [address] [facility], [place] [address] 05/25/2021 12:00:00 AM EDT eCW1 ([facility]) Christopher Tobar MD: [address], [address] [place], [place] [address], Ph. [phone] Attender: Christopher YEN - [facility] 05/21/2021 12:00:00 AM EDT TALIA ([facility]) Christopher Tobar MD: [address], [address] [place], [place] [address], Ph. [phone] Attender: Christopher Tobar MD [place] - [facility] 05/21/2021 12:00:00 AM EDT TALIA ([facility]) Christopher Tobar MD: [address], [place] [address], Ph. [phone] Attender: Christopher Tobar MD [place] - [facility] 05/21/2021 12:00:00 AM EDT TALIA ([facility]) [place]patient [address] [facility] [address] 05/17/2021 12:00:00 AM EDT eCW1 ([facility]) Tasha Jacobs, SERVICE ESTABLISHMENT ATTENDANT: [address], [place] [address], Ph. Attender: Tasha Jacobs [facility] - [facility] 05/03/2021 12:00:00 AM EDT YOGESH CLARK ([facility]) Tasha Jacobs, SERVICE ESTABLISHMENT ATTENDANT: [address], [place] [address], Ph. Attender: Tasha Jacobs [facility] - [facility] 05/03/2021 12:00:00 AM EDT YOGESH CLARK ([facility]) Tasha Jacobs, SERVICE ESTABLISHMENT ATTENDANT: [address], [place] [address], Ph. Attender: Tasha Jacobs [facility] - [facility] 05/03/2021 12:00:00 AM EDT ATHDeena NA ([facility]) Unknown [address] [facility] [address] 05/03/2021 12:00:00 AM EDT eCW1 ([facility]) Tasha Jacobs, SERVICE ESTABLISHMENT ATTENDANT: [address], [place] [address], Ph. Attender: Tasha Jacobs [facility] - [facility] 05/03/2021 12:00:00 AM EDT ATHDeena CLARK ([facility]) Unknown [address] [facility] [address] 04/28/2021 12:00:00 AM EDT eCW1 ([facility]) Outpatient Attender: Timothy Sierra MD Physical Therapy 04/01/2021 0 9:45:00 AM EDT MEDFARNAZ ([facility] ) Unknown [address] [facility] [address] 03/31/2021 12:00:00 AM EDT eCW1 ([facility]) Tasha Rodriguez Arlene, SERVICE ESTABLISHMENT ATTENDANT: [address], [place] [address], Ph. Attender: Tasha Gagnoncintia [facility] - [facility] 03/18/2021 12:00:00 AM EDT ATHE NA ([facility]) Tasha Webbzahiracintia, SERVICE ESTABLISHMENT ATTENDANT: [address], [place] [address], Ph. Attender: Tasha Arlene [facility] - [facility] 03/18/2021 12:00:00 AM EDT ATHE NA ([facility]) Tasha Rodriguez Arlene, SERVICE ESTABLISHMENT ATTENDANT: [address], [place] [address], Ph. Attender: Tasha Arlene [facility] 03/18/2021 12:00:00 AM EDT ATHE NA ([facility]) Tasha Manandreareynoldyuan Arlene, SERVICE ESTABLISHMENT ATTENDANT: [address], [place] [address], Ph. Attender: Tasha Traceynicole [facility] - [facility] 03/18/2021 12:00:00 AM EDT ATHE NA ([facility]) Tasha Jacobs, SERVICE ESTABLISHMENT ATTENDANT: [address], [place] [address], Ph. Attender: Tasha Jacobs [facility] - [facility] 03/18/2021 12:00:00 AM EDT ATHE NA ([facility]) Unknown [address] [facility] [address] 03/03/2021 12:00:00 AM EDT [email or web address] Unknown [address] [facility] [address] 02/22/2021 12:00:00 AM EDT eCW1 [email or web address] Unknown [address] [facility] [address] 02/19/2021 12:00:00 AM EDT eCW1 [email or web address] Unknown [address] [facility] [address] 02/15/2021 12:00:00 AM EDT eCW1 ([facility]) Tasha Jacobs, SERVICE ESTABLISHMENT ATTENDANT: [address], [place] [address], Ph. Attender: Tasha Jacobs [facility] - [facility] 02/05/2021 12:00:00 AM EDT ATHDeena CLARK ([facility]) Tasha Jacobs, SERVICE ESTABLISHMENT ATTENDANT: [address], [place] [address], Ph. Attender: Tasha Jacobs [facility] - [facility] 02/05/2021 12:00:00 AM EDT ATHDeena NA ([facility]) Tasha Jacobs, SERVICE ESTABLISHMENT ATTENDANT: [address], [place] [address], Ph. Attender: Tasha Jacobs [facility] - [facility] 02/05/2021 12:00:00 AM EDT ATHE NA ([facility]) Tasha Jacobs, SERVICE ESTABLISHMENT ATTENDANT: [address], [place] [address], Ph. Attender: Tasha Jacobs [facility] - [facility] 02/05/2021 12:00:00 AM EDT ATHDeena NA ([facility]) Tasha Jacobs, SERVICE ESTABLISHMENT ATTENDANT: [address], [place] [address], Ph. Attender: Tasha Jacobs [facility] - [facility] 02/05/2021 12:00:00 AM EDT ATHDeena NA ([facility]) Tasha Jacobs, SERVICE ESTABLISHMENT ATTENDANT: [address], [place] [address], Ph. Attender: Tasha Jacobs [facility] - [facility] 02/05/2021 12:00:00 AM EDT ATHDeena NA ([facility]) Unknown [address] [facility] [address] 02/04/2021 12:00:00 AM EDT eC ([facility]) Outpatient Attender: Timothy Sierra MD Physical Therapy 01/21/2021 0 2:00:00 PM EDT MEDENT ([facility]) Tasha Jacobs, SERVICE ESTABLISHMENT ATTENDANT: [address], [place] [address], Ph. Attender: Tasha Jacobs [facility] - [facility] 01/07/2021 12:00:00 AM EDT ATHDeena CLARK ([facility]) Tasha Jacobs, SERVICE ESTABLISHMENT ATTENDANT: [address], [place] [address], Ph. Attender: Tasha Jacobs [facility] - [facility] 01/07/2021 12:00:00 AM EDT ATHE NA ([facility]) Tasha Jacobs, SERVICE ESTABLISHMENT ATTENDANT: [address], [place] [address], Ph. Attender: Tasha Jacobs [facility] - [facility] 01/07/2021 12:00:00 AM EDT ATHE NA ([facility]) Tasha Jacobs, SERVICE ESTABLISHMENT ATTENDANT: [address], [address], [place] [address], Ph. Attender: Tasha Jacobs [facility] - [facility] 01/07/2021 12:00:00 AM EDT ATHE NA ([facility]) Tasha Jacobs, SERVICE ESTABLISHMENT ATTENDANT: [address], [place] [address], Ph. Attender: Tasha Jacobs [facility] - [facility] 01/07/2021 12:00:00 AM EDT ATHE NA ([facility]) Tasha Jacobs, SERVICE ESTABLISHMENT ATTENDANT: [address], [place] [address], Ph. Attender: Tasha Jacobs [facility] - [facility] 01/07/2021 12:00:00 AM EDT ATHE NA ([facility]) Tasha Jacobs, SERVICE ESTABLISHMENT ATTENDANT: [address], [place] [address], Ph. Attender: Tasha Jacobs [facility] - [facility] 01/07/2021 12:00:00 AM EDT ATHE NA ([facility]) Unknown [address] [facility] [address] 01/06/2021 12:00:00 AM EDT eCW1 ([facility]) Unknown [address] [facility] [address] 12/08/2020 12:00:00 AM EDT eCW1 ([facility]) Christopher Tobar MD: [address], [place] [address], Ph. Attender: Christopher Tobar MD [place] - [facility] 11/30/2020 12:00:00 AM EDT TALIA ([facility]) Christopher Tobar MD: [address], [place] [address], Ph. Attender: Christopher YEN - [facility] 11/30/2020 12:00:00 AM EDT TALIA ([facility]) Christopher Tobar MD: [address], [place] [address], Ph. Attender: Christopher YEN - [facility] 11/30/2020 12:00:00 AM EDT TALIA ([facility]) Christopher Tobar MD: [address], [place] [address], Ph. Attender: Christopher YEN - [facility] 11/30/2020 12:00:00 AM EDT TALIA ([facility]) Christopher Tobar MD: [address], [place] [address], Ph. Attender: Christopher Tobar MD [place] - [facility] 11/30/2020 12:00:00 AM EDT TALIA ([facility]) Christopher Tobar MD: [address], [place] [address], Ph. Attender: Christopher Tobar MD [place] - [facility] 11/30/2020 12:00:00 AM EDT TALIA ([facility]) Christopher Tobar MD: [address], [place] [address], Ph. Attender: Christopher Tobar MD [place] - [facility] 11/30/2020 12:00:00 AM EDT TALAI ([facility]) Christopher Tobar MD: [address], [facility] [place] [address], Ph. Attender: Christopher Tobar MD [place] - [facility] 11/30/2020 12:00:00 AM EDT TALIA ([facility]) Tasha Jacobs, SERVICE ESTABLISHMENT ATTENDANT: [address], [place] [address], Ph. Attender: Tasha Jacobs [facility] - [facility] 11/16/2020 12:00:00 AM EDT ATHE NA ([facility]) Tasha Jacobs, SERVICE ESTABLISHMENT ATTENDANT: [address], [place] [address], Ph. Attender: Tasha Jacobs [facility] - [facility] 11/16/2020 12:00:00 AM EDT ATHDeena CLARK ([facility]) Tasha Jacobs, SERVICE ESTABLISHMENT ATTENDANT: [address], [place] [address], Ph. Attender: Tasha Jacobs [facility] - [facility] 11/16/2020 12:00:00 AM EDT ATHE NA ([facility]) Tasha Jacobs, SERVICE ESTABLISHMENT ATTENDANT: [address], [place] [address], Ph. Attender: Tasha Jacobs [facility] - [facility] 11/16/2020 12:00:00 AM EDT ATHE NA ([facility]) Outpatient [address] [facility] [address] 11/16/2020 12:00:00 AM EDT [facility] ([facility]) Tasha Jacobs, SERVICE ESTABLISHMENT ATTENDANT: [address], [place] [address], Ph. Attender: Tasha Jacobs [facility] - [facility] 11/16/2020 12:00:00 AM EDT ATHE NA ([facility]) Tasha Jacobs, SERVICE ESTABLISHMENT ATTENDANT: [address], [place] [address], Ph. Attender: Tasha Jacobs [facility] - [facility] 11/16/2020 12:00:00 AM EDT ATHE NA ([facility]) Tasha Jacobs, SERVICE ESTABLISHMENT ATTENDANT: [address], [place] [address], Ph. Attender: Tasha Jacobs [facility] - [facility] 11/16/2020 12:00:00 AM EDT ATHE NA ([facility]) Tasha Jacobs, SERVICE ESTABLISHMENT ATTENDANT: [address], [place] [address], Ph. Attender: Tasha Arlene [facility] - [facility] 11/16/2020 12:00:00 AM EDT ATHE NA ([facility]) Tasha Jacobs, SERVICE ESTABLISHMENT ATTENDANT: [address], [place] [address], Ph. Attender: Tasha Jacobs [facility] - [facility] 11/16/2020 12:00:00 AM EDT ATHE NA ([facility]) OFFICE OUTPATIENT VISIT 15 MINUTES Attender: Timothy Sierra MD Phys ical Therapy 11/13/2020 02:15:00 PM EDT MEDENT ([facility]) Unknown [address] [facility], [place] [address] 11/10/2020 12:00:00 AM EDT eCW1 [email or web address] Outpatient [address] [facility] Y [address] 10/12/2020 12:00:00 AM EDT eCW1 ([facility]) Outpatient Attender: Timothy Sierra MD Physical Therapy 10/06/2020 0 2:15:00 PM EST MEDENT ([facility]) Tasha Jacobs, SERVICE ESTABLISHMENT ATTENDANT: [address], [place] [address], Ph. Attender: Tasha Jacobs [facility] - [facility] 10/02/2020 12:00:00 AM EST ATHE NA ([facility]) Tasha Jacobs, SERVICE ESTABLISHMENT ATTENDANT: [address], [place] [address], Ph. Attender: Tasha Jacobs [facility] - [facility] 10/02/2020 12:00:00 AM EST ATHE NA ([facility]) Tasha Jacobs, SERVICE ESTABLISHMENT ATTENDANT: [address], [place] [address], Ph. Attender: Tasha Jacobs [facility] 10/02/2020 12:00:00 AM EST ATHE NA ([facility]) Tasha Jacobs, SERVICE ESTABLISHMENT ATTENDANT: [address], [place] [address], Ph. Attender: Tasha Jacobs [facility] - [facility] 10/02/2020 12:00:00 AM EST ATHE NA ([facility]) Tasha Jacobs, SERVICE ESTABLISHMENT ATTENDANT: [address], [place] [address], Ph. Attender: Tasha Jacobs [facility] - [facility] 10/02/2020 12:00:00 AM EST ATHE NA ([facility]) Tasha Jacobs, SERVICE ESTABLISHMENT ATTENDANT: [address], [place] [address], Ph. Attender: Tasha Jacobs [facility] - [facility] 10/02/2020 12:00:00 AM EST ATHE NA ([facility]) Tasha Jacobs, SERVICE ESTABLISHMENT ATTENDANT: [address], [place] [address], Ph. Attender: Tasha Jacobs [facility] - [facility] 10/02/2020 12:00:00 AM EST ATHE NA ([facility]) Tasha Jacobs, SERVICE ESTABLISHMENT ATTENDANT: [address], [place] [address], Ph. Attender: Tasha Jacobs [facility] - [facility] 10/02/2020 12:00:00 AM EST ATHE NA ([facility]) Tasha Jacobs, SERVICE ESTABLISHMENT ATTENDANT: [address], [place] [address], Ph. Attender: Tasha Jacobs [facility] - [facility] 10/02/2020 12:00:00 AM EST ATHE NA ([facility]) Tasha Jacobs, SERVICE ESTABLISHMENT ATTENDANT: [address], [place] [address], Ph. Attender: Tasha Jacosb [facility] - [facility] 10/02/2020 12:00:00 AM EST ATHE NA ([facility]) Unknown [address] [facility] [address] 09/15/2020 12:00:00 AM EST eCW1 ([facility]) Unknown [address] [facility] [address] 09/15/2020 12:00:00 AM EST eCW1 ([facility]) Christopher Tobar MD: [address], [facility] [place] [address], Ph. Attender: Christopher Tobar MD [place] - [facility] 09/09/2020 12:00:00 AM EST TALIA ([facility]) Christopher Tobar MD: [address], [place] [address], Ph. Attender: Christopher Tobar MD [place] - [facility] 09/09/2020 12:00:00 AM EST TALIA ([facility]) Christopher Tobar MD: [address], [place] [address], Ph. Attender: Christopher Tobar MD [place] - [facility] 09/09/2020 12:00:00 AM EST TALIA ([facility]) Christopher Tobar MD: [address], [place] [address], Ph. Attender: Christopher Tobar MD [place] - [facility] 09/09/2020 12:00:00 AM EST TALIA ([facility]) Christopher Tobar MD: [address], [address], [place] [address], Ph. Attender: Christopher Tobar MD [place] - [facility] 09/09/2020 12:00:00 AM EST TALIA ([facility]) Christopher Tobar MD: [address], [address], [place] [address], Ph. Attender: Christopher Tobar MD [place] - [facility] 09/09/2020 12:00:00 AM EST TALIA ([facility]) Christopher Tobar MD: [address], [address], [place] [address], Ph. Attender: Christopher Tobar MD [place] - [facility] 09/09/2020 12:00:00 AM EST TALIA ([facility]) Christopher Tobar MD: [address]898 [address], [place] [address], Ph. Attender: Christopher Tobar MD [place] - [facility] 09/09/2020 12:00:00 AM EST TALIA ([facility]) Christopher Tobar MD: [address], [address], [place] [address], Ph. Attender: Christopher Tobar MD [place] - [facility] 09/09/2020 12:00:00 AM EST TALIA ([facility]) Christopher Tobar MD: 75993 [address], [address], [place] [address], Ph. Attender: Christopher Tobar MD [place] - [facility] 09/09/2020 12:00:00 AM EST TALIA ([facility]) Christopher Tobar MD: [address]95 [address], [address], [place] [address], Ph. Attender: Christopher Tobar MD [place] - [facility] 09/09/2020 12:00:00 AM EST TALIA ([facility]) Christopher Tobar MD: 05687 [address], [address], [place] [address], Ph. [phone] Attender: Christopher YEN - [facility] 09/04/2020 12:00:00 AM EST TALIA ([facility]) Christopher Tobar MD: 25136 [address], [address], [place] [address], Ph. [phone] Attender: Christopher YEN - [facility] 09/04/2020 12:00:00 AM EST TALIA ([facility]) Christopher Tobar MD: 06351 [address], [address], [place] [address], Ph. [phone] Attender: Christopher YEN - [facility] 09/04/2020 12:00:00 AM EST TALIA ([facility]) Christopher Tobar MD: 68326 [address], [address], [place] [address], Ph. [phone] Attender: Christopher Tobar MD [place] - [facility] 09/04/2020 12:00:00 AM EST TALIA ([facility]) Christopher Tobar MD: 25575 [address], [address], [place] [address], Ph. [phone] Attender: Christopher Tobar MD [place] - [facility] 09/04/2020 12:00:00 AM EST TALIA ([facility]) Christopher Tobar MD: [address]7628 [address], [place] [address], Ph. [phone] Attender: Christopher Tobar MD [place] - [facility] 09/04/2020 12:00:00 AM EST TALIA ([facility]) Christopher Tobar MD: [address]7563 [address], [place] [address], Ph. [phone] Attender: Christopher YEN - [facility] 09/04/2020 12:00:00 AM EST TALIA ([facility]) Christopher Tobar MD: 21388 [address], [place] [address], Ph. [phone] Attender: Christopher YEN - [facility] 09/04/2020 12:00:00 AM EST TAILA ([facility]) Christopher Tobar MD: 87403 [address], [place] [address], Ph. [phone] Attender: Christopher Tobar MD [place] - [facility] 09/04/2020 12:00:00 AM EST TALIA ([facility]) Christopher Tobar MD: [address]6750 [address], [place] [address], Ph. [phone] Attender: Christopher Tobar MD [place] - [facility] 09/04/2020 12:00:00 AM EST TALIA ([facility]) Christopher Tobar MD: [address]83 [address], [place] [address], Ph. [phone] Attender: Christopher YEN - [facility] 09/04/2020 12:00:00 AM EST TALIA ([facility]) Christopher Tobar MD: [address]62 [address], [place] [address], Ph. [phone] Attender: Christopher Tobar MD [place] - [facility] 09/04/2020 12:00:00 AM EST TALIA ([facility]) Tasha Jacobs, SERVICE ESTABLISHMENT ATTENDANT: [address], [place] [address], Ph. Attender: Tasha Jacobs [facility] - [facility] 08/26/2020 12:00:00 AM EST ATHE NA ([facility]) Tasha Jacobs, SERVICE ESTABLISHMENT ATTENDANT: [address], [facility] [place] [address], Ph. Attender: Tasha Jacobs [facility] - [facility] 08/26/2020 12:00:00 AM EST ATHE NA ([facility]) Tasha Jacobs, SERVICE ESTABLISHMENT ATTENDANT: [address], [facility] [place] [address], Ph. Attender: Tasha Jacobs [facility] - [facility] 08/26/2020 12:00:00 AM EST ATHE NA ([facility]) Tasha Jacobs, SERVICE ESTABLISHMENT ATTENDANT: [address], [place] [address], Ph. Attender: Tasha Jacobs [facility] - [facility] 08/26/2020 12:00:00 AM EST ATHE NA ([facility]) Tasha Jacobs, SERVICE ESTABLISHMENT ATTENDANT: [address], [facility] [place] [address], Ph. Attender: Tasha Jacobs [facility] - [facility] 08/26/2020 12:00:00 AM EST ATHE NA ([facility]) Tasha Jacobs, SERVICE ESTABLISHMENT ATTENDANT: [address], [place] [address], Ph. Attender: Tasha Jacobs [facility] - [facility] 08/26/2020 12:00:00 AM EST ATHE NA ([facility]) Tasha Jacobs, SERVICE ESTABLISHMENT ATTENDANT: [address], [place] [address], Ph. Attender: Tasha Jacobs [facility] - [facility] 08/26/2020 12:00:00 AM EST ATHE NA ([facility]) Tasha Jacobs, SERVICE ESTABLISHMENT ATTENDANT: [address], [place] [address], Ph. Attender: Tasha Jacobs [facility] - [facility] 08/26/2020 12:00:00 AM EST ATHE NA ([facility]) Tasha Jacobs, SERVICE ESTABLISHMENT ATTENDANT: [address], [place] [address], Ph. Attender: Tasha Jacobs [facility] - [facility] 08/26/2020 12:00:00 AM EST ATHE NA ([facility]) Tasha Jacobs, SERVICE ESTABLISHMENT ATTENDANT: [address], [address], [place] [address], Ph. Attender: Tasha Jacobs [facility] - [facility] 08/26/2020 12:00:00 AM EST ATHE NA ([facility]) Tasha Jacobs, SERVICE ESTABLISHMENT ATTENDANT: [address], [address], [place] [address], Ph. Attender: Tasha Jacobs [facility] - [facility] 08/26/2020 12:00:00 AM EST ATHE NA ([facility]) Tasha Jacobs, SERVICE ESTABLISHMENT ATTENDANT: [address], [place] [address], Ph. Attender: Tasha Arlene [facility] - [facility] 08/26/2020 12:00:00 AM EST ATHE NA ([facility]) Tasha Jacobs, SERVICE ESTABLISHMENT ATTENDANT: [address], [place] [address], Ph. Attender: Tasha Traceyzahiracintia [facility] - [facility] 08/26/2020 12:00:00 AM EST ATHE NA ([facility]) [place] [address] [facility] [address] 08/14/2020 12:00:00 AM EST eCW1 ([facility]) Unknown [address] [facility] [address] 07/15/2020 12:00:00 AM EST eCW1 ([facility]) Unknown [address] [facility] [address] 07/14/2020 12:00:00 AM EST eCW1 ([facility]) Unknown [address] [facility] [address] 06/17/2020 12:00:00 AM EST eCW1 ([facility]) Tasha Jacobs, SERVICE ESTABLISHMENT ATTENDANT: [address], [place] [address], Ph. Attender: Tasha Arlene [facility] - [facility] 06/12/2020 12:00:00 AM EST ATHE NA ([facility]) Tasha Jacobs, SERVICE ESTABLISHMENT ATTENDANT: [address], [place] [address], Ph. Attender: Tasha Jacobs [facility] - [facility] 06/12/2020 12:00:00 AM EST ATHE NA ([facility]) Tasha Jacobs, SERVICE ESTABLISHMENT ATTENDANT: [address], [place] [address], Ph. Attender: Tasha Jacobs [facility] - [facility] 06/12/2020 12:00:00 AM EST ATHE NA ([facility]) Tasha Jacobs, SERVICE ESTABLISHMENT ATTENDANT: [address], [place] [address], Ph. Attender: Tasha Jacobs [facility] - [facility] 06/12/2020 12:00:00 AM EST ATHE NA ([facility]) Tasha Jacobs, SERVICE ESTABLISHMENT ATTENDANT: [address], [place] [address], Ph. Attender: Tasha Jacobs [facility] - [facility] 06/12/2020 12:00:00 AM EST ATHE NA ([facility]) Tasha Jacobs, SERVICE ESTABLISHMENT ATTENDANT: [address], [address], [place] [address], Ph. Attender: Tasha Jacobs [facility] - [facility] 06/12/2020 12:00:00 AM EST ATHE NA ([facility]) Tasha Jacobs, SERVICE ESTABLISHMENT ATTENDANT: [address], [place] [address], Ph. Attender: Tasha Jacobs [facility] - [facility] 06/12/2020 12:00:00 AM EST ATHE NA ([facility]) Tasha Jacobs, SERVICE ESTABLISHMENT ATTENDANT: [address], [place] [address], Ph. Attender: Tasha Jacobs [facility] - [facility] 06/12/2020 12:00:00 AM EST ATHE NA ([facility]) Tasha Jacobs, SERVICE ESTABLISHMENT ATTENDANT: [address], [place] [address], Ph. Attender: Tasha Jacobs [facility] - [facility] 06/12/2020 12:00:00 AM EST ATHE NA ([facility]) Tasha Jacobs, SERVICE ESTABLISHMENT ATTENDANT: [address], [place] [address], Ph. Attender: Tasha Jacobs [facility] - [facility] 06/12/2020 12:00:00 AM EST ATHE NA ([facility]) Tasha Jacobs, SERVICE ESTABLISHMENT ATTENDANT: [address], [place] [address], Ph. Attender: Tasha Gagnoncintia [facility] - [facility] 06/12/2020 12:00:00 AM EST ATHE NA ([facility]) Tasha Jacobs, SERVICE ESTABLISHMENT ATTENDANT: [address], [address], [place] [address], Ph. Attender: Tasha Jacobs [facility] - [facility] 06/12/2020 12:00:00 AM EST ATHE NA ([facility]) Tasha Jacobs, SERVICE ESTABLISHMENT ATTENDANT: [address], [address], [place] [address], Ph. Attender: Tasha Jacobs [facility] - [facility] 06/12/2020 12:00:00 AM EST ATHE NA (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 Attender: Tasha Jacobs [facility] - [facility] 06/12/2020 12:00:00 AM EST ATHE NA ([facility]) Christopher Tobar MD: [address]51 [address], [address], [place] [address], Ph. Attender: Christopher Tobar MD [place] - [facility] 05/29/2020 12:00:00 AM EDT TALIA ([facility]) Christopher Tobar MD: 26048 [address], [address], [place] [address], Ph. Attender: Christopher Tobar MD [place] - [facility] 05/29/2020 12:00:00 AM EDT TALIA ([facility]) Christopher Tobar MD: 55746 [address], [address], [place] [address], Ph. Attender: Christopher Tobar MD [place] - [facility] 05/29/2020 12:00:00 AM EDT TALIA ([facility]) Christopher Tobar MD: 58970 [address], [address], [place] [address], Ph. Attender: Christopher Tobar MD [place] - [facility] 05/29/2020 12:00:00 AM EDT TALIA ([facility]) Christopher Tobar MD: [address]0319 [address], [address], [place] [address], Ph. Attender: Christopher Tobar MD [place] - [facility] 05/29/2020 12:00:00 AM EDT TALIA ([facility]) Christopher Tobar MD: [address]0630 [address], [address], [place] [address], Ph. Attender: Christopher Tobar MD [place] - [facility] 05/29/2020 12:00:00 AM EDT TALIA ([facility]) Christopher Tobar MD: 06025 [address], [address], [place] [address], Ph. Attender: Christopher Tobar MD [place] - [facility] 05/29/2020 12:00:00 AM EDT TALIA ([facility]) Christopher Tobar MD: 64678 [address], [address], [place] [address], Ph. Attender: Christopher Tobar MD [place] - [facility] 05/29/2020 12:00:00 AM EDT TALIA ([facility]) Christopher Tobar MD: 43055 [address], [address], [place] [address], Ph. Attender: Christopher YEN - [facility] 05/29/2020 12:00:00 AM EDT TALIA ([facility]) Christopher Tobar MD: 10169 [address], [address], [place] [address], Ph. Attender: Christopher Tobar MD [place] - [facility] 05/29/2020 12:00:00 AM EDT TALIA ([facility]) Christopher Tobar MD: 45489 [address], [address], [place] [address], Ph. Attender: Christopher Tobar MD [place] - [facility] 05/29/2020 12:00:00 AM EDT TALIA ([facility]) Christopher Tobar MD: 41324 [address], [address], [place] [address], Ph. Attender: Christopher Tobar MD [place] - [facility] 05/29/2020 12:00:00 AM EDT TALIA ([facility]) Christopher Tobar MD: 28995 [address], [address], [place] [address], Ph. Attender: Christopher Tobar MD [place] - [facility] 05/29/2020 12:00:00 AM EDT TALIA ([facility]) Christopher Tobar MD: 39894 [address], [address], [place] [address], Ph. Attender: Christopher YEN - [facility] 05/29/2020 12:00:00 AM EDT TALIA ([facility]) Christopher Tobar MD: 01946 [address], [address], [place] [address], Ph. Attender: Christopher YEN - [facility] 05/29/2020 12:00:00 AM EDT TALIA ([facility]) Christopher Tobar MD: [address]5318 [address], [address], [place] [address], Ph. [phone] Attender: Christopher YEN - [facility] 05/25/2020 12:00:00 AM EDT TALIA ([facility]) Christopher Tobar MD: 23088 [address], [address], [place] [address], Ph. [phone] Attender: Christopher Tobar MD [place] - [facility] 05/25/2020 12:00:00 AM EDT TALIA ([facility]) Christopher Tobar MD: 21782 [address], [address], [place] [address], Ph. [phone] Attender: Christopher Tobar MD [place] - [facility] 05/25/2020 12:00:00 AM EDT TALIA ([facility]) Christopher Tobar MD: 00792 [address], [address], [place] [address], Ph. [phone] Attender: Christopher Tobar MD [place] - [facility] 05/25/2020 12:00:00 AM EDT TALIA ([facility]) Christopher Tobar MD: 62437 [address], [address], [place] [address], Ph. [phone] Attender: Christopher Tobar MD [place] - [facility] 05/25/2020 12:00:00 AM EDT TALIA ([facility]) Christopher Tobar MD: [address]9943 [address], [address], [place] [address], Ph. [phone] Attender: Christopher Tobar MD [place] - [facility] 05/25/2020 12:00:00 AM EDT TALIA ([facility]) Christopher Tobar MD: 80143 [address], [address], [place] [address], Ph. [phone] Attender: Christopher YEN - [facility] 05/25/2020 12:00:00 AM EDT TALIA ([facility]) Christopher Tobar MD: 22596 [address], [address], [place] [address], Ph. [phone] Attender: Christopher YEN - [facility] 05/25/2020 12:00:00 AM EDT TALIA ([facility]) Christopher Tobar MD: 19087 [address], [address], [place] [address], Ph. [phone] Attender: Christopher Tobar MD [place] - [facility] - [facility] 05/25/2020 12:00:00 AM EDT TALIA ([facility]) Christopher Tobar MD: 00121 [address], [address], [place] [address], Ph. [phone] Attender: Christopher Tobar MD [place] - [facility] - [facility] 05/25/2020 12:00:00 AM EDT TALIA ([facility]) Christopher Tobar MD: [address]2045 [address], [address], [place] [address], Ph. [phone] Attender: Christopher YEN - [facility] - [facility] 05/25/2020 12:00:00 AM EDT TALIA ([facility]) Christopher Tobar MD: 77345 [address], [address], [place] [address], Ph. [phone] Attender: Christopher Tobar MD [place] - [facility] - [facility] 05/25/2020 12:00:00 AM EDT TALIA ([facility]) Christopher Tobar MD: 46360 [address], [address], [place] [address], Ph. [phone] Attender: Christopher YEN - [facility] - [facility] 05/25/2020 12:00:00 AM EDT TALIA ([facility]) Christopher Tobar MD: 13830 [address], [address], [place] [address], Ph. [phone] Attender: Christopher YEN - [facility] - [facility] 05/25/2020 12:00:00 AM EDT TALIA ([facility]) Christopher Tobar MD: 37827 [address], [address], [place] [address], Ph. [phone] Attender: Christopher Tobar MD [place] - [facility] - [facility] 05/25/2020 12:00:00 AM EDT TALIA ([facility]) Christopher Tobar MD: 17411 [facility] [address], [address], [place] [address], Ph. [phone] Attender: Christopher Tobar MD [place] - [facility] - [facility] 05/25/2020 12:00:00 AM EDT TALIA ([facility]) Unknown [address] [facility] [address] 05/20/2020 12:00:00 AM EDT eCW1 ([facility]) Outpatient [address] [facility] [address] 05/11/2020 12:00:00 AM EDT eCW1 ([facility]) Immunizations Vaccine Date Status Description Data Source(s) influenza, recombinant, quadrIvalent,injectable, prese rvative free 05/26/2021 11:31:00 AM EDT completed eCW1 ([facility]) influenza, recombinant, quadrIvalent,injectable, prese rvative free 05/26/2021 11:31:00 AM EDT completed eCW1 ([facility]) Pfizer #3 dose COVID-19 SARSCOV2 VAC 30MCG/0.3ML IM 04/28/20 21 01:32:00 PM EDT completed eCW1 ([facility]) Pfizer #3 dose COVID-19 SARSCOV2 VAC 30MCG/0.3ML IM 04/28/20 21 01:32:00 PM EDT completed eCW1 ([facility]) Pfizer #3 dose COVID-19 SARSCOV2 VAC 30MCG/0.3ML IM 04/28/20 21 01:32:00 PM EDT completed eCW1 ([facility]) Pfizer #3 dose COVID-19 SARSCOV2 VAC 30MCG/0.3ML IM 04/28/20 21 01:32:00 PM EDT completed eCW1 ([facility]) COVID-19 VACCINE Pfizer 04/28/2021 12:00:00 AM EDT completed [facility] Vaccine Series Complete: YESThis Data wa s Submitted to [facility] Via [facility]. Pfizer #2 dose COVID-19 SARSCOV2 VAC 30MCG/0.3ML IM 08/13/19 21 01:32:00 PM EST completed eCW1 ([facility]) Pfizer #2 dose COVID-19 SARSCOV2 VAC 30MCG/0.3ML IM 08/13/19 21 01:32:00 PM EST completed eCW1 ([facility]) Pfizer #2 dose COVID-19 SARSCOV2 VAC 30MCG/0.3ML IM 08/13/19 21 01:32:00 PM EST completed eCW1 ([facility]) Pfizer #2 dose COVID-19 SARSCOV2 VAC 30MCG/0.3ML IM 08/13/19 21 01:32:00 PM EST completed eCW1 ([facility]) COVID-19 VACCINE Pfizer 08/13/2020 12:00:00 AM EST completed [facility] Vaccine Series Complete: YESThis Data wa s Submitted to [facility] Via [employer]. Pfizer #1 dose COVID-19 SARSCOV2 VAC 30MCG/0.3ML IM 07/22/20 20 01:31:00 PM EST completed eCW1 ([facility]) Pfizer #1 dose COVID-19 SARSCOV2 VAC 30MCG/0.3ML IM 07/22/20 20 01:31:00 PM EST completed eCW1 ([facility]) Pfizer #1 dose COVID-19 SARSCOV2 VAC 30MCG/0.3ML IM 07/22/20 20 01:31:00 PM EST completed eCW1 ([facility]) Pfizer #1 dose COVID-19 SARSCOV2 VAC 30MCG/0.3ML IM 07/22/20 20 01:31:00 PM EST completed eCW1 ([facility]) COVID-19 VACCINE Pfizer 07/22/2020 12:00:00 AM EST completed [facility] Vaccine Series Complete: NOThis Data was Submitted to [facility] Via [employer]. influenza, recombinant, quadrIvalent,injectable, prese rvative free 05/11/2020 03:16:00 PM EDT completed eCW1 ([facility]) influenza, recombinant, quadrIvalent,injectable, prese rvative free 05/11/2020 03:16:00 PM EDT completed eCW1 ([facility]) influenza, recombinant, quadrIvalent,injectable, prese rvative free 05/11/2020 03:16:00 PM EDT completed eCW1 ([facility]) influenza, recombinant, quadrIvalent,injectable, prese rvative free 05/11/2020 03:16:00 PM EDT completed eCW1 ([facility]) influenza, recombinant, quadrIvalent,injectable, prese rvative free 05/11/2020 03:16:00 PM EDT completed eCW1 ([facility]) influenza, recombinant, quadrIvalent,injectable, prese rvative free 05/11/2020 03:16:00 PM EDT completed eCW1 ([facility]) influenza, recombinant, quadrIvalent,injectable, prese rvative free 05/11/2020 03:16:00 PM EDT completed eCW1 ([facility]) influenza, recombinant, quadrIvalent,injectable, prese rvative free 05/11/2020 03:16:00 PM EDT completed eCW1 ([facility]) influenza, recombinant, quadrIvalent,injectable, prese rvative free 05/11/2020 03:16:00 PM EDT completed eCW1 ([facility]) influenza, recombinant, quadrIvalent,injectable, prese rvative free 05/11/2020 03:16:00 PM EDT completed eCW1 ([facility]) influenza, recombinant, quadrIvalent,injectable, prese rvative free 05/11/2020 03:16:00 PM EDT completed eCW1 ([facility]) influenza, recombinant, quadrIvalent,injectable, prese rvative free 05/11/2020 03:16:00 PM EDT completed eCW1 ([facility]) influenza, recombinant, quadrIvalent,injectable, prese rvative free 05/11/2020 03:16:00 PM EDT completed eCW1 ([facility]) influenza, recombinant, quadrIvalent,injectable, prese rvative free 05/11/2020 03:16:00 PM EDT completed eCW1 ([facility]) influenza, recombinant, quadrIvalent,injectable, prese rvative free 05/11/2020 03:16:00 PM EDT completed eCW1 ([facility]) influenza, recombinant, quadrIvalent,injectable, prese rvative free 05/11/2020 03:16:00 PM EDT completed eCW1 ([facility]) influenza, recombinant, quadrIvalent,injectable, prese rvative free 05/11/2020 03:16:00 PM EDT completed eCW1 ([facility]) influenza, recombinant, quadrIvalent,injectable, prese rvative free 05/11/2020 03:16:00 PM EDT completed eCW1 ([facility]) influenza, recombinant, quadrIvalent,injectable, prese rvative free 05/11/2020 03:16:00 PM EDT completed eCW1 ([facility]) influenza, recombinant, quadrIvalent,injectable, prese rvative free 05/11/2020 03:16:00 PM EDT completed eCW1 ([facility]) influenza, recombinant, quadrIvalent,injectable, prese rvative free 05/11/2020 03:16:00 PM EDT completed eCW1 ([facility]) influenza, recombinant, quadrIvalent,injectable, prese rvative free 05/11/2020 03:16:00 PM EDT completed eCW1 ([facility]) influenza, recombinant, quadrIvalent,injectable, prese rvative free 05/11/2020 03:16:00 PM EDT completed eCW1 ([facility]) influenza, recombinant, quadrIvalent,injectable, prese rvative free 05/11/2020 03:16:00 PM EDT completed eCW1 ([facility]) influenza, recombinant, quadrIvalent,injectable, prese rvative free 05/11/2020 03:16:00 PM EDT completed eCW1 ([facility]) Medications Medication Brand Name Start Date Product Form Dose Route Admi nistrative Instructions Pharmacy Instructions Status Indications Reaction Description Data Source(s) Acetaminophen 325 MG / Hydrocodone Harinder trate 5 MG Oral Tablet HYDROcodone- Acetaminophen 5-325 MG HYDROcodone-Acetaminophen 5-325 MG 06/28/2021 12:00:00 AM EST 1.0 {tablet} active HYDROcodone -Acetaminophen 5-325 MG eCW1 ([facility]) Acetaminophen 325 MG / Hydrocodone Harinder trate 5 MG Oral Tablet HYDROcodone- Acetaminophen 5-325 MG HYDROcodone-Acetaminophen 5-325 MG 05/25/2021 12:00:00 AM EDT 1.0 {tablet} active HYDROcodone -Acetaminophen 5-325 MG eCW1 ([facility]) Acetaminophen 325 MG / Hydrocodone Harinder trate 5 MG Oral Tablet HYDROcodone- Acetaminophen 5-325 MG HYDROcodone-Acetaminophen 5-325 MG 05/25/2021 12:00:00 AM EDT 1.0 {tablet} active HYDROcodone -Acetaminophen 5-325 MG eCW1 ([facility]) Bupropion Hydrochloride 75 MG Oral Tablet buPROPion HC l 75 MG buPROPion HCl 75 MG 05/17/2021 12:00:00 AM EDT 1.0 {tablet} activ e buPROPion HCl 75 MG eCW1 ([facility]) ferrous sulfate 325 MG Oral Tablet Ferrous Sulfate 325 (65 Fe) MG Ferrous Sulfate 325 (65 Fe) MG 05/17/2021 12:00:00 AM EDT 1.0 {tablet} active Ferrous Sulfate 325 (65 Fe) MG eCW1 ([facility]) ferrous sulfate 325 MG Oral Tablet Ferrous Sulfate 325 (65 Fe) MG Ferrous Sulfate 325 (65 Fe) MG 05/17/2021 12:00:00 AM EDT 1.0 {tablet} active Ferrous Sulfate 325 (65 Fe) MG eCW1 ([facility]) Bupropion Hydrochloride 75 MG Oral Tablet buPROPion HC l 75 MG buPROPion HCl 75 MG 05/17/2021 12:00:00 AM EDT 1.0 {tablet} activ e buPROPion HCl 75 MG eCW1 ([facility]) Bupropion Hydrochloride 75 MG Oral Tablet buPROPion HC l 75 MG buPROPion HCl 75 MG 05/17/2021 12:00:00 AM EDT 1.0 {tablet} activ e buPROPion HCl 75 MG eCW1 ([facility]) Bupropion Hydrochloride 75 MG Oral Tablet buPROPion HC l 75 MG buPROPion HCl 75 MG 05/17/2021 12:00:00 AM EDT 1.0 {tablet} activ e buPROPion HCl 75 MG eCW1 ([facility]) ferrous sulfate 325 MG Oral Tablet Ferrous Sulfate 325 (65 Fe) MG Ferrous Sulfate 325 (65 Fe) MG 05/17/2021 12:00:00 AM EDT 1.0 {tablet} active Ferrous Sulfate 325 (65 Fe) MG eCW1 ([facility]) ferrous sulfate 325 MG Oral Tablet Ferrous Sulfate 325 (65 Fe) MG Ferrous Sulfate 325 (65 Fe) MG 05/17/2021 12:00:00 AM EDT 1.0 {tablet} active Ferrous Sulfate 325 (65 Fe) MG eCW1 ([facility]) Acetaminophen 325 MG / Hydrocodone Harinder trate 5 MG Oral Tablet HYDROcodone- Acetaminophen 5-325 MG HYDROcodone-Acetaminophen 5-325 MG 04/28/2021 12:00:00 AM EDT 1.0 {tablet} active HYDROcodone -Acetaminophen 5-325 MG eCW1 ([facility]) Acetaminophen 325 MG / Hydrocodone Harinder trate 5 MG Oral Tablet HYDROcodone- Acetaminophen 5-325 MG HYDROcodone-Acetaminophen 5-325 MG 04/28/2021 12:00:00 AM EDT 1.0 {tablet} active HYDROcodone -Acetaminophen 5-325 MG eCW1 ([facility]) Acetaminophen 325 MG / Hydrocodone Harinder trate 5 MG Oral Tablet HYDROcodone- Acetaminophen 5-325 MG HYDROcodone-Acetaminophen 5-325 MG 04/28/2021 12:00:00 AM EDT 1.0 {tablet} active HYDROcodone -Acetaminophen 5-325 MG eCW1 ([facility]) Acetaminophen 325 MG / Hydrocodone Harinder trate 5 MG Oral Tablet HYDROcodone- Acetaminophen 5-325 MG HYDROcodone-Acetaminophen 5-325 MG 03/31/2021 12:00:00 AM EDT 1.0 {tablet} active HYDROcodone -Acetaminophen 5-325 MG eCW1 ([facility]) Acetaminophen 325 MG / Hydrocodone Harinder trate 5 MG Oral Tablet HYDROcodone- Acetaminophen 5-325 MG HYDROcodone-Acetaminophen 5-325 MG 03/03/2021 12:00:00 AM EDT 1.0 {tablet} active HYDROcodone -Acetaminophen 5-325 MG eCW1 ([facility]) NITROFURANTOIN, MACROCRYSTALS 25 MG / Ni trofurantoin, Monohydrate 75 MG Oral Capsule Nitrofurantoin Monohyd Macro 100 MG Nitrofurantoin Monohyd Macro 100 MG 02/19/2021 12:00:00 AM EDT active Nitrofurantoin Monohyd Macro 100 MG eCW1 ([facility]) NITROFURANTOIN, MACROCRYSTALS 25 MG / Ni trofurantoin, Monohydrate 75 MG Oral Capsule Nitrofurantoin Monohyd Macro 100 MG Nitrofurantoin Monohyd Macro 100 MG 02/19/2021 12:00:00 AM EDT active Nitrofurantoin Monohyd Macro 100 MG eCW1 ([facility]) NITROFURANTOIN, MACROCRYSTALS 25 MG / Ni trofurantoin, Monohydrate 75 MG Oral Capsule Nitrofurantoin Monohyd Macro 100 MG Nitrofurantoin Monohyd Macro 100 MG 02/19/2021 12:00:00 AM EDT active Nitrofurantoin Monohyd Macro 100 MG eCW1 ([facility]) NITROFURANTOIN, MACROCRYSTALS 25 MG / Ni trofurantoin, Monohydrate 75 MG Oral Capsule Nitrofurantoin Monohyd Macro 100 MG Nitrofurantoin Monohyd Macro 100 MG 02/19/2021 12:00:00 AM EDT active Nitrofurantoin Monohyd Macro 100 MG eCW1 ([facility]) NITROFURANTOIN, MACROCRYSTALS 25 MG / Ni trofurantoin, Monohydrate 75 MG Oral Capsule Nitrofurantoin Monohyd Macro 100 MG Nitrofurantoin Monohyd Macro 100 MG 02/19/2021 12:00:00 AM EDT active Nitrofurantoin Monohyd Macro 100 MG eCW1 ([facility]) NITROFURANTOIN, MACROCRYSTALS 25 MG / Ni trofurantoin, Monohydrate 75 MG Oral Capsule Nitrofurantoin Monohyd Macro 100 MG Nitrofurantoin Monohyd Macro 100 MG 02/19/2021 12:00:00 AM EDT active Nitrofurantoin Monohyd Macro 100 MG eCW1 ([facility]) Acetaminophen 325 MG / Hydrocodone Harinder trate 5 MG Oral Tablet HYDROcodone- Acetaminophen 5-325 MG HYDROcodone-Acetaminophen 5-325 MG 02/04/2021 12:00:00 AM EDT 1.0 {tablet} active HYDROcodone -Acetaminophen 5-325 MG eCW1 ([facility]) Acetaminophen 325 MG / Hydrocodone Harinder trate 5 MG Oral Tablet HYDROcodone- Acetaminophen 5-325 MG HYDROcodone-Acetaminophen 5-325 MG 02/04/2021 12:00:00 AM EDT 1.0 {tablet} active HYDROcodone -Acetaminophen 5-325 MG eCW1 ([facility]) Acetaminophen 325 MG / Hydrocodone Harinder trate 5 MG Oral Tablet HYDROcodone- Acetaminophen 5-325 MG HYDROcodone-Acetaminophen 5-325 MG 02/04/2021 12:00:00 AM EDT 1.0 {tablet} active HYDROcodone -Acetaminophen 5-325 MG eCW1 ([facility]) Acetaminophen 325 MG / Hydrocodone Harinder trate 5 MG Oral Tablet HYDROcodone- Acetaminophen 5-325 MG HYDROcodone-Acetaminophen 5-325 MG 02/04/2021 12:00:00 AM EDT 1.0 {tablet} active HYDROcodone -Acetaminophen 5-325 MG eCW1 ([facility]) Baclofen 10 MG Oral Tablet Baclofen 01/21/2021 12:00:00 AM EDT ORAL active MEDENT ([facility]) Acetaminophen 325 MG / Hydrocodone Harinder trate 5 MG Oral Tablet HYDROcodone- Acetaminophen 5-325 MG HYDROcodone-Acetaminophen 5-325 MG 01/06/2021 12:00:00 AM EDT 1.0 {tablet} active HYDROcodone -Acetaminophen 5-325 MG eCW1 ([facility]) Acetaminophen 325 MG / Hydrocodone Harinder trate 5 MG Oral Tablet Hydrocodone- Acetaminophen 5-325 MG Hydrocodone-Acetaminophen 5-325 MG 12/08/2020 12:00:00 AM EDT 1.0 {tablet} active Hydrocodone -Acetaminophen 5-325 MG eCW1 ([facility]) Acetaminophen 325 MG / Hydrocodone Harinder trate 5 MG Oral Tablet Hydrocodone- Acetaminophen 5-325 MG Hydrocodone-Acetaminophen 5-325 MG 11/10/2020 12:00:00 AM EDT 1.0 {tablet} active Hydrocodone -Acetaminophen 5-325 MG eCW1 ([facility]) Acetaminophen 325 MG / Hydrocodone Harinder trate 5 MG Oral Tablet Hydrocodone- Acetaminophen 5-325 MG Hydrocodone-Acetaminophen 5-325 MG 11/10/2020 12:00:00 AM EDT 1.0 {tablet} active Hydrocodone -Acetaminophen 5-325 MG eCW1 ([facility]) Acetaminophen 325 MG / Hydrocodone Harinder trate 5 MG Oral Tablet Hydrocodone- Acetaminophen 5-325 MG Hydrocodone-Acetaminophen 5-325 MG 10/12/2020 12:00:00 AM EDT 1.0 {tablet} active Hydrocodone -Acetaminophen 5-325 MG eCW1 ([facility]) tramadol hydrochloride 50 MG Oral Tablet Tramadol HCL 10/09/2020 12:00:00 AM EST active MEDENT ([facility] ) Acetaminophen 325 MG / Hydrocodone Harinder trate 5 MG Oral Tablet Hydrocodone- Acetaminophen 5-325 MG Hydrocodone-Acetaminophen 5-325 MG 09/15/2020 12:00:00 AM EST 1.0 {tablet} active Hydrocodone -Acetaminophen 5-325 MG eCW1 ([facility]) Acetaminophen 325 MG / Hydrocodone Harinder trate 5 MG Oral Tablet Hydrocodone- Acetaminophen 5-325 MG Hydrocodone-Acetaminophen 5-325 MG 09/15/2020 12:00:00 AM EST 1.0 {tablet} active Hydrocodone -Acetaminophen 5-325 MG eCW1 ([facility]) Acetaminophen 325 MG / Hydrocodone Harinder trate 5 MG Oral Tablet [Ware] Ware 5- 325 MG Ware 5-325 MG 08/17/2020 12:00:00 AM EST 1.0 {tablet} active Ware 5-325 MG eCW1 ([facility]) Ondansetron 4 MG Disintegrating Oral Tablet Ondansetron 4 MG 07/15/2020 12:00:00 AM EST 1.0 {tablet_on_the_tongue_and_allow_to_dissolve} active Ondansetron 4 MG eCW1 ([facility]) Ondansetron 4 MG Disintegrating Oral Tablet Ondansetron 4 MG 07/15/2020 12:00:00 AM EST 1.0 {tablet_on_the_tongue_and_allow_to_dissolve} active Ondansetron 4 MG eCW1 ([facility]) 24 HR Bupropion Hydrochloride 150 MG Ext ended Release Oral Tablet BuPROPion HCl ER (XL) 150 MG BuPROPion HCl ER (XL) 150 MG 07/15/2020 12:00:00 AM EST 1.0 {tablet_in_the_morning} active BuPROPio n HCl ER (XL) 150 MG eCW1 ([facility]) 24 HR Bupropion Hydrochloride 300 MG Ext ended Release Oral Tablet BuPROPion HCl ER (XL) 300 MG BuPROPion HCl ER (XL) 300 MG 07/15/2020 12:00:00 AM EST 1.0 {tablet_in_the_morning} active BuPROPio n HCl ER (XL) 300 MG eCW1 ([facility]) Ondansetron 4 MG Disintegrating Oral Tablet Ondansetron 4 MG 07/15/2020 12:00:00 AM EST 1.0 {tablet_on_the_tongue_and_allow_to_dissolve} active Ondansetron 4 MG eCW1 ([facility]) 24 HR Bupropion Hydrochloride 150 MG Ext ended Release Oral Tablet BuPROPion HCl ER (XL) 150 MG BuPROPion HCl ER (XL) 150 MG 07/15/2020 12:00:00 AM EST 1.0 {tablet_in_the_morning} active BuPROPio n HCl ER (XL) 150 MG eCW1 ([facility]) Ondansetron 4 MG Disintegrating Oral Tablet Ondansetron 4 MG 07/15/2020 12:00:00 AM EST 1.0 {tablet_on_the_tongue_and_allow_to_dissolve} active Ondansetron 4 MG eCW1 ([facility]) Ondansetron 4 MG Disintegrating Oral Tablet Ondansetron 4 MG 07/15/2020 12:00:00 AM EST 1.0 {tablet_on_the_tongue_and_allow_to_dissolve} active Ondansetron 4 MG eCW1 ([facility]) 24 HR Bupropion Hydrochloride 150 MG Ext ended Release Oral Tablet BuPROPion HCl ER (XL) 150 MG BuPROPion HCl ER (XL) 150 MG 07/15/2020 12:00:00 AM EST 1.0 {tablet_in_the_morning} active BuPROPio n HCl ER (XL) 150 MG eCW1 ([facility]) Ondansetron 4 MG Disintegrating Oral Tablet Ondansetron 4 MG 07/15/2020 12:00:00 AM EST 1.0 {tablet_on_the_tongue_and_allow_to_dissolve} active Ondansetron 4 MG eCW1 ([facility]) Ondansetron 4 MG Disintegrating Oral Tablet Ondansetron 4 MG 07/15/2020 12:00:00 AM EST 1.0 {tablet_on_the_tongue_and_allow_to_dissolve} active Ondansetron 4 MG eCW1 ([facility]) Ondansetron 4 MG Disintegrating Oral Tablet Ondansetron 4 MG 07/15/2020 12:00:00 AM EST 1.0 {tablet_on_the_tongue_and_allow_to_dissolve} active Ondansetron 4 MG eCW1 ([facility]) Ondansetron 4 MG Disintegrating Oral Tablet Ondansetron 4 MG 07/15/2020 12:00:00 AM EST 1.0 {tablet_on_the_tongue_and_allow_to_dissolve} active Ondansetron 4 MG eCW1 ([facility]) 24 HR Bupropion Hydrochloride 300 MG Ext ended Release Oral Tablet BuPROPion HCl ER (XL) 300 MG BuPROPion HCl ER (XL) 300 MG 07/15/2020 12:00:00 AM EST 1.0 {tablet_in_the_morning} active BuPROPio n HCl ER (XL) 300 MG eCW1 ([facility]) Acetaminophen 325 MG / Hydrocodone Harinder trate 5 MG Oral Tablet [Ware] Ware 5- 325 MG Ware 5-325 MG 07/15/2020 12:00:00 AM EST 1.0 {tablet} active Ware 5-325 MG eCW1 ([facility]) Ondansetron 4 MG Disintegrating Oral Tablet Ondansetron 4 MG 07/15/2020 12:00:00 AM EST 1.0 {tablet_on_the_tongue_and_allow_to_dissolve} active Ondansetron 4 MG eCW1 ([facility]) Ondansetron 4 MG Disintegrating Oral Tablet Ondansetron 4 MG 07/15/2020 12:00:00 AM EST 1.0 {tablet_on_the_tongue_and_allow_to_dissolve} active Ondansetron 4 MG eCW1 ([facility]) Ondansetron 4 MG Disintegrating Oral Tablet Ondansetron 4 MG 07/15/2020 12:00:00 AM EST 1.0 {tablet_on_the_tongue_and_allow_to_dissolve} active Ondansetron 4 MG eCW1 ([facility]) Ondansetron 4 MG Disintegrating Oral Tablet Ondansetron 4 MG 07/15/2020 12:00:00 AM EST 1.0 {tablet_on_the_tongue_and_allow_to_dissolve} active Ondansetron 4 MG eCW1 ([facility]) 24 HR Bupropion Hydrochloride 150 MG Ext ended Release Oral Tablet BuPROPion HCl ER (XL) 150 MG BuPROPion HCl ER (XL) 150 MG 07/15/2020 12:00:00 AM EST 1.0 {tablet_in_the_morning} active BuPROPio n HCl ER (XL) 150 MG eCW1 ([facility]) Ondansetron 4 MG Disintegrating Oral Tablet Ondansetron 4 MG 07/15/2020 12:00:00 AM EST 1.0 {tablet_on_the_tongue_and_allow_to_dissolve} active Ondansetron 4 MG eCW1 ([facility]) Ondansetron 4 MG Disintegrating Oral Tablet Ondansetron 4 MG 07/15/2020 12:00:00 AM EST 1.0 {tablet_on_the_tongue_and_allow_to_dissolve} active Ondansetron 4 MG eCW1 ([facility]) Ondansetron 4 MG Disintegrating Oral Tablet Ondansetron 4 MG 07/15/2020 12:00:00 AM EST 1.0 {tablet_on_the_tongue_and_allow_to_dissolve} active Ondansetron 4 MG eCW1 ([facility]) Ondansetron 4 MG Disintegrating Oral Tablet Ondansetron 4 MG 07/15/2020 12:00:00 AM EST 1.0 {tablet_on_the_tongue_and_allow_to_dissolve} active Ondansetron 4 MG eCW1 ([facility]) Ondansetron 4 MG Disintegrating Oral Tablet Ondansetron 4 MG 07/15/2020 12:00:00 AM EST 1.0 {tablet_on_the_tongue_and_allow_to_dissolve} active Ondansetron 4 MG eCW1 ([facility]) 24 HR Bupropion Hydrochloride 150 MG Ext ended Release Oral Tablet BuPROPion HCl ER (XL) 150 MG BuPROPion HCl ER (XL) 150 MG 07/15/2020 12:00:00 AM EST 1.0 {tablet_in_the_morning} active BuPROPio n HCl ER (XL) 150 MG eCW1 ([facility]) Ondansetron 4 MG Disintegrating Oral Tablet Ondansetron 4 MG 07/15/2020 12:00:00 AM EST 1.0 {tablet_on_the_tongue_and_allow_to_dissolve} active Ondansetron 4 MG eCW1 ([facility]) 24 HR Bupropion Hydrochloride 150 MG Ext ended Release Oral Tablet BuPROPion HCl ER (XL) 150 MG BuPROPion HCl ER (XL) 150 MG 07/15/2020 12:00:00 AM EST 1.0 {tablet_in_the_morning} active BuPROPio n HCl ER (XL) 150 MG eCW1 ([facility]) Ondansetron 4 MG Disintegrating Oral Tablet Ondansetron 4 MG 07/15/2020 12:00:00 AM EST 1.0 {tablet_on_the_tongue_and_allow_to_dissolve} active Ondansetron 4 MG eCW1 ([facility]) Ondansetron 4 MG Disintegrating Oral Tablet Ondansetron 4 MG 07/15/2020 12:00:00 AM EST 1.0 {tablet_on_the_tongue_and_allow_to_dissolve} active Ondansetron 4 MG eCW1 ([facility]) Acetaminophen 325 MG / Hydrocodone Harinder trate 5 MG Oral Tablet [Ware] Ware 5- 325 MG Ware 5-325 MG 06/17/2020 12:00:00 AM EST 1.0 {tablet} active Ware 5-325 MG eCW1 ([facility]) Acetaminophen 325 MG / Hydrocodone Harinder trate 5 MG Oral Tablet [Ware] Ware 5- 325 MG Ware 5-325 MG 06/17/2020 12:00:00 AM EST 1.0 {tablet} active Ware 5-325 MG eCW1 ([facility]) Acetaminophen 325 MG / Hydrocodone Harinder trate 5 MG Oral Tablet [Ware] Ware 5- 325 MG Ware 5-325 MG 05/20/2020 12:00:00 AM EDT 1.0 {tablet} active Ware 5-325 MG eCW1 ([facility]) Acetaminophen 325 MG / Hydrocodone Harinder trate 5 MG Oral Tablet [Ware] Ware 5- 325 MG Ware 5-325 MG 05/20/2020 12:00:00 AM EDT 1.0 {tablet} active Ware 5-325 MG eCW1 ([facility]) duloxetine 30 MG Delayed Release Oral Capsule Duloxeti ne HCl 30 MG Duloxetine HCl 30 MG 05/11/2020 12:00:00 AM EDT 1.0 {capsule} a ctive Duloxetine HCl 30 MG eCW1 ([facility]) duloxetine 30 MG Delayed Release Oral Capsule Duloxeti ne HCl 30 MG Duloxetine HCl 30 MG 05/11/2020 12:00:00 AM EDT 1.0 {capsule} a ctive Duloxetine HCl 30 MG eCW1 ([facility]) duloxetine 30 MG Delayed Release Oral Capsule Duloxeti ne HCl 30 MG Duloxetine HCl 30 MG 05/11/2020 12:00:00 AM EDT 1.0 {capsule} a ctive Duloxetine HCl 30 MG eCW1 ([facility]) duloxetine 30 MG Delayed Release Oral Capsule Duloxeti ne HCl 30 MG Duloxetine HCl 30 MG 05/11/2020 12:00:00 AM EDT 1.0 {capsule} a ctive Duloxetine HCl 30 MG eCW1 ([facility]) Estradiol 1 MG Oral Tablet estradiol 1 mg tablet estradiol 1 mg tablet completed estradiol 1 MG Oral Table t TALIA ([facility]) Sulfamethoxazole 800 MG / Trimethoprim 1 60 MG Oral Tablet sulfamethoxazole 800 mg-trimethoprim 160 mg tablet sulfamethoxazole 800 mg-trimethoprim 160 mg tablet completed sulfame thoxazole 800 MG / trimethoprim 160 MG Oral Tablet TALIA ([facility]) Bacitracin 0.5 UNT/MG / Polymyxin B 10 U NT/MG Ophthalmic Ointment bacitracin- polymyxin B 500 unit-10,000 unit/gram eye ointment KANCHAN TOPICALLY BID bacitracin- polymyxin B 500 unit-10,000 unit/gram eye ointment KANCHAN TOPICALLY BID completed bacitracin 0.5 U NT/MG / polymyxin B 10 UNT/MG Ophthalmic Ointment TALIA ([facility]) Amoxicillin 500 MG Oral Capsule amoxicil major 500 mg capsule TAKE 1 CAPSULE BY MOUTH THREE TIMES DAILY UNTIL GONE amoxicillin 500 mg capsule TAKE 1 CAPSUL E BY MOUTH THREE TIMES DAILY UNTIL GONE com pleted amoxicillin 500 MG Oral Capsule TALIA ([facility]) Tamsulosin hydrochloride 0.4 MG Oral Capsule tamsulosi n 0.4 mg capsule tamsulosin 0.4 mg capsule completed tamsulosin hydrochloride 0.4 MG Oral Capsule TALIA ([facility]) Bacitracin 0.5 UNT/MG / Polymyxin B 10 U NT/MG Ophthalmic Ointment bacitracin- polymyxin B 500 unit-10,000 unit/gram eye ointment KANCHAN TOPICALLY BID bacitracin- polymyxin B 500 unit-10,000 unit/gram eye ointment KANCHAN TOPICALLY BID completed bacitracin 0.5 U NT/MG / polymyxin B 10 UNT/MG Ophthalmic Ointment TALIA ([facility]) 24 HR Bupropion Hydrochloride 150 MG Ext [...] MG Extended Release Oral Tablet TALIA ([facility]) Carisoprodol 350 MG Oral Tablet carisoprodol 350 mg ta blet carisoprodol 350 mg tablet completed carisoprodol 35 0 MG Oral Tablet TALIA ([facility]) duloxetine 30 MG Delayed Release Oral Ca psule duloxetine 30 mg capsule,delayed release duloxetine 30 mg capsule,delayed release completed duloxetine 30 MG Delayed Release Oral Capsule TALIA ([facility]) tramadol hydrochloride 50 MG Oral Tablet tramadol 50 m g tablet tramadol 50 mg tablet completed tramadol hydroc hloride 50 MG Oral Tablet TALIA ([facility]) duloxetine 30 MG Delayed Release Oral Ca psule duloxetine 30 mg capsule,delayed release duloxetine 30 mg capsule,delayed release completed duloxetine 30 MG Delayed Release Oral Capsule TALIA ([facility]) gabapentin 600 MG Oral Tablet gabapentin 600 mg tablet TAKE 1 TABLET BY MOUTH THREE TIMES DAILY gabapentin 600 mg tablet TAKE 1 TABLET B Y MOUTH THREE TIMES DAILY completed gabapentin 600 M G Oral Tablet TALIA ([facility]) pregabalin 100 MG Oral Capsule pregabali n 100 mg capsule TAKE 1 CAPSULE BY MOUTH TWICE DAILY. MAXIMUM DAILY DOSE IS 2 CAPSULES pregabalin 100 mg capsule TAKE 1 CAPSULE BY MOUTH TWICE DAILY. MAXIMUM DAILY DOSE IS 2 CAPSULES completed pregabalin 100 MG Oral Capsule A THENA ([facility]) tramadol hydrochloride 50 MG Oral Tablet tramadol 50 m g tablet tramadol 50 mg tablet completed tramadol hydroc hloride 50 MG Oral Tablet TALIA ([facility]) Sulfamethoxazole 800 MG / Trimethoprim 1 60 MG Oral Tablet sulfamethoxazole 800 mg-trimethoprim 160 mg tablet sulfamethoxazole 800 mg-trimethoprim 160 mg tablet completed sulfame thoxazole 800 MG / trimethoprim 160 MG Oral Tablet TALIA ([facility]) gabapentin 300 MG Oral Capsule gabapentin 300 mg capsu le gabapentin 300 mg capsule completed gabapentin 300 MG Oral Capsule TALIA ([facility]) Amoxicillin 500 MG Oral Capsule amoxicil major 500 mg capsule TAKE 1 CAPSULE BY MOUTH THREE TIMES DAILY UNTIL GONE amoxicillin 500 mg capsule TAKE 1 CAPSUL E BY MOUTH THREE TIMES DAILY UNTIL GONE com pleted amoxicillin 500 MG Oral Capsule TALIA ([facility]) pregabalin 100 MG Oral Capsule pregabali n 100 mg capsule TAKE 1 CAPSULE BY MOUTH TWICE DAILY. MAXIMUM DAILY DOSE IS 2 CAPSULES pregabalin 100 mg capsule TAKE 1 CAPSULE BY MOUTH TWICE DAILY. MAXIMUM DAILY DOSE IS 2 CAPSULES completed pregabalin 100 MG Oral Capsule A THENA ([facility]) tramadol hydrochloride 50 MG Oral Tablet tramadol 50 m g tablet tramadol 50 mg tablet completed tramadol hydroc hloride 50 MG Oral Tablet TALIA ([facility]) 24 HR Bupropion Hydrochloride 150 MG Ext [...] Extended Release Oral Tablet TALIA ([facility]) duloxetine 30 MG Delayed Release Oral Ca psule duloxetine 30 mg capsule,delayed release duloxetine 30 mg capsule,delayed release completed duloxetine 30 MG Delayed Release Oral Capsule TALIA ([facility]) Tamsulosin hydrochloride 0.4 MG Oral Capsule tamsulosi n 0.4 mg capsule tamsulosin 0.4 mg capsule completed tamsulosin hydrochloride 0.4 MG Oral Capsule TALIA ([facility]) Oxybutynin chloride 5 MG Oral Tablet oxybutynin chlori de 5 mg tablet oxybutynin chloride 5 mg tablet completed oxybutynin chloride 5 MG Oral Tablet [facility] ([facility]) Amoxicillin 500 MG Oral Capsule amoxicil major 500 mg capsule TAKE 1 CAPSULE BY MOUTH THREE TIMES DAILY UNTIL GONE amoxicillin 500 mg capsule TAKE 1 CAPSUL E BY MOUTH THREE TIMES DAILY UNTIL GONE com pleted amoxicillin 500 MG Oral Capsule [facility] ([facility]) Carisoprodol 350 MG Oral Tablet carisoprodol 350 mg ta blet carisoprodol 350 mg tablet completed carisoprodol 35 0 MG Oral Tablet [facility] ([facility]) Bacitracin 0.5 UNT/MG / Polymyxin B 10 U NT/MG Ophthalmic Ointment bacitracin- polymyxin B 500 unit-10,000 unit/gram eye ointment [facility] TOPICALLY BID bacitracin- polymyxin B 500 unit-10,000 unit/gram eye ointment K[facility]CH[facility] TOPICALLY BID completed bacitracin 0.5 U NT/MG / polymyxin B 10 UNT/MG Ophthalmic Ointment [facility] ([facility]) Sulfamethoxazole 800 MG / Trimethoprim 1 60 MG Oral Tablet sulfamethoxazole 800 mg-trimethoprim 160 mg tablet sulfamethoxazole 800 mg-trimethoprim 160 mg tablet completed sulfame thoxazole 800 MG / trimethoprim 160 MG Oral Tablet [facility] ([facility]) Carisoprodol 350 MG Oral Tablet carisoprodol 350 mg ta blet carisoprodol 350 mg tablet completed carisoprodol 35 0 MG Oral Tablet [facility] ([facility]) gabapentin 300 MG Oral Capsule gabapentin 300 mg capsu le gabapentin 300 mg capsule completed gabapentin 300 MG Oral Capsule [facility] ([facility]) Estradiol 1 MG Oral Tablet estradiol 1 mg tablet estradiol 1 mg tablet completed estradiol 1 MG Oral Table t [facility] ([facility]) tramadol hydrochloride 50 MG Oral Tablet tramadol 50 m g tablet tramadol 50 mg tablet completed tramadol hydroc hloride 50 MG Oral Tablet [facility] ([facility]) tramadol hydrochloride 50 MG Oral Tablet tramadol 50 m g tablet tramadol 50 mg tablet completed tramadol hydroc hloride 50 MG Oral Tablet [facility] ([facility]) pregabalin 150 MG Oral Capsule pregabali n 150 mg capsule TAKE ONE CAPSULE BY MOUTH TWICE A DAY MAXIMUM DAILY DOSE 2 pregabalin 150 mg capsule TAKE ONE CAPSULE BY MOUTH TWICE A DAY MAXIMUM DAILY DOSE 2 completed pregabalin 150 MG Oral Capsule [facility] ([facility]) duloxetine 30 MG Delayed Release Oral Ca psule duloxetine 30 mg capsule,delayed release duloxetine 30 mg capsule,delayed release completed duloxetine 30 MG Delayed Release Oral Capsule [facility] ([facility]) Sulfamethoxazole 800 MG / Trimethoprim 1 60 MG Oral Tablet sulfamethoxazole 800 mg-trimethoprim 160 mg tablet sulfamethoxazole 800 mg-trimethoprim 160 mg tablet completed sulfame thoxazole 800 MG / trimethoprim 160 MG Oral Tablet [facility] ([facility]) Omeprazole 40 MG Delayed Release Oral Ca psule omeprazole 40 mg capsule,delayed release TAKE ONE CAPSULE BY MOUTH ONCE A DAY omeprazole 40 mg capsule,delayed release TAKE ONE CAPSULE BY MOUTH ONCE A DAY completed omeprazole 40 MG Delayed Release Oral Capsule [facility] ([facility]) Sulfamethoxazole 800 MG / Trimethoprim 1 60 MG Oral Tablet sulfamethoxazole 800 mg-trimethoprim 160 mg tablet sulfamethoxazole 800 mg-trimethoprim 160 mg tablet completed sulfame thoxazole 800 MG / trimethoprim 160 MG Oral Tablet [facility] ([facility]) gabapentin 300 MG Oral Capsule gabapentin 300 mg capsu le gabapentin 300 mg capsule completed gabapentin 300 MG Oral Capsule [facility] ([facility]) Acetaminophen 325 MG / Oxycodone Hydroch loride [...] 5 MG Oral Tablet [facility] ([facility]) Estradiol 1 MG Oral Tablet estradiol 1 mg tablet estradiol 1 mg tablet completed estradiol 1 MG Oral Table t [facility] ([facility]) Prednisone 20 MG Oral Tablet prednisone 20 mg tablet prednisone 20 mg tablet completed prednisone 20 MG Oral Tablet [facility] ([facility]) 24 HR Bupropion Hydrochloride 150 MG Ext [...] Extended Release Oral Tablet [facility] ([facility]) gabapentin 300 MG Oral Capsule gabapentin 300 mg capsu le gabapentin 300 mg capsule completed gabapentin 300 MG Oral Capsule [facility] ([facility]) tramadol hydrochloride 50 MG Oral Tablet tramadol 50 m g tablet tramadol 50 mg tablet completed tramadol hydroc hloride 50 MG Oral Tablet [facility] ([facility]) Tamsulosin hydrochloride 0.4 MG Oral Capsule tamsulosi n 0.4 mg capsule tamsulosin 0.4 mg capsule completed tamsulosin hydrochloride 0.4 MG Oral Capsule [facility] ([facility]) gabapentin 600 MG Oral Tablet gabapentin 600 mg tablet TAKE 1 TABLET BY MOUTH THREE TIMES DAILY gabapentin 600 mg tablet TAKE 1 TABLET B Y MOUTH THREE TIMES DAILY completed gabapentin 600 M G Oral Tablet [facility] ([facility]) gabapentin 300 MG Oral Capsule gabapentin 300 mg capsu le gabapentin 300 mg capsule completed gabapentin 300 MG Oral Capsule [facility] ([facility]) Carisoprodol 350 MG Oral Tablet carisoprodol 350 mg ta blet carisoprodol 350 mg tablet completed carisoprodol 35 0 MG Oral Tablet [facility] ([facility]) duloxetine 30 MG Delayed Release Oral Ca psule duloxetine 30 mg capsule,delayed release duloxetine 30 mg capsule,delayed release completed duloxetine 30 MG Delayed Release Oral Capsule [facility] ([facility]) Sulfamethoxazole 800 MG / Trimethoprim 1 60 MG Oral Tablet sulfamethoxazole 800 mg-trimethoprim 160 mg tablet sulfamethoxazole 800 mg-trimethoprim 160 mg tablet completed sulfame thoxazole 800 MG / trimethoprim 160 MG Oral Tablet [facility] ([facility]) Estradiol 1 MG Oral Tablet estradiol 1 mg tablet estradiol 1 mg tablet completed estradiol 1 MG Oral Table t [facility] ([facility]) Acetaminophen 325 MG / Oxycodone Hydroch loride [...] 5 MG Oral Tablet [facility] ([facility]) Carisoprodol 350 MG Oral Tablet carisoprodol 350 mg ta blet carisoprodol 350 mg tablet completed carisoprodol 35 0 MG Oral Tablet [facility] ([facility]) gabapentin 300 MG Oral Capsule gabapentin 300 mg capsu le gabapentin 300 mg capsule completed gabapentin 300 MG Oral Capsule [facility] ([facility]) Bacitracin 0.5 UNT/MG / Polymyxin B 10 U NT/MG Ophthalmic Ointment bacitracin- polymyxin B 500 unit-10,000 unit/gram eye ointment [facility] TOPICALLY BID bacitracin- polymyxin B 500 unit-10,000 unit/gram eye ointment KANCH[facility] TOPICALLY BID completed bacitracin 0.5 U NT/MG / polymyxin B 10 UNT/MG Ophthalmic Ointment [facility] ([facility]) Carisoprodol 350 MG Oral Tablet carisoprodol 350 mg ta blet carisoprodol 350 mg tablet completed carisoprodol 35 0 MG Oral Tablet [facility] ([facility]) duloxetine 30 MG Delayed Release Oral Ca psule duloxetine 30 mg capsule,delayed release duloxetine 30 mg capsule,delayed release completed duloxetine 30 MG Delayed Release Oral Capsule [facility] ([facility]) pregabalin 100 MG Oral Capsule pregabali n 100 mg capsule TAKE 1 CAPSULE BY MOUTH TWICE DAILY. MAXIMUM DAILY DOSE IS 2 CAPSULES pregabalin 100 mg capsule TAKE 1 CAPSULE BY MOUTH TWICE DAILY. MAXIMUM DAILY DOSE IS 2 CAPSULES completed pregabalin 100 MG Oral Capsule A [facility] ([facility]) Tamsulosin hydrochloride 0.4 MG Oral Capsule tamsulosi n 0.4 mg capsule tamsulosin 0.4 mg capsule completed tamsulosin hydrochloride 0.4 MG Oral Capsule [facility] ([facility]) pregabalin 150 MG Oral Capsule pregabali n 150 mg capsule TAKE ONE CAPSULE BY MOUTH TWICE A DAY MAXIMUM DAILY DOSE 2 pregabalin 150 mg capsule TAKE ONE CAPSULE BY MOUTH TWICE A DAY MAXIMUM DAILY DOSE 2 completed pregabalin 150 MG Oral Capsule [facility] ([facility]) Carisoprodol 350 MG Oral Tablet carisoprodol 350 mg ta blet carisoprodol 350 mg tablet completed carisoprodol 35 0 MG Oral Tablet [facility] ([facility]) Bacitracin 0.5 UNT/MG / Polymyxin B 10 U NT/MG Ophthalmic Ointment bacitracin- polymyxin B 500 unit-10,000 unit/gram eye ointment [facility] TOPICALLY BID bacitracin- polymyxin B 500 unit-10,000 unit/gram eye ointment [facility] TOPICALLY BID completed bacitracin 0.5 U NT/MG / polymyxin B 10 UNT/MG Ophthalmic Ointment [facility] ([facility]) Sulfamethoxazole 800 MG / Trimethoprim 1 60 MG Oral Tablet sulfamethoxazole 800 mg-trimethoprim 160 mg tablet sulfamethoxazole 800 mg-trimethoprim 160 mg tablet completed sulfame thoxazole 800 MG / trimethoprim 160 MG Oral Tablet [facility] ([facility]) Omeprazole 40 MG Delayed Release Oral Ca psule omeprazole 40 mg capsule,delayed release TAKE ONE CAPSULE BY MOUTH ONCE A DAY omeprazole 40 mg capsule,delayed release TAKE ONE CAPSULE BY MOUTH ONCE A DAY completed omeprazole 40 MG Delayed Release Oral Capsule [facility] ([facility]) duloxetine 30 MG Delayed Release Oral Ca psule duloxetine 30 mg capsule,delayed release duloxetine 30 mg capsule,delayed release completed duloxetine 30 MG Delayed Release Oral Capsule [facility] ([facility]) Sulfamethoxazole 800 MG / Trimethoprim 1 60 MG Oral Tablet sulfamethoxazole 800 mg-trimethoprim 160 mg tablet sulfamethoxazole 800 mg-trimethoprim 160 mg tablet completed sulfame thoxazole 800 MG / trimethoprim 160 MG Oral Tablet [facility] ([facility]) Prednisone 20 MG Oral Tablet prednisone 20 mg tablet prednisone 20 mg tablet completed prednisone 20 MG Oral Tablet [facility] ([facility]) Estradiol 1 MG Oral Tablet estradiol 1 mg tablet estradiol 1 mg tablet completed estradiol 1 MG Oral Table t [facility] ([facility]) Tamsulosin hydrochloride 0.4 MG Oral Capsule tamsulosi n 0.4 mg capsule tamsulosin 0.4 mg capsule completed tamsulosin hydrochloride 0.4 MG Oral Capsule [facility] ([facility]) duloxetine 30 MG Delayed Release Oral Ca psule duloxetine 30 mg capsule,delayed release duloxetine 30 mg capsule,delayed release completed duloxetine 30 MG Delayed Release Oral Capsule [facility] ([facility]) Carisoprodol 350 MG Oral Tablet carisoprodol 350 mg ta blet carisoprodol 350 mg tablet completed carisoprodol 35 0 MG Oral Tablet [facility] ([facility]) Prednisone 20 MG Oral Tablet prednisone 20 mg tablet prednisone 20 mg tablet completed prednisone 20 MG Oral Tablet [facility] ([facility]) Omeprazole 40 MG Delayed Release Oral Ca psule omeprazole 40 mg capsule,delayed release TAKE ONE CAPSULE BY MOUTH ONCE A DAY omeprazole 40 mg capsule,delayed release TAKE ONE CAPSULE BY MOUTH ONCE A DAY completed omeprazole 40 MG Delayed Release Oral Capsule [facility] ([facility]) Tamsulosin hydrochloride 0.4 MG Oral Capsule tamsulosi n 0.4 mg capsule tamsulosin 0.4 mg capsule completed tamsulosin hydrochloride 0.4 MG Oral Capsule [facility] ([facility]) pregabalin 150 MG Oral Capsule pregabali n 150 mg capsule TAKE ONE CAPSULE BY MOUTH TWICE A DAY MAXIMUM DAILY DOSE 2 pregabalin 150 mg capsule TAKE ONE CAPSULE BY MOUTH TWICE A DAY MAXIMUM DAILY DOSE 2 completed pregabalin 150 MG Oral Capsule [facility] ([facility]) Bacitracin 0.5 UNT/MG / Polymyxin B 10 U NT/MG Ophthalmic Ointment bacitracin- polymyxin B 500 unit-10,000 unit/gram eye ointment [facility] TOPICALLY BID bacitracin- polymyxin B 500 unit-10,000 unit/gram eye ointment K[facility] TOPICALLY BID completed bacitracin 0.5 U NT/MG / polymyxin B 10 UNT/MG Ophthalmic Ointment [facility] ([facility]) Carisoprodol 350 MG Oral Tablet carisoprodol 350 mg ta blet carisoprodol 350 mg tablet completed carisoprodol 35 0 MG Oral Tablet [facility] ([facility]) duloxetine 30 MG Delayed Release Oral Ca psule duloxetine 30 mg capsule,delayed release duloxetine 30 mg capsule,delayed release completed duloxetine 30 MG Delayed Release Oral Capsule [facility] ([facility]) Amoxicillin 500 MG Oral Capsule amoxicil major 500 mg capsule TAKE 1 CAPSULE BY MOUTH THREE TIMES DAILY UNTIL GONE amoxicillin 500 mg capsule TAKE 1 CAPSUL E BY MOUTH THREE TIMES DAILY UNTIL GONE com pleted amoxicillin 500 MG Oral Capsule [facility] ([facility]) Acetaminophen 325 MG / Oxycodone Hydroch loride [...] 5 MG Oral Tablet [facility] ([facility]) Sulfamethoxazole 800 MG / Trimethoprim 1 60 MG Oral Tablet sulfamethoxazole 800 mg-trimethoprim 160 mg tablet sulfamethoxazole 800 mg-trimethoprim 160 mg tablet completed sulfame thoxazole 800 MG / trimethoprim 160 MG Oral Tablet [facility] ([facility]) Omeprazole 40 MG Delayed Release Oral Ca psule omeprazole 40 mg capsule,delayed release TAKE ONE CAPSULE BY MOUTH ONCE A DAY omeprazole 40 mg capsule,delayed release TAKE ONE CAPSULE BY MOUTH ONCE A DAY completed omeprazole 40 MG Delayed Release Oral Capsule [facility] ([facility]) Oxybutynin chloride 5 MG Oral Tablet oxybutynin chlori de 5 mg tablet oxybutynin chloride 5 mg tablet completed oxybutynin chloride 5 MG Oral Tablet [facility] ([facility]) pregabalin 100 MG Oral Capsule pregabali n 100 mg capsule TAKE 1 CAPSULE BY MOUTH TWICE DAILY. MAXIMUM DAILY DOSE IS 2 CAPSULES pregabalin 100 mg capsule TAKE 1 CAPSULE BY MOUTH TWICE DAILY. MAXIMUM DAILY DOSE IS 2 CAPSULES completed pregabalin 100 MG Oral Capsule A [facility] ([facility]) Oxybutynin chloride 5 MG Oral Tablet oxybutynin chlori de 5 mg tablet oxybutynin chloride 5 mg tablet completed oxybutynin chloride 5 MG Oral Tablet [facility] ([facility]) gabapentin 300 MG Oral Capsule gabapentin 300 mg capsu le gabapentin 300 mg capsule completed gabapentin 300 MG Oral Capsule [facility] ([facility]) Carisoprodol 350 MG Oral Tablet carisoprodol 350 mg ta blet carisoprodol 350 mg tablet completed carisoprodol 35 0 MG Oral Tablet [facility] ([facility]) Sulfamethoxazole 800 MG / Trimethoprim 1 60 MG Oral Tablet sulfamethoxazole 800 mg-trimethoprim 160 mg tablet sulfamethoxazole 800 mg-trimethoprim 160 mg tablet completed sulfame thoxazole 800 MG / trimethoprim 160 MG Oral Tablet [facility] ([facility]) gabapentin 600 MG Oral Tablet gabapentin 600 mg tablet TAKE 1 TABLET BY MOUTH THREE TIMES DAILY gabapentin 600 mg tablet TAKE 1 TABLET B Y MOUTH THREE TIMES DAILY completed gabapentin 600 M G Oral Tablet [facility] ([facility]) Omeprazole 40 MG Delayed Release Oral Ca psule omeprazole 40 mg capsule,delayed release TAKE ONE CAPSULE BY MOUTH ONCE A DAY omeprazole 40 mg capsule,delayed release TAKE ONE CAPSULE BY MOUTH ONCE A DAY completed omeprazole 40 MG Delayed Release Oral Capsule [facility] ([facility]) gabapentin 600 MG Oral Tablet gabapentin 600 mg tablet TAKE 1 TABLET BY MOUTH THREE TIMES DAILY gabapentin 600 mg tablet TAKE 1 TABLET B Y MOUTH THREE TIMES DAILY completed gabapentin 600 M G Oral Tablet [facility] ([facility]) Tamsulosin hydrochloride 0.4 MG Oral Capsule tamsulosi n 0.4 mg capsule tamsulosin 0.4 mg capsule completed tamsulosin hydrochloride 0.4 MG Oral Capsule [facility] ([facility]) Oxybutynin chloride 5 MG Oral Tablet oxybutynin chlori de 5 mg tablet oxybutynin chloride 5 mg tablet completed oxybutynin chloride 5 MG Oral Tablet [facility] ([facility]) Bacitracin 0.5 UNT/MG / Polymyxin B 10 U NT/MG Ophthalmic Ointment bacitracin- polymyxin B 500 unit-10,000 unit/gram eye ointment [facility] TOPICALLY BID bacitracin- polymyxin B 500 unit-10,000 unit/gram eye ointment K[facility] TOPICALLY BID completed bacitracin 0.5 U NT/MG / polymyxin B 10 UNT/MG Ophthalmic Ointment [facility] ([facility]) gabapentin 300 MG Oral Capsule gabapentin 300 mg capsu le gabapentin 300 mg capsule completed gabapentin 300 MG Oral Capsule [facility] ([facility]) Sulfamethoxazole 800 MG / Trimethoprim 1 60 MG Oral Tablet sulfamethoxazole 800 mg-trimethoprim 160 mg tablet sulfamethoxazole 800 mg-trimethoprim 160 mg tablet completed sulfame thoxazole 800 MG / trimethoprim 160 MG Oral Tablet [facility] ([facility]) Oxybutynin chloride 5 MG Oral Tablet oxybutynin chlori de 5 mg tablet oxybutynin chloride 5 mg tablet completed oxybutynin chloride 5 MG Oral Tablet [facility] ([facility]) duloxetine 30 MG Delayed Release Oral Ca psule duloxetine 30 mg capsule,delayed release duloxetine 30 mg capsule,delayed release completed duloxetine 30 MG Delayed Release Oral Capsule [facility] ([facility]) Acetaminophen 325 MG / Oxycodone Hydroch loride [...] 5 MG Oral Tablet [facility] ([facility]) duloxetine 30 MG Delayed Release Oral Ca psule duloxetine 30 mg capsule,delayed release duloxetine 30 mg capsule,delayed release completed duloxetine 30 MG Delayed Release Oral Capsule [facility] ([facility]) duloxetine 30 MG Delayed Release Oral Ca psule duloxetine 30 mg capsule,delayed release duloxetine 30 mg capsule,delayed release completed duloxetine 30 MG Delayed Release Oral Capsule [facility] ([facility]) Prednisone 20 MG Oral Tablet prednisone 20 mg tablet prednisone 20 mg tablet completed prednisone 20 MG Oral Tablet [facility] ([facility]) Omeprazole 40 MG Delayed Release Oral Ca psule omeprazole 40 mg capsule,delayed release TAKE ONE CAPSULE BY MOUTH ONCE A DAY omeprazole 40 mg capsule,delayed release TAKE ONE CAPSULE BY MOUTH ONCE A DAY completed omeprazole 40 MG Delayed Release Oral Capsule [facility] ([facility]) pregabalin 150 MG Oral Capsule pregabali n 150 mg capsule TAKE ONE CAPSULE BY MOUTH TWICE A DAY MAXIMUM DAILY DOSE 2 pregabalin 150 mg capsule TAKE ONE CAPSULE BY MOUTH TWICE A DAY MAXIMUM DAILY DOSE 2 completed pregabalin 150 MG Oral Capsule [facility] ([facility]) Oxybutynin chloride 5 MG Oral Tablet oxybutynin chlori de 5 mg tablet oxybutynin chloride 5 mg tablet completed oxybutynin chloride 5 MG Oral Tablet [facility] ([facility]) Tamsulosin hydrochloride 0.4 MG Oral Capsule tamsulosi n 0.4 mg capsule tamsulosin 0.4 mg capsule completed tamsulosin hydrochloride 0.4 MG Oral Capsule [facility] ([facility]) Acetaminophen 325 MG / Oxycodone Hydroch loride [...] hydrochloride 5 MG Oral Tablet [facility] ([facility]) Estradiol 1 MG Oral Tablet estradiol 1 mg tablet estradiol 1 mg tablet completed estradiol 1 MG Oral Table t [facility] ([facility]) pregabalin 150 MG Oral Capsule pregabali n 150 mg capsule TAKE ONE CAPSULE BY MOUTH TWICE A DAY MAXIMUM DAILY DOSE 2 pregabalin 150 mg capsule TAKE ONE CAPSULE BY MOUTH TWICE A DAY MAXIMUM DAILY DOSE 2 completed pregabalin 150 MG Oral Capsule [facility] ([facility]) Sulfamethoxazole 800 MG / Trimethoprim 1 60 MG Oral Tablet sulfamethoxazole 800 mg-trimethoprim 160 mg tablet sulfamethoxazole 800 mg-trimethoprim 160 mg tablet completed sulfame thoxazole 800 MG / trimethoprim 160 MG Oral Tablet [facility] ([facility]) Tamsulosin hydrochloride 0.4 MG Oral Capsule tamsulosi n 0.4 mg capsule tamsulosin 0.4 mg capsule completed tamsulosin hydrochloride 0.4 MG Oral Capsule [facility] ([facility]) Oxybutynin chloride 5 MG Oral Tablet oxybutynin chlori de 5 mg tablet oxybutynin chloride 5 mg tablet completed oxybutynin chloride 5 MG Oral Tablet [facility] ([facility]) Carisoprodol 350 MG Oral Tablet carisoprodol 350 mg ta blet carisoprodol 350 mg tablet completed carisoprodol 35 0 MG Oral Tablet [facility] ([facility]) Omeprazole 40 MG Delayed Release Oral Ca psule omeprazole 40 mg capsule,delayed release TAKE ONE CAPSULE BY MOUTH ONCE A DAY omeprazole 40 mg capsule,delayed release TAKE ONE CAPSULE BY MOUTH ONCE A DAY completed omeprazole 40 MG Delayed Release Oral Capsule [facility] ([facility]) Amoxicillin 500 MG Oral Capsule amoxicil major 500 mg capsule TAKE 1 CAPSULE BY MOUTH THREE TIMES DAILY UNTIL GONE amoxicillin 500 mg capsule TAKE 1 CAPSUL E BY MOUTH THREE TIMES DAILY UNTIL GONE com pleted amoxicillin 500 MG Oral Capsule [facility] ([facility]) Carisoprodol 350 MG Oral Tablet carisoprodol 350 mg ta blet carisoprodol 350 mg tablet completed carisoprodol 35 0 MG Oral Tablet [facility] ([facility]) pregabalin 100 MG Oral Capsule pregabali n 100 mg capsule TAKE 1 CAPSULE BY MOUTH TWICE DAILY. MAXIMUM DAILY DOSE IS 2 CAPSULES pregabalin 100 mg capsule TAKE 1 CAPSULE BY MOUTH TWICE DAILY. MAXIMUM DAILY DOSE IS 2 CAPSULES completed pregabalin 100 MG Oral Capsule A [facility] ([facility]) duloxetine 30 MG Delayed Release Oral Ca psule duloxetine 30 mg capsule,delayed release duloxetine 30 mg capsule,delayed release completed duloxetine 30 MG Delayed Release Oral Capsule [facility] ([facility]) Bacitracin 0.5 UNT/MG / Polymyxin B 10 U NT/MG Ophthalmic Ointment bacitracin- polymyxin B 500 unit-10,000 unit/gram eye ointment [facility] TOPICALLY BID bacitracin- polymyxin B 500 unit-10,000 unit/gram eye ointment K[facility]CH[facility] TOPICALLY BID completed bacitracin 0.5 U NT/MG / polymyxin B 10 UNT/MG Ophthalmic Ointment [facility] ([facility]) gabapentin 600 MG Oral Tablet gabapentin 600 mg tablet TAKE 1 TABLET BY MOUTH THREE TIMES DAILY gabapentin 600 mg tablet TAKE 1 TABLET B Y MOUTH THREE TIMES DAILY completed gabapentin 600 M G Oral Tablet [facility] ([facility]) Sulfamethoxazole 800 MG / Trimethoprim 1 60 MG Oral Tablet sulfamethoxazole 800 mg-trimethoprim 160 mg tablet sulfamethoxazole 800 mg-trimethoprim 160 mg tablet completed sulfame thoxazole 800 MG / trimethoprim 160 MG Oral Tablet [facility] ([facility]) Prednisone 20 MG Oral Tablet prednisone 20 mg tablet prednisone 20 mg tablet completed prednisone 20 MG Oral Tablet [facility] ([facility]) Bacitracin 0.5 UNT/MG / Polymyxin B 10 U NT/MG Ophthalmic Ointment bacitracin- polymyxin B 500 unit-10,000 unit/gram eye ointment KANCHAN TOPICALLY BID bacitracin- polymyxin B 500 unit-10,000 unit/gram eye ointment KANCHAN TOPICALLY BID completed bacitracin 0.5 U NT/MG / polymyxin B 10 UNT/MG Ophthalmic Ointment [facility] ([facility]) Tamsulosin hydrochloride 0.4 MG Oral Capsule tamsulosi n 0.4 mg capsule tamsulosin 0.4 mg capsule completed tamsulosin hydrochloride 0.4 MG Oral Capsule [facility] ([facility]) Oxybutynin chloride 5 MG Oral Tablet oxybutynin chlori de 5 mg tablet oxybutynin chloride 5 mg tablet completed oxybutynin chloride 5 MG Oral Tablet [facility] ([facility]) gabapentin 300 MG Oral Capsule gabapentin 300 mg capsu le gabapentin 300 mg capsule completed gabapentin 300 MG Oral Capsule [facility] ([facility]) gabapentin 600 MG Oral Tablet gabapentin 600 mg tablet TAKE 1 TABLET BY MOUTH THREE TIMES DAILY gabapentin 600 mg tablet TAKE 1 TABLET B Y MOUTH THREE TIMES DAILY completed gabapentin 600 M G Oral Tablet [facility] ([facility]) Omeprazole 40 MG Delayed Release Oral Ca psule omeprazole 40 mg capsule,delayed release TAKE ONE CAPSULE BY MOUTH ONCE A DAY omeprazole 40 mg capsule,delayed release TAKE ONE CAPSULE BY MOUTH ONCE A DAY completed omeprazole 40 MG Delayed Release Oral Capsule [facility] ([facility]) gabapentin 300 MG Oral Capsule gabapentin 300 mg capsu le gabapentin 300 mg capsule completed gabapentin 300 MG Oral Capsule [facility] ([facility]) Carisoprodol 350 MG Oral Tablet carisoprodol 350 mg ta blet carisoprodol 350 mg tablet completed carisoprodol 35 0 MG Oral Tablet [facility] ([facility]) Carisoprodol 350 MG Oral Tablet carisoprodol 350 mg ta blet carisoprodol 350 mg tablet completed carisoprodol 35 0 MG Oral Tablet [facility] ([facility]) gabapentin 300 MG Oral Capsule gabapentin 300 mg capsu le gabapentin 300 mg capsule completed gabapentin 300 MG Oral Capsule [facility] ([facility]) 24 HR Bupropion Hydrochloride 150 MG Ext [...] Extended Release Oral Tablet [facility] ([facility]) Estradiol 1 MG Oral Tablet estradiol 1 mg tablet estradiol 1 mg tablet completed estradiol 1 MG Oral Table t [facility] ([facility]) Bacitracin 0.5 UNT/MG / Polymyxin B 10 U NT/MG Ophthalmic Ointment bacitracin- polymyxin B 500 unit-10,000 unit/gram eye ointment KANCHAN TOPICALLY BID bacitracin- polymyxin B 500 unit-10,000 unit/gram eye ointment KANCHAN TOPICALLY BID completed bacitracin 0.5 U NT/MG / polymyxin B 10 UNT/MG Ophthalmic Ointment [facility] ([facility]) Omeprazole 40 MG Delayed Release Oral Ca psule omeprazole 40 mg capsule,delayed release TAKE ONE CAPSULE BY MOUTH ONCE A DAY omeprazole 40 mg capsule,delayed release TAKE ONE CAPSULE BY MOUTH ONCE A DAY completed omeprazole 40 MG Delayed Release Oral Capsule [facility] ([facility]) gabapentin 300 MG Oral Capsule gabapentin 300 mg capsu le gabapentin 300 mg capsule completed gabapentin 300 MG Oral Capsule [facility] ([facility]) Prednisone 20 MG Oral Tablet prednisone 20 mg tablet prednisone 20 mg tablet completed prednisone 20 MG Oral Tablet [facility] ([facility]) Acetaminophen 325 MG / Oxycodone Hydroch loride [...] 5 MG Oral Tablet [facility] ([facility]) Oxybutynin chloride 5 MG Oral Tablet oxybutynin chlori de 5 mg tablet oxybutynin chloride 5 mg tablet completed oxybutynin chloride 5 MG Oral Tablet [facility] ([facility]) Acetaminophen 325 MG / Oxycodone Hydroch loride [...] 5 MG Oral Tablet [facility] ([facility]) Amoxicillin 500 MG Oral Capsule amoxicil major 500 mg capsule TAKE 1 CAPSULE BY MOUTH THREE TIMES DAILY UNTIL GONE amoxicillin 500 mg capsule TAKE 1 CAPSUL E BY MOUTH THREE TIMES DAILY UNTIL GONE com pleted amoxicillin 500 MG Oral Capsule [facility] ([facility]) Acetaminophen 325 MG / Oxycodone Hydroch loride [...] 5 MG Oral Tablet [facility] ([facility]) gabapentin 600 MG Oral Tablet gabapentin 600 mg tablet TAKE 1 TABLET BY MOUTH THREE TIMES DAILY gabapentin 600 mg tablet TAKE 1 TABLET B Y MOUTH THREE TIMES DAILY completed gabapentin 600 M G Oral Tablet [facility] ([facility]) 24 HR Bupropion Hydrochloride 150 MG Ext [...] Extended Release Oral Tablet [facility] ([facility]) pregabalin 100 MG Oral Capsule pregabali n 100 mg capsule TAKE 1 CAPSULE BY MOUTH TWICE DAILY. MAXIMUM DAILY DOSE IS 2 CAPSULES pregabalin 100 mg capsule TAKE 1 CAPSULE BY MOUTH TWICE DAILY. MAXIMUM DAILY DOSE IS 2 CAPSULES completed pregabalin 100 MG Oral Capsule A [facility]NA ([facility]) Omeprazole 40 MG Delayed Release Oral Ca psule omeprazole 40 mg capsule,delayed release TAKE ONE CAPSULE BY MOUTH ONCE A DAY omeprazole 40 mg capsule,delayed release TAKE ONE CAPSULE BY MOUTH ONCE A DAY completed omeprazole 40 MG Delayed Release Oral Capsule [facility] ([facility]) 24 HR Bupropion Hydrochloride 150 MG Ext [...] Extended Release Oral Tablet [facility] ([facility]) Oxybutynin chloride 5 MG Oral Tablet oxybutynin chlori de 5 mg tablet oxybutynin chloride 5 mg tablet completed oxybutynin chloride 5 MG Oral Tablet [facility] ([facility]) tramadol hydrochloride 50 MG Oral Tablet tramadol 50 m g tablet tramadol 50 mg tablet completed tramadol hydroc hloride 50 MG Oral Tablet [facility] ([facility]) Acetaminophen 325 MG / Oxycodone Hydroch loride [...] 5 MG Oral Tablet [facility] ([facility]) 24 HR Bupropion Hydrochloride 150 MG Ext [...] Extended Release Oral Tablet [facility] ([facility]) Sulfamethoxazole 800 MG / Trimethoprim 1 60 MG Oral Tablet sulfamethoxazole 800 mg-trimethoprim 160 mg tablet sulfamethoxazole 800 mg-trimethoprim 160 mg tablet completed sulfame thoxazole 800 MG / trimethoprim 160 MG Oral Tablet [facility] ([facility]) Amoxicillin 500 MG Oral Capsule amoxicil major 500 mg capsule TAKE 1 CAPSULE BY MOUTH THREE TIMES DAILY UNTIL GONE amoxicillin 500 mg capsule TAKE 1 CAPSUL E BY MOUTH THREE TIMES DAILY UNTIL GONE com pleted amoxicillin 500 MG Oral Capsule [facility] ([facility]) gabapentin 300 MG Oral Capsule gabapentin 300 mg capsu le gabapentin 300 mg capsule completed gabapentin 300 MG Oral Capsule [facility] ([facility]) gabapentin 300 MG Oral Capsule gabapentin 300 mg capsu le gabapentin 300 mg capsule completed gabapentin 300 MG Oral Capsule [facility] ([facility]) Prednisone 20 MG Oral Tablet prednisone 20 mg tablet prednisone 20 mg tablet completed prednisone 20 MG Oral Tablet [facility] ([facility]) Insurance Providers Payer name Policy type / Coverage type Policy ID Covered green party ID Covered green party's relationship to long Policy Long Plan Information [place] [employer] Part B [id number] Self [id number] [place] Part B [id number] [id number] [facility] VYA [id number] [place] [employer] Part B [id number] Self [id number] [place] [employer] Part B [id number] Self V [id number] [place] Commercial [id number] Self [place] [employer] Part B [id number] Self V [id number] [facility] [id number] [facility] (pr) Commercial [id number] Self [id number] [facility] (pr) Medigap Part B [id number] Self [id number] [facility] [id number] [place] [employer] [id number] Self [id number] ANSI-Commercial [id number] ANSI-Commercial [id number] [place] 306/806 [id number] SP [id number] ANSI-Commercial [id number] ANSI-Commercial [id number] [employer] [place] [facility] PPO 302/307 [id number] SP [id number] ANSI-Commercial [id number] ANSI-Commercial [id number] ANSI-Commercial [id number] [employer] Commercial [id number] Self [id number] ANSI-Commercial [id number] ANSI-Commercial [id number] ANSI-Commercial [id number] ANSI-Commercial [id number] ANSI-Commercial [id number] ANSI-Commercial [id number] ANSI-Commercial [id number] [employer] Commercial [id number] Self [id number] ANSI-Commercial [id number] [employer] BCBS B [id number] S VYA [id number] [employer] [place] PPO 302/307 [id number] SP [id number] ANSI-Commercial [id number] ANSI-Commercial [id number] ANSI-Commercial [id number] ANSI-Commercial [id number] ANSI-Commercial [id number] ANSI-Commercial [id number] ANSI-Commercial [id number] ANSI-Commercial [id number] [facility] Commercial [id number] Self [id number] [employer] [place] 306/806 [id number] SP [id number] [employer] [place] 306/806 [id number] SP [id number] [employer] BCBS B [id number] S VYA [id number] [employer] Commercial [id number] Self [employer] [place] 306/806 [id number] SP [id number] [place] [place] 306/806 [id number] SP [id number] [employer] [place] 306/806 [id number] SP [id number] [employer] [place] PPO 302/307 [id number] SP [id number] [employer] [id number] SP [id number] [employer] PLUS [id number] SP [id number] [employer] PLUS [id number] SP [id number] [employer] PLUS [id number] SP [id number] [facility] O [id number] S [id number] [facility] [id number] 0 [id number] [facility] [id number] SP [id number] [employer] [place] 306/806 [id number] SP [id number] ANSI-Commercial [id number] Problems, Conditions, and Diagnoses Code Display Name Description Problem Type Effective Dates Data Source(s) D50.8 [id number] Other iron deficiency anemia Problem 021 12:00:00 AM EDT [facility] ([facility]) M25.511 [id number] Right shoulder pain, unspecified chronici ty Problem 11/16/2020 12:00:00 AM EDT eC ([facility]) Surgeries/Procedures Procedure Description Date Indications Data Source(s) Imm: Flublok Quadrivalent 18 years & older 0.5mL IM Influenz a 05/26/2021 12:00:00 AM EDT eC ([facility]) RADEX SPINE CRV COMPL W/OBLQ&FLEX&/XTN STDS 04/01/2021 12:00:00 AM EDT [facility] ([facility] ) RADEX TOE MINIMUM 2 VIEWS 04/01/2021 12:00:00 AM EDT [facility] ([facility]) OFFICE OUTPATIENT VISIT 25 MINUTES 04/01/2021 12:00:00 AM EDT [facility] ([facility]) RADEX TOE MINIMUM 2 VIEWS 04/01/2021 12:00:00 AM EDT [facility] ([facility]) OFFICE OUTPATIENT VISIT 25 MINUTES 01/21/2021 12:00:00 AM EDT [facility] ([facility]) MRI, cervical spine, w/o contrast 11/16/2020 12:00:00 AM EDT [facility] ([facility]) OFFICE OUTPATIENT VISIT 15 MINUTES 11/13/2020 12:00:00 AM EDT [facility] ([facility]) OFFICE OUTPATIENT VISIT 25 MINUTES 10/06/2020 12:00:00 AM EST [facility] ([facility]) Immunization: Flublok Quadrivalent (18 years & older) 0.5mL IM (Influenza) 05/11/2020 12:00:00 AM EDT eC1 ([facility]) Results ID Date Data Source [id number] 05/21/2021 12:00:00 AM EDT T[facility] ([facility]) Name Value Range Interpretation Code Description Data Emmy rce(s) Supporting Document(s) SARS-CoV-2 (COVID-19) RNA [Presence] in Respiratory specimen by ENRIQUE with probe detection negative negative Sars-cov-2 [facility] ([facility]) ID Date Data Source [id number] 05/21/2021 12:00:00 AM EDT [facility] ([facility]) Name Value Range Interpretation Code Description Data Emmy rce(s) Supporting Document(s) ID Date Data Source [id number] 05/21/2021 12:00:00 AM EDT [facility] Name Value Range Interpretation Code Description Data Emmy rce(s) Supporting Document(s) SARS-CoV-2 NEGATIVE [facility] This lab was ordered by [facility]-C[facility] and reported by [employer]. ID Date Data Source [id number] 05/21/2021 12:00:00 AM EDT [facility] ([facility]) Name Value Range Interpretation Code Description Data Emmy rce(s) Supporting Document(s) SARS-CoV-2 (COVID-19) RNA [Presence] in Respiratory specimen by ENRIQUE with probe detection negative negative Sars-cov-2 [facility] ([facility]) ID Date Data Source [id number] 05/21/2021 12:00:00 AM EDT [facility] ([facility]) Name Value Range Interpretation Code Description Data Emmy rce(s) Supporting Document(s) ID Date Data Source [id number] 04/01/2021 11:45:00 AM EDT [facility] ([facility]) Name Value Range Interpretation Code Description Data Emmy rce(s) Supporting Document(s) C reactive protein [Mass/volume] in Serum or Plasma by High sensitivity method Laboratory test result 0.00-0.30 [facility] ([facility]) Erythrocyte sedimentation rate by Westergren method 19 mm/hr 0-30 [facility] ([facility]) ID Date Data Source [id number] 10/06/2020 05:23:00 PM EST [facility] ([facility]) Name Value Range Interpretation Code Description Data Emmy rce(s) Supporting Document(s) Antinuclear Antibodies Direct Laboratory test result [facility] ([facility]) Performed at: - [facility] [place] [id number] [employer]er: Lana Beckwith MD, Phone: [phone] ID Date Data Source [id number] 10/06/2020 05:23:00 PM EST [facility] ([facility]) Name Value Range Interpretation Code Description Data Emmy rce(s) Supporting Document(s) Rheumatoid factor [Units/volume] in Serum or Plasma Laboratory test result [facility] ([facility]) ID Date Data Source [id number] 09/04/2020 12:00:00 AM EST [facility] ([facility]) Name Value Range Interpretation Code Description Data Emmy rce(s) Supporting Document(s) SARS-CoV-2 (COVID-19) RNA [Presence] in Respiratory specimen by ENRIQUE with probe detection negative negative Sars-cov-2 [facility] ([facility]) ID Date Data Source [id number] 09/04/2020 12:00:[address] ([facility]) Name Value Range Interpretation Code Description Data Emmy rce(s) Supporting Document(s) ID Date Data Source [id number] 09/04/2020 12:00:00 AM EST [facility] ([facility]) Name Value Range Interpretation Code Description Data Emmy rce(s) Supporting Document(s) SARS-CoV-2 (COVID-19) RNA [Presence] in Respiratory specimen by ENRIQUE with probe detection negative negative Sars-cov-2 [facility] ([facility]) ID Date Data Source [id number] 09/04/2020 12:00:[address] ([facility]) Name Value Range Interpretation Code Description Data Emmy rce(s) Supporting Document(s) ID Date Data Source [id number] 09/04/2020 12:00:[address] ([facility]) Name Value Range Interpretation Code Description Data Emmy rce(s) Supporting Document(s) SARS-CoV-2 (COVID-19) RNA [Presence] in Respiratory specimen by ENRIQUE with probe detection negative negative Sars-cov-2 [facility] ([facility]) ID Date Data Source [id number] 09/04/2020 12:00:00 AM EST [facility] ([facility]) Name Value Range Interpretation Code Description Data Emmy rce(s) Supporting Document(s) ID Date Data Source [id number] 09/04/2020 12:00:00 AM EST [facility] ([facility]) Name Value Range Interpretation Code Description Data Emmy rce(s) Supporting Document(s) SARS-CoV-2 (COVID-19) RNA [Presence] in Respiratory specimen by ENRIQUE with probe detection negative negative Sars-cov-2 [facility] ([facility]) ID Date Data Source [id number] 09/04/2020 12:00:[address] ([facility]) Name Value Range Interpretation Code Description Data Emmy rce(s) Supporting Document(s) ID Date Data Source [id number] 09/04/2020 12:00:[address] ([facility]) Name Value Range Interpretation Code Description Data Emmy rce(s) Supporting Document(s) SARS-CoV-2 (COVID-19) RNA [Presence] in Respiratory specimen by ENRIQUE with probe detection negative negative Sars-cov-[address] ([facility]) ID Date Data Source [id number] 09/04/2020 12:00:[address] ([facility]) Name Value Range Interpretation Code Description Data Emmy rce(s) Supporting Document(s) ID Date Data Source [id number] 09/04/2020 12:00:[address] ([facility]) Name Value Range Interpretation Code Description Data Emmy rce(s) Supporting Document(s) SARS-CoV-2 (COVID-19) RNA [Presence] in Respiratory specimen by ENRIQUE with probe detection negative negative Sars-cov-2 [facility] ([facility]) ID Date Data Source [id number] 09/04/2020 12:00:[address] ([facility]) Name Value Range Interpretation Code Description Data Emmy rce(s) Supporting Document(s) ID Date Data Source [id number] 09/04/2020 12:00:[address] ([facility]) Name Value Range Interpretation Code Description Data Emmy rce(s) Supporting Document(s) SARS-CoV-2 (COVID-19) RNA [Presence] in Respiratory specimen by ENRIQUE with probe detection negative negative Sars-cov-2 [facility] ([facility]) ID Date Data Source [id number] 09/04/2020 12:00:00 AM EST [facility] ([facility]) Name Value Range Interpretation Code Description Data Emmy rce(s) Supporting Document(s) ID Date Data Source [id number] 09/04/2020 12:00:00 AM EST [facility] ([facility]) Name Value Range Interpretation Code Description Data Emmy rce(s) Supporting Document(s) SARS-CoV-2 (COVID-19) RNA [Presence] in Respiratory specimen by ENRIQUE with probe detection negative negative Sars-cov-2 [facility] ([facility]) ID Date Data Source [id number] 09/04/2020 12:00:00 AM EST [facility] ([facility]) Name Value Range Interpretation Code Description Data Emmy rce(s) Supporting Document(s) ID Date Data Source [id number] 09/04/2020 12:00:00 AM EST [facility] ([facility]) Name Value Range Interpretation Code Description Data Emmy rce(s) Supporting Document(s) SARS-CoV-2 (COVID-19) RNA [Presence] in Respiratory specimen by ENRIQUE with probe detection negative negative Sars-cov-2 [facility] ([facility]) ID Date Data Source [id number] 09/04/2020 12:00:00 AM EST [facility] ([facility]) Name Value Range Interpretation Code Description Data Emmy rce(s) Supporting Document(s) ID Date Data Source [id number] 09/04/2020 12:00:00 AM EST [facility] ([facility]) Name Value Range Interpretation Code Description Data Emmy rce(s) Supporting Document(s) SARS-CoV-2 (COVID-19) RNA [Presence] in Respiratory specimen by ENRIQUE with probe detection negative negative Sars-cov-2 [facility] ([facility]) ID Date Data Source [id number] 09/04/2020 12:00:00 AM EST [facility] ([facility]) Name Value Range Interpretation Code Description Data Emmy rce(s) Supporting Document(s) ID Date Data Source [id number] 09/04/2020 12:00:00 AM EST [facility] ([facility]) Name Value Range Interpretation Code Description Data Emmy rce(s) Supporting Document(s) SARS-CoV-2 (COVID-19) RNA [Presence] in Respiratory specimen by ENRIQUE with probe detection negative negative Sars-cov-2 [facility] ([facility]) ID Date Data Source [id number] 09/04/2020 12:00:00 AM EST [facility] ([facility]) Name Value Range Interpretation Code Description Data Emmy rce(s) Supporting Document(s) ID Date Data Source [id number] 09/04/2020 12:00:00 AM EST [facility] Name Value Range Interpretation Code Description Data Emmy rce(s) Supporting Document(s) SARS-CoV-2 NEGATIVE [facility] This lab was ordered by [facility] and reported by [employer]. ID Date Data Source [id number] 05/25/2020 12:00:00 AM EDT [facility] ([facility]) Name Value Range Interpretation Code Description Data Emmy rce(s) Supporting Document(s) SARS-CoV-2 (COVID-19) RNA [Presence] in Respiratory specimen by ENRIQUE with probe detection negative negative Sars-cov-2 [facility] ([facility]) ID Date Data Source [id number] 05/25/2020 12:00:00 AM EDT [facility] ([facility]) Name Value Range Interpretation Code Description Data Emmy rce(s) Supporting Document(s) ID Date Data Source [id number] 05/25/2020 12:00:[address] ([facility]) Name Value Range Interpretation Code Description Data Emmy rce(s) Supporting Document(s) SARS-CoV-2 (COVID-19) RNA [Presence] in Respiratory specimen by ENRIQUE with probe detection negative negative Sars-cov-2 [facility] ([facility]) ID Date Data Source [id number] 05/25/2020 12:00:[address] ([facility]) Name Value Range Interpretation Code Description Data Emmy rce(s) Supporting Document(s) ID Date Data Source [id number] 05/25/2020 12:00:00 AM EDT [facility] ([facility]) Name Value Range Interpretation Code Description Data Emmy rce(s) Supporting Document(s) SARS-CoV-2 (COVID-19) RNA [Presence] in Respiratory specimen by ENRIQUE with probe detection negative negative Sars-cov-2 [facility] ([facility]) ID Date Data Source [id number] 05/25/2020 12:00:00 AM EDT [facility] ([facility]) Name Value Range Interpretation Code Description Data Emmy rce(s) Supporting Document(s) ID Date Data Source [id number] 05/25/2020 12:00:00 AM EDT [facility] ([facility]) Name Value Range Interpretation Code Description Data Emmy rce(s) Supporting Document(s) SARS-CoV-2 (COVID-19) RNA [Presence] in Respiratory specimen by ENRIQUE with probe detection negative negative Sars-cov-2 [facility] ([facility]) ID Date Data Source [id number] 05/25/2020 12:00:00 AM EDT [facility] ([facility]) Name Value Range Interpretation Code Description Data Emmy rce(s) Supporting Document(s) ID Date Data Source [id number] 05/25/2020 12:00:00 AM EDT [facility] ([facility]) Name Value Range Interpretation Code Description Data Emmy rce(s) Supporting Document(s) SARS-CoV-2 (COVID-19) RNA [Presence] in Respiratory specimen by ENRIQUE with probe detection negative negative Sars-cov-2 TALIA ([facility]) ID Date Data Source [id number] 05/25/2020 12:00:00 AM EDT [facility]AL[facility] ([facility]) Name Value Range Interpretation Code Description Data Emmy rce(s) Supporting Document(s) ID Date Data Source [id number] 05/25/2020 12:00:00 AM EDT TALIA ([facility]) Name Value Range Interpretation Code Description Data Emmy rce(s) Supporting Document(s) SARS-CoV-2 (COVID-19) RNA [Presence] in Respiratory specimen by ENRIQUE with probe detection negative negative Sars-cov-2 TALIA ([facility]) ID Date Data Source [id number] 05/25/2020 12:00:[address] ([facility]) Name Value Range Interpretation Code Description Data Emmy rce(s) Supporting Document(s) ID Date Data Source [id number] 05/25/2020 12:00:00 AM EDT TALIA ([facility]) Name Value Range Interpretation Code Description Data Emmy rce(s) Supporting Document(s) SARS-CoV-2 (COVID-19) RNA [Presence] in Respiratory specimen by ENRIQUE with probe detection negative negative Sars-cov-2 TALIA ([facility]) ID Date Data Source [id number] 05/25/2020 12:00:00 AM EDT TALIA ([facility]) Name Value Range Interpretation Code Description Data Emmy rce(s) Supporting Document(s) ID Date Data Source [id number] 05/25/2020 12:00:00 AM EDT TALIA ([facility]) Name Value Range Interpretation Code Description Data Emmy rce(s) Supporting Document(s) SARS-CoV-2 (COVID-19) RNA [Presence] in Respiratory specimen by ENRIQUE with probe detection negative negative Sars-cov-2 TALIA ([facility]) ID Date Data Source [id number] 05/25/2020 12:00:[address] ([facility]) Name Value Range Interpretation Code Description Data Emmy rce(s) Supporting Document(s) ID Date Data Source [id number] 05/25/2020 12:00:00 AM EDT TALIA ([facility]) Name Value Range Interpretation Code Description Data Emmy rce(s) Supporting Document(s) SARS-CoV-2 (COVID-19) RNA [Presence] in Respiratory specimen by ENRIQUE with probe detection negative negative Sars-cov-2 [facility] ([facility]) ID Date Data Source [id number] 05/25/2020 12:00:00 AM EDT [facility]ALIA ([facility]) Name Value Range Interpretation Code Description Data Emmy rce(s) Supporting Document(s) ID Date Data Source [id number] 05/25/2020 12:00:00 AM EDT TALIA ([facility]) Name Value Range Interpretation Code Description Data Emmy rce(s) Supporting Document(s) SARS-CoV-2 (COVID-19) RNA [Presence] in Respiratory specimen by ENRIQUE with probe detection negative negative Sars-cov-2 TALIA ([facility]) ID Date Data Source [id number] 05/25/2020 12:00:00 AM EDT [facility]ALIA ([facility]) Name Value Range Interpretation Code Description Data Emmy rce(s) Supporting Document(s) ID Date Data Source [id number] 05/25/2020 12:00:00 AM EDT TALIA ([facility]) Name Value Range Interpretation Code Description Data Emmy rce(s) Supporting Document(s) SARS-CoV-2 (COVID-19) RNA [Presence] in Respiratory specimen by ENRIQUE with probe detection negative negative Sars-cov-2 TALIA ([facility]) ID Date Data Source [id number] 05/25/2020 12:00:00 AM EDT [facility] ([facility]) Name Value Range Interpretation Code Description Data Emmy rce(s) Supporting Document(s) ID Date Data Source [id number] 05/25/2020 12:00:00 AM EDT TALIA ([facility]) Name Value Range Interpretation Code Description Data Emmy rce(s) Supporting Document(s) SARS-CoV-2 (COVID-19) RNA [Presence] in Respiratory specimen by ENRIQUE with probe detection negative negative Sars-cov-2 [facility] ([facility]) ID Date Data Source [id number] 05/25/2020 12:00:00 AM EDT [facility]ALIA ([facility]) Name Value Range Interpretation Code Description Data Emmy rce(s) Supporting Document(s) ID Date Data Source [id number] 05/25/2020 12:00:00 AM EDT TALIA ([facility]) Name Value Range Interpretation Code Description Data Emmy rce(s) Supporting Document(s) SARS-CoV-2 (COVID-19) RNA [Presence] in Respiratory specimen by ENRIQUE with probe detection negative negative Sars-cov-2 TALIA ([facility]) ID Date Data Source [id number] 05/25/2020 12:00:00 AM EDT [facility]ALIA ([facility]) Name Value Range Interpretation Code Description Data Emmy rce(s) Supporting Document(s) ID Date Data Source [id number] 05/25/2020 12:00:00 AM EDT TALIA ([facility]) Name Value Range Interpretation Code Description Data Emmy rce(s) Supporting Document(s) SARS coronavirus 2 RNA [Presence] in Res piratory specimen by ENRIQUE with probe detection negative negative Sars-cov-2 [facility] ([facility]) ID Date Data Source [id number] 05/25/2020 12:00:00 AM EDT [facility] ([facility]) Name Value Range Interpretation Code Description Data Emmy rce(s) Supporting Document(s) ID Date Data Source [id number] 05/25/2020 12:00:00 AM EDT [facility]ALIA ([facility]) Name Value Range Interpretation Code Description Data Emmy rce(s) Supporting Document(s) SARS coronavirus 2 RNA [Presence] in Res piratory specimen by ENRIQUE with probe detection negative negative Sars-cov-2 [facility]IA ([facility]) ID Date Data Source [id number] 05/25/2020 12:00:00 AM EDT [facility]ALIA ([facility]) Name Value Range Interpretation Code Description Data Emmy rce(s) Supporting Document(s) ID Date Data Source [id number] 05/25/2020 12:00:00 AM EDT [facility] Name Value Range Interpretation Code Description Data Emmy rce(s) Supporting Document(s) SARS-CoV-2 [facility] This lab was ordered by [facility]-C[facility]19 and reported by [employer]. ID Date Data Source Comprehensive Metabolic Profile (CMP) 05/08/2020 09:14:48 AM EDT eCW1 ([facility]) Name Value Range Interpretation Code Description Data Emmy rce(s) Supporting Document(s) 105 GLUCOSE, FASTING eCW1 ([facility]) 13 BLOOD UREA NITROGEN eCW1 ([facility]) 0.55 CREATININE FOR GFR eCW1 ([facility]) > 60.0 GLOMERULAR FILTRATION RATE eCW 1 ([facility]) 142 SODIUM LEVEL eCW1 ([facility]) 105 CHLORIDE LEVEL eCW1 ([facility]) 3.9 POTASSIUM SERUM eCW1 ([facility]) 9.7 CALCIUM LEVEL eCW1 ([facility]) 30 CARBON DIOXIDE LEVEL eCW1 ([facility]) 97 ALKALINE PHOSPHATASE eCW1 ([facility]) 25 ALT/SGPT eCW1 ([facility]) 23 AST/SGOT eCW1 ([facility]) 7.6 TOTAL PROTEIN eCW1 ([facility]) 0.2 BILIRUBIN,TOTAL eCW1 ([facility]) 3.9 ALBUMIN eCW1 ([facility]) 1.1 ALBUMIN/GLOBULIN RATIO eCW1 ([facility]) ID Date Data Source CBC - Complete Blood Count 05/08/2020 09:14:12 AM EDT eCW1 ( [facility]) Name Value Range Interpretation Code Description Data Emmy rce(s) Supporting Document(s) 7.5 WHITE BLOOD COUNT eCW1 ([facility]) 13.3 HEMOGLOBIN eCW1 ([facility]) 4.70 RED BLOOD COUNT eCW1 ([facility]) 93.2 MEAN CORPUSCULAR VOLUME eCW1 ( [facility]) 43.8 HEMATOCRIT eCW1 ([facility]) 28.3 MEAN CORPUSCULAR HEMOGLOBIN eC W1 ([facility]) 30.4 MEAN CORPUSCULAR HGB CONC eCW1 ([facility]) 13.2 RED CELL DISTRIBUTION WIDTH eC W1 ([facility]) 429 PLATELET COUNT, AUTOMATED eCW1 ([facility]) ID Date Data Source LIPID PANEL (CARDIAC RISK) 05/08/2020 09:13:31 AM EDT eCW1 ( [facility]) Name Value Range Interpretation Code Description Data Emmy rce(s) Supporting Document(s) Triglyceride [Mass/volume] in Serum or Plasma by calculation 116 TRIGLYCERIDES LEVEL eCW1 ([facility]) Cholesterol [Moles/volume] in Serum or Plasma 184 CHOLESTEROL LEVEL eCW1 ([facility]) Cholesterol in HDL [Moles/volume] in Serum or Plasma 61 HDL CHOLESTEROL eCW1 ([facility]) 3.016 CHOLESTEROL RISK RATIO eCW1 ([facility]) Cholesterol in LDL [Mass/volume] in Serum or Plasma by calculation 100 LDL CHOLESTEROL eCW1 ([facility]) 123 NON-HDL-C eCW1 ([facility]) ID Date Data Source [id number] 05/08/2020 09:13:21 AM EDT eCW1 ([facility]) Name Value Range Interpretation Code Description Data Emmy rce(s) Supporting Document(s) Hemoglobin A1c/Hemoglobin.total in Blood 6.7 HEMOGLOBIN A1c eCW1 ([facility]) Procedure Social History Code Duration Value Status Description Data Source(s ) Smoking 05/15/2021 12:00:00 AM EDT Never Smoker completed Never S moker eCW1 ([facility]) Smoking 05/15/2021 12:00:00 AM EDT Never Smoker completed Never S moker eCW1 ([facility]) Smoking 05/15/2021 12:00:00 AM EDT Never Smoker completed Never S moker eCW1 ([facility]) Smoking 05/15/2021 12:00:00 AM EDT Never Smoker completed Never S moker eCW1 ([facility]) Smoking 04/01/2021 12:00:00 AM EDT Patient has never smoked co mpleted Patient has never smoked MEDENT ([facility]) Smoking 11/16/2020 12:00:00 AM EDT Never Smoker completed Never S moker eCW1 ([facility]) Smoking 11/16/2020 12:00:00 AM EDT Never Smoker completed Never S moker eCW1 ([facility]) Smoking 11/16/2020 12:00:00 AM EDT Never Smoker completed Never S moker eCW1 ([facility]) Smoking 11/16/2020 12:00:00 AM EDT Never Smoker completed Never S moker eCW1 ([facility]) Smoking 11/16/2020 12:00:00 AM EDT Never Smoker completed Never S moker eCW1 ([facility]) Smoking 11/16/2020 12:00:00 AM EDT Never Smoker completed Never S moker eCW1 ([facility]) Smoking 11/16/2020 12:00:00 AM EDT Never Smoker completed Never S moker eCW1 ([facility]) Smoking 11/16/2020 12:00:00 AM EDT Never Smoker completed Never S moker eCW1 ([facility]) Smoking 11/16/2020 12:00:00 AM EDT Never Smoker completed Never S moker eCW1 ([facility]) Smoking 11/16/2020 12:00:00 AM EDT Never Smoker completed Never S moker eCW1 ([facility]) Smoking 11/16/2020 12:00:00 AM EDT Never Smoker completed Never S moker eCW1 ([facility]) Smoking 10/12/2020 12:00:00 AM EDT Never Smoker completed Never S moker eCW1 ([facility]) Smoking 10/12/2020 12:00:00 AM EDT Never Smoker completed Never S moker eCW1 ([facility]) Smoking 07/15/2020 12:00:00 AM EST Never Smoker completed Never S moker eCW1 ([facility]) Smoking 07/15/2020 12:00:00 AM EST Never Smoker completed Never S moker eCW1 ([facility]) Smoking 07/15/2020 12:00:00 AM EST Never Smoker completed Never S moker eCW1 ([facility]) Smoking 07/15/2020 12:00:00 AM EST Never Smoker completed Never S moker eCW1 ([facility]) Smoking 05/11/2020 12:00:00 AM EDT Never Smoker completed Never S moker eCW1 ([facility]) Smoking 05/11/2020 12:00:00 AM EDT Never Smoker completed Never S moker eCW1 ([facility]) Smoking 05/11/2020 12:00:00 AM EDT Never Smoker completed Never S moker eCW1 ([facility]) Smoking 05/11/2020 12:00:00 AM EDT Never Smoker completed Never S moker eCW1 ([facility]) Vital Signs ID Date Data Source [id number] Name Value Range Interpretation Code Description Data Source(s) Diastolic blood pressure 85 mm[Hg] 85 mm[Hg] TALIA ([facility]) Body height 65 [in_i] 65 [in_i] TALIA ([facility]) Systolic blood pressure 128 mm[Hg] 128 mm[Hg] A THENA ([facility]) Body weight 175.2 [lb_av] 175.2 [lb_av] eCW1 ([facility]) Body height 65.25 [in_i] 65.25 [in_i] eCW1 ([facility]) Body mass index (BMI) [Ratio] 28.93 kg/m2 28.93 kg/m2 W1 ([facility]) Heart rate 94 /min 94 /min eCW1 ([facility]) Respiratory rate 18 /min 18 /min eCW1 ([facility]) Body temperature 97.7 [degF] 97.7 [degF] eCW1 ( [facility]) Systolic blood pressure 128 mm[Hg] 128 mm[Hg] e CW1 ([facility]) Diastolic blood pressure 82 mm[Hg] 82 mm[Hg] eCW1 ([facility]) Diastolic blood pressure 84 mm[Hg] 84 mm[Hg] TALIA ([facility]) Body height 65 [in_i] 65 [in_i] TALIA ([facility]) Systolic blood pressure 143 mm[Hg] 143 mm[Hg] A THENA ([facility]) Diastolic blood pressure 84 mm[Hg] 84 mm[Hg] TALIA ([facility]) Body height 65 [in_i] 65 [in_i] [facility]IA ([facility]) Systolic blood pressure 143 mm[Hg] 143 mm[Hg] A THENA ([facility]) Diastolic blood pressure 84 mm[Hg] 84 mm[Hg] TALIA ([facility]) Body height 65 [in_i] 65 [in_i] TALIA ([facility]) Systolic blood pressure 143 mm[Hg] 143 mm[Hg] A THENA ([facility]) Diastolic blood pressure 84 mm[Hg] 84 mm[Hg] TALIA ([facility]) Body height 65 [in_i] 65 [in_i] TALIA ([facility]) Systolic blood pressure 143 mm[Hg] 143 mm[Hg] A THENA ([facility]) Diastolic blood pressure 82 mm[Hg] 82 mm[Hg] TALIA ([facility]) Body height 65 [in_i] 65 [in_i] TALIA ([facility]) Systolic blood pressure 125 mm[Hg] 125 mm[Hg] A THENA ([facility]) Diastolic blood pressure 82 mm[Hg] 82 mm[Hg] TALIA ([facility]) Body height 65 [in_i] 65 [in_i] TALIA ([facility]) Systolic blood pressure 125 mm[Hg] 125 mm[Hg] A THENA ([facility]) Diastolic blood pressure 82 mm[Hg] 82 mm[Hg] TALIA ([facility]) Body height 65 [in_i] 65 [in_i] TALIA ([facility]) Systolic blood pressure 125 mm[Hg] 125 mm[Hg] A THENA ([facility]) Diastolic blood pressure 82 mm[Hg] 82 mm[Hg] TALIA ([facility]) Body height 65 [in_i] 65 [in_i] TALIA ([facility]) Systolic blood pressure 125 mm[Hg] 125 mm[Hg] A THENA ([facility]) Diastolic blood pressure 82 mm[Hg] 82 mm[Hg] TALIA ([facility]) Body height 65 [in_i] 65 [in_i] TALIA ([facility]) Systolic blood pressure 125 mm[Hg] 125 mm[Hg] A THENA ([facility]) Diastolic blood pressure 61 mm[Hg] 61 mm[Hg] TALIA ([facility]) Body height 65 [in_i] 65 [in_i] TALIA ([facility]) Systolic blood pressure 109 mm[Hg] 109 mm[Hg] A THENA ([facility]) Diastolic blood pressure 61 mm[Hg] 61 mm[Hg] TALIA ([facility]) Body height 65 [in_i] 65 [in_i] TALIA ([facility]) Systolic blood pressure 109 mm[Hg] 109 mm[Hg] A THENA ([facility]) Diastolic blood pressure 61 mm[Hg] 61 mm[Hg] TALIA ([facility]) Body height 65 [in_i] 65 [in_i] TALIA ([facility]) Systolic blood pressure 109 mm[Hg] 109 mm[Hg] A THENA ([facility]) Diastolic blood pressure 61 mm[Hg] 61 mm[Hg] TALIA ([facility]) Body height 65 [in_i] 65 [in_i] TALIA ([facility]) Systolic blood pressure 109 mm[Hg] 109 mm[Hg] A THENA ([facility]) Diastolic blood pressure 61 mm[Hg] 61 mm[Hg] TALIA ([facility]) Body height 65 [in_i] 65 [in_i] TALIA ([facility]) Systolic blood pressure 109 mm[Hg] 109 mm[Hg] A THENA ([facility]) Diastolic blood pressure 61 mm[Hg] 61 mm[Hg] TALIA ([facility]) Body height 65 [in_i] 65 [in_i] TALIA ([facility]) Systolic blood pressure 109 mm[Hg] 109 mm[Hg] A THENA ([facility]) Body height 64.5 [in_i] 64.5 [in_i] MEDENT ([facility]) 5'4.50" Body temperature 97.5 [degF] 97.5 [degF] MEDENT ([facility]) Body weight 167.50 [lb_av] 167.50 [lb_av] MEDEN T ([facility]) Body mass index (BMI) [Ratio] 28.3 kg/m2 28.3 k g/m2 MEDENT ([facility]) Diastolic blood pressure 81 mm[Hg] 81 mm[Hg] TALIA ([facility]) Body height 65 [in_i] 65 [in_i] TALIA ([facility]) Systolic blood pressure 128 mm[Hg] 128 mm[Hg] A THENA ([facility]) Diastolic blood pressure 81 mm[Hg] 81 mm[Hg] TALIA ([facility]) Body height 65 [in_i] 65 [in_i] TALIA ([facility]) Systolic blood pressure 128 mm[Hg] 128 mm[Hg] A THENA ([facility]) Diastolic blood pressure 81 mm[Hg] 81 mm[Hg] TALIA ([facility]) Body height 65 [in_i] 65 [in_i] TALIA ([facility]) Systolic blood pressure 128 mm[Hg] 128 mm[Hg] A THENA ([facility]) Systolic blood pressure 128 mm[Hg] 128 mm[Hg] A THENA ([facility]) Diastolic blood pressure 81 mm[Hg] 81 mm[Hg] TALIA ([facility]) Body height 65 [in_i] 65 [in_i] TALIA ([facility]) Diastolic blood pressure 81 mm[Hg] 81 mm[Hg] TALIA ([facility]) Body height 65 [in_i] 65 [in_i] TALIA ([facility]) Systolic blood pressure 128 mm[Hg] 128 mm[Hg] A THENA ([facility]) Diastolic blood pressure 81 mm[Hg] 81 mm[Hg] TALIA ([facility]) Body height 65 [in_i] 65 [in_i] TALIA ([facility]) Systolic blood pressure 128 mm[Hg] 128 mm[Hg] A THENA ([facility]) Diastolic blood pressure 81 mm[Hg] 81 mm[Hg] TALIA ([facility]) Body height 65 [in_i] 65 [in_i] TALIA ([facility]) Systolic blood pressure 128 mm[Hg] 128 mm[Hg] A THENA ([facility]) Body weight 166.4 [lb_av] 166.4 [lb_av] eCW1 ([facility]) Body height 65.25 [in_i] 65.25 [in_i] eCW1 ([facility]) Body mass index (BMI) [Ratio] 27.48 kg/m2 27.48 kg/m2 eCW1 ([facility]) Heart rate 93 /min 93 /min eCW1 ([facility]) Respiratory rate 18 /min 18 /min eCW1 ([facility]) Body temperature 97.7 [degF] 97.7 [degF] eCW1 ( [facility]) Systolic blood pressure 136 mm[Hg] 136 mm[Hg] e CW1 ([facility]) Diastolic blood pressure 90 mm[Hg] 90 mm[Hg] eCW1 ([facility]) Diastolic blood pressure 88 mm[Hg] 88 mm[Hg] TALIA ([facility]) Body height 65 [in_i] 65 [in_i] TALIA ([facility]) Systolic blood pressure 133 mm[Hg] 133 mm[Hg] A THENA ([facility]) Diastolic blood pressure 88 mm[Hg] 88 mm[Hg] TALIA ([facility]) Body height 65 [in_i] 65 [in_i] TALAI ([facility]) Systolic blood pressure 133 mm[Hg] 133 mm[Hg] A THENA ([facility]) Diastolic blood pressure 88 mm[Hg] 88 mm[Hg] TALIA ([facility]) Body height 65 [in_i] 65 [in_i] TALIA ([facility]) Systolic blood pressure 133 mm[Hg] 133 mm[Hg] A THENA ([facility]) Diastolic blood pressure 88 mm[Hg] 88 mm[Hg] TALIA ([facility]) Body height 65 [in_i] 65 [in_i] TALIA ([facility]) Systolic blood pressure 133 mm[Hg] 133 mm[Hg] A THENA ([facility]) Diastolic blood pressure 88 mm[Hg] 88 mm[Hg] TALIA ([facility]) Body height 65 [in_i] 65 [in_i] TALIA ([facility]) Systolic blood pressure 133 mm[Hg] 133 mm[Hg] A THENA ([facility]) Body height 65 [in_i] 65 [in_i] TALIA ([facility]) Systolic blood pressure 133 mm[Hg] 133 mm[Hg] A THENA ([facility]) Diastolic blood pressure 88 mm[Hg] 88 mm[Hg] TALIA ([facility]) Diastolic blood pressure 88 mm[Hg] 88 mm[Hg] TALIA ([facility]) Body height 65 [in_i] 65 [in_i] TALIA ([facility]) Diastolic blood pressure 88 mm[Hg] 88 mm[Hg] TALIA ([facility]) Body height 65 [in_i] 65 [in_i] TALIA ([facility]) Systolic blood pressure 133 mm[Hg] 133 mm[Hg] A THENA ([facility]) Systolic blood pressure 133 mm[Hg] 133 mm[Hg] A THENA ([facility]) Diastolic blood pressure 88 mm[Hg] 88 mm[Hg] TALIA ([facility]) Body height 65 [in_i] 65 [in_i] TALIA ([facility]) Systolic blood pressure 133 mm[Hg] 133 mm[Hg] A THENA ([facility]) Body weight 164.6 [lb_av] 164.6 [lb_av] eCW1 ([facility]) Body height 65.25 [in_i] 65.25 [in_i] eCW1 ([facility]) Body mass index (BMI) [Ratio] 27.18 kg/m2 27.18 kg/m2 eCW1 ([facility]) Heart rate 93 /min 93 /min eCW1 ([facility]) Respiratory rate 18 /min 18 /min eCW1 ([facility]) Body temperature 97.3 [degF] 97.3 [degF] eCW1 ( [facility]) Systolic blood pressure 150 mm[Hg] 150 mm[Hg] e CW1 ([facility]) Diastolic blood pressure 94 mm[Hg] 94 mm[Hg] eCW1 ([facility]) Body temperature 97.5 [degF] 97.5 [degF] MEDENT ([facility]) Body height 63 [in_i] 63 [in_i] MEDENT ([facility]) 5'3" Body mass index (BMI) [Ratio] 29.4 kg/m2 29.4 k g/m2 MEDENT ([facility]) Body weight 166.00 [lb_av] 166.00 [lb_av] MEDEN T ([facility]) Body height 65 [in_i] 65 [in_i] TALIA ([facility]) Body height 65 [in_i] 65 [in_i] TALIA ([facility]) Body height 65 [in_i] 65 [in_i] TALIA ([facility]) Body height 65 [in_i] 65 [in_i] TALIA ([facility]) Body height 65 [in_i] 65 [in_i] TALIA ([facility]) Body height 65 [in_i] 65 [in_i] TALIA ([facility]) Body height 65 [in_i] 65 [in_i] TALIA ([facility]) Body height 65 [in_i] 65 [in_i] TALIA ([facility]) Body height 65 [in_i] 65 [in_i] TALIA ([facility]) Body height 65 [in_i] 65 [in_i] TALIA ([facility]) Body height 65 [in_i] 65 [in_i] TALIA ([facility]) Body height 65 [in_i] 65 [in_i] TALIA ([facility]) Body height 65 [in_i] 65 [in_i] TALIA ([facility]) Diastolic blood pressure 82 mm[Hg] 82 mm[Hg] TALIA ([facility]) Body height 65 [in_i] 65 [in_i] TALIA ([facility]) Systolic blood pressure 148 mm[Hg] 148 mm[Hg] A THENA ([facility]) Diastolic blood pressure 82 mm[Hg] 82 mm[Hg] TALIA ([facility]) Diastolic blood pressure 82 mm[Hg] 82 mm[Hg] TALIA ([facility]) Body height 65 [in_i] 65 [in_i] TALIA ([facility]) Systolic blood pressure 148 mm[Hg] 148 mm[Hg] A THENA ([facility]) Body height 65 [in_i] 65 [in_i] TALIA ([facility]) Systolic blood pressure 148 mm[Hg] 148 mm[Hg] A THENA ([facility]) Systolic blood pressure 148 mm[Hg] 148 mm[Hg] A THENA ([facility]) Diastolic blood pressure 82 mm[Hg] 82 mm[Hg] TALIA ([facility]) Body height 65 [in_i] 65 [in_i] TALIA ([facility]) Diastolic blood pressure 82 mm[Hg] 82 mm[Hg] TALIA ([facility]) Body height 65 [in_i] 65 [in_i] TALIA ([facility]) Systolic blood pressure 148 mm[Hg] 148 mm[Hg] A THENA ([facility]) Diastolic blood pressure 82 mm[Hg] 82 mm[Hg] TALIA ([facility]) Body height 65 [in_i] 65 [in_i] TALIA ([facility]) Systolic blood pressure 148 mm[Hg] 148 mm[Hg] A THENA ([facility]) Diastolic blood pressure 82 mm[Hg] 82 mm[Hg] TALIA ([facility]) Body height 65 [in_i] 65 [in_i] TALIA ([facility]) Systolic blood pressure 148 mm[Hg] 148 mm[Hg] A THENA ([facility]) Diastolic blood pressure 82 mm[Hg] 82 mm[Hg] TALIA ([facility]) Body height 65 [in_i] 65 [in_i] TALIA ([facility]) Systolic blood pressure 148 mm[Hg] 148 mm[Hg] A THENA ([facility]) Diastolic blood pressure 82 mm[Hg] 82 mm[Hg] TALIA ([facility]) Body height 65 [in_i] 65 [in_i] TALIA ([facility]) Systolic blood pressure 148 mm[Hg] 148 mm[Hg] A THENA ([facility]) Diastolic blood pressure 82 mm[Hg] 82 mm[Hg] TALIA ([facility]) Body height 65 [in_i] 65 [in_i] TALIA ([facility]) Systolic blood pressure 148 mm[Hg] 148 mm[Hg] A THENA ([facility]) Diastolic blood pressure 82 mm[Hg] 82 mm[Hg] TALIA ([facility]) Body height 65 [in_i] 65 [in_i] TALIA ([facility]) Systolic blood pressure 148 mm[Hg] 148 mm[Hg] A THENA ([facility]) Diastolic blood pressure 82 mm[Hg] 82 mm[Hg] TALIA ([facility]) Body height 65 [in_i] 65 [in_i] TALIA ([facility]) Systolic blood pressure 148 mm[Hg] 148 mm[Hg] A THENA ([facility]) Diastolic blood pressure 82 mm[Hg] 82 mm[Hg] TALIA ([facility]) Body height 65 [in_i] 65 [in_i] TALIA ([facility]) Systolic blood pressure 148 mm[Hg] 148 mm[Hg] A THENA ([facility]) Diastolic blood pressure 82 mm[Hg] 82 mm[Hg] TALIA ([facility]) Body height 65 [in_i] 65 [in_i] TALIA ([facility]) Systolic blood pressure 148 mm[Hg] 148 mm[Hg] A THENA ([facility]) Body weight 171.4 [lb_av] 171.4 [lb_av] eCW1 ([facility]) Body height 65.25 [in_i] 65.25 [in_i] eCW1 [facility]) Body mass index (BMI) [Ratio] 28.30 kg/m2 28.30 kg/m2 [facility] ([facility]) Heart rate 85 /min 85 /min eCW1 ([facility]) Respiratory rate 18 /min 18 /min eCW1 ([facility]) Body temperature 97.4 [degF] 97.4 [degF] eCW1 ( [facility]) Systolic blood pressure 128 mm[Hg] 128 mm[Hg] e CW1 ([facility]) Diastolic blood pressure 86 mm[Hg] 86 mm[Hg] eCW1 ([facility]) Patient Treatment Plan of Care Planned Activity Planned Date Details Description Data Source (s) Acetaminophen 325 MG / Hydrocodone Bitartrate 5 MG Ora l Tablet 06/28/2021 12:00:00 AM EST eCW1 ([facility]) Acetaminophen 325 MG / Hydrocodone Bitartrate 5 MG Ora l Tablet 05/25/2021 12:00:00 AM EDT eCW1 ([facility]) Acetaminophen 325 MG / Hydrocodone Bitartrate 5 MG Ora l Tablet 05/25/2021 12:00:00 AM EDT eCW1 ([facility]) ferrous sulfate 325 MG Oral Tablet 05/17/2021 12:00:00 AM EDT eCW1 ([facility]) Bupropion Hydrochloride 75 MG Oral Tablet 05/17/2021 12:00:00 AM ED T eCW1 ([facility]) ferrous sulfate 325 MG Oral Tablet 05/17/2021 12:00:00 AM EDT eCW1 ([facility]) Bupropion Hydrochloride 75 MG Oral Tablet 05/17/2021 12:00:00 AM ED T eCW1 ([facility]) ferrous sulfate 325 MG Oral Tablet 05/17/2021 12:00:00 AM EDT eCW1 ([facility]) Bupropion Hydrochloride 75 MG Oral Tablet 05/17/2021 12:00:00 AM ED T eCW1 ([facility]) ferrous sulfate 325 MG Oral Tablet 05/17/2021 12:00:00 AM EDT eCW1 ([facility]) Bupropion Hydrochloride 75 MG Oral Tablet 05/17/2021 12:00:00 AM ED T eCW1 ([facility]) Acetaminophen 325 MG / Hydrocodone Bitartrate 5 MG Ora l Tablet 04/28/2021 12:00:00 AM EDT eCW1 ([facility]) Acetaminophen 325 MG / Hydrocodone Bitartrate 5 MG Ora l Tablet 04/28/2021 12:00:00 AM EDT eCW1 ([facility]) Acetaminophen 325 MG / Hydrocodone Bitartrate 5 MG Ora l Tablet 03/31/2021 12:00:00 AM EDT eCW1 ([facility]) Acetaminophen 325 MG / Hydrocodone Bitartrate 5 MG Ora l Tablet 03/03/2021 12:00:00 AM EDT eCW1 ([facility]) NITROFURANTOIN, MACROCRYSTALS 25 MG / Ni trofurantoin, Monohydrate 75 MG Oral Capsule 02/19/2021 12:00:00 AM EDT eCW1 ([facility]) NITROFURANTOIN, MACROCRYSTALS 25 MG / Ni trofurantoin, Monohydrate 75 MG Oral Capsule 02/19/2021 12:00:00 AM EDT eCW1 ([facility]) NITROFURANTOIN, MACROCRYSTALS 25 MG / Ni trofurantoin, Monohydrate 75 MG Oral Capsule 02/19/2021 12:00:00 AM EDT eCW1 ([facility]) NITROFURANTOIN, MACROCRYSTALS 25 MG / Ni trofurantoin, Monohydrate 75 MG Oral Capsule 02/19/2021 12:00:00 AM EDT eCW1 ([facility]) NITROFURANTOIN, MACROCRYSTALS 25 MG / Ni trofurantoin, Monohydrate 75 MG Oral Capsule 02/19/2021 12:00:00 AM EDT eCW1 ([facility]) NITROFURANTOIN, MACROCRYSTALS 25 MG / Ni trofurantoin, Monohydrate 75 MG Oral Capsule 02/19/2021 12:00:00 AM EDT eCW1 ([facility]) Acetaminophen 325 MG / Hydrocodone Bitartrate 5 MG Ora l Tablet 02/04/2021 12:00:00 AM EDT eCW1 ([facility]) Acetaminophen 325 MG / Hydrocodone Bitartrate 5 MG Ora l Tablet 02/04/2021 12:00:00 AM EDT eCW1 ([facility]) Acetaminophen 325 MG / Hydrocodone Bitartrate 5 MG Ora l Tablet 02/04/2021 12:00:00 AM EDT eCW1 ([facility]) Acetaminophen 325 MG / Hydrocodone Bitartrate 5 MG Ora l Tablet 02/04/2021 12:00:00 AM EDT eCW1 ([facility]) Acetaminophen 325 MG / Hydrocodone Bitartrate 5 MG Ora l Tablet 01/06/2021 12:00:00 AM EDT eCW1 ([facility]) Acetaminophen 325 MG / Hydrocodone Bitartrate 5 MG Ora l Tablet 12/08/2020 12:00:00 AM EDT eCW1 ([facility]) Acetaminophen 325 MG / Hydrocodone Bitartrate 5 MG Ora l Tablet 11/10/2020 12:00:00 AM EDT eCW1 ([facility]) Acetaminophen 325 MG / Hydrocodone Bitartrate 5 MG Ora l Tablet 10/12/2020 12:00:00 AM EDT eCW1 ([facility]) Acetaminophen 325 MG / Hydrocodone Bitartrate 5 MG Ora l Tablet 09/15/2020 12:00:00 AM EST eCW1 ([facility]) Acetaminophen 325 MG / Hydrocodone Bitartrate 5 MG Ora l Tablet 09/15/2020 12:00:00 AM EST eCW1 ([facility]) Acetaminophen 325 MG / Hydrocodone Bitartrate 5 MG Ora l Tablet [Ware] 08/17/2020 12:00:00 AM EST eCW1 ([facility]) Ondansetron 4 MG Disintegrating Oral Tablet 07/15/2020 12:00:00 AM EST eCW1 ([facility]) Ondansetron 4 MG Disintegrating Oral Tablet 07/15/2020 12:00:00 AM EST eCW1 ([facility]) Ondansetron 4 MG Disintegrating Oral Tablet 07/15/2020 12:00:00 AM EST eCW1 ([facility]) Ondansetron 4 MG Disintegrating Oral Tablet 07/15/2020 12:00:00 AM EST eCW1 ([facility]) Ondansetron 4 MG Disintegrating Oral Tablet 07/15/2020 12:00:00 AM EST eCW1 ([facility]) Ondansetron 4 MG Disintegrating Oral Tablet 07/15/2020 12:00:00 AM EST eCW1 ([facility]) Ondansetron 4 MG Disintegrating Oral Tablet 07/15/2020 12:00:00 AM EST eCW1 ([facility]) Ondansetron 4 MG Disintegrating Oral Tablet 07/15/2020 12:00:00 AM EST eCW1 ([facility]) Ondansetron 4 MG Disintegrating Oral Tablet 07/15/2020 12:00:00 AM EST eCW1 ([facility]) Ondansetron 4 MG Disintegrating Oral Tablet 07/15/2020 12:00:00 AM EST eCW1 ([facility]) 24 HR Bupropion Hydrochloride 300 MG Extended Release Oral Tablet 07/15/2020 12:00:00 AM EST eCW1 ([facility]) Ondansetron 4 MG Disintegrating Oral Tablet 07/15/2020 12:00:00 AM EST eCW1 ([facility]) Ondansetron 4 MG Disintegrating Oral Tablet 07/15/2020 12:00:00 AM EST eCW1 ([facility]) Ondansetron 4 MG Disintegrating Oral Tablet 07/15/2020 12:00:00 AM EST eCW1 ([facility]) Ondansetron 4 MG Disintegrating Oral Tablet 07/15/2020 12:00:00 AM EST eCW1 ([facility]) 24 HR Bupropion Hydrochloride 300 MG Extended Release Oral Tablet 07/15/2020 12:00:00 AM EST eCW1 ([facility]) Ondansetron 4 MG Disintegrating Oral Tablet 07/15/2020 12:00:00 AM EST eCW1 ([facility]) Ondansetron 4 MG Disintegrating Oral Tablet 07/15/2020 12:00:00 AM EST eCW1 ([facility]) 24 HR Bupropion Hydrochloride 150 MG Extended Release Oral Tablet 07/15/2020 12:00:00 AM EST eCW1 ([facility]) Ondansetron 4 MG Disintegrating Oral Tablet 07/15/2020 12:00:00 AM EST eCW1 ([facility]) 24 HR Bupropion Hydrochloride 150 MG Extended Release Oral Tablet 07/15/2020 12:00:00 AM EST eCW1 ([facility]) 24 HR Bupropion Hydrochloride 150 MG Extended Release Oral Tablet 07/15/2020 12:00:00 AM EST eCW1 ([facility]) Ondansetron 4 MG Disintegrating Oral Tablet 07/15/2020 12:00:00 AM EST eCW1 ([facility]) Acetaminophen 325 MG / Hydrocodone Bitartrate 5 MG Ora l Tablet [Ware] 07/15/2020 12:00:00 AM EST eCW1 ([facility]) 24 HR Bupropion Hydrochloride 150 MG Extended Release Oral Tablet 07/15/2020 12:00:00 AM EST eCW1 ([facility]) Ondansetron 4 MG Disintegrating Oral Tablet 07/15/2020 12:00:00 AM EST eCW1 ([facility]) Acetaminophen 325 MG / Hydrocodone Bitartrate 5 MG Ora l Tablet [Ware] 06/17/2020 12:00:00 AM EST eCW1 ([facility]) Acetaminophen 325 MG / Hydrocodone Bitartrate 5 MG Ora l Tablet [Ware] 06/17/2020 12:00:00 AM EST eCW1 ([facility]) Acetaminophen 325 MG / Hydrocodone Bitartrate 5 MG Ora l Tablet [Ware] 05/20/2020 12:00:00 AM EDT eCW1 ([facility]) Acetaminophen 325 MG / Hydrocodone Bitartrate 5 MG Ora l Tablet [Ware] 05/20/2020 12:00:00 AM EDT eCW1 ([facility]) duloxetine 30 MG Delayed Release Oral Capsule 05/11/2020 12:00:00 A M EDT eCW1 ([facility]) duloxetine 30 MG Delayed Release Oral Capsule 05/11/2020 12:00:00 A M EDT eCW1 ([facility]) duloxetine 30 MG Delayed Release Oral Capsule 05/11/2020 12:00:00 A M EDT eCW1 ([facility]) duloxetine 30 MG Delayed Release Oral Capsule 05/11/2020 12:00:00 A M EDT eCW1 ([facility]) tramadol hydrochloride 50 MG Oral Tablet TALIA ([facility]) Tamsulosin hydrochloride 0.4 MG Oral Capsule TALIA ([facility]) Sulfamethoxazole 800 MG / Trimethoprim 160 MG Oral Tablet TALIA ([facility]) pregabalin 150 MG Oral Capsule TALIA ([facility]) pregabalin 100 MG Oral Capsule TALIA ([facility]) Prednisone 20 MG Oral Tablet TALIA ([facility]) Acetaminophen 325 MG / Oxycodone Hydrochloride 5 MG Oral Tablet TALIA ([facility]) Oxybutynin chloride 5 MG Oral Tablet TALIA ([facility]) Omeprazole 40 MG Delayed Release Oral Capsule TALIA ([facility]) gabapentin 600 MG Oral Tablet TALIA ([facility]) gabapentin 300 MG Oral Capsule TALIA ([facility]) Estradiol 1 MG Oral Tablet A THENA ([facility]) duloxetine 30 MG Delayed Release Oral Capsule TALIA ([facility]) Carisoprodol 350 MG Oral Tablet TALIA ([facility]) 24 HR Bupropion Hydrochloride 150 MG Extended Release Oral Tablet TALIA ([facility]) Bacitracin 0.5 UNT/MG / Polymyxin B 10 UNT/MG Ophthalmic Ointment TALIA ([facility]) Amoxicillin 500 MG Oral Capsule TALIA ([facility]) tramadol hydrochloride 50 MG Oral Tablet TALIA ([facility]) Tamsulosin hydrochloride 0.4 MG Oral Capsule TALIA ([facility]) Sulfamethoxazole 800 MG / Trimethoprim 160 MG Oral Tablet TALIA ([facility]) pregabalin 150 MG Oral Capsule TALIA ([facility]) gabapentin 300 MG Oral Capsule TALIA ([facility]) Estradiol 1 MG Oral Tablet A THENA ([facility]) duloxetine 30 MG Delayed Release Oral Capsule TALIA ([facility]) Carisoprodol 350 MG Oral Tablet TALIA ([facility]) 24 HR Bupropion Hydrochloride 150 MG Extended Release Oral Tablet TALIA ([facility]) Bacitracin 0.5 UNT/MG / Polymyxin B 10 UNT/MG Ophthalmic Ointment TALIA ([facility]) Amoxicillin 500 MG Oral Capsule TALIA ([facility]) tramadol hydrochloride 50 MG Oral Tablet TALIA ([facility]) Tamsulosin hydrochloride 0.4 MG Oral Capsule TALIA ([facility]) Sulfamethoxazole 800 MG / Trimethoprim 160 MG Oral Tablet TALIA ([facility]) pregabalin 150 MG Oral Capsule TALIA ([facility]) pregabalin 100 MG Oral Capsule TALIA ([facility]) Prednisone 20 MG Oral Tablet TALIA ([facility]) Acetaminophen 325 MG / Oxycodone Hydrochloride 5 MG Oral Tablet TALIA ([facility]) Oxybutynin chloride 5 MG Oral Tablet TALIA ([facility]) Omeprazole 40 MG Delayed Release Oral Capsule TALIA ([facility]) gabapentin 600 MG Oral Tablet TALIA ([facility]) gabapentin 300 MG Oral Capsule TALIA ([facility]) Estradiol 1 MG Oral Tablet A THENA ([facility]) duloxetine 30 MG Delayed Release Oral Capsule TALIA ([facility]) Carisoprodol 350 MG Oral Tablet TALIA ([facility]) 24 HR Bupropion Hydrochloride 150 MG Extended Release Oral Tablet TALIA ([facility]) Bacitracin 0.5 UNT/MG / Polymyxin B 10 UNT/MG Ophthalmic Ointment TALIA ([facility]) Amoxicillin 500 MG Oral Capsule TALIA ([facility]) tramadol hydrochloride 50 MG Oral Tablet TALIA ([facility]) Tamsulosin hydrochloride 0.4 MG Oral Capsule TALIA ([facility]) Sulfamethoxazole 800 MG / Trimethoprim 160 MG Oral Tablet TALIA ([facility]) pregabalin 150 MG Oral Capsule TALIA ([facility]) pregabalin 100 MG Oral Capsule TALAI ([facility]) Prednisone 20 MG Oral Tablet TALIA ([facility]) Acetaminophen 325 MG / Oxycodone Hydrochloride 5 MG Oral Tablet TALIA ([facility]) Oxybutynin chloride 5 MG Oral Tablet TALIA ([facility]) Omeprazole 40 MG Delayed Release Oral Capsule TALIA ([facility]) gabapentin 600 MG Oral Tablet TALIA ([facility]) gabapentin 300 MG Oral Capsule TALIA ([facility]) Estradiol 1 MG Oral Tablet A THENA ([facility]) duloxetine 30 MG Delayed Release Oral Capsule TALIA ([facility]) Carisoprodol 350 MG Oral Tablet TALIA ([facility]) 24 HR Bupropion Hydrochloride 150 MG Extended Release Oral Tablet TALIA ([facility]) Bacitracin 0.5 UNT/MG / Polymyxin B 10 UNT/MG Ophthalmic Ointment TALIA ([facility]) Amoxicillin 500 MG Oral Capsule TALIA ([facility]) tramadol hydrochloride 50 MG Oral Tablet TALIA ([facility]) Tamsulosin hydrochloride 0.4 MG Oral Capsule TALIA ([facility]) Sulfamethoxazole 800 MG / Trimethoprim 160 MG Oral Tablet TALIA ([facility]) pregabalin 150 MG Oral Capsule TALIA ([facility]) pregabalin 100 MG Oral Capsule TALIA ([facility]) Prednisone 20 MG Oral Tablet TALIA ([facility]) Acetaminophen 325 MG / Oxycodone Hydrochloride 5 MG Oral Tablet TALIA ([facility]) Oxybutynin chloride 5 MG Oral Tablet TALIA ([facility]) Omeprazole 40 MG Delayed Release Oral Capsule TALIA ([facility]) gabapentin 600 MG Oral Tablet TALIA ([facility]) gabapentin 300 MG Oral Capsule TALIA ([facility]) Estradiol 1 MG Oral Tablet A THENA ([facility]) duloxetine 30 MG Delayed Release Oral Capsule TALIA ([facility]) Carisoprodol 350 MG Oral Tablet TALIA ([facility]) 24 HR Bupropion Hydrochloride 150 MG Extended Release Oral Tablet TALIA ([facility]) Bacitracin 0.5 UNT/MG / Polymyxin B 10 UNT/MG Ophthalmic Ointment TALIA ([facility]) Amoxicillin 500 MG Oral Capsule TALIA ([facility]) pregabalin 100 MG Oral Capsule TALIA ([facility]) Prednisone 20 MG Oral Tablet TALIA ([facility]) Acetaminophen 325 MG / Oxycodone Hydrochloride 5 MG Oral Tablet TALIA ([facility]) Oxybutynin chloride 5 MG Oral Tablet TALIA ([facility]) Omeprazole 40 MG Delayed Release Oral Capsule TALIA ([facility]) gabapentin 600 MG Oral Tablet TALIA ([facility]) tramadol hydrochloride 50 MG Oral Tablet TALIA ([facility]) Tamsulosin hydrochloride 0.4 MG Oral Capsule TALIA ([facility]) Sulfamethoxazole 800 MG / Trimethoprim 160 MG Oral Tablet TALIA ([facility]) pregabalin 100 MG Oral Capsule TALIA ([facility]) Prednisone 20 MG Oral Tablet TALIA ([facility]) Acetaminophen 325 MG / Oxycodone Hydrochloride 5 MG Oral Tablet TALIA ([facility]) Oxybutynin chloride 5 MG Oral Tablet TALIA ([facility]) Omeprazole 40 MG Delayed Release Oral Capsule TALIA ([facility]) gabapentin 600 MG Oral Tablet TALIA ([facility]) gabapentin 300 MG Oral Capsule TALIA ([facility]) Estradiol 1 MG Oral Tablet A THENA ([facility]) duloxetine 30 MG Delayed Release Oral Capsule TALIA ([facility]) Carisoprodol 350 MG Oral Tablet TALIA ([facility]) 24 HR Bupropion Hydrochloride 150 MG Extended Release Oral Tablet TALIA ([facility]) Bacitracin 0.5 UNT/MG / Polymyxin B 10 UNT/MG Ophthalmic Ointment TALIA ([facility]) Amoxicillin 500 MG Oral Capsule TALIA ([facility]) tramadol hydrochloride 50 MG Oral Tablet TALIA ([facility]) Tamsulosin hydrochloride 0.4 MG Oral Capsule TALIA ([facility]) Sulfamethoxazole 800 MG / Trimethoprim 160 MG Oral Tablet TALIA ([facility]) Prednisone 20 MG Oral Tablet TALIA ([facility]) Acetaminophen 325 MG / Oxycodone Hydrochloride 5 MG Oral Tablet TALIA ([facility]) Oxybutynin chloride 5 MG Oral Tablet TALIA ([facility]) Omeprazole 40 MG Delayed Release Oral Capsule TALIA ([facility]) gabapentin 600 MG Oral Tablet TALIA ([facility]) gabapentin 300 MG Oral Capsule TALIA ([facility]) Estradiol 1 MG Oral Tablet A THENA ([facility]) duloxetine 30 MG Delayed Release Oral Capsule TALIA ([facility]) Carisoprodol 350 MG Oral Tablet TALIA ([facility]) 24 HR Bupropion Hydrochloride 150 MG Extended Release Oral Tablet TALIA ([facility]) Bacitracin 0.5 UNT/MG / Polymyxin B 10 UNT/MG Ophthalmic Ointment TALIA ([facility]) Amoxicillin 500 MG Oral Capsule TALIA ([facility]) Tamsulosin hydrochloride 0.4 MG Oral Capsule TALIA ([facility]) Sulfamethoxazole 800 MG / Trimethoprim 160 MG Oral Tablet TALIA ([facility]) Acetaminophen 325 MG / Oxycodone Hydrochloride 5 MG Oral Tablet TALIA ([facility]) Oxybutynin chloride 5 MG Oral Tablet TALIA ([facility]) Omeprazole 40 MG Delayed Release Oral Capsule TALIA ([facility]) gabapentin 300 MG Oral Capsule TALIA ([facility]) duloxetine 30 MG Delayed Release Oral Capsule TALIA ([facility]) Carisoprodol 350 MG Oral Tablet TALIA ([facility]) Bacitracin 0.5 UNT/MG / Polymyxin B 10 UNT/MG Ophthalmic Ointment TALIA ([facility]) Tamsulosin hydrochloride 0.4 MG Oral Capsule TALIA ([facility]) Sulfamethoxazole 800 MG / Trimethoprim 160 MG Oral Tablet TALIA ([facility]) Acetaminophen 325 MG / Oxycodone Hydrochloride 5 MG Oral Tablet TALIA ([facility]) Oxybutynin chloride 5 MG Oral Tablet TALIA ([facility]) Omeprazole 40 MG Delayed Release Oral Capsule TALIA ([facility]) gabapentin 300 MG Oral Capsule TALIA ([facility]) duloxetine 30 MG Delayed Release Oral Capsule TALIA ([facility]) Carisoprodol 350 MG Oral Tablet TALIA ([facility]) Bacitracin 0.5 UNT/MG / Polymyxin B 10 UNT/MG Ophthalmic Ointment [facility] ([facility] [facility] gabapentin 300 MG Oral Capsule [facility] ([facility]) duloxetine 30 MG Delayed Release Oral Capsule [facility] ([facility]) Carisoprodol 350 MG Oral Tablet [facility] ([facility]) Bacitracin 0.5 UNT/MG / Polymyxin B 10 UNT/MG Ophthalmic Ointment [facility] ([facility]) Sulfamethoxazole 800 MG / Trimethoprim 160 MG Oral Tablet [facility] ([facility]) gabapentin 300 MG Oral Capsule [facility] ([facility]) duloxetine 30 MG Delayed Release Oral Capsule [facility] ([facility]) Carisoprodol 350 MG Oral Tablet [facility] ([facility]) Sulfamethoxazole 800 MG / Trimethoprim 160 MG Oral Tablet [facility] ([facility]) gabapentin 300 MG Oral Capsule [facility] ([facility]) duloxetine 30 MG Delayed Release Oral Capsule [facility] ([facility]) Carisoprodol 350 MG Oral Tablet [facility] ([facility]) Sulfamethoxazole 800 MG / Trimethoprim 160 MG Oral Tablet [facility] ([facility]) gabapentin 300 MG Oral Capsule [facility] ([facility]) duloxetine 30 MG Delayed Release Oral Capsule [facility] ([facility]) Carisoprodol 350 MG Oral Tablet [facility] ([facility]) Tamsulosin hydrochloride 0.4 MG Oral Capsule [facility] ([facility]) Sulfamethoxazole 800 MG / Trimethoprim 160 MG Oral Tablet [facility] ([facility]) Oxybutynin chloride 5 MG Oral Tablet [facility] ([facility]) Omeprazole 40 MG Delayed Release Oral Capsule [facility] ([facility]) Sulfamethoxazole 800 MG / Trimethoprim 160 MG Oral Tablet [facility] ([facility]) gabapentin 300 MG Oral Capsule [facility] ([facility]) Carisoprodol 350 MG Oral Tablet [facility] ([facility])
[2021-07-01] MEDS ORDERED: ISOVUE-370 76% 100ML VIAL As Ordered ONE (09:42)
--- NOTE | 2021-07-01 09:50 | REP ---
INDICATION: CHEST PAIN. COMPARISON: 10/06/2020 TECHNIQUE: Portable FINDINGS: The technique utilized in obtaining the radiograph has magnified the cardiac silhouette and accentuated the interstitial markings. The superior mediastinal structures are midline. The cardiac silhouette is unremarkable in size, shape, and position. The diaphragmatic surfaces of the lungs are regular, and the costophrenic angles are clear. The pulmonary ace are clear. The imaged osseous structures are intact. IMPRESSION: There is no acute cardiopulmonary disease. No significant change compared to the prior exam. <Electronically signed by Ronnie Rodriguez > 07/01/21 0946
--- NOTE | 2021-07-01 10:02 | REP ---
INDICATION: chest pain COMPARISON: None. TECHNIQUE: Axial contrast enhanced images from the thoracic inlet to the upper abdomen using pulmonary embolus technique with multiplanar re-formations. 75 ml Isovue 370 intravenous contrast material administered without complication. This CT examination was performed using the following dose reduction techniques: Automated exposure control, adjustment of mA and/or kv according to the patient's size, and use of iterative reconstruction technique. FINDINGS: Satisfactory enhancement of the pulmonary vasculature is achieved and no filling defects are identified to suggest pulmonary embolus. Further evaluation of the mediastinum demonstrates normal thoracic aorta, heart and pericardium. The bilateral lung ace demonstrate very subtle areas of ground-glass opacity which may reflect early process. No discrete focal consolidation. No effusion or pneumothorax. No obvious significant nodule or mass. Tracheobronchial tree is patent. No nodule or mass lesion is identified. No adenopathy noted. Surrounding musculoskeletal structures intact IMPRESSION: No evidence for pulmonary embolus. Extremely subtle early areas of bilateral ground-glass opacity are nonspecific and may reflect dependent changes or a very early pulmonary process. No discrete consolidation or effusion.. <Electronically signed by Bethel Ramírez > 07/01/21 0975
[2021-07-01 12:58] VITALS: BP 155/72
--- NOTE | 2021-07-01 20:29 | ECGEPIP ---
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
--- NOTE | 2021-07-01 20:31 | ECGEPIP ---
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
== END 2021-07-01 13:11 | disposition home or self-care (01) ==
LOC: M ED 07:17
DX: R07.89 Other chest pain (principal); I44.0 Atrioventricular block, first degree; E11.9 Type 2 diabetes mellitus without complications; E78.5 Hyperlipidemia, unspecified; K21.9 Gastro-esophageal reflux disease without esophagitis; Z88.1 Allergy status to other antibiotic agents; Z88.8 Allergy status to other drugs, medicaments and biological substances; Z79.899 Other long term (current) drug therapy
CPT/HCPCS: 36415; 71045; 71275; 80048; 80076; 83690; 83880; 84443; 84484; 85025; 87631; 93005; 93041; 94760; 99285; Q9967

== ENCOUNTER → 2021-07-17 | Outpatient (REF) ==
[~2021-07-17] MED LIST changes: +BACL10TA8; +CVS50CAP PO; +IRON65TA2 PO; +ONDA4TAB6; +PREG200C; +TIZA10TA PO; -TIZA4TAB4 PO
[2021-07-17 12:15] LABS: RSV AMPLIFICATION NEGATIVE (NEGATIVE)
== END ==
LOC: M EMP 11:14
PROVIDERS: ATTEND Family Medicine
DX: Z11.52 Encounter for screening for COVID-19 (principal); Z20.822 Contact with and (suspected) exposure to COVID-19

== ENCOUNTER → 2021-09-16 | Outpatient (REF) | payer BC ==
[2021-09-16 16:45] LABS: ALBUMIN 3.9 GM/DL (3.2-5.2); ALT/SGPT 24 U/L (12-78); BILIRUBIN,TOTAL 0.2 MG/DL (0.2-1.0); BLOOD UREA NITROGEN 16 MG/DL (7-18); CALCIUM LEVEL 9.5 MG/DL (8.5-10.1); CARBON DIOXIDE LEVEL 31 MEQ/L (21-32); CHLORIDE LEVEL 103 MEQ/L (98-107); CREATININE FOR GFR 0.56 MG/DL (0.55-1.30); GLOMERULAR FILTRATION RATE > 60.0 (>51); GLUCOSE, FASTING 88 MG/DL (70-100); POTASSIUM SERUM 4.2 MEQ/L (3.5-5.1); SODIUM LEVEL 141 MEQ/L (136-145); TOTAL PROTEIN 6.9 GM/DL (6.4-8.2)
[2021-09-16 17:00] LABS: BASO % 0.4 % (0.0-1.0); EOS # 0.4 10^3/uL (0.0-0.5); EOS % 6.2 % (0.0-3.0); HEMATOCRIT 37.8 % (36.0-47.0); HEMOGLOBIN 11.8 g/dl (12.0-15.5); LYMPH # 2.3 10^3/uL (1.5-5.0); LYMPH % 32.9 % (24.0-44.0); MEAN CORPUSCULAR HGB CONC 31.2 g/dl (32.0-36.5); MEAN CORPUSCULAR VOLUME 86.5 fl (80.0-96.0); MONO # 0.5 10^3/uL (0.0-0.8); MONO % 7.2 % (2.0-8.0); NEUTROPHILS # 3.7 10^3/uL (1.5-8.5); NEUTROPHILS % 52.9 % (36.0-66.0); PLATELET COUNT, AUTOMATED 363 10^3/uL (150-450); RED BLOOD COUNT 4.37 10^6/uL (4.00-5.40); WHITE BLOOD COUNT 7.1 10^3/uL (4.0-10.0)
[2021-09-16 19:12] LABS: HEMOGLOBIN A1c 6.9 %
== END ==
LOC: M LABDRWAD 15:58
PROVIDERS: ATTEND Internal Medicine
DX: E11.9 Type 2 diabetes mellitus without complications (principal); D50.9 Iron deficiency anemia, unspecified

== ENCOUNTER → 2021-09-20 | Outpatient (REF) | payer BC ==
[2021-09-20 13:34] LABS: APPEARANCE, URINE HAZY (CLEAR); BACTERIA, URINE AUTO 1+ (NEGATIVE); BILIRUBIN, URINE AUTO NEGATIVE (NEGATIVE); BLOOD, URINE BLOOD NEGATIVE (NEGATIVE); COLOR, URINE YELLOW (YELLOW); GLUCOSE, URINE (UA) AUTO NEGATIVE (NEGATIVE); KETONE, URINE AUTO NEGATIVE (NEGATIVE); LEUKOCYTE ESTERASE, URINE AUTO TRACE (NEGATIVE); NITRITE, URINE AUTO NEGATIVE (NEGATIVE); PROTEIN, URINE AUTO NEGATIVE (NEGATIVE); RBC, URINE AUTO 3 /HPF (0-3); SPECIFIC GRAVITY URINE AUTO 1.013 (1.002-1.035); SQUAMOUS EPITHELIAL CELL UR AU 0 /HPF (0-6); UROBILINOGEN, URINE AUTO 0.2 mg/dL (0.0-2.0); WBC, URINE AUTO 12 /HPF (0-3)
== END ==
LOC: M SFHCPLAZ 12:51
PROVIDERS: ATTEND Internal Medicine
DX: N20.0 Calculus of kidney (principal); Z12.39 Encounter for other screening for malignant neoplasm of breast

== ENCOUNTER → 2021-09-30 | Outpatient (CLI) | payer BC | LOC: M RAD 14:51 | PROVIDERS: ATTEND Internal Medicine | DX: M79.641 Pain in right hand (principal) ==

== ENCOUNTER → 2021-10-26 | Outpatient (REF) | payer BC ==
[2021-10-26 18:34] LABS: BASO # 0.1 10^3/uL (0.0-0.2); BASO % 0.5 % (0.0-1.0); EOS # 0.5 10^3/uL (0.0-0.5); EOS % 4.3 % (0.0-3.0); HEMATOCRIT 37.3 % (36.0-47.0); HEMOGLOBIN 11.6 g/dl (12.0-15.5); LYMPH # 2.5 10^3/uL (1.5-5.0); LYMPH % 23.2 % (24.0-44.0); MEAN CORPUSCULAR HEMOGLOBIN 27.2 pg (27.0-33.0); MEAN CORPUSCULAR HGB CONC 31.1 g/dl (32.0-36.5); MEAN CORPUSCULAR VOLUME 87.6 fl (80.0-96.0); MONO # 0.5 10^3/uL (0.0-0.8); MONO % 4.8 % (2.0-8.0); NEUTROPHILS # 7.3 10^3/uL (1.5-8.5); NEUTROPHILS % 66.5 % (36.0-66.0); PLATELET COUNT, AUTOMATED 537 10^3/uL (150-450); RED BLOOD COUNT 4.26 10^6/uL (4.00-5.40); WHITE BLOOD COUNT 10.9 10^3/uL (4.0-10.0)
[2021-10-26 18:49] LABS: HEMOGLOBIN A1c 7.3 %
[2021-10-26 18:52] LABS: ALBUMIN 3.5 GM/DL (3.2-5.2); ALT/SGPT 29 U/L (12-78); BILIRUBIN,TOTAL 0.1 MG/DL (0.2-1.0); BLOOD UREA NITROGEN 22 MG/DL (7-18); CALCIUM LEVEL 9.1 MG/DL (8.5-10.1); CARBON DIOXIDE LEVEL 30 MEQ/L (21-32); CHLORIDE LEVEL 110 MEQ/L (98-107); CHOLESTEROL LEVEL 134 MG/DL (<200); CHOLESTEROL RISK RATIO 2.977 (<5); CREATININE FOR GFR 0.66 MG/DL (0.55-1.30); GLOMERULAR FILTRATION RATE > 60.0 (>51); GLUCOSE, FASTING 238 MG/DL (70-100); HDL CHOLESTEROL 45 MG/DL (>40); LDL CHOLESTEROL 68 MG/DL (<100); NON-HDL-C 89 MG/DL; SODIUM LEVEL 145 MEQ/L (136-145); TRIGLYCERIDES LEVEL 103 MG/DL (<150)
[2021-10-26 19:03] LABS: MALB URINE SIEMENS 41.9 MG/L; MAU/CREAT RATIO 35.5 MCG/MG (0.0-30.0)
[2021-10-27 09:41] LABS: C REACTIVE PROTEIN QUANTITATIV 0.55 MG/DL (0.00-0.30); RHEUMATOID FACTOR QUANT < 10.0 IU/ML (<15.0)
[2021-10-27 10:07] LABS: ERYTHROCYTE SEDIMENTATION RATE 28 mm/hr (0-30)
[2021-10-30 00:07] LABS: ANA (HEP2) Positive (.); CYCLIC CITRULLINATED PEPTIDE 11 units (0-19)
== END ==
LOC: M SFHCADAM 15:31
PROVIDERS: ATTEND Internal Medicine
DX: E11.9 Type 2 diabetes mellitus without complications (principal); E78.00 Pure hypercholesterolemia, unspecified; Z98.84 Bariatric surgery status; M25.50 Pain in unspecified joint

== ENCOUNTER → 2021-11-22 | Outpatient (REF) | LOC: M LABSMTC 11:05 | PROVIDERS: ATTEND Family Medicine ==

== ENCOUNTER 2021-12-16 10:57 | Emergency (ER) | payer BC ==
[~2021-12-16] VITALS: Ht 165.1 cm; Wt 76.4 kg
[2021-12-16] MEDS ORDERED: NS 1,000 ML IV ONE (11:40)
[2021-12-16] MEDS ORDERED: ONDANSETRON 4MG/2ML VIAL IV ONE (11:40)
[2021-12-16 12:43] LABS: BASO % 0.2 % (0.0-1.0); EOS # 0.1 10^3/uL (0.0-0.5); EOS % 1.6 % (0.0-3.0); HEMOGLOBIN 12.6 g/dl (12.0-15.5); LYMPH # 1.2 10^3/uL (1.5-5.0); LYMPH % 19.9 % (24.0-44.0); MEAN CORPUSCULAR HEMOGLOBIN 27.9 pg (27.0-33.0); MEAN CORPUSCULAR HGB CONC 31.5 g/dl (32.0-36.5); MEAN CORPUSCULAR VOLUME 88.5 fl (80.0-96.0); MONO # 0.3 10^3/uL (0.0-0.8); MONO % 5.5 % (2.0-8.0); NEUTROPHILS # 4.2 10^3/uL (1.5-8.5); NEUTROPHILS % 71.9 % (36.0-66.0); PLATELET COUNT, AUTOMATED 418 10^3/uL (150-450); RED BLOOD COUNT 4.52 10^6/uL (4.00-5.40); WHITE BLOOD COUNT 5.8 10^3/uL (4.0-10.0)
[2021-12-16 13:23] LABS: ALBUMIN 3.7 GM/DL (3.2-5.2); ALT/SGPT 32 U/L (12-78); BILIRUBIN,DIRECT < 0.1 MG/DL (0.0-0.2); BILIRUBIN,TOTAL 0.1 MG/DL (0.2-1.0); BLOOD UREA NITROGEN 17 MG/DL (7-18); CALCIUM LEVEL 10.4 MG/DL (8.5-10.1); CARBON DIOXIDE LEVEL 29 MEQ/L (21-32); CHLORIDE LEVEL 106 MEQ/L (98-107); CREATININE FOR GFR 0.49 MG/DL (0.55-1.30); GLOMERULAR FILTRATION RATE > 60.0 (>51); GLUCOSE, FASTING 136 MG/DL (70-100); LIPASE 61 U/L (73-393); POTASSIUM SERUM 4.2 MEQ/L (3.5-5.1); SODIUM LEVEL 142 MEQ/L (136-145); TOTAL PROTEIN 7.5 GM/DL (6.4-8.2)
[2021-12-16] MEDS ORDERED: CIPR250T26 PO (15:04)
[2021-12-16] MEDS ORDERED: CIPROFLOXACIN 500MG TABLET PO ONE (15:05)
[2021-12-16 16:15] VITALS: BP 147/96
== END 2021-12-16 16:00 | disposition home or self-care (01) ==
LOC: M ED 10:57
DX: U07.1 COVID-19 (principal); N39.0 Urinary tract infection, site not specified; R51.9 Headache, unspecified; E11.9 Type 2 diabetes mellitus without complications; E78.9 Disorder of lipoprotein metabolism, unspecified; K21.9 Gastro-esophageal reflux disease without esophagitis; I47.1 Supraventricular tachycardia; Z98.84 Bariatric surgery status; Z88.1 Allergy status to other antibiotic agents; Z88.8 Allergy status to other drugs, medicaments and biological substances; Z79.899 Other long term (current) drug therapy; Z79.84 Long term (current) use of oral hypoglycemic drugs
CPT/HCPCS: 36415; 80048; 80076; 81001; 83690; 83735; 85025; 93005; 96361; 96374; 99284; J2405

== ENCOUNTER → 2022-02-16 | Outpatient (CLI) | payer BC ==
[~2022-02-16] MED LIST changes: +CIPR250T26 PO
== END ==
LOC: M WHC 11:44
PROVIDERS: ATTEND Internal Medicine
DX: Z12.31 Encounter for screening mammogram for malignant neoplasm of breast (principal)

== ENCOUNTER → 2022-06-03 | Outpatient (CLI) | payer BC ==
[2022-06-03 15:12] LABS: BASO % 0.6 % (0.0-1.0); EOS # 0.3 10^3/uL (0.0-0.5); EOS % 4.2 % (0.0-3.0); HEMATOCRIT 36.2 % (36.0-47.0); HEMOGLOBIN 11.3 g/dl (12.0-15.5); LYMPH # 1.8 10^3/uL (1.5-5.0); LYMPH % 28.7 % (24.0-44.0); MEAN CORPUSCULAR HEMOGLOBIN 28.7 pg (27.0-33.0); MEAN CORPUSCULAR HGB CONC 31.2 g/dl (32.0-36.5); MEAN CORPUSCULAR VOLUME 91.9 fl (80.0-96.0); MONO # 0.4 10^3/uL (0.0-0.8); MONO % 7.1 % (2.0-8.0); NEUTROPHILS # 3.6 10^3/uL (1.5-8.5); NEUTROPHILS % 58.4 % (36.0-66.0); PLATELET COUNT, AUTOMATED 399 10^3/uL (150-450); RED BLOOD COUNT 3.94 10^6/uL (4.00-5.40); WHITE BLOOD COUNT 6.2 10^3/uL (4.0-10.0)
[2022-06-03 16:08] LABS: ALBUMIN 3.4 GM/DL (3.2-5.2); ALT/SGPT 22 U/L (12-78); BLOOD UREA NITROGEN 20 MG/DL (7-18); C REACTIVE PROTEIN QUANTITATIV 0.82 MG/DL (0.00-0.30); COMPLEMENT C3 140 MG/DL (90-180); COMPLEMENT C4 39 MG/DL (10-40); GLOMERULAR FILTRATION RATE > 60.0 (>51)
[2022-06-03 16:18] LABS: ERYTHROCYTE SEDIMENTATION RATE 26 mm/hr (0-30)
== END ==
LOC: M LABDRWAD 11:58
PROVIDERS: ATTEND Internal Medicine Hematology
DX: M06.4 Inflammatory polyarthropathy (principal); Z79.899 Other long term (current) drug therapy; R76.0 Raised antibody titer

== ENCOUNTER → 2022-07-04 | Outpatient (REF) | payer BC ==
[2022-07-04 18:12] LABS: BASO % 0.5 % (0.0-1.0); EOS # 0.4 10^3/uL (0.0-0.5); EOS % 6.4 % (0.0-3.0); HEMATOCRIT 39.1 % (36.0-47.0); HEMOGLOBIN 11.8 g/dl (12.0-15.5); LYMPH # 2.1 10^3/uL (1.5-5.0); MEAN CORPUSCULAR HEMOGLOBIN 28.2 pg (27.0-33.0); MEAN CORPUSCULAR HGB CONC 30.2 g/dl (32.0-36.5); MEAN CORPUSCULAR VOLUME 93.5 fl (80.0-96.0); MONO # 0.4 10^3/uL (0.0-0.8); MONO % 6.1 % (2.0-8.0); NEUTROPHILS # 3.4 10^3/uL (1.5-8.5); NEUTROPHILS % 53.7 % (36.0-66.0); PLATELET COUNT, AUTOMATED 390 10^3/uL (150-450); RED BLOOD COUNT 4.18 10^6/uL (4.00-5.40); WHITE BLOOD COUNT 6.2 10^3/uL (4.0-10.0)
[2022-07-04 19:48] LABS: ALBUMIN 3.9 G/DL (3.2-5.2); ALT/SGPT 18 U/L (7.0-40); AST/SGOT 19 U/L (<34); BLOOD UREA NITROGEN 24 MG/DL (9-23); CREATININE FOR GFR 0.58 MG/DL (0.55-1.30); GLOMERULAR FILTRATION RATE > 60.0 (>51)
[2022-07-04 20:36] LABS: ERYTHROCYTE SEDIMENTATION RATE 16 mm/hr (0-30)
== END ==
LOC: M LABDRWAD 16:12
PROVIDERS: ATTEND Physician Assistant
DX: Z79.899 Other long term (current) drug therapy (principal)

== ENCOUNTER → 2022-08-07 | Outpatient (REF) ==
[2022-08-07 14:30] LABS: RSV AMPLIFICATION NEGATIVE (NEGATIVE)
== END ==
LOC: M LABSMTC 10:51
PROVIDERS: ATTEND Family Medicine
DX: Z11.59 Encounter for screening for other viral diseases (principal)

== ENCOUNTER 2022-08-24 01:42 | Inpatient (IN) | payer BC ==
[~2022-08-24] VITALS: Ht 165.1 cm; Wt 76.4 kg
[2022-08-24 02:28] LABS: HEMATOCRIT 34.3 % (36.0-47.0); HEMOGLOBIN 10.8 g/dl (12.0-15.5); MEAN CORPUSCULAR HEMOGLOBIN 28.6 pg (27.0-33.0); MEAN CORPUSCULAR HGB CONC 31.5 g/dl (32.0-36.5); MEAN CORPUSCULAR VOLUME 90.7 fl (80.0-96.0); PLATELET COUNT, AUTOMATED 360 10^3/uL (150-450); RED BLOOD COUNT 3.78 10^6/uL (4.00-5.40); WHITE BLOOD COUNT 20.2 10^3/uL (4.0-10.0)
[2022-08-24] MEDS ORDERED: ISOVUE-370 76% 100ML VIAL As Ordered ONE (02:43)
[2022-08-24 03:01] LABS: ALBUMIN 3.5 G/DL (3.2-5.2); ALKALINE PHOSPHATASE 98 U/L (46-116); ALT/SGPT 28 U/L (7.0-40); AST/SGOT 31 U/L (<34); BILIRUBIN,TOTAL 0.4 MG/DL (0.3-1.2); BLOOD UREA NITROGEN 19 MG/DL (9-23); CALCIUM LEVEL 9.6 MG/DL (8.5-10.1); CARBON DIOXIDE LEVEL 26 MMOL/L (20-31); CHLORIDE LEVEL 105 MMOL/L (98-107); CREATININE FOR GFR 0.44 MG/DL (0.55-1.30); GLOMERULAR FILTRATION RATE > 60.0 (>51); GLUCOSE, FASTING 148 MG/DL (60-100); POTASSIUM SERUM 3.7 MMOL/L (3.5-5.1); SODIUM LEVEL 140 MMOL/L (136-145); TOTAL PROTEIN 6.9 G/DL (5.7-8.2)
[2022-08-24] MEDS ORDERED: POTASSIUM CHLORIDE 10MEQ SR TABLET PO ONE (03:30)
[2022-08-24] MEDS ORDERED: cefTRIAXone SOD 1 GM in D5W MINI-BAG PLUS 50 ML IV ONE (03:30)
[2022-08-24] MEDS ORDERED: NS 1,000 ML IV ONE (03:30)
[2022-08-24] MEDS ORDERED: ONDANSETRON 4MG 2ML VIAL IV ONE (04:00)
[2022-08-24] MEDS ORDERED: AZITHROMYCIN INJ 500 MG, VIAL MATE ADAPTER 1 EACH in NS 250 ML IV ONE (04:00)
[2022-08-24] MEDS ORDERED: VITMTA PO (04:05)
[2022-08-24] MEDS ORDERED: BACL10TA2 PO (04:05)
[2022-08-24] MEDS ORDERED: VITA250T7 PO (04:05)
[2022-08-24] MEDS ORDERED: METF750T36 PO (04:05)
[2022-08-24] MEDS ORDERED: HYDR-4571 PO (04:05)
[2022-08-24] MEDS ORDERED: ONDA4TAB6 PO (04:05)
[2022-08-24] MEDS ORDERED: FOLI1TAB11 PO (04:05)
[2022-08-24] MEDS ORDERED: ATOR1TAB21 PO (04:05)
[2022-08-24] MEDS ORDERED: LYRI200C PO (04:05)
[2022-08-24] MEDS ORDERED: METH25IN12 SC (04:05)
[2022-08-24] MEDS ORDERED: OYST500T92 PO (04:05)
[2022-08-24] MEDS ORDERED: HOME MED LIST COMPLETE! XX SCH (04:10)
[2022-08-24] MEDS ORDERED: DEXTROSE 50% 50ML SYRINGE IV PRN (04:15)
[2022-08-24] MEDS ORDERED: GLUCAGON INJ 1MG VIAL SC PRN (04:15)
[2022-08-24] MEDS ORDERED: GLUCOSE 4GM CHEW TABLET PO PRN (04:15)
[2022-08-24] MEDS ORDERED: NS IV ONE (04:30)
[2022-08-24] MEDS ORDERED: NS 1,000 ML IV SCH (04:40)
[2022-08-24] MEDS ORDERED: ONDANSETRON 4MG 2ML VIAL IV PRN (04:40)
[2022-08-24] MEDS: ACETAMINOPHEN TAB 650MG DOSE (2X325MG) PO PRN ×2 (04:44→16:00)
[2022-08-24 05:32] VITALS: BP 138/87
[2022-08-24 06:27] VITALS: O2SAT 94
[2022-08-24 06:50] VITALS: BP_SYST 138; BP_SYST 139; BP_DIAS 86; BP_DIAS 87
[2022-08-24 07:19] LABS: BLOOD UREA NITROGEN 14 MG/DL (9-23); CALCIUM LEVEL 8.7 MG/DL (8.5-10.1); CARBON DIOXIDE LEVEL 25 MMOL/L (20-31); CHLORIDE LEVEL 113 MMOL/L (98-107); CREATININE FOR GFR 0.43 MG/DL (0.55-1.30); GLOMERULAR FILTRATION RATE > 60.0 (>51); GLUCOSE, FASTING 132 MG/DL (60-100); POTASSIUM SERUM 3.7 MMOL/L (3.5-5.1); SODIUM LEVEL 146 MMOL/L (136-145)
[2022-08-24] MEDS: INSULIN LISPRO (NovoLOG) PER UNIT SC SCH ×4 (07:30→21:00)
[2022-08-24] MEDS: FOLIC ACID 1MG TAB PO SCH (08:40)
[2022-08-24] MEDS: CYANOCOBALAMIN 250 MCG TABLET PO SCH (08:40)
[2022-08-24] MEDS: PREGABALIN 100 MG CAP (LYRICA) PO SCH ×3 (08:40→21:05)
[2022-08-24] MEDS: ATORVASTATIN 20 MG TAB PO SCH (08:40)
[2022-08-24] MEDS: BACLOFEN 10 MG TAB PO SCH ×3 (08:40→21:05)
[2022-08-24] MEDS: OMEPRAZOLE 20MG CAP PO SCH (08:41)
[2022-08-24] MEDS: ENOXAPARIN 40MG/0.4ML SYRINGE (J1650 PER 10MG) SC SCH (08:41)
[2022-08-24] MEDS: MULTIVITAMINS/MINERALS THERAP 1 TAB PO SCH (08:41)
[2022-08-24] MEDS: FERROUS SULFATE 325MG TAB PO SCH (08:41)
[2022-08-24] MEDS: tiZANidine 4 MG TAB PO PRN ×2 (08:55→22:21)
[2022-08-24] MEDS: NORCO, ANEXSIA 5/325MG TABLET (HYDROcodone/ACETAMINOPHEN) PO PRN ×2 (08:56→21:08)
[2022-08-24 14:00] VITALS: BP 153/78
[2022-08-24] MEDS: CALCIUM/VITAMIN D 500 MG TAB PO SCH (21:05)
[2022-08-24 21:16] VITALS: BP 144/89
[2022-08-24] MEDS: guaiFENesin SYRUP 200MG 10ML UDC PO PRN (22:21)
[2022-08-25] VITALS (7 sets, daily range): BP systolic 102–158; BP diastolic 58–89; O2SAT 94–97
[2022-08-25] MEDS: cefTRIAXone SOD 1 GM in D5W MINI-BAG PLUS 50 ML IV SCH (05:18)
[2022-08-25 05:52] LABS: BASO % 0.2 % (0.0-1.0); EOS # 0.2 10^3/uL (0.0-0.5); EOS % 1.3 % (0.0-3.0); HEMATOCRIT 32.5 % (36.0-47.0); LYMPH # 1.5 10^3/uL (1.5-5.0); MEAN CORPUSCULAR HEMOGLOBIN 28.7 pg (27.0-33.0); MEAN CORPUSCULAR HGB CONC 30.8 g/dl (32.0-36.5); MEAN CORPUSCULAR VOLUME 93.1 fl (80.0-96.0); MONO # 0.7 10^3/uL (0.0-0.8); MONO % 5.6 % (2.0-8.0); NEUTROPHILS # 9.9 10^3/uL (1.5-8.5); NEUTROPHILS % 80.3 % (36.0-66.0); PLATELET COUNT, AUTOMATED 333 10^3/uL (150-450); RED BLOOD COUNT 3.49 10^6/uL (4.00-5.40); WHITE BLOOD COUNT 12.3 10^3/uL (4.0-10.0)
[2022-08-25] MEDS ORDERED: NORCO, ANEXSIA 5/325MG TABLET (HYDROcodone/ACETAMINOPHEN) PO ONE (06:00)
[2022-08-25 06:24] LABS: MAGNESIUM LEVEL 1.7 MG/DL (1.8-2.4)
[2022-08-25 06:26] LABS: BLOOD UREA NITROGEN 11 MG/DL (9-23); CALCIUM LEVEL 9.4 MG/DL (8.5-10.1); CARBON DIOXIDE LEVEL 28 MMOL/L (20-31); CHLORIDE LEVEL 107 MMOL/L (98-107); CREATININE FOR GFR 0.46 MG/DL (0.55-1.30); GLOMERULAR FILTRATION RATE > 60.0 (>51); GLUCOSE, FASTING 124 MG/DL (60-100); PHOSPHORUS LEVEL 3.1 MG/DL (2.5-4.9); POTASSIUM SERUM 3.7 MMOL/L (3.5-5.1); SODIUM LEVEL 142 MMOL/L (136-145)
[2022-08-25] MEDS: INSULIN LISPRO (NovoLOG) PER UNIT SC SCH ×4 (08:46→21:00)
[2022-08-25] MEDS: ENOXAPARIN 40MG/0.4ML SYRINGE (J1650 PER 10MG) SC SCH (08:47)
[2022-08-25] MEDS: MAG SULF 1GM/100ML (MAG RUN) 1 GM in IV 1 EA IV SCH ×2 (08:47→10:24)
[2022-08-25] MEDS: BACLOFEN 10 MG TAB PO SCH ×3 (08:49→21:04)
[2022-08-25] MEDS: MULTIVITAMINS/MINERALS THERAP 1 TAB PO SCH (08:49)
[2022-08-25] MEDS: FOLIC ACID 1MG TAB PO SCH (08:49)
[2022-08-25] MEDS: AZITHROMYCIN 250MG TABLET PO SCH (08:49)
[2022-08-25] MEDS: ATORVASTATIN 20 MG TAB PO SCH (08:49)
[2022-08-25] MEDS: PREGABALIN 100 MG CAP (LYRICA) PO SCH ×3 (08:49→21:04)
[2022-08-25] MEDS: OMEPRAZOLE 20MG CAP PO SCH (08:50)
[2022-08-25] MEDS: CYANOCOBALAMIN 250 MCG TABLET PO SCH (08:50)
[2022-08-25] MEDS ORDERED: DOXYCYCLINE HYCLATE 100MG TABLET PO SCH (09:00)
[2022-08-25] MEDS ORDERED: AZITHROMYCIN INJ 500 MG, VIAL MATE ADAPTER 1 EACH in NS 250 ML IV SCH (09:00)
[2022-08-25] MEDS ORDERED: EXCEDRIN MIGRAINE TABLET PO STA (10:52)
[2022-08-25] MEDS ORDERED: EXCEDRIN MIGRAINE TABLET PO PRN (10:55)
[2022-08-25] MEDS: tiZANidine 4 MG TAB PO PRN ×2 (12:42→21:05)
[2022-08-25] MEDS: amLODIPine 5 MG TAB PO SCH (12:44)
[2022-08-25] MEDS: CALCIUM/VITAMIN D 500 MG TAB PO SCH (21:04)
[2022-08-25] MEDS: NORCO, ANEXSIA 5/325MG TABLET (HYDROcodone/ACETAMINOPHEN) PO PRN (21:05)
[2022-08-25] MEDS: guaiFENesin SYRUP 200MG 10ML UDC PO PRN (22:38)
[2022-08-26 00:01] VITALS: O2SAT 94
[2022-08-26] MEDS: cefTRIAXone SOD 1 GM in D5W MINI-BAG PLUS 50 ML IV SCH (05:22)
[2022-08-26 06:00] VITALS: BP 142/83
[2022-08-26 07:41] LABS: HEMATOCRIT 32.9 % (36.0-47.0); HEMOGLOBIN 10.3 g/dl (12.0-15.5); MEAN CORPUSCULAR HEMOGLOBIN 28.7 pg (27.0-33.0); MEAN CORPUSCULAR HGB CONC 31.3 g/dl (32.0-36.5); MEAN CORPUSCULAR VOLUME 91.6 fl (80.0-96.0); PLATELET COUNT, AUTOMATED 343 10^3/uL (150-450); RED BLOOD COUNT 3.59 10^6/uL (4.00-5.40); WHITE BLOOD COUNT 7.5 10^3/uL (4.0-10.0)
[2022-08-26 08:26] LABS: MAGNESIUM LEVEL 1.6 MG/DL (1.8-2.4)
[2022-08-26 08:27] LABS: BLOOD UREA NITROGEN 13 MG/DL (9-23); CALCIUM LEVEL 8.9 MG/DL (8.5-10.1); CARBON DIOXIDE LEVEL 28 MMOL/L (20-31); CHLORIDE LEVEL 106 MMOL/L (98-107); CREATININE FOR GFR 0.45 MG/DL (0.55-1.30); GLOMERULAR FILTRATION RATE > 60.0 (>51); GLUCOSE, FASTING 131 MG/DL (60-100); POTASSIUM SERUM 3.8 MMOL/L (3.5-5.1); SODIUM LEVEL 143 MMOL/L (136-145)
[2022-08-26] MEDS: AZITHROMYCIN 250MG TABLET PO SCH (08:40)
[2022-08-26] MEDS: FERROUS SULFATE 325MG TAB PO SCH (08:40)
[2022-08-26] MEDS: CYANOCOBALAMIN 250 MCG TABLET PO SCH (08:40)
[2022-08-26] MEDS: PREGABALIN 100 MG CAP (LYRICA) PO SCH (08:40)
[2022-08-26] MEDS: BACLOFEN 10 MG TAB PO SCH (08:40)
[2022-08-26] MEDS: FOLIC ACID 1MG TAB PO SCH (08:40)
[2022-08-26] MEDS: ATORVASTATIN 20 MG TAB PO SCH (08:40)
[2022-08-26] MEDS: amLODIPine 5 MG TAB PO SCH (08:41)
[2022-08-26] MEDS: MULTIVITAMINS/MINERALS THERAP 1 TAB PO SCH (08:41)
[2022-08-26] MEDS: OMEPRAZOLE 20MG CAP PO SCH (08:41)
[2022-08-26] MEDS: ENOXAPARIN 40MG/0.4ML SYRINGE (J1650 PER 10MG) SC SCH (08:45)
[2022-08-26] MEDS: INSULIN LISPRO (NovoLOG) PER UNIT SC SCH (09:16)
[2022-08-26] MEDS ORDERED: AMLO1TAB24 PO (09:36)
[2022-08-26] MEDS ORDERED: AZIT-12 PO (09:40)
[2022-08-26] MEDS ORDERED: CEFD300C41 PO (09:40)
[2022-08-26] MEDS ORDERED: MAGN400T2 PO (09:42)
[2022-08-26] MEDS: MAG SULF 1GM/100ML (MAG RUN) 1 GM in IV 1 EA IV SCH ×2 (10:23→10:24)
== END 2022-08-26 12:28 | disposition home or self-care (01) | DRG 137 ==
LOC: M ED 01:42 → M ED INP 04:14 → ENRESERV 04:55 → M MSPAV 05:30
PROVIDERS: ADMIT Family Medicine; ATTEND Internal Medicine
DX: U07.1 COVID-19 (principal); J12.82 Pneumonia due to coronavirus disease 2019; I10 Essential (primary) hypertension; E11.9 Type 2 diabetes mellitus without complications; D50.9 Iron deficiency anemia, unspecified; E78.5 Hyperlipidemia, unspecified; R11.2 Nausea with vomiting, unspecified; E87.6 Hypokalemia; K21.9 Gastro-esophageal reflux disease without esophagitis; R51.9 Headache, unspecified; L93.0 Discoid lupus erythematosus; Z79.899 Other long term (current) drug therapy; Z88.8 Allergy status to other drugs, medicaments and biological substances

== ENCOUNTER → 2022-08-30 | Outpatient (REF) | payer BC ==
[~2022-08-30] MED LIST changes: +AMLO1TAB24 PO; +ATOR1TAB21 PO; +AZIT-12 PO; +BACL10TA2 PO; +CEFD300C41 PO; +FOLI1TAB11 PO; +HYDR-4571 PO; +LYRI200C PO; +MAGN400T2 PO; +METH25IN12 SC; +ONDA4TAB6 PO; +OYST500T92 PO; +VITA250T7 PO; +VITMTA PO
[2022-08-30 13:53] LABS: BLOOD UREA NITROGEN 20 MG/DL (9-23); CALCIUM LEVEL 9.4 MG/DL (8.5-10.1); CARBON DIOXIDE LEVEL 31 MMOL/L (20-31); CHLORIDE LEVEL 103 MMOL/L (98-107); CREATININE FOR GFR 0.57 MG/DL (0.55-1.30); GLOMERULAR FILTRATION RATE > 60.0 (>51); GLUCOSE, FASTING 103 MG/DL (60-100); MAGNESIUM LEVEL 1.9 MG/DL (1.8-2.4); PHOSPHORUS LEVEL 3.9 MG/DL (2.5-4.9); POTASSIUM SERUM 4.6 MMOL/L (3.5-5.1); SODIUM LEVEL 141 MMOL/L (136-145)
== END ==
LOC: M LABDRWAD 12:48
PROVIDERS: ATTEND Internal Medicine
DX: U07.1 COVID-19 (principal)

== ENCOUNTER → 2022-09-12 | Outpatient (CLI) | payer BC ==
[2022-09-12 14:43] LABS: HEMOGLOBIN A1c 6.6 % (4.0-6.0)
[2022-09-12 15:01] LABS: MALB URINE SIEMENS < 3.0 MG/DL; MAU/CREAT RATIO 8.8 MCG/MG (0.0-30.0)
[2022-09-12 15:05] LABS: ALBUMIN 3.6 G/DL (3.2-5.2); ALKALINE PHOSPHATASE 94 U/L (46-116); ALT/SGPT 20 U/L (7.0-40); AST/SGOT 12 U/L (<34); BILIRUBIN,TOTAL 0.3 MG/DL (0.3-1.2); BLOOD UREA NITROGEN 21 MG/DL (9-23); CALCIUM LEVEL 9.6 MG/DL (8.5-10.1); CARBON DIOXIDE LEVEL 31 MMOL/L (20-31); CHLORIDE LEVEL 107 MMOL/L (98-107); CHOLESTEROL LEVEL 127 MG/DL (<200); CHOLESTEROL RISK RATIO 2.63 (<5); CREATININE FOR GFR 0.61 MG/DL (0.55-1.30); GLOMERULAR FILTRATION RATE > 60.0 (>51); GLUCOSE, FASTING 111 MG/DL (60-100); HDL CHOLESTEROL 48.2 MG/DL (>40); LDL CHOLESTEROL 61.4 MG/DL (<100); NON-HDL-C 79 MG/DL; POTASSIUM SERUM 4.8 MMOL/L (3.5-5.1); SODIUM LEVEL 139 MMOL/L (136-145); THYROID STIMULATING HORMONE 1.343 uIU/ML (0.55-4.78); TOTAL 25(OH) VITAMIN D 31.1 NG/ML (20.0-100.0); TOTAL PROTEIN 6.4 G/DL (5.7-8.2); TRIGLYCERIDES LEVEL 87 MG/DL (<150)
[2022-09-12 15:07] LABS: FREE T4 0.84 NG/DL (0.89-1.76)
[2022-09-12 15:10] LABS: VITAMIN B12 LEVEL > 2000 PG/ML (211-911)
== END ==
LOC: M PLALAB 10:08
PROVIDERS: ATTEND Internal Medicine Hematology
DX: E11.9 Type 2 diabetes mellitus without complications (principal)

== ENCOUNTER → 2022-09-12 | Outpatient (CLI) | payer BC ==
[2022-09-12 14:36] LABS: BASO # 0.1 10^3/uL (0.0-0.2); BASO % 0.9 % (0.0-1.0); EOS # 0.4 10^3/uL (0.0-0.5); EOS % 7.8 % (0.0-3.0); HEMATOCRIT 36.3 % (36.0-47.0); MEAN CORPUSCULAR HEMOGLOBIN 28.5 pg (27.0-33.0); MEAN CORPUSCULAR HGB CONC 30.3 g/dl (32.0-36.5); MONO # 0.5 10^3/uL (0.0-0.8); MONO % 9.6 % (2.0-8.0); NEUTROPHILS # 2.3 10^3/uL (1.5-8.5); NEUTROPHILS % 43.3 % (36.0-66.0); PLATELET COUNT, AUTOMATED 357 10^3/uL (150-450); RED BLOOD COUNT 3.86 10^6/uL (4.00-5.40); WHITE BLOOD COUNT 5.3 10^3/uL (4.0-10.0)
[2022-09-12 15:02] LABS: ALBUMIN 3.7 G/DL (3.2-5.2); ALT/SGPT 20 U/L (7.0-40); AST/SGOT 11 U/L (<34); BLOOD UREA NITROGEN 22 MG/DL (9-23); CREATININE FOR GFR 0.62 MG/DL (0.55-1.30); GLOMERULAR FILTRATION RATE > 60.0 (>51)
[2022-09-12 15:29] LABS: ERYTHROCYTE SEDIMENTATION RATE 19 mm/hr (0-30)
== END ==
LOC: M PLALAB 10:05
PROVIDERS: ATTEND Physician Assistant
DX: M06.4 Inflammatory polyarthropathy (principal); Z79.899 Other long term (current) drug therapy; R76.0 Raised antibody titer

== ENCOUNTER → 2022-09-15 | Outpatient (CLI) | payer BC | LOC: M WHC 10:12 | PROVIDERS: ATTEND Internal Medicine Hematology | DX: M85.851 Other specified disorders of bone density and structure, right thigh (principal); M85.852 Other specified disorders of bone density and structure, left thigh ==

== ENCOUNTER → 2022-10-05 | Outpatient (REF) | payer BC ==
[2022-10-05 18:38] LABS: APPEARANCE, URINE CLEAR (CLEAR); BACTERIA, URINE AUTO 2+ (NEGATIVE); BILIRUBIN, URINE AUTO NEGATIVE (NEGATIVE); BLOOD, URINE BLOOD NEGATIVE (NEGATIVE); COLOR, URINE YELLOW (YELLOW); GLUCOSE, URINE (UA) AUTO NEGATIVE (NEGATIVE); KETONE, URINE AUTO NEGATIVE (NEGATIVE); LEUKOCYTE ESTERASE, URINE AUTO 1+ (NEGATIVE); MUCUS, URINE SMALL (NEGATIVE); NITRITE, URINE AUTO NEGATIVE (NEGATIVE); PROTEIN, URINE AUTO NEGATIVE (NEGATIVE); RBC, URINE AUTO 7 /HPF (0-3); SPECIFIC GRAVITY URINE AUTO 1.017 (1.002-1.035); SQUAMOUS EPITHELIAL CELL UR AU 0 /HPF (0-6); UROBILINOGEN, URINE AUTO 0.2 mg/dL (0.0-2.0); WBC, URINE AUTO 19 /HPF (0-3)
== END ==
LOC: M SFHCPLAZ 18:01
PROVIDERS: ATTEND Internal Medicine Hematology
DX: N30.00 Acute cystitis without hematuria (principal)

== ENCOUNTER → 2022-10-07 | Outpatient (CLI) | payer BC | LOC: M ADAMS 11:08 | PROVIDERS: ATTEND Internal Medicine Hematology | DX: U09.9 Post COVID-19 condition, unspecified (principal) ==

== ENCOUNTER → 2022-11-15 | Outpatient (REF) | payer BC ==
[2022-11-16 08:50] LABS: APPEARANCE, URINE CLOUDY (CLEAR); BACTERIA, URINE AUTO 1+ (NEGATIVE); BILIRUBIN, URINE AUTO NEGATIVE (NEGATIVE); BLOOD, URINE BLOOD NEGATIVE (NEGATIVE); COLOR, URINE YELLOW (YELLOW); GLUCOSE, URINE (UA) AUTO NEGATIVE (NEGATIVE); KETONE, URINE AUTO NEGATIVE (NEGATIVE); LEUKOCYTE ESTERASE, URINE AUTO 3+ (NEGATIVE); MUCUS, URINE SMALL (NEGATIVE); NITRITE, URINE AUTO POSITIVE (NEGATIVE); PROTEIN, URINE AUTO 1+ mg/dL (NEGATIVE); RBC, URINE AUTO 15 /HPF (0-3); SQUAMOUS EPITHELIAL CELL UR AU 1 /HPF (0-6); UROBILINOGEN, URINE AUTO 0.2 mg/dL (0.0-2.0); WBC, URINE AUTO TNTC /HPF (0-3)
== END ==
LOC: M SFHCPLAZ 08:19
PROVIDERS: ATTEND Internal Medicine Hematology
DX: N30.00 Acute cystitis without hematuria (principal)

== ENCOUNTER → 2022-12-05 | Outpatient (CLI) | payer BC ==
[2022-12-05 17:03] LABS: APPEARANCE, URINE HAZY (CLEAR); BACTERIA, URINE AUTO NEGATIVE (NEGATIVE); BILIRUBIN, URINE AUTO NEGATIVE (NEGATIVE); BLOOD, URINE BLOOD NEGATIVE (NEGATIVE); CALCIUM OXALATE CRYSTALS LARGE; COLOR, URINE AMBER (YELLOW); GLUCOSE, URINE (UA) AUTO NEGATIVE (NEGATIVE); KETONE, URINE AUTO TRACE mg/dL (NEGATIVE); LEUKOCYTE ESTERASE, URINE AUTO TRACE (NEGATIVE); MUCUS, URINE SMALL (NEGATIVE); NITRITE, URINE AUTO NEGATIVE (NEGATIVE); PROTEIN, URINE AUTO 1+ mg/dL (NEGATIVE); RBC, URINE AUTO 0 /HPF (0-3); SPECIFIC GRAVITY URINE AUTO 1.034 (1.002-1.035); SQUAMOUS EPITHELIAL CELL UR AU 2 /HPF (0-6); WBC, URINE AUTO 5 /HPF (0-3)
[2022-12-05 17:14] LABS: BASO % 0.8 % (0.0-1.0); EOS # 0.2 10^3/uL (0.0-0.5); EOS % 4.7 % (0.0-3.0); HEMATOCRIT 35.9 % (36.0-47.0); HEMOGLOBIN 11.1 g/dl (12.0-15.5); LYMPH # 1.5 10^3/uL (1.5-5.0); LYMPH % 30.8 % (24.0-44.0); MEAN CORPUSCULAR HEMOGLOBIN 28.6 pg (27.0-33.0); MEAN CORPUSCULAR HGB CONC 30.9 g/dl (32.0-36.5); MEAN CORPUSCULAR VOLUME 92.5 fl (80.0-96.0); MONO # 0.4 10^3/uL (0.0-0.8); MONO % 9.3 % (2.0-8.0); NEUTROPHILS # 2.5 10^3/uL (1.5-8.5); PLATELET COUNT, AUTOMATED 440 10^3/uL (150-450); RED BLOOD COUNT 3.88 10^6/uL (4.00-5.40); WHITE BLOOD COUNT 4.7 10^3/uL (4.0-10.0)
[2022-12-05 17:19] LABS: C REACTIVE PROTEIN QUANTITATIV < 0.40 MG/DL (<1.0); CREATININE, URINE 173.6 MG/DL; MAU/CREAT RATIO 6.3 MCG/MG (0.0-30.0)
[2022-12-05 17:20] LABS: COMPLEMENT C3 141.7 MG/DL (90.0-170.0); COMPLEMENT C4 40.6 MG/DL (12-36)
[2022-12-05 17:21] LABS: ALBUMIN 3.7 G/DL (3.2-5.2); ALT/SGPT 39 U/L (7.0-40); AST/SGOT 39 U/L (<34); BLOOD UREA NITROGEN 20 MG/DL (9-23); CREATININE FOR GFR 0.67 MG/DL (0.55-1.30); GLOMERULAR FILTRATION RATE > 60.0 (>51)
[2022-12-05 17:47] LABS: ERYTHROCYTE SEDIMENTATION RATE 14 mm/hr (0-30)
== END ==
LOC: M LABDRWAD 14:28
PROVIDERS: ATTEND Physician Assistant
DX: M06.4 Inflammatory polyarthropathy (principal); R76.0 Raised antibody titer; Z79.899 Other long term (current) drug therapy

== ENCOUNTER → 2022-12-22 | Outpatient (CLI) | payer BC ==
[2022-12-22 16:43] LABS: APPEARANCE, URINE CLEAR (CLEAR); BACTERIA, URINE AUTO NEGATIVE (NEGATIVE); BILIRUBIN, URINE AUTO NEGATIVE (NEGATIVE); BLOOD, URINE BLOOD NEGATIVE (NEGATIVE); COLOR, URINE YELLOW (YELLOW); GLUCOSE, URINE (UA) AUTO NEGATIVE (NEGATIVE); KETONE, URINE AUTO NEGATIVE (NEGATIVE); LEUKOCYTE ESTERASE, URINE AUTO NEGATIVE (NEGATIVE); MUCUS, URINE SMALL (NEGATIVE); NITRITE, URINE AUTO NEGATIVE (NEGATIVE); PROTEIN, URINE AUTO NEGATIVE (NEGATIVE); RBC, URINE AUTO 5 /HPF (0-3); SPECIFIC GRAVITY URINE AUTO 1.021 (1.002-1.035); SQUAMOUS EPITHELIAL CELL UR AU 0 /HPF (0-6); UROBILINOGEN, URINE AUTO 0.2 mg/dL (0.0-2.0); WBC, URINE AUTO 2 /HPF (0-3)
[2022-12-22 16:58] LABS: ALT/SGPT 32 U/L (7.0-40); AST/SGOT 28 U/L (<34)
== END ==
LOC: M LABDRWAD 13:32
PROVIDERS: ATTEND Physician Assistant
DX: M06.4 Inflammatory polyarthropathy (principal); Z79.899 Other long term (current) drug therapy

== ENCOUNTER 2023-01-14 13:13 | Observation (INO) | payer BC ==
[~2023-01-14] VITALS: Ht 162.6 cm; Wt 78.0 kg
[2023-01-14] MEDS ORDERED: NS 1,000 ML IV ONE (13:50)
[2023-01-14 14:30] LABS: BASO # 0.1 10^3/uL (0.0-0.2); BASO % 0.2 % (0.0-1.0); HEMATOCRIT 35.6 % (36.0-47.0); HEMOGLOBIN 11.9 g/dl (12.0-15.5); LYMPH # 0.6 10^3/uL (1.5-5.0); LYMPH % 2.8 % (24.0-44.0); MEAN CORPUSCULAR HEMOGLOBIN 29.8 pg (27.0-33.0); MEAN CORPUSCULAR HGB CONC 33.4 g/dl (32.0-36.5); MONO # 0.8 10^3/uL (0.0-0.8); MONO % 3.8 % (2.0-8.0); NEUTROPHILS # 20.3 10^3/uL (1.5-8.5); NEUTROPHILS % 92.3 % (36.0-66.0); PLATELET COUNT, AUTOMATED 295 10^3/uL (150-450)
[2023-01-14 15:05] LABS: ALKALINE PHOSPHATASE 96 U/L (46-116); ALT/SGPT 20 U/L (7.0-40); AST/SGOT 19 U/L (<34); BILIRUBIN,TOTAL 0.4 MG/DL (0.3-1.2); BLOOD UREA NITROGEN 20 MG/DL (9-23); CALCIUM LEVEL 9.9 MG/DL (8.5-10.1); CARBON DIOXIDE LEVEL 24 MMOL/L (20-31); CHLORIDE LEVEL 102 MMOL/L (98-107); CREATININE FOR GFR 0.57 MG/DL (0.55-1.30); GLOMERULAR FILTRATION RATE > 60.0 (>51); GLUCOSE, FASTING 137 MG/DL (60-100); MAGNESIUM LEVEL 1.6 MG/DL (1.8-2.4); POTASSIUM SERUM 3.7 MMOL/L (3.5-5.1); SODIUM LEVEL 137 MMOL/L (136-145); TOTAL PROTEIN 6.9 G/DL (5.7-8.2)
[2023-01-14] MEDS ORDERED: PIPERACILLIN/TAZOBACTAM SOD 4.5 GM in D5W MINI-BAG PLUS 50 ML IV ONE (15:05)
[2023-01-14] MEDS ORDERED: MAG SULF 1GM/100ML (MAG RUN) 1 GM in IV 1 EA IV ONE (15:10)
[2023-01-14] MEDS ORDERED: ACETAMINOPHEN TAB 650MG DOSE (2X325MG) PO PRN (17:00)
[2023-01-14] MEDS ORDERED: GLUCOSE 4GM CHEW TABLET PO PRN (17:20)
[2023-01-14] MEDS ORDERED: GLUCAGON INJ 1MG VIAL SC PRN (17:20)
[2023-01-14] MEDS ORDERED: DEXTROSE 50% 50ML SYRINGE IV PRN (17:20)
[2023-01-14] MEDS ORDERED: HYDR200T46 PO (18:14)
[2023-01-14] MEDS ORDERED: ONDA4TAB6 PO (18:14)
[2023-01-14] MEDS ORDERED: MAGN250T11 PO (18:14)
[2023-01-14] MEDS ORDERED: OMEP-173 PO (18:15)
[2023-01-14] MEDS ORDERED: HOME MED LIST COMPLETE! XX SCH (18:20)
[2023-01-14] MEDS: NS 1,000 ML IV SCH (18:21)
[2023-01-14 18:50] VITALS: BP 121/73; TEMP 98.8; O2SAT 97
[2023-01-14] MEDS: INSULIN LISPRO (NovoLOG) PER UNIT SC SCH (19:15)
[2023-01-14 20:00] VITALS: BP 112/63; TEMP 99.1; O2SAT 94
[2023-01-14] MEDS ORDERED: INSULIN LISPRO (NovoLOG) PER UNIT SC SCH (21:00)
[2023-01-14] MEDS ORDERED: oxyCODONE 5MG TAB PO PRN (21:35)
[2023-01-15] MEDS: NS 1,000 ML IV SCH ×2 (04:48→14:14)
[2023-01-15 05:59] LABS: HEMATOCRIT 31.9 % (36.0-47.0); HEMOGLOBIN 10.1 g/dl (12.0-15.5); MEAN CORPUSCULAR HEMOGLOBIN 29.1 pg (27.0-33.0); MEAN CORPUSCULAR HGB CONC 31.7 g/dl (32.0-36.5); MEAN CORPUSCULAR VOLUME 91.9 fl (80.0-96.0); PLATELET COUNT, AUTOMATED 254 10^3/uL (150-450); RED BLOOD COUNT 3.47 10^6/uL (4.00-5.40); WHITE BLOOD COUNT 15.3 10^3/uL (4.0-10.0)
[2023-01-15 06:00] VITALS: BP 102/59; TEMP 97.5; O2SAT 95
[2023-01-15 06:25] LABS: ALKALINE PHOSPHATASE 76 U/L (46-116); ALT/SGPT 17 U/L (7.0-40); AST/SGOT 15 U/L (<34); BILIRUBIN,TOTAL 0.3 MG/DL (0.3-1.2); BLOOD UREA NITROGEN 13 MG/DL (9-23); CALCIUM LEVEL 8.7 MG/DL (8.5-10.1); CARBON DIOXIDE LEVEL 26 MMOL/L (20-31); CHLORIDE LEVEL 106 MMOL/L (98-107); CREATININE FOR GFR 0.49 MG/DL (0.55-1.30); GLOMERULAR FILTRATION RATE > 60.0 (>51); GLUCOSE, FASTING 154 MG/DL (60-100); MAGNESIUM LEVEL 1.8 MG/DL (1.8-2.4); POTASSIUM SERUM 3.6 MMOL/L (3.5-5.1); SODIUM LEVEL 139 MMOL/L (136-145); TOTAL PROTEIN 5.6 G/DL (5.7-8.2)
[2023-01-15] MEDS ORDERED: ENOXAPARIN 40MG/0.4ML SYRINGE (J1650 PER 10MG) SC SCH (09:00)
[2023-01-15] MEDS: INSULIN LISPRO (NovoLOG) PER UNIT SC SCH ×2 (09:03→12:00)
[2023-01-15 14:00] VITALS: BP 125/83; TEMP 98.4; O2SAT 100
== END 2023-01-15 17:45 | disposition home or self-care (01) ==
LOC: M ED 13:13 → M ED INP 13:14 → ENRESERV 17:31 → M MSPAV 18:47
PROVIDERS: ADMIT Internal Medicine; ATTEND Internal Medicine
DX: A41.89 Other specified sepsis (principal); B34.1 Enterovirus infection, unspecified; J02.9 Acute pharyngitis, unspecified; E83.42 Hypomagnesemia; R00.0 Tachycardia, unspecified; D72.829 Elevated white blood cell count, unspecified; E11.9 Type 2 diabetes mellitus without complications; M32.9 Systemic lupus erythematosus, unspecified; M06.9 Rheumatoid arthritis, unspecified; G89.4 Chronic pain syndrome; D50.9 Iron deficiency anemia, unspecified; K58.9 Irritable bowel syndrome, unspecified; I10 Essential (primary) hypertension; K21.9 Gastro-esophageal reflux disease without esophagitis; Z98.84 Bariatric surgery status; Z88.1 Allergy status to other antibiotic agents; Z88.5 Allergy status to narcotic agent; Z79.899 Other long term (current) drug therapy; Z79.84 Long term (current) use of oral hypoglycemic drugs
CPT/HCPCS: 36415; 71045; 80053; 81001; 83605; 83735; 84145; 85025; 85027; 87040; 87486; 87581; 87633; 87798; 87880; 93005; 96361; 96365; 96368; 99284; J1815; J2543; J3475

== ENCOUNTER → 2023-02-06 | Outpatient (CLI) | payer BC ==
[~2023-02-06] MED LIST changes: +HYDR200T46 PO; +MAGN250T11 PO; +OMEP-173 PO
[2023-02-06 16:57] LABS: BASO % 0.7 % (0.0-1.0); C REACTIVE PROTEIN QUANTITATIV < 0.40 MG/DL (<1.0); EOS # 0.4 10^3/uL (0.0-0.5); HEMATOCRIT 37.2 % (36.0-47.0); HEMOGLOBIN 11.5 g/dl (12.0-15.5); LYMPH # 1.8 10^3/uL (1.5-5.0); LYMPH % 32.8 % (24.0-44.0); MEAN CORPUSCULAR HEMOGLOBIN 28.8 pg (27.0-33.0); MEAN CORPUSCULAR HGB CONC 30.9 g/dl (32.0-36.5); MONO # 0.3 10^3/uL (0.0-0.8); MONO % 5.9 % (2.0-8.0); NEUTROPHILS # 2.9 10^3/uL (1.5-8.5); NEUTROPHILS % 53.2 % (36.0-66.0); PLATELET COUNT, AUTOMATED 323 10^3/uL (150-450); WHITE BLOOD COUNT 5.5 10^3/uL (4.0-10.0)
[2023-02-06 16:58] LABS: ALBUMIN 3.6 G/DL (3.2-5.2); ALT/SGPT 39 U/L (7.0-40); AST/SGOT 28 U/L (<34); BLOOD UREA NITROGEN 21 MG/DL (9-23); CREATININE FOR GFR 0.62 MG/DL (0.55-1.30); GLOMERULAR FILTRATION RATE > 60.0 (>51)
[2023-02-06 17:19] LABS: ERYTHROCYTE SEDIMENTATION RATE 8 mm/hr (0-30)
== END ==
LOC: M LABDRWAD 14:25
PROVIDERS: ATTEND Physician Assistant
DX: M06.4 Inflammatory polyarthropathy (principal); Z79.899 Other long term (current) drug therapy; R76.0 Raised antibody titer

== ENCOUNTER → 2023-02-20 | Outpatient (CLI) | payer BC | LOC: M WHC 10:50 | PROVIDERS: ATTEND Internal Medicine Hematology | DX: Z12.31 Encounter for screening mammogram for malignant neoplasm of breast (principal) ==

== ENCOUNTER → 2023-02-24 | Outpatient (CLI) | payer BC | LOC: M RAD 08:40 | PROVIDERS: ATTEND Internal Medicine Gastroenterology | DX: R10.9 Unspecified abdominal pain (principal) ==

== ENCOUNTER → 2023-03-01 | Outpatient (CLI) | payer BC ==
[~2023-03-01] MED LIST changes: -GABA-283 PO; +GABA-284 PO
== END ==
LOC: M WHC 10:07
PROVIDERS: ATTEND Nurse Practitioner Adult Health
DX: M25.472 Effusion, left ankle (principal)

== ENCOUNTER → 2023-03-03 | Outpatient (CLI) | payer BC ==
[2023-03-03 13:23] LABS: APPEARANCE, URINE CLEAR (CLEAR); BACTERIA, URINE AUTO NEGATIVE (NEGATIVE); BILIRUBIN, URINE AUTO NEGATIVE (NEGATIVE); BLOOD, URINE BLOOD NEGATIVE (NEGATIVE); COLOR, URINE YELLOW (YELLOW); GLUCOSE, URINE (UA) AUTO NEGATIVE (NEGATIVE); KETONE, URINE AUTO NEGATIVE (NEGATIVE); LEUKOCYTE ESTERASE, URINE AUTO NEGATIVE (NEGATIVE); NITRITE, URINE AUTO NEGATIVE (NEGATIVE); PROTEIN, URINE AUTO NEGATIVE (NEGATIVE); RBC, URINE AUTO 0 /HPF (0-3); SQUAMOUS EPITHELIAL CELL UR AU 0 /HPF (0-6); UROBILINOGEN, URINE AUTO 0.2 mg/dL (0.0-2.0); WBC, URINE AUTO 2 /HPF (0-3)
[2023-03-03 13:28] LABS: HEMATOCRIT 39.5 % (36.0-47.0); HEMOGLOBIN 12.3 g/dl (12.0-15.5); MEAN CORPUSCULAR HEMOGLOBIN 28.7 pg (27.0-33.0); MEAN CORPUSCULAR HGB CONC 31.1 g/dl (32.0-36.5); MEAN CORPUSCULAR VOLUME 92.1 fl (80.0-96.0); PLATELET COUNT, AUTOMATED 357 10^3/uL (150-450); RED BLOOD COUNT 4.29 10^6/uL (4.00-5.40); WHITE BLOOD COUNT 12.5 10^3/uL (4.0-10.0)
[2023-03-03 13:48] LABS: HEMOGLOBIN A1c 5.9 % (4.0-6.0)
[2023-03-03 13:50] LABS: FREE T4 0.89 NG/DL (0.89-1.76); THYROID STIMULATING HORMONE 1.079 uIU/ML (0.55-4.78)
[2023-03-03 13:51] LABS: FERRITIN 28.7 NG/ML (7.3-270.7); MALB URINE SIEMENS < 3.0 MG/L; MAU/CREAT RATIO 7.8 MCG/MG (0.0-30.0); TOTAL IRON BINDING CAPACITY 360 UG/DL (250-425)
[2023-03-03 13:52] LABS: TOTAL 25(OH) VITAMIN D 38.1 NG/ML (20.0-100.0)
[2023-03-03 13:53] LABS: VITAMIN B12 LEVEL 1021 PG/ML (211-911)
[2023-03-03 13:54] LABS: ALBUMIN 3.9 G/DL (3.2-5.2); ALKALINE PHOSPHATASE 108 U/L (46-116); ALT/SGPT 30 U/L (7.0-40); AST/SGOT 25 U/L (<34); BILIRUBIN,TOTAL 0.3 MG/DL (0.3-1.2); BLOOD UREA NITROGEN 18 MG/DL (9-23); CALCIUM LEVEL 9.5 MG/DL (8.5-10.1); CARBON DIOXIDE LEVEL 28 MMOL/L (20-31); CHLORIDE LEVEL 106 MMOL/L (98-107); CHOLESTEROL LEVEL 140 MG/DL (<200); CHOLESTEROL RISK RATIO 2.97 (<5); CREATININE FOR GFR 0.59 MG/DL (0.55-1.30); GLOMERULAR FILTRATION RATE > 60.0 (>51); GLUCOSE, FASTING 106 MG/DL (60-100); IRON (FE) 147 UG/DL (50-170); LDL CHOLESTEROL 63.6 MG/DL (<100); PERCENT SATURATION 40.8 % (13.2-45.0); POTASSIUM SERUM 4.4 MMOL/L (3.5-5.1); SODIUM LEVEL 142 MMOL/L (136-145); TOTAL PROTEIN 6.6 G/DL (5.7-8.2); TRIGLYCERIDES LEVEL 147 MG/DL (<150)
== END ==
LOC: M PLALAB 11:46
PROVIDERS: ATTEND Internal Medicine Hematology
DX: E11.9 Type 2 diabetes mellitus without complications (principal); N39.0 Urinary tract infection, site not specified; B34.8 Other viral infections of unspecified site; E61.1 Iron deficiency

== ENCOUNTER → 2023-05-24 | Outpatient (REF) | payer BC ==
[~2023-05-24] MED LIST changes: -CEFD300C41 PO; +CEFD300C42 PO; -PREG200C; +PREG200C2
[2023-05-24 16:39] LABS: BASO % 0.3 % (0.0-1.0); EOS # 0.4 10^3/uL (0.0-0.5); EOS % 3.3 % (0.0-3.0); HEMATOCRIT 38.8 % (36.0-47.0); HEMOGLOBIN 12.3 g/dl (12.0-15.5); LYMPH # 1.6 10^3/uL (1.5-5.0); LYMPH % 13.1 % (24.0-44.0); MEAN CORPUSCULAR HEMOGLOBIN 29.4 pg (27.0-33.0); MEAN CORPUSCULAR HGB CONC 31.7 g/dl (32.0-36.5); MEAN CORPUSCULAR VOLUME 92.8 fl (80.0-96.0); MONO # 0.7 10^3/uL (0.0-0.8); MONO % 6.2 % (2.0-8.0); NEUTROPHILS # 9.2 10^3/uL (1.5-8.5); NEUTROPHILS % 76.8 % (36.0-66.0); PLATELET COUNT, AUTOMATED 345 10^3/uL (150-450); RED BLOOD COUNT 4.18 10^6/uL (4.00-5.40)
[2023-05-24 16:52] LABS: ALT/SGPT 26 U/L (7.0-40); AST/SGOT 25 U/L (<34); BLOOD UREA NITROGEN 18 MG/DL (9-23); COMPLEMENT C3 131.8 MG/DL (90.0-170.0); COMPLEMENT C4 40.6 MG/DL (12-36); CREATININE FOR GFR 0.54 MG/DL (0.55-1.30); GLOMERULAR FILTRATION RATE > 60.0 (>51)
[2023-05-24 19:01] LABS: ERYTHROCYTE SEDIMENTATION RATE 12 mm/hr (0-30)
== END ==
LOC: M LABDRWAD 16:02
PROVIDERS: ATTEND Physician Assistant
DX: M06.4 Inflammatory polyarthropathy (principal); Z79.899 Other long term (current) drug therapy; R76.0 Raised antibody titer

== ENCOUNTER → 2023-05-30 | Outpatient (CLI) | payer BC ==
[2023-05-30 11:29] LABS: BASO % 0.4 % (0.0-1.0); EOS # 0.4 10^3/uL (0.0-0.5); EOS % 4.2 % (0.0-3.0); HEMATOCRIT 38.6 % (36.0-47.0); HEMOGLOBIN 12.3 g/dl (12.0-15.5); LYMPH # 1.6 10^3/uL (1.5-5.0); LYMPH % 15.5 % (24.0-44.0); MEAN CORPUSCULAR HEMOGLOBIN 29.9 pg (27.0-33.0); MEAN CORPUSCULAR HGB CONC 31.9 g/dl (32.0-36.5); MEAN CORPUSCULAR VOLUME 93.7 fl (80.0-96.0); MONO # 0.7 10^3/uL (0.0-0.8); MONO % 6.9 % (2.0-8.0); NEUTROPHILS # 7.7 10^3/uL (1.5-8.5); NEUTROPHILS % 72.5 % (36.0-66.0); PLATELET COUNT, AUTOMATED 329 10^3/uL (150-450); RED BLOOD COUNT 4.12 10^6/uL (4.00-5.40); WHITE BLOOD COUNT 10.5 10^3/uL (4.0-10.0)
[2023-05-30 13:53] LABS: PROCALCITONIN <0.04 ng/ml
[2023-05-31 14:15] LABS: APPEARANCE, URINE HAZY (CLEAR); BACTERIA, URINE AUTO 1+ (NEGATIVE); BILIRUBIN, URINE AUTO NEGATIVE (NEGATIVE); BLOOD, URINE BLOOD NEGATIVE (NEGATIVE); COLOR, URINE YELLOW (YELLOW); GLUCOSE, URINE (UA) AUTO NEGATIVE (NEGATIVE); KETONE, URINE AUTO NEGATIVE (NEGATIVE); LEUKOCYTE ESTERASE, URINE AUTO 3+ (NEGATIVE); NITRITE, URINE AUTO NEGATIVE (NEGATIVE); PROTEIN, URINE AUTO NEGATIVE (NEGATIVE); RBC, URINE AUTO 4 /HPF (0-3); SQUAMOUS EPITHELIAL CELL UR AU 0 /HPF (0-6); UROBILINOGEN, URINE AUTO 0.2 mg/dL (0.0-2.0); WBC, URINE AUTO TNTC /HPF (0-3)
== END ==
LOC: M LAB 10:55
PROVIDERS: ATTEND Internal Medicine Hematology
DX: N30.00 Acute cystitis without hematuria (principal); J06.9 Acute upper respiratory infection, unspecified

== ENCOUNTER → 2023-07-17 | Outpatient (REF) | payer BC ==
[~2023-07-17] MED LIST changes: +CEFD1CAP9 PO; -CEFD300C42 PO
[2023-07-18 13:44] LABS: APPEARANCE, URINE HAZY (CLEAR); BACTERIA, URINE AUTO 1+ (NEGATIVE); BILIRUBIN, URINE AUTO NEGATIVE (NEGATIVE); BLOOD, URINE BLOOD NEGATIVE (NEGATIVE); COLOR, URINE YELLOW (YELLOW); GLUCOSE, URINE (UA) AUTO NEGATIVE (NEGATIVE); KETONE, URINE AUTO NEGATIVE (NEGATIVE); LEUKOCYTE ESTERASE, URINE AUTO 1+ (NEGATIVE); MUCUS, URINE SMALL (NEGATIVE); NITRITE, URINE AUTO POSITIVE (NEGATIVE); PROTEIN, URINE AUTO NEGATIVE (NEGATIVE); RBC, URINE AUTO 1 /HPF (0-3); SPECIFIC GRAVITY URINE AUTO 1.014 (1.002-1.035); SQUAMOUS EPITHELIAL CELL UR AU 0 /HPF (0-6); UROBILINOGEN, URINE AUTO 0.2 mg/dL (0.0-2.0); WBC, URINE AUTO 19 /HPF (0-3)
== END ==
LOC: M SFHCPLAZ 11:39
PROVIDERS: ATTEND Internal Medicine Hematology
DX: R30.0 Dysuria (principal)

== ENCOUNTER → 2023-08-03 | Outpatient (CLI) | payer BC ==
[2023-08-03 12:20] LABS: BASO % 0.5 % (0.0-1.0); EOS # 0.2 10^3/uL (0.0-0.5); EOS % 3.2 % (0.0-3.0); HEMATOCRIT 39.8 % (36.0-47.0); HEMOGLOBIN 12.4 g/dl (12.0-15.5); LYMPH # 1.6 10^3/uL (1.5-5.0); LYMPH % 25.8 % (24.0-44.0); MEAN CORPUSCULAR HGB CONC 31.2 g/dl (32.0-36.5); MEAN CORPUSCULAR VOLUME 96.4 fl (80.0-96.0); MONO # 0.5 10^3/uL (0.0-0.8); MONO % 8.7 % (2.0-8.0); NEUTROPHILS # 3.8 10^3/uL (1.5-8.5); NEUTROPHILS % 61.3 % (36.0-66.0); PLATELET COUNT, AUTOMATED 386 10^3/uL (150-450); RED BLOOD COUNT 4.13 10^6/uL (4.00-5.40); WHITE BLOOD COUNT 6.2 10^3/uL (4.0-10.0)
[2023-08-03 12:24] LABS: C REACTIVE PROTEIN QUANTITATIV < 0.40 MG/DL (<1.0)
[2023-08-03 12:25] LABS: ALBUMIN 3.9 G/DL (3.2-5.2); ALT/SGPT 24 U/L (7.0-40); AST/SGOT 21 U/L (<34); BLOOD UREA NITROGEN 15 MG/DL (9-23); GLOMERULAR FILTRATION RATE > 60.0 (>51)
[2023-08-03 12:26] LABS: COMPLEMENT C3 142.6 MG/DL (90.0-170.0); COMPLEMENT C4 40.9 MG/DL (12-36)
[2023-08-03 12:33] LABS: ERYTHROCYTE SEDIMENTATION RATE 18 mm/hr (0-30)
[2023-08-07 12:07] LABS: ANTI DS-DNA AB Negative (Negative)
== END ==
LOC: M WUC 09:36
PROVIDERS: ATTEND Physician Assistant
DX: M06.4 Inflammatory polyarthropathy (principal); Z79.899 Other long term (current) drug therapy

== ENCOUNTER → 2023-08-03 | Outpatient (CLI) | payer BC | LOC: M WUC 09:39 | PROVIDERS: ATTEND Internal Medicine Gastroenterology | DX: K44.9 Diaphragmatic hernia without obstruction or gangrene (principal); K21.9 Gastro-esophageal reflux disease without esophagitis; K57.30 Diverticulosis of large intestine without perforation or abscess without bleeding; R10.11 Right upper quadrant pain; R13.10 Dysphagia, unspecified ==

== ENCOUNTER → 2023-09-21 | Outpatient (CLI) | payer BC ==
[2023-09-21 13:51] LABS: HEMATOCRIT 39.3 % (36.0-47.0); HEMOGLOBIN 12.3 g/dl (12.0-15.5); MEAN CORPUSCULAR HEMOGLOBIN 29.7 pg (27.0-33.0); MEAN CORPUSCULAR HGB CONC 31.3 g/dl (32.0-36.5); MEAN CORPUSCULAR VOLUME 94.9 fl (80.0-96.0); PLATELET COUNT, AUTOMATED 335 10^3/uL (150-450); RED BLOOD COUNT 4.14 10^6/uL (4.00-5.40); WHITE BLOOD COUNT 8.7 10^3/uL (4.0-10.0)
[2023-09-21 14:16] LABS: HEMOGLOBIN A1c 5.9 % (4.0-6.0)
[2023-09-21 14:26] LABS: CREATININE, URINE 66.6 MG/DL
[2023-09-21 14:27] LABS: FERRITIN 20.6 NG/ML (7.3-270.7); FREE T4 0.81 NG/DL (0.89-1.76)
[2023-09-21 14:28] LABS: THYROID STIMULATING HORMONE 1.433 uIU/ML (0.55-4.78)
[2023-09-21 14:30] LABS: ALBUMIN 3.6 G/DL (3.2-5.2); ALKALINE PHOSPHATASE 88 U/L (46-116); ALT/SGPT 24 U/L (7.0-40); AST/SGOT 24 U/L (<34); BILIRUBIN,TOTAL 0.3 MG/DL (0.3-1.2); BLOOD UREA NITROGEN 18 MG/DL (9-23); CALCIUM LEVEL 9.4 MG/DL (8.5-10.1); CARBON DIOXIDE LEVEL 30 MMOL/L (20-31); CHLORIDE LEVEL 107 MMOL/L (98-107); CHOLESTEROL LEVEL 112 MG/DL (<200); CHOLESTEROL RISK RATIO 2.27 (<5); CREATININE FOR GFR 0.58 MG/DL (0.55-1.30); GLOMERULAR FILTRATION RATE > 60.0 (>51); GLUCOSE, FASTING 114 MG/DL (60-100); HDL CHOLESTEROL 49.2 MG/DL (>40); IRON (FE) 142 UG/DL (50-170); LDL CHOLESTEROL 44.8 MG/DL (<100); NON-HDL-C 62.8 MG/DL; POTASSIUM SERUM 5.1 MMOL/L (3.5-5.1); SODIUM LEVEL 143 MMOL/L (136-145); TOTAL PROTEIN 6.3 G/DL (5.7-8.2); TRIGLYCERIDES LEVEL 90 MG/DL (<150)
[2023-09-21 14:37] LABS: VITAMIN B12 LEVEL > 2000 PG/ML (211-911)
== END ==
LOC: M ADAMS 08:13
PROVIDERS: ATTEND Internal Medicine Hematology
DX: E11.9 Type 2 diabetes mellitus without complications (principal); Z79.890 Hormone replacement therapy

== ENCOUNTER → 2023-09-21 | Outpatient (REF) | payer BC | LOC: CANPREREF → M SFHCPLAZ 08:03 | PROVIDERS: ATTEND Internal Medicine Hematology | DX: E11.9 Type 2 diabetes mellitus without complications (principal); Z79.890 Hormone replacement therapy; Z53.9 Procedure and treatment not carried out, unspecified reason ==

== ENCOUNTER → 2023-09-27 | Outpatient (REF) | payer BC ==
[2023-09-27 18:08] LABS: APPEARANCE, URINE CLEAR (CLEAR); BACTERIA, URINE AUTO 1+ (NEGATIVE); BILIRUBIN, URINE AUTO NEGATIVE (NEGATIVE); BLOOD, URINE BLOOD NEGATIVE (NEGATIVE); COLOR, URINE YELLOW (YELLOW); GLUCOSE, URINE (UA) AUTO NEGATIVE (NEGATIVE); KETONE, URINE AUTO NEGATIVE (NEGATIVE); LEUKOCYTE ESTERASE, URINE AUTO 2+ (NEGATIVE); MUCUS, URINE SMALL (NEGATIVE); NITRITE, URINE AUTO NEGATIVE (NEGATIVE); PROTEIN, URINE AUTO NEGATIVE (NEGATIVE); RBC, URINE AUTO 8 /HPF (0-3); SPECIFIC GRAVITY URINE AUTO 1.017 (1.002-1.035); SQUAMOUS EPITHELIAL CELL UR AU 1 /HPF (0-6); UROBILINOGEN, URINE AUTO 0.2 mg/dL (0.0-2.0); WBC, URINE AUTO 37 /HPF (0-3)
== END ==
LOC: M SMT 17:32
PROVIDERS: ATTEND Specialist
DX: N39.0 Urinary tract infection, site not specified (principal); B96.1 Klebsiella pneumoniae [K. pneumoniae] as the cause of diseases classified elsewhere

== ENCOUNTER 2023-10-19 04:19 | Observation (INO) | payer BC ==
[~2023-10-19] VITALS: Ht 165.1 cm; Wt 81.3 kg
[2023-10-19 05:02] LABS: VENOUS BASE EXCESS -1.6 (-2.0-2.0); VENOUS HCO3 23.2 MMOL/L (23.0-27.0); VENOUS O2 SATURATION 93.4 % (60.0-80.0); VENOUS PARTIAL PRESSURE CO2 39.4 mmHg (38.0-50.0); VENOUS PARTIAL PRESSURE O2 72.4 mmHg (30.0-50.0); VENOUS PH 7.388 UNITS (7.330-7.430); VENOUS STANDARD HCO3 23.1 MMOL/L; VENOUS TOTAL CO2 24.4 MMOL/L (24.0-28.0)
[2023-10-19 05:07] LABS: BASO % 0.3 % (0.0-1.0); EOS # 0.2 10^3/uL (0.0-0.5); EOS % 1.1 % (0.0-3.0); HEMATOCRIT 37.2 % (36.0-47.0); HEMOGLOBIN 12.2 g/dl (12.0-15.5); LYMPH # 0.6 10^3/uL (1.5-5.0); LYMPH % 4.4 % (24.0-44.0); MEAN CORPUSCULAR HEMOGLOBIN 29.7 pg (27.0-33.0); MEAN CORPUSCULAR HGB CONC 32.8 g/dl (32.0-36.5); MEAN CORPUSCULAR VOLUME 90.5 fl (80.0-96.0); MONO # 0.5 10^3/uL (0.0-0.8); MONO % 3.6 % (2.0-8.0); NEUTROPHILS # 12.8 10^3/uL (1.5-8.5); NEUTROPHILS % 90.2 % (36.0-66.0); PLATELET COUNT, AUTOMATED 319 10^3/uL (150-450); RED BLOOD COUNT 4.11 10^6/uL (4.00-5.40); WHITE BLOOD COUNT 14.2 10^3/uL (4.0-10.0)
[2023-10-19 05:39] LABS: ALKALINE PHOSPHATASE 95 U/L (46-116); ALT/SGPT 22 U/L (7.0-40); AST/SGOT 24 U/L (<34); BILIRUBIN,DIRECT 0.3 MG/DL (<0.4); BILIRUBIN,TOTAL 0.6 MG/DL (0.3-1.2); BLOOD UREA NITROGEN 18 MG/DL (9-23); CALCIUM LEVEL 9.3 MG/DL (8.5-10.1); CARBON DIOXIDE LEVEL 26 MMOL/L (20-31); CHLORIDE LEVEL 105 MMOL/L (98-107); CREATININE FOR GFR 0.59 MG/DL (0.55-1.30); GLOMERULAR FILTRATION RATE > 60.0 (>51); GLUCOSE, FASTING 144 MG/DL (60-100); POTASSIUM SERUM 4.1 MMOL/L (3.5-5.1); SODIUM LEVEL 139 MMOL/L (136-145); TOTAL PROTEIN 6.7 G/DL (5.7-8.2)
[2023-10-19] MEDS: NS 500 ML IV ONE (05:48)
[2023-10-19] MEDS: KETOROLAC 30 MG/ML 1ML VIAL IV ONE (05:48)
[2023-10-19] MEDS: cefTRIAXone SOD 2 GM in D5W MINI-BAG PLUS 50 ML IV ONE (06:49)
[2023-10-19] MEDS: IPRATROPIUM 0.5MG/ALBUTEROL 2.5MG INH SOL UD 3ML (DUONEB) NEB ONE (07:04)
[2023-10-19] MEDS: ACETAMINOPHEN 500 MG TAB PO ONE (07:55)
[2023-10-19] MEDS ORDERED: ESTR0.1C5 VG (08:37)
[2023-10-19] MEDS ORDERED: METH-855 PO (08:37)
[2023-10-19] MEDS ORDERED: BENL200I SC (08:37)
[2023-10-19] MEDS ORDERED: HOME MED LIST COMPLETE! XX SCH (08:40)
[2023-10-19] MEDS ORDERED: ALBUTEROL SULFATE 2.5MG/0.5ML INH NEB SOLN NEB PRN (08:50)
[2023-10-19] MEDS ORDERED: GLUCOSE 4GM CHEW TABLET PO PRN (08:50)
[2023-10-19] MEDS ORDERED: DEXTROSE 50% 50ML SYRINGE IV PRN (08:50)
[2023-10-19] MEDS ORDERED: ACETAMINOPHEN TAB 650MG DOSE (2X325MG) PO PRN (08:50)
[2023-10-19] MEDS ORDERED: GLUCAGON INJ 1MG VIAL SC PRN (08:50)
[2023-10-19] MEDS ORDERED: UNRESOLVED CLARIFICATION ENTRY XX STA (09:18)
[2023-10-19] MEDS ORDERED: traMADol 50 MG TAB PO ONE (09:40)
[2023-10-19] MEDS ORDERED: ONDANSETRON 4MG ORAL DISINTEGRATING TAB PO PRN (09:50)
[2023-10-19] MEDS ORDERED: tiZANidine 4 MG TAB PO PRN (09:50)
[2023-10-19] MEDS: OMEPRAZOLE 20MG CAP PO SCH (10:35)
[2023-10-19] MEDS: AZITHROMYCIN 250MG TABLET PO SCH (10:35)
[2023-10-19] MEDS: ENOXAPARIN 40MG/0.4ML SYRINGE (J1650 PER 10MG) SC SCH (10:35)
[2023-10-19] MEDS: PREGABALIN 100 MG CAP (LYRICA) PO SCH (10:35)
[2023-10-19] MEDS: BACLOFEN 10 MG TAB PO SCH (10:35)
[2023-10-19] MEDS: MORPHINE 2 MG/ML 1ML VIAL IV ONE (10:36)
[2023-10-19 10:44] LABS: INR 1.13; PARTIAL THROMBOPLASTIN TIME 28.3 SECONDS (24.8-34.2); PROTHROMBIN TIME 14.2 SECONDS (12.5-14.5)
[2023-10-19] MEDS: IPRATROPIUM 0.5MG/ALBUTEROL 2.5MG INH SOL UD 3ML (DUONEB) NEB SCH (11:15)
[2023-10-19] MEDS: INSULIN LISPRO (NovoLOG) PER UNIT SC SCH ×2 (14:14→21:00)
[2023-10-19 14:23] VITALS: BP 139/73; TEMP 98.4; O2SAT 96
[2023-10-19] MEDS: NORCO, ANEXSIA 5/325MG TABLET (HYDROcodone/ACETAMINOPHEN) PO PRN (15:33)
[2023-10-19] MEDS: EXCEDRIN MIGRAINE TABLET PO PRN (17:04)
[2023-10-19] MEDS: ATORVASTATIN 20 MG TAB PO SCH (20:59)
[2023-10-19] MEDS: HYDROXYCHLOROQUINE 200 MG TAB PO SCH (20:59)
[2023-10-19 22:00] VITALS: BP 100/68; TEMP 99; O2SAT 92
[2023-10-20 06:00] VITALS: BP 111/62; TEMP 98.6; O2SAT 97
[2023-10-20 06:47] LABS: HEMATOCRIT 32.3 % (36.0-47.0); MEAN CORPUSCULAR HEMOGLOBIN 29.7 pg (27.0-33.0); MEAN CORPUSCULAR HGB CONC 31.6 g/dl (32.0-36.5); MEAN CORPUSCULAR VOLUME 93.9 fl (80.0-96.0); PLATELET COUNT, AUTOMATED 308 10^3/uL (150-450); RED BLOOD COUNT 3.44 10^6/uL (4.00-5.40)
[2023-10-20] MEDS: cefTRIAXone SOD 1 GM in D5W MINI-BAG PLUS 50 ML IV SCH (06:47)
[2023-10-20 06:49] LABS: HEMOGLOBIN 10.2 g/dl (12.0-15.5)
[2023-10-20 06:55] LABS: ALKALINE PHOSPHATASE 79 U/L (46-116); ALT/SGPT 16 U/L (7.0-40); AST/SGOT 18 U/L (<34); BILIRUBIN,TOTAL 0.3 MG/DL (0.3-1.2); BLOOD UREA NITROGEN 16 MG/DL (9-23); CALCIUM LEVEL 8.9 MG/DL (8.5-10.1); CARBON DIOXIDE LEVEL 26 MMOL/L (20-31); CHLORIDE LEVEL 109 MMOL/L (98-107); CREATININE FOR GFR 0.48 MG/DL (0.55-1.30); GLOMERULAR FILTRATION RATE > 60.0 (>51); GLUCOSE, FASTING 138 MG/DL (60-100); POTASSIUM SERUM 4.4 MMOL/L (3.5-5.1); SODIUM LEVEL 140 MMOL/L (136-145); TOTAL PROTEIN 5.7 G/DL (5.7-8.2)
[2023-10-20] MEDS ORDERED: AZIT500T5 PO (08:46)
[2023-10-20] MEDS ORDERED: PROB250C PO (08:46)
[2023-10-20] MEDS ORDERED: CEFD1CAP9 PO (08:46)
[2023-10-20] MEDS ORDERED: MUCI1TAB16 PO (08:47)
== END 2023-10-20 10:47 | disposition home or self-care (01) ==
LOC: M ED 04:19 → M ED INP 09:47 → M MSPAV 14:30
PROVIDERS: ADMIT Internal Medicine; ATTEND Internal Medicine
DX: J18.9 Pneumonia, unspecified organism (principal); R09.02 Hypoxemia; A41.9 Sepsis, unspecified organism; E11.9 Type 2 diabetes mellitus without complications; M32.9 Systemic lupus erythematosus, unspecified; K21.9 Gastro-esophageal reflux disease without esophagitis; E78.5 Hyperlipidemia, unspecified; D50.9 Iron deficiency anemia, unspecified; Z86.69 Personal history of other diseases of the nervous system and sense organs; Z87.440 Personal history of urinary (tract) infections; Z86.19 Personal history of other infectious and parasitic diseases; K58.9 Irritable bowel syndrome, unspecified; M19.90 Unspecified osteoarthritis, unspecified site; M54.9 Dorsalgia, unspecified; G89.29 Other chronic pain; R00.0 Tachycardia, unspecified; R53.1 Weakness; Z98.84 Bariatric surgery status; Z90.49 Acquired absence of other specified parts of digestive tract; Z90.710 Acquired absence of both cervix and uterus; Z82.49 Family history of ischemic heart disease and other diseases of the circulatory system; Z80.1 Family history of malignant neoplasm of trachea, bronchus and lung; Z88.1 Allergy status to other antibiotic agents; Z88.5 Allergy status to narcotic agent; Z79.899 Other long term (current) drug therapy; Z79.84 Long term (current) use of oral hypoglycemic drugs; Z79.890 Hormone replacement therapy
CPT/HCPCS: 36415; 71045; 80048; 80053; 80076; 81001; 82803; 83605; 84145; 85025; 85027; 85610; 85730; 86140; 87040; 87070; 87205; 87486; 87581; 87633; 87798; 93005; 93041; 94640; 94760; 96365; 96372; 96375; 96376; 99285; J0696; J1650; J1885

== ENCOUNTER → 2023-10-24 | Outpatient (CLI) | payer BC ==
[~2023-10-24] MED LIST changes: +AZIT500T5 PO; +BENL200I SC; +ESTR0.1C5 VG; +KETOROLAC 30 MG/ML 1ML VIAL As Ordered ONE; +METH-855 PO; +MUCI1TAB16 PO; +PROB250C PO
== END ==
LOC: M RAD 07:36
PROVIDERS: ATTEND Specialist
DX: N20.0 Calculus of kidney (principal)

== ENCOUNTER → 2023-11-15 | Outpatient (CLI) | payer BC ==
[~2023-11-15] MED LIST changes: -KETOROLAC 30 MG/ML 1ML VIAL As Ordered ONE
[2023-11-15 13:38] LABS: BASO # 0.1 10^3/uL (0.0-0.2); BASO % 0.8 % (0.0-1.0); EOS # 0.5 10^3/uL (0.0-0.5); EOS % 8.3 % (0.0-3.0); HEMATOCRIT 37.5 % (36.0-47.0); HEMOGLOBIN 11.7 g/dl (12.0-15.5); LYMPH % 33.1 % (24.0-44.0); MEAN CORPUSCULAR HEMOGLOBIN 29.5 pg (27.0-33.0); MEAN CORPUSCULAR HGB CONC 31.2 g/dl (32.0-36.5); MEAN CORPUSCULAR VOLUME 94.7 fl (80.0-96.0); MONO # 0.5 10^3/uL (0.0-0.8); NEUTROPHILS # 2.9 10^3/uL (1.5-8.5); NEUTROPHILS % 48.6 % (36.0-66.0); PLATELET COUNT, AUTOMATED 340 10^3/uL (150-450); RED BLOOD COUNT 3.96 10^6/uL (4.00-5.40)
[2023-11-15 14:09] LABS: IMMUNOGLOBULIN A 137.2 MG/DL (40-350); IMMUNOGLOBULIN G 684 MG/DL (650-1600)
== END ==
LOC: M PLALAB 09:54
PROVIDERS: ATTEND Internal Medicine Hematology
DX: J69.0 Pneumonitis due to inhalation of food and vomit (principal)

== ENCOUNTER → 2023-11-27 | Outpatient (REF) | LOC: M EMP 09:55 | PROVIDERS: ATTEND Family Medicine | DX: R09.89 Other specified symptoms and signs involving the circulatory and respiratory systems (principal) ==

== ENCOUNTER → 2023-12-15 | Outpatient (REF) | payer BC ==
[2023-12-15 13:38] LABS: BASO % 0.5 % (0.0-1.0); EOS # 0.5 10^3/uL (0.0-0.5); HEMATOCRIT 39.9 % (36.0-47.0); HEMOGLOBIN 12.3 g/dl (12.0-15.5); LYMPH # 2.8 10^3/uL (1.5-5.0); LYMPH % 35.9 % (24.0-44.0); MEAN CORPUSCULAR HEMOGLOBIN 28.6 pg (27.0-33.0); MEAN CORPUSCULAR HGB CONC 30.8 g/dl (32.0-36.5); MEAN CORPUSCULAR VOLUME 92.8 fl (80.0-96.0); MONO # 0.6 10^3/uL (0.0-0.8); MONO % 7.9 % (2.0-8.0); NEUTROPHILS # 3.7 10^3/uL (1.5-8.5); NEUTROPHILS % 47.9 % (36.0-66.0); PLATELET COUNT, AUTOMATED 363 10^3/uL (150-450); WHITE BLOOD COUNT 7.7 10^3/uL (4.0-10.0)
[2023-12-15 13:58] LABS: ERYTHROCYTE SEDIMENTATION RATE 3 mm/hr (0-30)
[2023-12-15 14:02] LABS: C REACTIVE PROTEIN QUANTITATIV < 0.40 MG/DL (<1.0)
[2023-12-15 14:04] LABS: ALT/SGPT 22 U/L (7.0-40); AST/SGOT 22 U/L (<34); BLOOD UREA NITROGEN 22 MG/DL (9-23); COMPLEMENT C3 112.9 MG/DL (90.0-170.0); COMPLEMENT C4 30.3 MG/DL (12-36); CREATININE FOR GFR 0.63 MG/DL (0.55-1.30); GLOMERULAR FILTRATION RATE > 60.0 (>51)
[2023-12-18 11:07] LABS: ANTI DS-DNA AB Negative (Negative)
== END ==
LOC: M LABDRWAD 12:26
PROVIDERS: ATTEND Physician Assistant
DX: Z79.899 Other long term (current) drug therapy (principal)

== ENCOUNTER → 2023-12-15 | Outpatient (REF) | payer BC ==
[2023-12-15 14:14] LABS: ALBUMIN 3.5 G/DL (3.2-5.2); ALKALINE PHOSPHATASE 82 U/L (46-116); ALT/SGPT 21 U/L (7.0-40); AST/SGOT 16 U/L (<34); BILIRUBIN,DIRECT < 0.1 MG/DL (<0.4); BILIRUBIN,TOTAL 0.2 MG/DL (0.3-1.2); TOTAL PROTEIN 6.2 G/DL (5.7-8.2)
== END ==
LOC: M LABDRWAD 12:25
PROVIDERS: ATTEND Internal Medicine Gastroenterology
DX: R10.11 Right upper quadrant pain (principal); K44.9 Diaphragmatic hernia without obstruction or gangrene; K21.9 Gastro-esophageal reflux disease without esophagitis; K57.30 Diverticulosis of large intestine without perforation or abscess without bleeding; R13.10 Dysphagia, unspecified

== ENCOUNTER → 2024-01-01 | Outpatient (REF) | payer BC ==
[~2024-01-01] MED LIST changes: +ONDA-282; +ONDA-282 PO; -ONDA4TAB6; -ONDA4TAB6 PO
[2024-01-01 18:57] LABS: APPEARANCE, URINE HAZY (CLEAR); BACTERIA, URINE AUTO NEGATIVE (NEGATIVE); BILIRUBIN, URINE AUTO NEGATIVE (NEGATIVE); BLOOD, URINE BLOOD NEGATIVE (NEGATIVE); CALCIUM OXALATE CRYSTALS SMALL; COLOR, URINE YELLOW (YELLOW); GLUCOSE, URINE (UA) AUTO NEGATIVE (NEGATIVE); KETONE, URINE AUTO NEGATIVE (NEGATIVE); LEUKOCYTE ESTERASE, URINE AUTO TRACE (NEGATIVE); MUCUS, URINE SMALL (NEGATIVE); NITRITE, URINE AUTO NEGATIVE (NEGATIVE); PROTEIN, URINE AUTO 1+ mg/dL (NEGATIVE); RBC, URINE AUTO 5 /HPF (0-3); SPECIFIC GRAVITY URINE AUTO 1.026 (1.002-1.035); SQUAMOUS EPITHELIAL CELL UR AU 1 /HPF (0-6); UROBILINOGEN, URINE AUTO 0.2 mg/dL (0.0-2.0); WBC, URINE AUTO 4 /HPF (0-3)
== END ==
LOC: M LAB REF 18:38
PROVIDERS: ATTEND Specialist
DX: N39.0 Urinary tract infection, site not specified (principal)

== ENCOUNTER → 2024-03-15 | Outpatient (CLI) | payer BC | LOC: M WHC 13:02 | PROVIDERS: ATTEND Nurse Practitioner | DX: Z12.31 Encounter for screening mammogram for malignant neoplasm of breast (principal); R92.313 Mammographic fatty tissue density, bilateral breasts ==

== ENCOUNTER → 2024-03-22 | Outpatient (CLI) | payer BC ==
[2024-03-22 12:57] LABS: BASO % 0.3 % (0.0-1.0); EOS # 0.1 10^3/uL (0.0-0.5); EOS % 0.5 % (0.0-3.0); HEMATOCRIT 41.4 % (36.0-47.0); HEMOGLOBIN 12.9 g/dl (12.0-15.5); LYMPH # 1.4 10^3/uL (1.5-5.0); LYMPH % 12.9 % (24.0-44.0); MEAN CORPUSCULAR HEMOGLOBIN 28.2 pg (27.0-33.0); MEAN CORPUSCULAR HGB CONC 31.2 g/dl (32.0-36.5); MEAN CORPUSCULAR VOLUME 90.4 fl (80.0-96.0); MONO # 0.6 10^3/uL (0.0-0.8); MONO % 5.4 % (2.0-8.0); NEUTROPHILS # 8.9 10^3/uL (1.5-8.5); NEUTROPHILS % 80.4 % (36.0-66.0); PLATELET COUNT, AUTOMATED 421 10^3/uL (150-450); RED BLOOD COUNT 4.58 10^6/uL (4.00-5.40)
[2024-03-22 13:02] LABS: ALT/SGPT 22 U/L (7.0-40); AST/SGOT 17 U/L (<34); BLOOD UREA NITROGEN 17 MG/DL (9-23); COMPLEMENT C3 149.3 MG/DL (90.0-170.0); COMPLEMENT C4 41.8 MG/DL (12-36); CREATININE FOR GFR 0.48 MG/DL (0.55-1.30); GLOMERULAR FILTRATION RATE > 60.0 (>51)
[2024-03-22 13:32] LABS: ERYTHROCYTE SEDIMENTATION RATE 12 mm/hr (0-30)
== END ==
LOC: M ADAMS 08:21
PROVIDERS: ATTEND Physician Assistant
DX: Z79.899 Other long term (current) drug therapy (principal)

== ENCOUNTER → 2024-03-22 | Outpatient (CLI) | payer BC ==
[2024-03-22 12:58] LABS: BASO % 0.3 % (0.0-1.0); EOS # 0.1 10^3/uL (0.0-0.5); EOS % 0.6 % (0.0-3.0); HEMATOCRIT 41.3 % (36.0-47.0); HEMOGLOBIN 13.1 g/dl (12.0-15.5); LYMPH # 1.4 10^3/uL (1.5-5.0); LYMPH % 13.1 % (24.0-44.0); MEAN CORPUSCULAR HEMOGLOBIN 28.5 pg (27.0-33.0); MEAN CORPUSCULAR HGB CONC 31.7 g/dl (32.0-36.5); MONO # 0.6 10^3/uL (0.0-0.8); MONO % 5.3 % (2.0-8.0); NEUTROPHILS # 8.7 10^3/uL (1.5-8.5); NEUTROPHILS % 80.2 % (36.0-66.0); PLATELET COUNT, AUTOMATED 404 10^3/uL (150-450); RED BLOOD COUNT 4.59 10^6/uL (4.00-5.40); WHITE BLOOD COUNT 10.8 10^3/uL (4.0-10.0)
[2024-03-22 13:05] LABS: FERRITIN 22.6 NG/ML (7.3-270.7); IRON (FE) 48 UG/DL (50-170); THYROID STIMULATING HORMONE 0.937 uIU/ML (0.55-4.78)
[2024-03-22 13:06] LABS: ALBUMIN 3.8 G/DL (3.2-5.2); ALKALINE PHOSPHATASE 107 U/L (46-116); ALT/SGPT 18 U/L (7.0-40); AST/SGOT 18 U/L (<34); BILIRUBIN,TOTAL 0.2 MG/DL (0.3-1.2); BLOOD UREA NITROGEN 17 MG/DL (9-23); CALCIUM LEVEL 9.6 MG/DL (8.5-10.1); CARBON DIOXIDE LEVEL 31 MMOL/L (20-31); CHLORIDE LEVEL 110 MMOL/L (98-107); CHOLESTEROL LEVEL 148 MG/DL (<200); CHOLESTEROL RISK RATIO 2.83 (<5); CREATININE FOR GFR 0.48 MG/DL (0.55-1.30); FREE T4 0.87 NG/DL (0.89-1.76); GLOMERULAR FILTRATION RATE > 60.0 (>51); GLUCOSE, FASTING 109 MG/DL (60-100); HDL CHOLESTEROL 52.2 MG/DL (>40); LDL CHOLESTEROL 74.4 MG/DL (<100); NON-HDL-C 95.8 MG/DL; PERCENT SATURATION 12.4 % (13.2-45.0); SODIUM LEVEL 141 MMOL/L (136-145); TOTAL IRON BINDING CAPACITY 386 UG/DL (250-425); TOTAL PROTEIN 6.9 G/DL (5.7-8.2); TRIGLYCERIDES LEVEL 107 MG/DL (<150)
[2024-03-22 13:07] LABS: TOTAL 25(OH) VITAMIN D 31.9 NG/ML (20.0-100.0)
[2024-03-22 13:09] LABS: VITAMIN B12 LEVEL 762 PG/ML (211-911)
[2024-03-22 13:12] LABS: HEMOGLOBIN A1c 6.4 % (4.0-6.0)
[2024-03-22 13:34] LABS: CREATININE, URINE 17.6 MG/DL; MALB URINE SIEMENS < 3.0 MG/L
== END ==
LOC: M ADAMS 08:19
PROVIDERS: ATTEND Internal Medicine Hematology
DX: E11.9 Type 2 diabetes mellitus without complications (principal); D50.8 Other iron deficiency anemias

== ENCOUNTER 2024-04-02 14:42 | Outpatient (CLI) | payer BC ==
[~2024-04-02 14:42] MED LIST changes: +ALBUTEROL SULFATE 2.5MG/0.5ML INH NEB SOLN INH PRN; +EPINEPHrine INJ 1 MG/ML 1ML AMP IM PRN; +NS 1,000 ML IV SCH; +diphenhydrAMINE 50MG/ML VIAL IV PRN; +methylPREDNISolone 125MG 2ML VIAL IV PRN
[2024-04-02] MEDS: IRON SUCROSE 300 MG in NS 250 ML IV ONE (15:00)
== END 2024-04-02 16:50 ==
LOC: M INFU 14:42
PROVIDERS: ATTEND Internal Medicine Hematology
DX: D50.9 Iron deficiency anemia, unspecified (principal); Z88.8 Allergy status to other drugs, medicaments and biological substances
CPT/HCPCS: 96365; 96366; J1756

== ENCOUNTER 2024-04-09 15:15 | Outpatient (CLI) | payer BC ==
[2024-04-09 15:15] VITALS: BP 157/84; O2SAT 98
[2024-04-09] MEDS: IRON SUCROSE 300 MG in NS 250 ML IV ONE (15:33)
[2024-04-09 17:30] VITALS: BP 160/77; O2SAT 98
== END 2024-04-09 17:35 ==
LOC: M INFU 15:15
PROVIDERS: ATTEND Internal Medicine Hematology
DX: D50.9 Iron deficiency anemia, unspecified (principal); Z88.8 Allergy status to other drugs, medicaments and biological substances
CPT/HCPCS: 96365; 96366; J1756

== ENCOUNTER → 2024-04-19 | Outpatient (REF) ==
[~2024-04-19] MED LIST changes: -ALBUTEROL SULFATE 2.5MG/0.5ML INH NEB SOLN INH PRN; -EPINEPHrine INJ 1 MG/ML 1ML AMP IM PRN; -NS 1,000 ML IV SCH; -diphenhydrAMINE 50MG/ML VIAL IV PRN; -methylPREDNISolone 125MG 2ML VIAL IV PRN
== END ==
LOC: M EMP 08:36
PROVIDERS: ATTEND Family Medicine
DX: Z20.828 Contact with and (suspected) exposure to other viral communicable diseases (principal)

== ENCOUNTER → 2024-05-01 | Outpatient (CLI) | payer BC ==
[2024-05-01 12:57] LABS: HEMATOCRIT 40.9 % (36.0-47.0); MEAN CORPUSCULAR HEMOGLOBIN 29.4 pg (27.0-33.0); MEAN CORPUSCULAR HGB CONC 31.8 g/dl (32.0-36.5); MEAN CORPUSCULAR VOLUME 92.5 fl (80.0-96.0); PLATELET COUNT, AUTOMATED 350 10^3/uL (150-450); RED BLOOD COUNT 4.42 10^6/uL (4.00-5.40); WHITE BLOOD COUNT 7.1 10^3/uL (4.0-10.0)
[2024-05-01 13:05] LABS: FERRITIN 112.5 NG/ML (7.3-270.7)
== END ==
LOC: M PLALAB 10:32
PROVIDERS: ATTEND Physician Assistant Medical
DX: D50.8 Other iron deficiency anemias (principal)

== ENCOUNTER → 2024-06-17 | Outpatient (CLI) | payer BC ==
[2024-06-17 15:56] LABS: BASO # 0.1 10^3/uL (0.0-0.2); BASO % 0.6 % (0.0-1.0); EOS # 0.3 10^3/uL (0.0-0.5); EOS % 3.9 % (0.0-3.0); HEMATOCRIT 43.3 % (36.0-47.0); HEMOGLOBIN 13.8 g/dl (12.0-15.5); LYMPH # 2.1 10^3/uL (1.5-5.0); LYMPH % 27.1 % (24.0-44.0); MEAN CORPUSCULAR HEMOGLOBIN 29.7 pg (27.0-33.0); MEAN CORPUSCULAR HGB CONC 31.9 g/dl (32.0-36.5); MEAN CORPUSCULAR VOLUME 93.1 fl (80.0-96.0); MONO # 0.6 10^3/uL (0.0-0.8); MONO % 7.7 % (2.0-8.0); NEUTROPHILS # 4.7 10^3/uL (1.5-8.5); NEUTROPHILS % 60.3 % (36.0-66.0); PLATELET COUNT, AUTOMATED 414 10^3/uL (150-450); RED BLOOD COUNT 4.65 10^6/uL (4.00-5.40); WHITE BLOOD COUNT 7.8 10^3/uL (4.0-10.0)
[2024-06-17 16:07] LABS: ERYTHROCYTE SEDIMENTATION RATE 8 mm/hr (0-30)
[2024-06-17 16:13] LABS: TOTAL PROTEIN,RANDOM URINE 27.6 MG/DL (0.0-14.0)
[2024-06-17 16:18] LABS: CREATININE,RANDOM URINE 70.1 MG/DL
[2024-06-17 16:19] LABS: C REACTIVE PROTEIN QUANTITATIV < 0.40 MG/DL (<1.0)
[2024-06-17 16:21] LABS: ALT/SGPT 26 U/L (7.0-40); AST/SGOT 23 U/L (<34); BLOOD UREA NITROGEN 18 MG/DL (9-23); COMPLEMENT C3 146.8 MG/DL (90.0-170.0); COMPLEMENT C4 38.2 MG/DL (12-36); CREATININE FOR GFR 0.48 MG/DL (0.55-1.30); GLOMERULAR FILTRATION RATE > 60.0 (>51)
== END ==
LOC: M LAB 15:11
PROVIDERS: ATTEND Physician Assistant
DX: M32.9 Systemic lupus erythematosus, unspecified (principal); M06.4 Inflammatory polyarthropathy; R53.83 Other fatigue; Z79.899 Other long term (current) drug therapy

== ENCOUNTER → 2024-06-26 | Outpatient (CLI) | payer BC ==
[2024-06-26 10:58] LABS: APPEARANCE, URINE CLEAR (CLEAR); BACTERIA, URINE AUTO NEGATIVE (NEGATIVE); BILIRUBIN, URINE AUTO NEGATIVE (NEGATIVE); BLOOD, URINE BLOOD NEGATIVE (NEGATIVE); COLOR, URINE YELLOW (YELLOW); GLUCOSE, URINE (UA) AUTO NEGATIVE (NEGATIVE); KETONE, URINE AUTO NEGATIVE (NEGATIVE); LEUKOCYTE ESTERASE, URINE AUTO NEGATIVE (NEGATIVE); MUCUS, URINE SMALL (NEGATIVE); NITRITE, URINE AUTO NEGATIVE (NEGATIVE); PROTEIN, URINE AUTO NEGATIVE (NEGATIVE); RBC, URINE AUTO 2 /HPF (0-3); SPECIFIC GRAVITY URINE AUTO 1.025 (1.002-1.035); SQUAMOUS EPITHELIAL CELL UR AU 0 /HPF (0-6); UROBILINOGEN, URINE AUTO 0.2 mg/dL (0.0-2.0); WBC, URINE AUTO 2 /HPF (0-3)
[2024-06-26 11:02] LABS: TOTAL PROTEIN,RANDOM URINE 25.9 MG/DL (0.0-14.0)
[2024-06-26 11:07] LABS: CREATININE,RANDOM URINE 80.9 MG/DL
== END ==
LOC: M PLALAB 08:59
PROVIDERS: ATTEND Physician Assistant
DX: Z79.899 Other long term (current) drug therapy (principal)

== ENCOUNTER → 2024-08-07 | Outpatient (REF) | payer BC ==
[2024-08-07 13:43] LABS: APPEARANCE, URINE HAZY (CLEAR); BACTERIA, URINE AUTO 1+ (NEGATIVE); BILIRUBIN, URINE AUTO NEGATIVE (NEGATIVE); BLOOD, URINE BLOOD 2+ (NEGATIVE); COLOR, URINE AMBER (YELLOW); GLUCOSE, URINE (UA) AUTO NEGATIVE (NEGATIVE); KETONE, URINE AUTO NEGATIVE (NEGATIVE); LEUKOCYTE ESTERASE, URINE AUTO 2+ (NEGATIVE); MUCUS, URINE SMALL (NEGATIVE); NITRITE, URINE AUTO POSITIVE (NEGATIVE); PROTEIN, URINE AUTO NEGATIVE (NEGATIVE); RBC, URINE AUTO 44 /HPF (0-3); SPECIFIC GRAVITY URINE AUTO 1.028 (1.002-1.035); SQUAMOUS EPITHELIAL CELL UR AU 1 /HPF (0-6); UROBILINOGEN, URINE AUTO 0.2 mg/dL (0.0-2.0); WBC, URINE AUTO 80 /HPF (0-3)
== END ==
LOC: M SMT 12:58
PROVIDERS: ATTEND Specialist
DX: N39.0 Urinary tract infection, site not specified (principal)

== ENCOUNTER → 2024-08-28 | Outpatient (REF) | payer BC ==
[2024-08-28 18:10] LABS: BASO % 0.5 % (0.0-1.0); EOS # 0.3 10^3/uL (0.0-0.5); EOS % 4.2 % (0.0-3.0); HEMATOCRIT 39.9 % (36.0-47.0); HEMOGLOBIN 12.6 g/dl (12.0-15.5); LYMPH # 1.7 10^3/uL (1.5-5.0); LYMPH % 26.8 % (24.0-44.0); MEAN CORPUSCULAR HEMOGLOBIN 29.5 pg (27.0-33.0); MEAN CORPUSCULAR HGB CONC 31.6 g/dl (32.0-36.5); MEAN CORPUSCULAR VOLUME 93.4 fl (80.0-96.0); MONO # 0.5 10^3/uL (0.0-0.8); MONO % 7.2 % (2.0-8.0); NEUTROPHILS # 3.8 10^3/uL (1.5-8.5); NEUTROPHILS % 60.8 % (36.0-66.0); PLATELET COUNT, AUTOMATED 352 10^3/uL (150-450); RED BLOOD COUNT 4.27 10^6/uL (4.00-5.40); WHITE BLOOD COUNT 6.2 10^3/uL (4.0-10.0)
[2024-08-28 18:35] LABS: VALPROIC ACID (DEPAKOTE) 34.5 UG/ML (50.0-100.0)
[2024-08-28 18:38] LABS: ALBUMIN 3.5 G/DL (3.2-5.2); ALKALINE PHOSPHATASE 76 U/L (35-104); ALT/SGPT 30 U/L (7.0-40); AST/SGOT 24 U/L (<34); BILIRUBIN,TOTAL 0.2 MG/DL (0.3-1.2); BLOOD UREA NITROGEN 14 MG/DL (9-23); CALCIUM LEVEL 9.7 MG/DL (8.5-10.1); CARBON DIOXIDE LEVEL 31 MMOL/L (20-31); CHLORIDE LEVEL 108 MMOL/L (98-107); CREATININE FOR GFR 0.53 MG/DL (0.55-1.30); GLOMERULAR FILTRATION RATE > 60.0 (>51); GLUCOSE, FASTING 101 MG/DL (60-100); POTASSIUM SERUM 4.7 MMOL/L (3.5-5.1); SODIUM LEVEL 145 MMOL/L (136-145); TOTAL PROTEIN 6.2 G/DL (5.7-8.2)
== END ==
LOC: M LABDRWAD 17:17
PROVIDERS: ATTEND Psychiatry & Neurology Neurology
DX: R51.9 Headache, unspecified (principal)

== ENCOUNTER → 2024-09-04 | Outpatient (CLI) | payer BC ==
[2024-09-04 13:27] LABS: BASO % 0.5 % (0.0-1.0); EOS # 0.3 10^3/uL (0.0-0.5); EOS % 5.7 % (0.0-3.0); HEMATOCRIT 40.2 % (36.0-47.0); HEMOGLOBIN 12.6 g/dl (12.0-15.5); LYMPH # 1.4 10^3/uL (1.5-5.0); LYMPH % 24.4 % (24.0-44.0); MEAN CORPUSCULAR HEMOGLOBIN 29.9 pg (27.0-33.0); MEAN CORPUSCULAR HGB CONC 31.3 g/dl (32.0-36.5); MEAN CORPUSCULAR VOLUME 95.3 fl (80.0-96.0); MONO # 0.6 10^3/uL (0.0-0.8); MONO % 9.6 % (2.0-8.0); NEUTROPHILS # 3.5 10^3/uL (1.5-8.5); NEUTROPHILS % 59.6 % (36.0-66.0); PLATELET COUNT, AUTOMATED 307 10^3/uL (150-450); RED BLOOD COUNT 4.22 10^6/uL (4.00-5.40); WHITE BLOOD COUNT 5.8 10^3/uL (4.0-10.0)
[2024-09-04 13:48] LABS: APPEARANCE, URINE HAZY (CLEAR); BACTERIA, URINE AUTO NEGATIVE (NEGATIVE); BILIRUBIN, URINE AUTO NEGATIVE (NEGATIVE); BLOOD, URINE BLOOD NEGATIVE (NEGATIVE); COLOR, URINE YELLOW (YELLOW); GLUCOSE, URINE (UA) AUTO NEGATIVE (NEGATIVE); KETONE, URINE AUTO NEGATIVE (NEGATIVE); LEUKOCYTE ESTERASE, URINE AUTO NEGATIVE (NEGATIVE); MUCUS, URINE SMALL (NEGATIVE); NITRITE, URINE AUTO NEGATIVE (NEGATIVE); PROTEIN, URINE AUTO NEGATIVE (NEGATIVE); RBC, URINE AUTO 2 /HPF (0-3); SPECIFIC GRAVITY URINE AUTO 1.019 (1.002-1.035); SQUAMOUS EPITHELIAL CELL UR AU 2 /HPF (0-6); UROBILINOGEN, URINE AUTO 0.2 mg/dL (0.0-2.0); WBC, URINE AUTO 4 /HPF (0-3)
[2024-09-04 13:55] LABS: ALBUMIN 3.8 G/DL (3.2-5.2); ALKALINE PHOSPHATASE 74 U/L (35-104); ALT/SGPT 24 U/L (7.0-40); AST/SGOT 23 U/L (<34); BILIRUBIN,TOTAL 0.2 MG/DL (0.3-1.2); BLOOD UREA NITROGEN 23 MG/DL (9-23); CALCIUM LEVEL 9.4 MG/DL (8.5-10.1); CARBON DIOXIDE LEVEL 30 MMOL/L (20-31); CHLORIDE LEVEL 107 MMOL/L (98-107); CREATININE FOR GFR 0.49 MG/DL (0.55-1.30); GLOMERULAR FILTRATION RATE > 60.0 (>51); GLUCOSE, FASTING 126 MG/DL (60-100); IRON (FE) 117 UG/DL (50-170); MAGNESIUM LEVEL 1.9 MG/DL (1.8-2.4); PHOSPHORUS LEVEL 3.2 MG/DL (2.5-4.9); PTH INTACT 63.5 PG/ML (18.5-88.0); SODIUM LEVEL 148 MMOL/L (136-145); TOTAL IRON BINDING CAPACITY 334 UG/DL (250-425); TOTAL PROTEIN 6.7 G/DL (5.7-8.2)
[2024-09-04 13:56] LABS: FERRITIN 56.8 NG/ML (7.3-270.7); TOTAL 25(OH) VITAMIN D 48.7 NG/ML (20.0-100.0)
== END ==
LOC: M PLALAB 09:48
PROVIDERS: ATTEND Student in an Organized Health Care Education/Training Program
DX: M81.0 Age-related osteoporosis without current pathological fracture (principal); K21.9 Gastro-esophageal reflux disease without esophagitis; N39.0 Urinary tract infection, site not specified; Z98.84 Bariatric surgery status; D50.8 Other iron deficiency anemias

== ENCOUNTER → 2024-11-13 | Outpatient (REF) | payer BC ==
[2024-11-13 11:39] LABS: APPEARANCE, URINE CLEAR (CLEAR); BACTERIA, URINE AUTO NEGATIVE (NEGATIVE); BILIRUBIN, URINE AUTO NEGATIVE (NEGATIVE); BLOOD, URINE BLOOD 1+ (NEGATIVE); COLOR, URINE YELLOW (YELLOW); GLUCOSE, URINE (UA) AUTO NEGATIVE (NEGATIVE); KETONE, URINE AUTO NEGATIVE (NEGATIVE); LEUKOCYTE ESTERASE, URINE AUTO NEGATIVE (NEGATIVE); MUCUS, URINE SMALL (NEGATIVE); NITRITE, URINE AUTO NEGATIVE (NEGATIVE); PROTEIN, URINE AUTO NEGATIVE (NEGATIVE); RBC, URINE AUTO 7 /HPF (0-3); SPECIFIC GRAVITY URINE AUTO 1.024 (1.002-1.035); SQUAMOUS EPITHELIAL CELL UR AU 1 /HPF (0-6); UROBILINOGEN, URINE AUTO 0.2 mg/dL (0.0-2.0); WBC, URINE AUTO 2 /HPF (0-3)
== END ==
LOC: M SMT 10:04
PROVIDERS: ATTEND Specialist
DX: R39.9 Unspecified symptoms and signs involving the genitourinary system (principal)

== ENCOUNTER → 2025-03-06 | Outpatient (CLI) | payer BC ==
[2025-03-06 11:47] LABS: BASO # 0.1 10^3/uL (0.0-0.2); BASO % 0.9 % (0.0-1.0); EOS # 0.5 10^3/uL (0.0-0.5); EOS % 9.4 % (0.0-3.0); LYMPH # 1.5 10^3/uL (1.5-5.0); LYMPH % 26.7 % (24.0-44.0); MONO # 0.6 10^3/uL (0.0-0.8); MONO % 9.6 % (2.0-8.0); NEUTROPHILS # 3.1 10^3/uL (1.5-8.5); NEUTROPHILS % 53.2 % (36.0-66.0); PLATELET COUNT, AUTOMATED 324 10^3/uL (150-450)
[2025-03-06 12:03] LABS: CREATININE, URINE 101.0 MG/DL; MALB URINE SIEMENS 13.0 MG/L; MAU/CREAT RATIO 12.8 MCG/MG (0.0-30.0)
[2025-03-06 12:04] LABS: CORTISOL AM 25.7 UG/DL (4.3-22.4)
[2025-03-06 12:05] LABS: ALT/SGPT 20 U/L (7.0-40); AST/SGOT 19 U/L (<34); CALCIUM LEVEL 9.6 MG/DL (8.3-10.6); CARBON DIOXIDE LEVEL 30 MMOL/L (20-31); CHLORIDE LEVEL 107 MMOL/L (98-107); CREATININE FOR GFR 0.58 MG/DL (0.55-1.30); GLOMERULAR FILTRATION RATE > 90.0 (>45); MAGNESIUM LEVEL 1.9 MG/DL (1.8-2.4); POTASSIUM SERUM 4.9 MMOL/L (3.5-5.1); SODIUM LEVEL 148 MMOL/L (136-145)
[2025-03-06 12:07] LABS: FREE T4 1.04 NG/DL (0.89-1.76)
[2025-03-06 12:08] LABS: PROLACTIN 7.76 NG/ML
== END ==
LOC: M PLALAB 07:34
PROVIDERS: ATTEND Internal Medicine
DX: I95.9 Hypotension, unspecified (principal)

== ENCOUNTER 2025-04-15 11:07 | Emergency (ER) | payer BC ==
[~2025-04-15] VITALS: Ht 165.1 cm; Wt 69.1 kg
[~2025-04-15 11:07] MED LIST changes: +CYAN250T5 PO; +METH-1100 PO; -METH-855 PO; -VITA250T7 PO
[2025-04-15] MEDS ORDERED: RIZA10TA58 (11:35)
[2025-04-15] MEDS ORDERED: MYCO500T (11:35)
[2025-04-15] MEDS ORDERED: LEXA5TAB13 PO (11:35)
[2025-04-15] MEDS ORDERED: TRAZ-257 (11:35)
[2025-04-15 12:56] LABS: BASO # 0.0 10^3/uL (0.0-0.2); BASO % 0.5 % (0.0-1.0); EOS # 0.4 10^3/uL (0.0-0.5); EOS % 5.2 % (0.0-3.0); LYMPH # 1.6 10^3/uL (1.5-5.0); LYMPH % 20.8 % (24.0-44.0); MONO # 0.4 10^3/uL (0.0-0.8); MONO % 5.3 % (2.0-8.0); NEUTROPHILS # 5.1 10^3/uL (1.5-8.5); NEUTROPHILS % 67.9 % (36.0-66.0); PLATELET COUNT, AUTOMATED 363 10^3/uL (150-450)
[2025-04-15 13:01] LABS: ERYTHROCYTE SEDIMENTATION RATE 7 mm/hr (0-30)
[2025-04-15 13:02] LABS: C REACTIVE PROTEIN QUANTITATIV < 0.50 MG/DL (<1.0); CALCIUM LEVEL 9.5 MG/DL (8.3-10.6); CARBON DIOXIDE LEVEL 27 MMOL/L (20-31); CHLORIDE LEVEL 104 MMOL/L (98-107); CREATININE FOR GFR 0.57 MG/DL (0.55-1.30); GLOMERULAR FILTRATION RATE > 90.0 (>45); MAGNESIUM LEVEL 1.6 MG/DL (1.8-2.4); POTASSIUM SERUM 4.4 MMOL/L (3.5-5.1); SODIUM LEVEL 140 MMOL/L (136-145)
[2025-04-15 13:04] LABS: FREE T4 0.99 NG/DL (0.89-1.76)
[2025-04-15 13:44] LABS: KETONE, URINE AUTO RFX NEGATIVE (NEGATIVE); LEUKOCYTE ESTERASE UR AUTO RFX NEGATIVE (NEGATIVE); MUCUS, URINE RFX SMALL (NEGATIVE); NITRITE, URINE AUTO RFX NEGATIVE (NEGATIVE); RBC, URINE AUTO RFX 1 /HPF (0-3); SQUAM EPITHELIAL CELL UR AURFX 0 /HPF (0-6); WBC, URINE AUTO RFX 0 /HPF (0-3)
[2025-04-15] MEDS: MAG SULF 1GM/100ML (MAG RUN) 1 GM in IV 1 EA IV ONE (15:02)
[2025-04-15 17:21] VITALS: BP 134/97; TEMP 98.5; O2SAT 98
== END 2025-04-15 17:29 | disposition home or self-care (01) ==
LOC: M ED 11:07
DX: E83.42 Hypomagnesemia (principal); R53.1 Weakness; E11.9 Type 2 diabetes mellitus without complications; K21.9 Gastro-esophageal reflux disease without esophagitis; I10 Essential (primary) hypertension; Z88.1 Allergy status to other antibiotic agents; Z88.8 Allergy status to other drugs, medicaments and biological substances; Z79.84 Long term (current) use of oral hypoglycemic drugs; Z79.899 Other long term (current) drug therapy; Z79.810 Long term (current) use of selective estrogen receptor modulators (SERMs)
CPT/HCPCS: 70450; 71045; 80047; 80048; 81001; 83735; 84145; 84439; 84443; 85025; 85652; 86140; 87040; 93005; 93041; 94760; 96374; 99285; J3475

== ENCOUNTER → 2025-04-20 | Outpatient (CLI) | payer BC ==
[~2025-04-20] MED LIST changes: +LEXA5TAB13 PO; +MYCO500T; +RIZA10TA58; +TRAZ-257
[2025-04-20 11:09] LABS: ALT/SGPT 25 U/L (7.0-40); AST/SGOT 22 U/L (<34); CALCIUM LEVEL 9.2 MG/DL (8.3-10.6); CARBON DIOXIDE LEVEL 29 MMOL/L (20-31); CHLORIDE LEVEL 106 MMOL/L (98-107); CPK CREATINE PHOSPHOKINASE 70 U/L (34-145); CREATININE FOR GFR 0.54 MG/DL (0.55-1.30); GLOMERULAR FILTRATION RATE > 90.0 (>45); MAGNESIUM LEVEL 1.7 MG/DL (1.8-2.4); POTASSIUM SERUM 3.9 MMOL/L (3.5-5.1); SODIUM LEVEL 144 MMOL/L (136-145)
[2025-04-20 11:54] LABS: CORTISOL AM 8.8 UG/DL (4.3-22.4)
== END ==
LOC: M LAB 10:13
PROVIDERS: ATTEND Internal Medicine
DX: I95.9 Hypotension, unspecified (principal); R53.1 Weakness

== ENCOUNTER → 2025-05-02 | Outpatient (CLI) | payer BC | LOC: M CARPUL 13:30 | PROVIDERS: ATTEND Internal Medicine | DX: M62.81 Muscle weakness (generalized) (principal); I08.0 Rheumatic disorders of both mitral and aortic valves ==

== ENCOUNTER → 2025-05-14 | Outpatient (CLI) | payer BC | LOC: M WHC 06:51 | PROVIDERS: ATTEND Internal Medicine | DX: Z12.31 Encounter for screening mammogram for malignant neoplasm of breast (principal); R92.313 Mammographic fatty tissue density, bilateral breasts ==

== ENCOUNTER → 2025-05-17 | Outpatient (REF) | payer BC | LOC: M WUC 19:04 | PROVIDERS: ATTEND Student in an Organized Health Care Education/Training Program | DX: R30.0 Dysuria (principal) ==

== ENCOUNTER → 2025-05-20 | Outpatient (REF) | payer BC ==
[~2025-05-20] MED LIST changes: +TAMS-18 PO
== END ==
LOC: M SFHCPLAZ 10:24
PROVIDERS: ATTEND Family Medicine
DX: N30.00 Acute cystitis without hematuria (principal)

== ENCOUNTER → 2025-05-20 | Outpatient (CLI) | payer BC ==
[2025-05-20 13:34] LABS: BASO # 0.0 10^3/uL (0.0-0.2); BASO % 0.3 % (0.0-1.0); EOS # 0.1 10^3/uL (0.0-0.5); EOS % 0.8 % (0.0-3.0); LYMPH # 1.4 10^3/uL (1.5-5.0); LYMPH % 11.6 % (24.0-44.0); MONO # 0.8 10^3/uL (0.0-0.8); MONO % 6.4 % (2.0-8.0); NEUTROPHILS # 9.5 10^3/uL (1.5-8.5); NEUTROPHILS % 79.4 % (36.0-66.0); PLATELET COUNT, AUTOMATED 444 10^3/uL (150-450)
[2025-05-20 13:40] LABS: ALT/SGPT 26 U/L (7.0-40); AST/SGOT 23 U/L (<34); CALCIUM LEVEL 9.7 MG/DL (8.3-10.6); CARBON DIOXIDE LEVEL 28 MMOL/L (20-31); CHLORIDE LEVEL 100 MMOL/L (98-107); CREATININE FOR GFR 0.51 MG/DL (0.55-1.30); GLOMERULAR FILTRATION RATE > 90.0 (>45); POTASSIUM SERUM 4.1 MMOL/L (3.5-5.1); SODIUM LEVEL 141 MMOL/L (136-145)
== END ==
LOC: M PLALAB 11:14
DX: N30.00 Acute cystitis without hematuria (principal)

== ENCOUNTER 2025-05-22 08:57 | Emergency (ER) | payer BC ==
[~2025-05-22] VITALS: Ht 165.1 cm; Wt 67.5 kg
[~2025-05-22 08:57] MED LIST changes: -TAMS-18 PO
[2025-05-22] MEDS: GABAPENTIN 300 MG CAP PO ONE ×2 (10:09→19:07)
[2025-05-22 10:40] LABS: BASO # 0.0 10^3/uL (0.0-0.2); BASO % 0.4 % (0.0-1.0); EOS # 0.2 10^3/uL (0.0-0.5); EOS % 1.8 % (0.0-3.0); LYMPH # 1.7 10^3/uL (1.5-5.0); LYMPH % 15.8 % (24.0-44.0); MONO # 0.7 10^3/uL (0.0-0.8); MONO % 7.0 % (2.0-8.0); NEUTROPHILS # 7.7 10^3/uL (1.5-8.5); NEUTROPHILS % 72.5 % (36.0-66.0); PLATELET COUNT, AUTOMATED 507 10^3/uL (150-450)
[2025-05-22 11:09] LABS: C REACTIVE PROTEIN QUANTITATIV 2.18 MG/DL (<1.0)
[2025-05-22] MEDS: PERCOCET 5MG/325MG TAB PO ONE (12:40)
[2025-05-22] MEDS ORDERED: PROHANCE 279.3MG/ML 15ML VIAL As Ordered ONE (13:48)
[2025-05-22] MEDS ORDERED: ISOVUE-370 76% 100 ML VIAL As Ordered ONE (16:38)
[2025-05-22] MEDS: NS (Normal Saline) 0.9% 1,000 ML IV ONE ×2 (17:07→18:33)
[2025-05-22] MEDS: MORPHINE 4 MG/ML 1 ML VIAL IV ONE (17:08)
[2025-05-22 17:21] LABS: KETONE, URINE AUTO RFX NEGATIVE (NEGATIVE); NITRITE, URINE AUTO RFX NEGATIVE (NEGATIVE); RBC, URINE AUTO RFX 3 /HPF (0-3); SQUAM EPITHELIAL CELL UR AURFX 0 /HPF (0-6); WBC, URINE AUTO RFX 4 /HPF (0-3)
[2025-05-22 17:25] LABS: LEUKOCYTE ESTERASE UR AUTO RFX TRACE (NEGATIVE)
[2025-05-22 17:50] LABS: ALT/SGPT 26 U/L (7.0-40); AST/SGOT 23 U/L (<34); CALCIUM LEVEL 9.4 MG/DL (8.3-10.6); CARBON DIOXIDE LEVEL 25 MMOL/L (20-31); CHLORIDE LEVEL 103 MMOL/L (98-107); CREATININE FOR GFR 0.47 MG/DL (0.55-1.30); GLOMERULAR FILTRATION RATE > 90.0 (>45); POTASSIUM SERUM 4.4 MMOL/L (3.5-5.1); SODIUM LEVEL 141 MMOL/L (136-145)
[2025-05-22] MEDS: KETOROLAC 30 MG/ML 1 ML VIAL IV ONE (18:34)
[2025-05-22] MEDS ORDERED: TAMS-18 PO (18:40)
[2025-05-22] MEDS: TAMSULOSIN 0.4 MG CAP PO ONE (19:07)
[2025-05-22 19:46] VITALS: BP 156/80; TEMP 97.1; O2SAT 98
[2025-05-24 06:55] LABS: ERYTHROCYTE SEDIMENTATION RATE 31 mm/hr (0-20)
== END 2025-05-22 19:52 | disposition home or self-care (01) ==
LOC: M ED 08:57
DX: N20.2 Calculus of kidney with calculus of ureter (principal); M54.50 Low back pain, unspecified; M32.9 Systemic lupus erythematosus, unspecified; Z88.1 Allergy status to other antibiotic agents; Z88.8 Allergy status to other drugs, medicaments and biological substances; Z79.84 Long term (current) use of oral hypoglycemic drugs; Z79.810 Long term (current) use of selective estrogen receptor modulators (SERMs); Z79.899 Other long term (current) drug therapy
CPT/HCPCS: 71045; 72158; 74178; 80047; 80053; 81001; 83605; 85025; 85652; 86140; 87086; 87486; 87581; 87633; 87798; 96361; 96374; 96375; 99284; A9576; J1885; Q9967

== ENCOUNTER → 2025-05-28 | Outpatient (REF) | payer BC ==
[~2025-05-28] MED LIST changes: +TAMS-18 PO
[2025-05-28 14:10] LABS: APPEARANCE, URINE CLEAR (CLEAR); BACTERIA, URINE AUTO NEGATIVE (NEGATIVE); BILIRUBIN, URINE AUTO NEGATIVE (NEGATIVE); BLOOD, URINE BLOOD 2+ (NEGATIVE); GLUCOSE, URINE (UA) AUTO NEGATIVE (NEGATIVE); KETONE, URINE AUTO NEGATIVE (NEGATIVE); LEUKOCYTE ESTERASE, URINE AUTO NEGATIVE (NEGATIVE); MUCUS, URINE SMALL (NEGATIVE); NITRITE, URINE AUTO NEGATIVE (NEGATIVE); PROTEIN, URINE AUTO NEGATIVE (NEGATIVE); RBC, URINE AUTO 36 /HPF (0-3); SPECIFIC GRAVITY URINE AUTO 1.018 (1.002-1.035); SQUAMOUS EPITHELIAL CELL UR AU 0 /HPF (0-6); UROBILINOGEN, URINE AUTO 0.2 mg/dL (0.0-2.0); WBC, URINE AUTO 4 /HPF (0-3)
== END ==
LOC: M SMT 13:23
PROVIDERS: ATTEND Urology
DX: Z87.440 Personal history of urinary (tract) infections (principal)

== ENCOUNTER → 2025-06-23 | Outpatient (CLI) | payer BC ==
[2025-06-23 14:28] LABS: APPEARANCE, URINE CLOUDY (CLEAR); BACTERIA, URINE AUTO 1+ (NEGATIVE); BILIRUBIN, URINE AUTO NEGATIVE (NEGATIVE); BLOOD, URINE BLOOD NEGATIVE (NEGATIVE); GLUCOSE, URINE (UA) AUTO NEGATIVE (NEGATIVE); KETONE, URINE AUTO NEGATIVE (NEGATIVE); LEUKOCYTE ESTERASE, URINE AUTO 2+ (NEGATIVE); MUCUS, URINE SMALL (NEGATIVE); NITRITE, URINE AUTO POSITIVE (NEGATIVE); PROTEIN, URINE AUTO NEGATIVE (NEGATIVE); RBC, URINE AUTO 8 /HPF (0-3); SPECIFIC GRAVITY URINE AUTO 1.019 (1.002-1.035); SQUAMOUS EPITHELIAL CELL UR AU 1 /HPF (0-6); UROBILINOGEN, URINE AUTO 0.2 mg/dL (0.0-2.0); WBC, URINE AUTO TNTC /HPF (0-3)
== END ==
LOC: M PLALAB 11:03
PROVIDERS: ATTEND Urology
DX: R39.9 Unspecified symptoms and signs involving the genitourinary system (principal)

== ENCOUNTER → 2025-07-12 | Outpatient (REF) | payer BC | LOC: M LAB REF 18:19 | PROVIDERS: ATTEND Physician Assistant Medical | DX: R30.0 Dysuria (principal) ==